=== PATIENT | male | born 1950 | race Caucasian/White ===

== ENCOUNTER 2016-07-17 11:00 | Inpatient (IN) | payer OTHER ==
[2016-07-17] VITALS (18 sets, daily range): BP systolic 97–126; BP diastolic 66–89; PULSE 84–113; TEMP 36.7–36.9; O2SAT 91–98; Ht 165.1 cm; Wt 68.5 kg
[~2016-07-17] VITALS: Ht 165.1 cm; Wt 68.5 kg
[2016-07-17] MEDS ORDERED: DILT60TA PO (13:31)
[2016-07-17] MEDS ORDERED: CMD/25 PO (13:31)
[2016-07-17] MEDS ORDERED: ATOR-24 PO (13:31)
[2016-07-17] MEDS ORDERED: AMX500 PO (13:31)
[2016-07-17] MEDS ORDERED: ALBU18002 (13:31)
[2016-07-17] MEDS ORDERED: IPRASOL4 INH (13:31)
[2016-07-17] MEDS ORDERED: LISI-461 PO (13:31)
[2016-07-17] MEDS ORDERED: IPRA1AER2 INH (13:31)
[2016-07-17] MEDS ORDERED: PANT40TA PO (13:31)
[2016-07-17] MEDS ORDERED: MoRPHine SULFATE 2 MG/ML CARP IV PRN (13:45)
[2016-07-17] MEDS ORDERED: ALBUT/IPRATROP 3MG/0.5MG NEB 3 ML VIAL INH PRN (13:45)
--- NOTE | 2016-07-17 13:51 | Critical Care Consultation ---
Critical Care Consultation Date of Consultation: Jul 17, 2016. Attending Physician: Social History Smoking Status: Former Smoker (quit smoking two weeks ago) Smokeless Tobacco Use: No Alcohol Use: none Drug Use: none Marital Status: Housing Status: lives alone (and is estranged from his children) Occupation Status: retired (two years ago) Allergies Coded Allergies: No Known Allergies (Unverified , 07/17/16) Home Medications Scheduled Albuterol Sulfate (Proair Respiclick), Unknown Dose UNKNOWN Arformoterol Tartrate (Brovana), 15 MCG INH BIDR Atorvastatin (Lipitor), 40 MG PO DAILY Budesonide (Inhalation) (Pulmicort Respules 0.5MG/2ML), 0.5 MG INH BIDR Diltiazem Hcl (Diltiazem Hcl), PO TID Ipratropium-Albuterol (Duoneb), 1 TREATMENT INH Q4H Lactobacillus Acidophilus (Floranex), 4 TAB PO TIDM Lisinopril (Lisinopril), PO DAILY Metformin Hcl (Glucophage), 500 MG PO DAILY Nystatin (Nystatin), 4 ML PO QID Pantoprazole (Protonix), 40 MG PO DAILY Prednisone (Prednisone), 5 MG PO UD Trimethoprim/Sulfamethoxazole (Bactrim 400MG/80MG), 1 TAB PO BID Warfarin Sod (Coumadin), 1 TAB PO DAILY [Enteral Nutrition Formula], 0.5 CAN PO TIDM
[2016-07-17] MEDS ORDERED: PATIENT'S ALLERGY INFO NEEDS ENTERED SCH (14:00)
--- NOTE | 2016-07-17 14:03 | Critical Care Consultation ---
Critical Care Consultation Date of Consultation: Jul 17, 2016. Attending Physician: Miles Hernandez MD History of Present Illness This is a pleasant 65 year old gentleman presenting as a direct admission to the ICU from [facility]. He was recently hospitalized at [facility] for a COPD exacerbation. He notes he was discharged after 5 days of IV antibiotics (uncertain which antibiotics he was given). He notes that this morning between 2-3 AM he woke up with sudden abdominal pain. He describes it as a mix of "aching, burning, stabbing and cramping" the abdomen between the genitalia and umbilicus. The pain is rated 3/10. He denies radiation to the back. He has been unable to have a bowel movement sine the pain started, nor has he been able to urinate. in addition, he denies have any diarrhea, melena or hematochezia either at home or during his recent hospitalization. He denies any fevers, chills, rigors or nightsweats. He does note multiple visits to [facility] in the past year for flare- ups of his COPD. Each time, he is given nebulizers and steroids. Past Medical/Surgical History Past Medical and Surgical History - Hypertension. - Hypercholesterolemia - Prosthetic Aortic Valve - Mitral Valve repair - Previous History of Diverticulitis Family History Mother and Maternal Aunt: Diabetes Mellitus Social History Smoking Status: Current Every Day Smoker (Quit July 14, smoked 1/2 pack cigarettes for the past 4-5 months) Smokeless Tobacco Use: No Alcohol Use: none Drug Use: none Marital Status: single Housing Status: lives alone, other Occupation Status: retired (previously sold farm equipment) Allergies Coded Allergies: No Known Allergies (Unverified , 07/17/16) Home Medications Scheduled Albuterol Sulfate (Proair Respiclick), Unknown Dose UNKNOWN Amoxicillin (Amoxicillin), PO TID Atorvastatin (Lipitor), 40 MG PO DAILY Diltiazem Hcl (Diltiazem Hcl), PO TID Ipratropium-Albuterol (Combivent Respimat), 2 PUFFS INH QID Lisinopril (Lisinopril), PO DAILY Pantoprazole (Protonix), 40 MG PO DAILY Warfarin Sod (Coumadin), 1 TAB PO DAILY Scheduled PRN Ipratropium-Albuterol (Duoneb), 1 TREATMENT INH Q4H PRN for Shortness of Breath Current Inpatient Medications Current Inpatient Medications Medications (Trade) Dose Ordered Sig/Jim Route Start Time Stop Time Status Last Admin Dose Admin Morphine Sulfate (MoRPHine SULFATE INJ) 2 mg Q2H PRN IV 07/17/16 13:45 07/31/16 13:44 UNV Albuterol/ Ipratropium (Duoneb) 3 ml Q4H PRN INH 07/17/16 13:45 08/16/16 13:44 UNV Review of Systems Review of systems was negative unless stated above. Physical Exam General Appearance: WD/WN, no apparent distress, + mild distress Head: normocephalic, atraumatic Eyes: normal inspection, EOMI ENT: hearing grossly normal, pharynx normal Neck: supple, no adenopathy, no JVD Respiratory/Chest: lungs clear, + pertinent finding (bilateral expiratory wheezing) Cardiovascular: regular rate, rhythm, no gallop, + irregularly irregular Abdomen/GI: normal bowel sounds (slightly hypoactive), + tenderness Back: no muscle spasm Extremities/Musculoskelatal: no calf tenderness, no pedal edema, + pertinent finding (cold extremities) Neurologic/Psych: alert, normal mood/affect, oriented x 3 Skin: normal color, warm/dry, no rash Lymphatic: no adenopathy Laboratory Results Last 24 Hours Test 07/17/16 13:43 07/17/16 13:[address] scan ([facility] ER result) Impression: - Inflammatory Bowel Disease involving the Colon. Differential diagnosis would include pseudomembranous colitis, as well as acute diverticulitis. The acute diverticulitis is less likely. The process is most severe along the lateral left colon at the descending colon. No small bowel obstruction is seen. Loose stool and liquid stool is noted within the colon. - Multiple renal cysts. Incidental cholelithiasis. Assessment & Plan 65 year male presenting with colitis. Differential diagnosis includes C.diff colitis, ulcerative colitis, crohn's disease. On background of recent antibiotic use as recently as 1 day ago, Antibiotic- induced C.diff colitis should be suspected at this time, especially given multiple episodes of diarrhea since arrival to the hospital. Our plan for him is as follows: Neurological - Alert and oriented x 3 - No evidence of confusion Respiratory COPD - Baseline 2 L of nasal cannula at home; currently on 2 L and saturating > 98% - Will start Xopenex in light of tachycardia and include Atrovent q4h He does have wheezing clinically on exam and does appear to be using accessory muscles Will provide one treatment - Patient was recently discharged from [facility] for COPD exacerbation; notes he was on a steroid taper Will require discharge summary with reconciled medications from most recent hospitalization Cardiac Atrial Fibrillation - Patient on Cardizem at home; did not take medications this morning - Notes he is only in Afib occasionally Monitor notes Afib rate of 108 - Coumadin on hold at this time as INR is 3.7 - Administer home dose of PO cardizem; at this time is adequately anticoagulated for stroke prophylaxis Hypertension - Patient on Lisinopril 10 mg PO daily - Patient BP stable currently, but noted to be relatively hypotensive during ER visit in [facility] Hold Lisinopril at this time History of Aortic Valve replacement and Mitral Valve Repair - Patient on Coumadin at home - Aortic valve is porcine - Goal likely 2.0 - 3.0; subtherapeutic; hold Coumadin Abdominal Colitis - On arrival diagnosis of C.diff unlikely given that he did not have any BMs up until that point; since then he has had multiple loose stools - In [facility] ED he received the following 4.5 g Piperacillin/Tazobactam IV 500 mg Flagyl IV Vancomycin 100 mg PO + 125 mg PO - Keep patient on clear liquid diet - Will send for C.diff studies at this time to guide antibiotic choice GI prophylaxis - PPI risk for C.diff - Will start Famotidine IV Genitourinary - Cr 0.9 in [facility] GFR > 60 Repeat in-house BMP pending - Monitor U/O, Daily weights - Electrolytes from [facility] Na 143; K 4.5; Chloride 105; Bicarb 27; BUN 37; Cr 0.9 Endocrine - Stable - No history of diabetes per patient; no meds in home list to suggest diabetic history - Monitor daily BSGs Heme - Hemoglobon 12.9/Hct 39.4 Supratherapeutic INR - Currently 3.7 - Hold Coumadin DVT prophylaxis - Supratherapeutic INR; pharmacological anticoagulation contra-indicatedd - SCD to knee Infectious Disease Possible Sepsis - Afebrile; WBC 19 on arrival to [facility]; in-house CBC elevated at 32 WBC may also be reflective of steroid burst from hospitalization in [facility] - With resp rate > 20 along with evidence of possible GI infection meets SIRS + Evidence of infection criteria - Lactate in [facility] 2.4; will re-check Lactate in-house - Cultures collected at [facility] ED; will need to call daily to follow-up on speciation/sensitivities - UA also collected MRSA Swab Positive - PO Vanco will not cover possible MRSA bacteriemia - Single IV dose 1000 mg Vancomycin now Code Status Level I Code Disposition - ICU - OT and PT to be consulted I have personally evaluated and examined this patient. I agree with assessment and plan of Vinay Corbett PA-C. I reviewed the outside hospital CT scan with radiology. No pneumotosis, less likely C. Diff, most consistent with unspecified infectious colitis. Patient is critically ill due to sepsis from infectious colitis. I have personally spent 40 minutes of critical care time in the direct management of this patient. This is a life/limb threatening event. This includes time spent evaluating patient, direct bedside care, chart review, placing orders, interpretation of diagnostic studies, discussion with consultants, patient, and family members, as well as other required patient management activities. This time is exclusive of all separately billable procedures, and teaching time and separate from and in addition to any other critical care service time.
[2016-07-17 14:55] LABS: HEMATOCRIT 39.8 % (42-52); MEAN CELL VOLUME 90.7 fL (80-100); MEAN CORPUSCULAR HEMOGLOBIN 29.6 pg (25-34); MEAN CORPUSCULAR HGB CONC 32.7 g/dl (32-36); MEAN PLATELET VOLUME 10.7 fL (7.4-10.4); PLATELET COUNT 305 K/uL (130-400); RED BLOOD COUNT 4.39 M/uL (4.7-6.1); WHITE BLOOD COUNT 32.47 K/uL (4.8-10.8)
[2016-07-17] MEDS ORDERED: LEVALBUTEROL/IPRATROPIUM NEB INH SCH (15:00)
[2016-07-17] MEDS ORDERED: DILTIAZEM HCL 60 MG TAB PO ONE (15:00)
[2016-07-17 15:11] LABS: BASO % 0.2 %; BASO ABS # 0.05 K/uL (0-0.2); COMPLETE YES; ECHINOCYTES 1+; LYMPH % 5.4 %; LYMPH ABS # 1.76 K/uL (1.2-3.4); NEUT % 85.4 %
[2016-07-17] MEDS: IPRATROPIUM BROMIDE NEB SOLN 0.02% 2.5 ML VIAL INH SCH ×4 (15:20→23:43)
[2016-07-17] MEDS: LEVALBUTEROL 1.25MG/0.5ML NEB INH SCH ×4 (15:20→23:43)
[2016-07-17 15:35] LABS: BUN/CREATININE RATIO 37.6 (10-20); CALCIUM 7.7 mg/dl (8.5-10.1); CREATININE 1.2 mg/dl (0.60-1.40); MAGNESIUM 2.2 mg/dl (1.8-2.4); POTASSIUM 4.5 mmol/L (3.5-5.1)
[2016-07-17 15:39] LABS: PHOSPHORUS 4.3 mg/dl (2.5-4.9)
[2016-07-17] MEDS ORDERED: VANCOMYCIN CONSULT ACTIVE PRN (15:45)
[2016-07-17 15:48] LABS: URINE APPEARANCE CLEAR (CLEAR); URINE COLOR DK YELLOW; URINE NITRITE NEG (NEG); URINE SPECIFIC GRAVITY > 1.045 (1.000-1.030); UROBILINOGEN NEG (NEG); ZZURINE CULT IF INDIC CATH NO
[2016-07-17 15:58] LABS: MANUAL MICROSCOPIC REQUIRED? NO; REVIEW REQ? NO; URINE BILIRUBIN NEG (NEG)
[2016-07-17] MEDS: VANCOMYCIN HCL 125 MG/2.5ML SOLN PO SCH ×3 (16:30→20:45)
[2016-07-17] MEDS ORDERED: VANCOMYCIN INJ 1,700 MG in SODIUM CHLORIDE 0.9% 500ML 500 ML IV ONE (16:30)
[2016-07-17] MEDS: RASPBERRY SYRUP 5 ML UDP PO SCH ×3 (16:30→20:45)
--- NOTE | 2016-07-17 16:35 | Pharmacy Progress Note ---
Pharmacy Antibiotic Consult Date of Service: Jul 17, 2016. Pharmacy Dosing Scope Pharmacy is consulted to initiate Vancomycin IV dosing therapy, order appropriate labs and adjust drug dose/frequency. Subjective The patient is a 65 year old male admitted on Jul 17, 2016 at 12:27 with possible sepsis. The patient is a direct admission to the ICU from [facility] where he presented with severe abdominal pain and abdominal distention. He was recently admitted to [facility] for five days for a COPD exacerbation. The patient received IV antibiotics during this stay ( exact drug unknown at this time). He has a history of diverticulitis, aortic valve replacement and mitral valve repair. Objective Height (Feet): 5 Height (Inches): 5.00 Weight (Kilograms): 67.200 Lab Results (24hrs): Laboratory Tests Test 07/17/16 14:25 BUN/Creatinine Ratio 37.6 Blood Urea Nitrogen 45 mg/dl Creatinine 1.20 mg/dl White Blood Count 32.47 K/uL Red Blood Count 4.39 M/uL Hemoglobin 13.0 g/dL Hematocrit 39.8 % Mean Corpuscular Volume 90.7 fL Mean Corpuscular Hemoglobin 29.6 pg Mean Corpuscular Hemoglobin Concent 32.7 g/dl Platelet Count 305 K/uL Mean Platelet Volume 10.7 fL Neutrophils (%) (Auto) 85.4 % Lymphocytes (%) (Auto) 5.4 % Monocytes (%) (Auto) 7.0 % Eosinophils (%) (Auto) 0.0 % Basophils (%) (Auto) 0.2 % Neutrophils # (Auto) 27.74 K/uL Lymphocytes # (Auto) 1.76 K/uL Monocytes # (Auto) 2.27 K/uL Eosinophils # (Auto) 0.01 K/uL Basophils # (Auto) 0.05 K/uL Micro Results: Item Value Date Time MRSA DNA Surveillance Screen - Final Complete 07/17/16 1335 Nasal Specimen Positive for MRSA by DNA Probe WBC Smear Received 07/17/16 1335 Stool Pending C.difficile Toxin B Gene (PCR) Received 07/17/16 1335 Stool Pending Additional cultures taken at [facility] prior to transfer Recent Pertinent Medications Zosyn 4.5g IV x 1 ([facility] ER) Flagyl 500 mg IV ([facility] ER) Vanco 125 mg po qid Assessment & Plan Assessment 65 year old direct admission to the ICU from [facility] with possible sepsis of intra-abdominal source (C.diff vs. ulcerative colitis vs. Crohn disease). Patient has significant leukocytosis, is tachycardic, and has an elevated lactic acid. He has a recent five day hospital stay during which he received IV antibiotics. Plan Empiric treatment with vancomycin IV + vancomycin PO (ICU pharmacist discussed with MD - will consider addition of zosyn). Vancomycin IV dosing * Loading dose: 1700 mg (25 mg/kg) * Maintenance dose: 1100 mg (16.4 mg/kg) IV every 16 hours * PK estimates: ke = 0.048 hr-1, T1/2 = 14.4 hr, Vd = 0.7 L/kg (unsure if patient's kidney function is at baseline - no previous admission data) * Goal trough level estimate for possible sepsis: between 15 - 20 mcg/mL. * Trough level has been ordered for: . Pharmacy will continue to follow and will adjust dose/frequency as necessary. Thank you
[2016-07-17] MEDS: FAMOTIDINE IV INJ 20 MG in DEXTROSE 5% 100ML 100 ML IV SCH (16:41)
[2016-07-17] MEDS: SODIUM CHLORIDE 0.9% 1000ML 1,000 ML IV SCH ×2 (16:41→22:29)
[2016-07-17] MEDS ORDERED: IPRATROPIUM BROMIDE/ALBUTEROL respimat INH INH SCH (17:00)
[2016-07-17] MEDS ORDERED: PIPERACILL/TAZOBAC CONSULT ACTIVE PRN (19:15)
[2016-07-17] MEDS ORDERED: PIPERACILL/TAZOBAC IV 4.5 GM in DEXTROSE 5% 100ML IV ONE (19:15)
[2016-07-17] MEDS: DILTIAZEM HCL 60 MG TAB PO SCH (20:45)
[2016-07-17] MEDS ORDERED: GLUCOSE 40% GEL 15 GM TUBE PO PRN (21:00)
[2016-07-17] MEDS ORDERED: DEXTROSE 50% 50 ML SYR IV PRN (21:00)
[2016-07-17] MEDS ORDERED: GLUCAGON FOR INJ 1 MG VIAL SQ PRN (21:00)
[2016-07-17] MEDS ORDERED: GLUCOSE 10 TABS/TUBE PO PRN (21:00)
--- NOTE | 2016-07-17 21:03 | Progress Note ---
Progress Note ATTENDING ADDENDUM care coordinated with VINEET Vera please refer to her notes for full details, I agree with her notes patient seen and examined, records reviewed by myself as well on exam, patient seen laying in bed reports mild dyspnea, wheezing, productive cough still has mild-mod abdominal pain, no diarrhea so far no other symptoms VS noted and reviewed oriented x 3 , not in distress, speaks in sentences with mild effort and accessory muscle use normal rate, irregularly irregular rhythm, no murmurs (+) scattered rales and wheeze bilaterally non distended, soft, nontender no bipedal edema, erythema, warmth no neuro deficits WBC 32k Crea 1.2 ASSESSMENT/PLAN> POSSIBLE INFECTIOUS COLITIS - check c diff, stool cultures - empiric Vanco and Zosyn COPD EXACERBATION - check CXR - start Solumedrol 60mg q8h, Nebs q4h, add Doxycycline for coverage of atypical organisms HYPERGLYCEMIA history of DM Sliding Scale, Pharmacy consult A FIB continue Diltiazem check INR before resuming coumadin other diagnoses and plan of care as per VINEET Vera's notes Miles Hernandez MD
[2016-07-17] MEDS ORDERED: PHARMACY GLYCEMIC MGMT CONSULT PRN (21:26)
--- NOTE | 2016-07-17 21:48 | DIAGNOSTIC IMAGING REPORT ---
CHEST ONE VIEW PORTABLE CLINICAL HISTORY: r/o pneumonia dyspnea COMPARISON STUDY: No previous studies for comparison. FINDINGS: Small parenchymal infiltrate left base. Prior median sternotomy. Diaphragms smooth. Lungs otherwise are clear. IMPRESSION: Small parenchymal infiltrate left lung base Electronically signed by: Adam Collins M.D. 07/17/2016 9:46 PM
[2016-07-17] MEDS ORDERED: PIPERACILL/TAZOBAC IV 3.375 GM in DEXTROSE 5% 100ML 100 ML IV SCH (22:00)
[2016-07-17] MEDS: METHYLPREDNISOLONE IV 60 MG in SYRINGE 0 ML IV SCH (22:27)
[2016-07-17] MEDS: DOXYCYCLINE HYCLATE 100 MG CAP PO SCH (22:27)
[2016-07-17] MEDS: INSULIN ASPART 100 UNITS/ML 3 ML PEN SC SCH (22:29)
[2016-07-17 22:56] LABS: INR 3.5 (0.9-1.1); PROTHROMBIN TIME (PATIENT) 38.9 SECONDS (9.0-12.0)
[2016-07-18] VITALS (25 sets, daily range): BP systolic 102–140; BP diastolic 67–105; PULSE 80–112; TEMP 36.4–36.9; O2SAT 91–98
--- NOTE | 2016-07-18 | History and Physical ---
History & Physical Date & Time of Service: Jul 17, 2016 at 14:26 Chief Complaint: Acute Colitis, Sepsis Primary Care Physician: Dr. Canas History of Present Illness Source: patient, hospital records ([facility] ER records) This is a 65 y/o male with PMH of COPD, chronic respiratory failure on 2L NC continuous, paroxysmal AF, HTN, HL, aortic stenosis s/p bioprosthetic AVR, s/p mitral valve repair, and other problems listed below who presents as a transfer to the ICU from [facility] ER. Patient was recently hospitalized x 5 days at [facility] for COPD exacerbation treated with IV abx and steroids and was discharged yesterday. Then at 2 am he awoke with sudden onset of low abdominal pain described as cramping. He had one episode of vomiting this morning without any hematemesis. He was not having any BM recently until in the ICU had multiple loose BM. No hematochezia or melena. He was unable to urinate today and had bladder scan >500 cc so Yun was placed in the ICU. He admits to SOB and wheezing. He denies fever, chills, cough, chest pain. Patient reports multiple hospitalizations in past year for COPD exacerbation. He admits to history of acute diverticulitis in the remote past. Denies history of abdominal surgery. In addition, on review of [facility] chart, he was [place] [facility] [place] for enterococcal bacteremia and had MIGUEL showing aortic valve endocarditis tx with 6 wk course of PCN and ceftriaxone. Past Medical/Surgical History Medical Problems: (1) COPD (chronic obstructive pulmonary disease) Status: Chronic (2) Dyslipidemia Status: Chronic (3) HTN (hypertension) Status: Chronic (4) Paroxysmal a-fib Status: Chronic Surgical Problems: (1) H/O aortic valve replacement Status: Chronic (2) H/O mitral valve repair Status: Chronic Family History Diabetes mellitus MOTHER Social History Smoking Status: Current Every Day Smoker (was prior 07/15 ppd smoker- quit july 14) Smokeless Tobacco Use: No Alcohol Use: none Allergies Coded Allergies: No Known Allergies (Unverified , 07/17/16) Home Medications Scheduled Albuterol Sulfate (Proair Respiclick), Unknown Dose UNKNOWN Amoxicillin (Amoxicillin), PO TID Atorvastatin (Lipitor), 40 MG PO DAILY Diltiazem Hcl (Diltiazem Hcl), PO TID Ipratropium-Albuterol (Combivent Respimat), 2 PUFFS INH QID Lisinopril (Lisinopril), PO DAILY Pantoprazole (Protonix), 40 MG PO DAILY Warfarin Sod (Coumadin), 1 TAB PO DAILY Scheduled PRN Ipratropium-Albuterol (Duoneb), 1 TREATMENT INH Q4H PRN for Shortness of Breath Review of Systems Ten point review of systems performed with pertinent positives and negatives note din HPI. Physical Exam General Appearance: WD/WN, + pertinent finding (appears mildly uncomfortable) Head: normocephalic, atraumatic Eyes: normal inspection, PERRL, EOMI ENT: normal ENT inspection, hearing grossly normal Neck: supple, no JVD, trachea midline Respiratory/Chest: + decreased breath sounds, + pertinent finding (expiratory wheezing heard throughout, mild accessory muscle use, pursed lip breathing, able to speak in full sentences) Cardiovascular: no murmur, + irregularly irregular Abdomen/GI: soft, + abnormal bowel sounds (present but hypoactive), + pertinent finding (diffusely tender to palpation) Genitourinary - Male: + pertinent finding (yun catheter draining yellow urine ) Extremities/Musculoskelatal: no calf tenderness, normal capillary refill, no pedal edema Neurologic/Psych: alert, normal mood/affect, oriented x 3, + pertinent finding (grossly nonfocal) Skin: normal color, warm/dry Diagnostics Laboratory Results Results Past 24 Hours Test 07/17/16 13:43 07/17/16 13:51 Range/Units Microbiology Results 07/17/16 MRSA DNA Surveillance Screen, Received Pending 07/17/16 C.difficile Toxin B Gene (PCR), Koki Batch Pending 07/17/16 WBC Smear, Koki Batch Pending 07/17/16 Shiga Toxin Test, Koki Batch Pending 07/17/16 Stool Culture, Koki Batch Pending Diagnostic Radiology CT A/P from [facility] ER- " Inflammatory Bowel Disease involving the Colon. Differential diagnosis would include pseudomembranous colitis, as well as acute diverticulitis. The acute diverticulitis is less likely. The process is most severe along the lateral left colon at the descending colon. No small bowel obstruction is seen. Loose stool and liquid stool is noted within the colon. Multiple renal cysts. Incidental cholelithiasis." Impression Assessment and Plan POSSIBLE SEPSIS Afebrile, WBC 19 at [facility] ER and 32K here, + tachypnea, HR 100s, borderline hypotension (90s/50s) at [facility]; lactic acid 2.4 at [facility]- recheck lactic acid Blood cultures obtained at [facility] ER Possible GI and Pulm sources Treated with IV Zosyn, IV Flagyl, and PO Vanco at [facility] Had positive MRSA swab- IV vancomycin ordered Now on PO vancomycin, IV vancomycin, and IV Zosyn; doxycycline added for pulm atypical coverage Appreciate hand lacer recs COLITIS Ruled out for C. diff; Ddx includes infectious colitis vs. inflammatory bowel disease CT A/p from [facility] noted above Treated with IV Zosyn, IV Flagyl, and PO Vanco at [facility] Check stool culture and C. diff COPD WITH EXACERBATION With chronic respiratory failure requiring 2 liters NC continuous Recently treated with abx/ steroids for COPD exac during hospitalization at [facility] from Jul 12-Jul 16 Check CXR- left side infiltrate IV steroids and nebs ordered Doxycycline added PAROXYSMAL AFIB Rate is controlled Continue Cardizem INR was 3.7 at [facility] ER Hold Coumadin HTN Was borderline hypotensive at [facility] ER (BP low as 90s/50s) Lisinopril held for now HX AORTIC VALVE REPLACEMENT AND MITRAL VALVE REPAIR HYPERGLYCEMIA Insulin sliding scale ordered Check A1c Pharmacy consulted for glycemic management DYSLIPIDEMIA Continue statin DVT PROPHYLAXIS SCD's, Coumadin on hold for supratherapeutic INR CODE STATUS Full code per hand lacer's discussion with patient Patient seen in collaboration with Dr. Hernandez. Please see his addendum. VTE Prophylaxis VTE Risk Assessment Done? Y/N: Yes Risk Level: Not Assessed
[2016-07-18] MEDS: PIPERACILL/TAZOBAC IV 4.5 GM in DEXTROSE 5% 100ML IV SCH ×3 (01:33→17:24)
[2016-07-18] MEDS: FAMOTIDINE IV INJ 20 MG in DEXTROSE 5% 100ML 100 ML IV SCH ×2 (03:31→16:34)
[2016-07-18] MEDS: LEVALBUTEROL 1.25MG/0.5ML NEB INH SCH ×6 (04:08→23:44)
[2016-07-18] MEDS: IPRATROPIUM BROMIDE NEB SOLN 0.02% 2.5 ML VIAL INH SCH ×6 (04:08→23:44)
[2016-07-18] MEDS: METHYLPREDNISOLONE IV 60 MG in SYRINGE 0 ML IV SCH (05:29)
[2016-07-18] MEDS: SODIUM CHLORIDE 0.9% 1000ML 1,000 ML IV SCH ×2 (05:29→09:40)
[2016-07-18] MEDS ORDERED: VANCOMYCIN INJ 1,100 MG in SODIUM CHLORIDE 0.9% 250ML 250 ML IV SCH ×2 (06:00→20:00)
[2016-07-18 06:06] LABS: MEAN CELL VOLUME 90.5 fL (80-100); MEAN CORPUSCULAR HEMOGLOBIN 29.8 pg (25-34); MEAN CORPUSCULAR HGB CONC 32.9 g/dl (32-36); MEAN PLATELET VOLUME 11.2 fL (7.4-10.4); PLATELET COUNT 198 K/uL (130-400); WHITE BLOOD COUNT 22.99 K/uL (4.8-10.8)
[2016-07-18 06:43] LABS: BUN/CREATININE RATIO 47.8 (10-20); CALCIUM 7.2 mg/dl (8.5-10.1); CREATININE 0.93 mg/dl (0.60-1.40); MAGNESIUM 2.1 mg/dl (1.8-2.4)
[2016-07-18 06:46] LABS: INR 2.8 (0.9-1.1); PROTHROMBIN TIME (PATIENT) 30.8 SECONDS (9.0-12.0)
[2016-07-18 06:50] LABS: ALB/GLOB RATIO 0.8 (0.9-2); PHOSPHORUS 3.4 mg/dl (2.5-4.9)
[2016-07-18 06:59] LABS: ESTIMATED AVERAGE GLUCOSE 166 mg/dl; HA1C FLAG Normal (Normal)
[2016-07-18] MEDS ORDERED: ONDANSETRON INJ 2 MG/ML 2 ML VIAL ONE (07:35)
[2016-07-18] MEDS ORDERED: INSULIN GLARGINE SOLOSTAR 100 UNITS/ML 3 ML PEN SC ONE (07:45)
[2016-07-18] MEDS ORDERED: NURSING VERBAL MED ORDER ONE (07:45)
--- NOTE | 2016-07-18 08:05 | Clinical Documentation Query ---
CLINICAL DOCUMENTATION QUERY 65-y/o male who presents as a direct admit from [facility] with suspected sepsis. In your clinical opinion is this patient being managed for: ( ) Aspiration pneumonia in setting of recent N/V ( ) Staphylococcal pneumonia in setting of HCAP (X ) Other explanation of clinical findings (Please Explain) Possible Pneumonia, unknown etiology ( ) Unable to determine (Please Define) ( ) Need to Discuss ( ) Not Agree The medical record reflects the following clinical findings, treatment, and risk factors. Clinical Indicators: Recent hospitalization for COPD exacerbation. Recent N/V. CXR showing infiltrate to left lung. Leukocytosis 32.47, tachypnea 28, tachycardia 107, and elevated BSG 227. +MRSA swab. Treatment: IVF boluses, Duonebs, IV Vancomycin, IV Zosyn, IV Solumedrol, PO Doxycycline, ICU hemodynamic monitoring, Risk Factors: Age, COPD, recent N/V, recent hospital stay. Please clarify and document your clinical opinion in the progress notes and discharge summary. Terms such as "probable", "suspected", "likely", "questionable", "possible", or "still to be ruled out" are acceptable. IF IN AGREEMENT, YOU MUST DOCUMENT ABOVE DIAGNOSTIC STATEMENT IN DAILY PROGRESS NOTES AND DISCHARGE SUMMARY. This document is not part of the patient's record. Thank You, Fran Clifton RN [phone]
[2016-07-18] MEDS ORDERED: ATORVASTATIN 40 MG TAB PO SCH (09:00)
--- NOTE | 2016-07-18 09:29 | Progress Note ---
Medicine Progress Note Date & Time of Visit: Jul 18, 2016 at 09:17. Subjective patient seen resting in bed states he feels slightly improved today breathing is somewhat improved, still has cough, unable to expectorate, denies chest pain has mild to moderate abdominal discomfort, had 2-3 diarrhea episodes last night , none today, no nausea denies other symptoms Objective Last 8 Hrs Date Time Temp Pulse Resp B/P Pulse Ox O2 Delivery O2 Flow Rate FiO2 07/18/16 08:00 Nasal Cannula 2.0 07/18/16 07:59 36.9 83 22 107/67 98 Nasal Cannula 2.0 07/18/16 07:59 100 16 93 Nasal Cannula 3.0 07/18/16 06:59 100 15 127/81 95 Nasal Cannula 2.0 07/18/16 04:08 101 16 96 Nasal Cannula 3.0 07/18/16 04:00 96 Nasal Cannula 2.0 07/18/16 04:00 36.7 07/18/16 02:59 92 18 135/83 96 07/18/16 01:59 81 15 104/85 95 Physical Exam: General-oriented x 3, not in distress, speaks in sentences with no effort, no accessory muscle use Eyes- EOMI, anicteric ENT-oral thrush Neck- supple, no JVD, no adenopathy Lungs- (+) mild scattered wheeze bilaterally Heart-tachycardic, irregularly irregular rhythm; no murmurs Abdomen- normal bowel sounds, non distended, soft, mild lower quadrant tenderness Extremities- no pretibial edema, no calf tenderness; peripheral pulses intact Neuro- alert, oriented x 3; no gross focal deficits Skin- warm & dry Laboratory Results: Last 24 Hours Test 07/17/16 14:15 07/17/16 14:25 07/17/16 16:36 07/17/16 19:46 Urine Color DK YELLOW Urine Appearance CLEAR Urine pH 5.0 Urine Specific [place] > 1.045 Urine Protein NEG Urine Glucose (UA) 3+ Urine Ketones NEG Urine Occult Blood NEG Urine Nitrite NEG Urine Bilirubin NEG Urine Urobilinogen NEG Urine Leukocyte Esterase NEG White Blood Count 32.47 K/uL Red Blood Count 4.39 M/uL Hemoglobin 13.0 g/dL Hematocrit 39.8 % Mean Corpuscular Volume 90.7 fL Mean Corpuscular Hemoglobin 29.6 pg Mean Corpuscular Hemoglobin Concent 32.7 g/dl Platelet Count 305 K/uL Mean Platelet Volume 10.7 fL Neutrophils (%) (Auto) 85.4 % Lymphocytes (%) (Auto) 5.4 % Monocytes (%) (Auto) 7.0 % Eosinophils (%) (Auto) 0.0 % Basophils (%) (Auto) 0.2 % Neutrophils # (Auto) 27.74 K/uL Lymphocytes # (Auto) 1.76 K/uL Monocytes # (Auto) 2.27 K/uL Eosinophils # (Auto) 0.01 K/uL Basophils # (Auto) 0.05 K/uL RDW Standard Deviation 54.3 fL RDW Coefficient of Variation 16.6 % Immature Granulocyte % (Auto) 2.0 % Immature Granulocyte # (Auto) 0.64 K/uL Echinocytes 1+ Sodium Level 145 mmol/L Potassium Level 4.5 mmol/L Chloride Level 109 mmol/L Carbon Dioxide Level 25 mmol/L Anion Gap 11.0 mmol/L Blood Urea Nitrogen 45 mg/dl Creatinine 1.20 mg/dl Est Creatinine Clear Calc Drug Dose 52.7 ml/min Estimated GFR () 72.6 Estimated GFR (Non- 62.6 BUN/Creatinine Ratio 37.6 Random Glucose 227 mg/dl Lactic Acid Level 3.3 mmol/L 1.6 mmol/L Calcium Level 7.7 mg/dl Phosphorus Level 4.3 mg/dl Magnesium Level 2.2 mg/dl Total Bilirubin 0.6 mg/dl Direct Bilirubin 0.1 mg/dl Aspartate Amino Transf (AST/SGOT) 13 U/L Alanine Aminotransferase (ALT/SGPT) 35 U/L Alkaline Phosphatase 133 U/L Total Protein 4.6 gm/dl Albumin 2.5 gm/dl Lipase 151 U/L Hepatitis C Antibody Screen NEG Bedside Glucose 198 mg/dl Test 07/17/16 20:48 07/17/16 22:16 07/18/16 05:30 07/18/16 06:30 Bedside Glucose 227 mg/dl Prothrombin Time 38.9 SECONDS 30.8 SECONDS Prothromb Time International Ratio 3.5 2.8 White Blood Count 22.99 K/uL Red Blood Count 4.20 M/uL Hemoglobin 12.5 g/dL Hematocrit 38.0 % Mean Corpuscular Volume 90.5 fL Mean Corpuscular Hemoglobin 29.8 pg Mean Corpuscular Hemoglobin Concent 32.9 g/dl RDW Standard Deviation 55.5 fL RDW Coefficient of Variation 16.9 % Platelet Count 198 K/uL Mean Platelet Volume 11.2 fL Sodium Level 146 mmol/L Potassium Level 4.0 mmol/L Chloride Level 113 mmol/L Carbon Dioxide Level 24 mmol/L Anion Gap 9.0 mmol/L Blood Urea Nitrogen 45 mg/dl Creatinine 0.93 mg/dl Est Creatinine Clear Calc Drug Dose 68.0 ml/min Estimated GFR () 98.8 Estimated GFR (Non- 85.2 BUN/Creatinine Ratio 47.8 Random Glucose 245 mg/dl Estimated Average Glucose 166 mg/dl Hemoglobin A1c 7.4 % Calcium Level 7.2 mg/dl Phosphorus Level 3.4 mg/dl Magnesium Level 2.1 mg/dl Total Bilirubin 0.6 mg/dl Aspartate Amino Transf (AST/SGOT) 15 U/L Alanine Aminotransferase (ALT/SGPT) 27 U/L Alkaline Phosphatase 126 U/L Total Protein 4.4 gm/dl Albumin 1.9 gm/dl Globulin 2.5 gm/dl Albumin/Globulin Ratio 0.8 Test 07/18/16 06:32 Bedside Glucose 265 mg/dl Date/Time Source Procedure Growth Status 07/17/16 13:35 Nasal MRSA DNA Surveillance Screen - Final Specimen Positive for MRSA by DNA Probe Complete 07/17/16 13:35 Stool C.difficile Toxin B Gene (PCR) - Final No C. difficile toxin B gene detected Complete 07/17/16 13:35 Stool WBC Smear - Final Resulted 07/17/16 13:35 Stool Shiga Toxin Test Pending Resulted 07/17/16 13:35 Stool Stool Culture Pending Resulted Assessment & Plan 65 year old male with history of COPD on 2 liters NC, A fib on coumadin, AV replacement, MV Repair, Hypertension POSSIBLE SEPSIS SECONDARY TO COLITIS, PNEUMONIA Afebrile, WBC 19 at [facility] and 32K here, + tachypnea, HR 100s, borderline hypotension (90s/50s) at [facility]; lactic acid 2.4 at [facility]- recheck lactic acid Blood cultures obtained at [facility] Treated with IV Zosyn, IV Flagyl, and PO Vanco at [facility] -- afebrile, WBC decreasing COLITIS Ruled out for C. diff; Ddx includes infectious colitis vs. inflammatory bowel disease CT A/p from [facility] noted - C diff negative stool cultures pending - on empiric Zosyn clear liquids IV fluids - GI consulted LEFT LOWER LOBE PNEUMONIA - ff up blood, sputum cultures - (+) MRSA nasal swab - continue Vancomycin, Zosyn, Doxycycline Day 2 COPD WITH EXACERBATION With chronic respiratory failure requiring 2 liters NC continuous Recently treated with abx/ steroids for COPD exac during hospitalization at [facility] from Jul 12-Jul 16 -- Nebs q4h, Solumedrol q6h, antibiotics -- seems to be improving PAROXYSMAL AFIB Rate is controlled Continue Cardizem -- INR 2.8 hold coumadin HTN Was borderline hypotensive at [facility] (BP low as 90s/50s) Lisinopril held for now DM TYPE 2 A1c 7.2 ISS Pharmacy consulted HX AORTIC VALVE REPLACEMENT AND MITRAL VALVE REPAIR ff up blood cultures DYSLIPIDEMIA hold statin until gi symptoms resolved DVT PROPHYLAXIS SCD's, Coumadin on hold for supratherapeutic INR CODE STATUS Full code per revolving field assembler's discussion with patient Disposition pending Current Inpatient Medications: Current Inpatient Medications Medications (Trade) Dose Ordered Sig/Jim Route Start Time Stop Time Status Last Admin Dose Admin Morphine Sulfate (MoRPHine SULFATE INJ) 2 mg Q2H PRN IV 07/17/16 13:45 07/31/16 13:44 07/17/16 17:09 2 MG Albuterol/ Ipratropium (Duoneb) 3 ml Q4H PRN INH 07/17/16 13:45 08/16/16 13:44 Future Hold Atorvastatin Calcium (Lipitor Tab) 40 mg DAILY PO 07/18/16 09:00 08/17/16 08:59 Diltiazem HCl 60 mg 60 mg TID PO 07/17/16 21:00 08/16/16 20:59 07/17/16 20:45 60 MG Famotidine/ Dextrose (Pepcid IV Inj/ D5 100ml) 102 ml @ 200 mls/hr Q12H IV 07/17/16 16:00 08/16/16 15:59 07/18/16 03:31 200 MLS/HR Nicotine (Nicoderm Cq 7 Mg Patch) 1 patch QAM TD 07/18/16 09:00 08/17/16 08:59 Miscellaneous 1 ea 1 ea HS N/A 07/17/16 21:00 08/16/16 20:59 07/17/16 20:45 1 EA Sodium Chloride (Nss 1000ml) 1,000 ml @ 150 mls/hr Q6H40M IV 07/17/16 15:30 08/16/16 15:29 07/18/16 05:29 150 MLS/HR Vancomycin HCl (Consult) 1 ea UD PRN N/A 07/17/16 15:45 08/16/16 15:44 Vancomycin HCl (Vancomycin Oral Soln) 125 mg QID PO 07/17/16 16:30 07/31/16 16:29 07/17/16 20:45 125 MG Raspberry 5 ml 5 ml QID PO 07/17/16 16:30 07/31/16 16:29 07/17/16 20:45 5 ML Vancomycin HCl/ Sodium Chloride (Vancomycin Inj/ Nss 250ml) 272 ml @ 125 mls/hr Q16H IV 07/18/16 06:00 07/27/16 15:59 07/18/16 05:29 125 MLS/HR Piperacillin Sod/ Tazobactam Sod 1 ea 1 ea UD PRN N/A 07/17/16 19:15 08/16/16 19:14 Piperacillin Sod/ Tazobactam Sod/ Dextrose (Zosyn Iv/D5 100ml) 120 ml @ 30 mls/hr Q8@0200,1000,1800 IV 07/18/16 02:00 07/28/16 01:59 07/18/16 01:33 30 MLS/HR Ipratropium [place] (Atrovent 0.02% 0.5MG/2.5ML Neb) 0.5 mg Q4R INH 07/17/16 21:00 08/16/16 20:59 07/18/16 07:56 0.5 MG Levalbuterol 1.25 mg 1.25 mg Q4R INH 07/17/16 21:00 08/16/16 20:59 07/18/16 07:59 1.25 MG Methylprednisolone Sodium Succinate/ Syringe (Solu-Medrol IV/ Syringe) 0.96 ml @ 1.5 mls/min Q8@0600,1400,2200 IV 07/17/16 22:00 08/16/16 21:59 07/18/16 05:29 1.5 MLS/MIN Insulin Aspart (novoLOG ASPART) SLIDING SCALE If C... ACHS SC 07/17/16 22:00 08/16/16 21:59 07/17/16 22:29 2 UNITS Glucose (Glucose 40% Gel) 15-30 GRAMS 15 GRAMS... UD PRN PO 07/17/16 21:00 08/16/16 20:59 Glucose (Glucose Chew Tab) 4-8 Tablets 4 Tabl... UD PRN PO 07/17/16 21:00 08/16/16 20:59 Dextrose (Dextrose 50% 50ML Syringe) 25-50ML OF 50% DW IV FOR... UD PRN IV 07/17/16 21:00 08/16/16 20:59 Glucagon (Glucagon Inj) 1 mg UD PRN SQ 07/17/16 21:00 08/16/16 20:59 Miscellaneous Information (Consult Glycemic Management Pharmacy) 1 ea UD PRN N/A 07/17/16 21:26 08/16/16 21:25 Doxycycline Hyclate (Vibramycin Cap) 100 mg BID PO 07/17/16 21:00 07/24/16 20:59 07/17/16 22:27 100 MG Ondansetron HCl (Zofran Inj) 4 mg Q6H PRN IV 07/18/16 08:00 08/17/16 07:59
[2016-07-18] MEDS: DILTIAZEM HCL 60 MG TAB PO SCH ×3 (09:31→21:38)
[2016-07-18] MEDS: DOXYCYCLINE HYCLATE 100 MG CAP PO SCH ×2 (09:31→21:38)
[2016-07-18] MEDS: NICOTINE 7 MG/24 HR TDSY TD SCH (09:32)
[2016-07-18] MEDS: INSULIN ASPART 100 UNITS/ML 3 ML PEN SC SCH ×4 (09:38→21:43)
[2016-07-18] MEDS: RASPBERRY SYRUP 5 ML UDP PO SCH (09:39)
[2016-07-18] MEDS: VANCOMYCIN HCL 125 MG/2.5ML SOLN PO SCH (09:40)
[2016-07-18] MEDS: NYSTATIN SUSP 500,000 U/5 ML UDC PO SCH ×5 (10:00→21:38)
--- NOTE | 2016-07-18 11:24 | Critical Care Progress Note ---
Critical Care Progress Note Date of Service Jul 18, 2016. Attending Dr. Hsu Subjective Patient appears more awake and alert today Feels a little bit better; still gets intermittent cramping but less intense Had 2 jany colored stools overnight per nursing No other issues during overnight period Objective Physical Exam: General: Comfortable, no apparent distress Eyes: PERRL, normal EOM bilaterally ENT: Mucous membranes slightly dry, pharynx clear, TM clear Neck: No JVD, no lymphadenopathy, no thyromegaly Lungs: Clear to auscultation bilaterally, wheezing noted on examination yes improved after nebulizer treatment; still likely persistent at low grade due to COPD, no crackles Heart: S1 and S2 with no added sounds or murmurs Abdomen: Soft, mildly distended, diffuse low-grade tenderness; cannot palpate deep due to tenderness; bowel sounds audible Extremities: No pitting edema, no asymmetric swelling, no calf pain or tenderness Neuro: AO x 3, responds to commands appropriately, normal mood and affect Assessment & Plan 65 year male presenting with colitis. Differential diagnosis includes C.diff colitis, non-specific infectious colitis , ulcerative colitis, crohn's disease. He comes here on background of recent antibiotic 1 day prior to arrival at [facility]. 2 C.diff toxin assays have been negative, making C.diff less likely etiology. However, it is unclear at this time, whether he has previously been treated for C.diff especially at most recent admission at [facility]. Our plan for him is as follows: Neurological - Alert and oriented x 3; ICU-CAM negative - Stable Respiratory COPD - Baseline 2 L of nasal cannula at home; currently on 2 L maintaining saturations - Continue Xopenex and Atrovent nebs q 4 hourly - Solu-medrol 60 mg IV TID Noted from discharge summary from [facility] on 07/16 Noted to have made upwards of 50 visits to the ED with 8 hospitalizations for COPD exaccerbations Patient was weaned to 10 mg PO. On exam, he is on baseline O2 needs, reduced wheezing Reduce Solu-medrol dosing to 40 mg IV BID; can easily be converted to PO tomorrow Reviewe discharge medications from [facility]. Patient was to take Brovana and Pulmicort Nebs BID on discharge which were not on his medication regimen on arrival to [facility] Brovana nebs BID Pulmicort nebs BID Will need prescriptions for these medicines at discharge Left Lower Lobe Infiltrate - As reported by radiology - Started on Doxycycline for atypical coverage - Patient is MRSA colonized; cannot rule out MRSA source --> Vancomycin started on admission Cardiac Atrial Fibrillation - Patient is asymptomatic at this time; does not report palpitations - Patient on Cardizem at home; did not take medications this morning - Notes he is only in Afib occasionally Monitor notes Afib rate high 90s - low 100s - INR 2.8 today; within range of 2-3; adequately anticoagulated - Continue home dosing of Cardizem Hypertension - BP stable, most recent 135/83 - Continue to monitor off Lisinopril History of Aortic Valve replacement and Mitral Valve Repair - Patient on Coumadin at home 2.5 mg daily - Aortic valve is porcine - Goal likely 2-3. Today INR improved to 2.8. Abdominal Possible Colitis - Unlikely give C.diff toxin assay negative x 2 -However, old records from [facility] from most recent admission requested; we are looking for evidence that he was diagnosed and/or treated for C.diff at their facility, which may result in false negative toxin assay when arrived to [facility] - Blood cultures from [facility] reporting Gram negative rods; identities and sensitivities unknown - No mention of C. diff in notes from his most recent admission to [facility] - Continue Piperacillin/Tazobactam - Keep patient on clear liquid diet GI prophylaxis - Famotidine (conversely, PPI increases risk of C.diff so will avoid in light of ongoing colitis) Genitourinary - Cr 0.9; increased to 1.2 on admission yesterday but gone back down to 0.9 - Monitor U/O, Daily weights UO yesterday was 850 mll out (0.5 ml/kg/hr) - Electrolytes Na 146; K 4.0; Cl 113; HCO3 24; BUN 45 (stable); Cr 0.93 Endocrine - BSG yesterday/overnight ranging from 198-227 I would expect patient was on steroids during most recent admission causing insulin resistance - HbA1c elevated at 7.4, which suggests this is long-standing - Insulin Sliding Scale ordered: Goal 140-180; CF 30; Correction Factor 15 Heme - Hemoglobin 12.9/Hct 39.4 Supratherapeutic INR - INR normalized today to 2.8 - Restart Coumadin Today - Daily INR DVT prophylaxis - INR therapeutic today - SCDs ordered Infectious Disease Sepsis due to Colitis - Blood cultures from [facility] report Gram negative Rods - Patient arrived with Leukocytosis RR > 20, tachycardia and Tachypnea - Lactate went as high as 3.3 - Today; Afebrile; WBC improved to 22, down from 32 yesterday; Lactate down to 1.2; BP Stable; continues to have mild tachypnea Consider leukocytosis as possibly being caused by recent course of steroids - Possible etiologies UA negative; no reflex culture Infiltrate on CXR --> ?PNA? Colitis on CT; C.diff negative; non-specific infectious colitis? Bacteremia with Gram negative rods - Unlikely to be C.diff; It is inclear if patient diagnosed/treated for C.diff at [facility] giving negative result. Old records reviewed; no mention on most recent admission on 07/10 - 07/16 of diagnosis/treatment for C.diff colitis. Thus we have sufficient evidence to rule-out C.diff Stop PO Vancomycin - History notes multiple hospital visits due to COPD flare-up; patient should be treated for health-care associated infection --> Patient requires Pseudomonas coverage - Continue Piperacillin/Tazobactam coverage for gram negatives including Pseudomonas - Reviewed resistance patterns with antibiogram from [facility]. Notes Pseudomonas has 95% sensitivity to Zosyn; would hold off on Dual coverage at this time. PNA with concurrent MRSA Swab Positive - No gram positives noted on blood culture therefore not MRSA bacteremia - Possible MRSA involvement with PNA - Continue IV Vancomycin - Continue Doxycycline Code Status Level I Code Disposition - Patient is hemodynamically stable at this time and requiring baseline oxygen of 2L Patient can be transferred - OT and PT to be consulted Resident Physician Supervision Note: Dr. Gomez was resident physician during care of patient. I separately evaluated patient and did history and exam. I discussed the case with the resident and generally agree with the findings and plan. Patient with bacteremia and unofficial heart valves, will require echo to further evaluate source. Likely source remains most likely the colon. I have personally spent 35 minutes of critical care time in the direct management of this patient. This is a life/limb threatening event. This includes time spent evaluating patient, direct bedside care, chart review, placing orders, interpretation of diagnostic studies, discussion with consultants, patient, and family members, as well as other required patient management activities. This time is exclusive of all separately billable procedures, and teaching time and separate from and in addition to any other critical care service time. Documented By: Olu Hsu DO Data Medications: Current Inpatient Medications Medications (Trade) Dose Ordered Sig/Jim Route Start Time Stop Time Status Last Admin Dose Admin Morphine Sulfate (MoRPHine SULFATE INJ) 2 mg Q2H PRN IV 07/17/16 13:45 07/31/16 13:44 07/17/16 17:09 2 MG Albuterol/ Ipratropium (Duoneb) 3 ml Q4H PRN INH 07/17/16 13:45 08/16/16 13:44 Future Hold Diltiazem HCl 60 mg 60 mg TID PO 07/17/16 21:00 08/16/16 20:59 07/18/16 09:31 60 MG Famotidine/ Dextrose (Pepcid IV Inj/ D5 100ml) 102 ml @ 200 mls/hr Q12H IV 07/17/16 16:00 08/16/16 15:59 07/18/16 03:31 200 MLS/HR Nicotine (Nicoderm Cq 7 Mg Patch) 1 patch QAM TD 07/18/16 09:00 08/17/16 08:59 07/18/16 09:32 1 PATCH Miscellaneous 1 ea 1 ea HS N/A 07/17/16 21:00 08/16/16 20:59 07/17/16 20:45 1 EA Sodium Chloride (Nss 1000ml) 1,000 ml @ 150 mls/hr Q6H40M IV 07/17/16 15:30 08/16/16 15:29 07/18/16 09:40 150 MLS/HR Vancomycin HCl (Consult) 1 ea UD PRN N/A 07/17/16 15:45 08/16/16 15:44 Vancomycin HCl (Vancomycin Oral Soln) 125 mg QID PO 07/17/16 16:30 07/31/16 16:29 07/18/16 09:40 125 MG Raspberry 5 ml 5 ml QID PO 07/17/16 16:30 07/31/16 16:29 07/18/16 09:39 5 ML Vancomycin HCl/ Sodium Chloride (Vancomycin Inj/ Nss 250ml) 272 ml @ 125 mls/hr Q16H IV 07/18/16 06:00 07/27/16 15:59 07/18/16 05:29 125 MLS/HR Piperacillin Sod/ Tazobactam Sod 1 ea 1 ea UD PRN N/A 07/17/16 19:15 08/16/16 19:14 Piperacillin Sod/ Tazobactam Sod/ Dextrose (Zosyn Iv/D5 100ml) 120 ml @ 30 mls/hr Q8@0200,1000,1800 IV 07/18/16 02:00 07/28/16 01:59 07/18/16 09:32 30 MLS/HR Ipratropium [place] (Atrovent 0.02% 0.5MG/2.5ML Neb) 0.5 mg Q4R INH 07/17/16 21:00 08/16/16 20:59 07/18/16 07:56 0.5 MG Levalbuterol 1.25 mg 1.25 mg Q4R INH 07/17/16 21:00 08/16/16 20:59 07/18/16 07:59 1.25 MG Methylprednisolone Sodium Succinate/ Syringe (Solu-Medrol IV/ Syringe) 0.96 ml @ 1.5 mls/min Q8@0600,1400,2200 IV 07/17/16 22:00 08/16/16 21:59 07/18/16 05:29 1.5 MLS/MIN Insulin Aspart (novoLOG ASPART) SLIDING SCALE If C... ACHS SC 07/17/16 22:00 08/16/16 21:59 07/18/16 09:38 4 UNITS Glucose (Glucose 40% Gel) 15-30 GRAMS 15 GRAMS... UD PRN PO 07/17/16 21:00 08/16/16 20:59 Glucose (Glucose Chew Tab) 4-8 Tablets 4 Tabl... UD PRN PO 07/17/16 21:00 08/16/16 20:59 Dextrose (Dextrose 50% 50ML Syringe) 25-50ML OF 50% DW IV FOR... UD PRN IV 07/17/16 21:00 08/16/16 20:59 Glucagon (Glucagon Inj) 1 mg UD PRN SQ 07/17/16 21:00 08/16/16 20:59 Miscellaneous Information (Consult Glycemic Management Pharmacy) 1 ea UD PRN N/A 07/17/16 21:26 08/16/16 21:25 Doxycycline Hyclate (Vibramycin Cap) 100 mg BID PO 07/17/16 21:00 07/24/16 20:59 07/18/16 09:31 100 MG Ondansetron HCl (Zofran Inj) 4 mg Q6H PRN IV 07/18/16 08:00 08/17/16 07:59 Enteral Nutritional Formula (Boost Glucose Control) 1 can TID PO 07/18/16 14:00 08/17/16 13:59 Nystatin (Mycostatin Susp) 4 ml QID PO 07/18/16 10:00 07/28/16 09:59 I & O: 24-Hour Column 07/18/16 08:00 Intake Total 2865 ml Output Total 1175 ml Balance 1690 ml Vital Signs: Date Time Temp Pulse Resp B/P Pulse Ox O2 Delivery O2 Flow Rate FiO2 07/18/16 10:00 112 22 91 Nasal Cannula 2.0 07/18/16 08:59 106 17 134/73 92 Nasal Cannula 2.0 07/18/16 08:00 Nasal Cannula 2.0 07/18/16 07:59 36.9 83 22 107/67 98 Nasal Cannula 2.0 07/18/16 07:59 100 16 93 Nasal Cannula 3.0 07/18/16 06:59 100 15 127/81 95 Nasal Cannula 2.0 07/18/16 04:08 101 16 96 Nasal Cannula 3.0 07/18/16 04:00 96 Nasal Cannula 2.0 07/18/16 04:00 36.7 07/18/16 02:59 92 18 135/83 96 07/18/16 01:59 81 15 104/85 95 07/18/16 00:59 100 17 115/89 94 07/18/16 00:01 36.7 07/17/16 23:59 95 Nasal Cannula 3.0 07/17/16 23:59 89 18 125/89 95 07/17/16 23:42 93 16 95 Nasal Cannula 2.0 07/17/16 22:59 100 19 126/79 95 07/17/16 21:59 93 22 120/80 91 07/17/16 21:33 84 21 112/74 92 07/17/16 20:59 112 26 112/74 92 07/17/16 20:22 113 16 93 Nasal Cannula 2.0 07/17/16 20:03 98 21 122/66 94 07/17/16 20:00 36.9 07/17/16 20:00 94 Nasal Cannula 2.0 07/17/16 17:58 95 22 108/72 94 Nasal Cannula 2.0 07/17/16 16:59 95 22 99/76 95 Nasal Cannula 2.0 07/17/16 16:52 36.7 97 27 116/84 97 Nasal Cannula 2.0 07/17/16 16:00 Nasal Cannula 2.0 07/17/16 15:21 96 14 98 Nasal Cannula 2.0 07/17/16 14:59 93 24 97/70 97 Nasal Cannula 2.0 07/17/16 14:34 36.9 105 24 111/81 93 Nasal Cannula 2.0 07/17/16 14:18 107 28 99/71 98 Nasal Cannula 2.0 07/17/16 12:59 87 21 120/75 94 Nasal Cannula 2.0 07/17/16 12:36 111/81 Laboratory Results: Last 24 Hours Test 07/17/16 14:15 07/17/16 14:25 07/17/16 16:36 07/17/16 19:46 Urine Color DK YELLOW Urine Appearance CLEAR Urine pH 5.0 Urine Specific [place] > 1.045 Urine Protein NEG Urine Glucose (UA) 3+ Urine Ketones NEG Urine Occult Blood NEG Urine Nitrite NEG Urine Bilirubin NEG Urine Urobilinogen NEG Urine Leukocyte Esterase NEG White Blood Count 32.47 K/uL Red Blood Count 4.39 M/uL Hemoglobin 13.0 g/dL Hematocrit 39.8 % Mean Corpuscular Volume 90.7 fL Mean Corpuscular Hemoglobin 29.6 pg Mean Corpuscular Hemoglobin Concent 32.7 g/dl Platelet Count 305 K/uL Mean Platelet Volume 10.7 fL Neutrophils (%) (Auto) 85.4 % Lymphocytes (%) (Auto) 5.4 % Monocytes (%) (Auto) 7.0 % Eosinophils (%) (Auto) 0.0 % Basophils (%) (Auto) 0.2 % Neutrophils # (Auto) 27.74 K/uL Lymphocytes # (Auto) 1.76 K/uL Monocytes # (Auto) 2.27 K/uL Eosinophils # (Auto) 0.01 K/uL Basophils # (Auto) 0.05 K/uL RDW Standard Deviation 54.3 fL RDW Coefficient of Variation 16.6 % Immature Granulocyte % (Auto) 2.0 % Immature Granulocyte # (Auto) 0.64 K/uL Echinocytes 1+ Sodium Level 145 mmol/L Potassium Level 4.5 mmol/L Chloride Level 109 mmol/L Carbon Dioxide Level 25 mmol/L Anion Gap 11.0 mmol/L Blood Urea Nitrogen 45 mg/dl Creatinine 1.20 mg/dl Est Creatinine Clear Calc Drug Dose 52.7 ml/min Estimated GFR () 72.6 Estimated GFR (Non- 62.6 BUN/Creatinine Ratio 37.6 Random Glucose 227 mg/dl Lactic Acid Level 3.3 mmol/L 1.6 mmol/L Calcium Level 7.7 mg/dl Phosphorus Level 4.3 mg/dl Magnesium Level 2.2 mg/dl Total Bilirubin 0.6 mg/dl Direct Bilirubin 0.1 mg/dl Aspartate Amino Transf (AST/SGOT) 13 U/L Alanine Aminotransferase (ALT/SGPT) 35 U/L Alkaline Phosphatase 133 U/L Total Protein 4.6 gm/dl Albumin 2.5 gm/dl Lipase 151 U/L Hepatitis C Antibody Screen NEG Bedside Glucose 198 mg/dl Test 07/17/16 20:48 07/17/16 22:16 07/18/16 05:30 07/18/16 06:30 Bedside Glucose 227 mg/dl Prothrombin Time 38.9 SECONDS 30.8 SECONDS Prothromb Time International Ratio 3.5 2.8 White Blood Count 22.99 K/uL Red Blood Count 4.20 M/uL Hemoglobin 12.5 g/dL Hematocrit 38.0 % Mean Corpuscular Volume 90.5 fL Mean Corpuscular Hemoglobin 29.8 pg Mean Corpuscular Hemoglobin Concent 32.9 g/dl RDW Standard Deviation 55.5 fL RDW Coefficient of Variation 16.9 % Platelet Count 198 K/uL Mean Platelet Volume 11.2 fL Sodium Level 146 mmol/L Potassium Level 4.0 mmol/L Chloride Level 113 mmol/L Carbon Dioxide Level 24 mmol/L Anion Gap 9.0 mmol/L Blood Urea Nitrogen 45 mg/dl Creatinine 0.93 mg/dl Est Creatinine Clear Calc Drug Dose 68.0 ml/min Estimated GFR () 98.8 Estimated GFR (Non- 85.2 BUN/Creatinine Ratio 47.8 Random Glucose 245 mg/dl Estimated Average Glucose 166 mg/dl Hemoglobin A1c 7.4 % Calcium Level 7.2 mg/dl Phosphorus Level 3.4 mg/dl Magnesium Level 2.1 mg/dl Total Bilirubin 0.6 mg/dl Aspartate Amino Transf (AST/SGOT) 15 U/L Alanine Aminotransferase (ALT/SGPT) 27 U/L Alkaline Phosphatase 126 U/L Total Protein 4.4 gm/dl Albumin 1.9 gm/dl Globulin 2.5 gm/dl Albumin/Globulin Ratio 0.8 Test 07/18/16 06:32 Bedside Glucose 265 mg/dl
[2016-07-18] MEDS ORDERED: ARFORMOTEROL TART 15MCG/2ML VIAL INH ONE (12:03)
[2016-07-18] MEDS ORDERED: BUDESONIDE 0.5 MG/2 ML VIAL (PULMICORT) INH ONE (12:03)
--- NOTE | 2016-07-18 12:13 | Gastrointestinal Consultation ---
Gastrointestinal Consultation Date of Consultation: Jul 18, 2016 Consulting Physician: Dr. Rosas Reason for Consultation: abd pain, diarrhea, colitis History of Present Illness Patient is a 65 year old male with PMH significant for COPD, HTN, hyperlipidemia , and afib (on coumadin), aortic stenosis s/p bioprosthetic AVR, s/p mitral valve repair, who was recently hospitalized for medical treatment of a COPD exacerbation. He was given different ABX but is unsure of names or doses. He was discharged without any GI complaints. He presented to the ED Friday night in [place] with severe abd cramping, constant in nature and generalized to the whole abdomen, but worse in the bilat lower quadrants. He reports one episode of vomiting. He denies any black/bloody stools. He denies any hematemesis or coffee ground emesis. He reports this pain is very similar to an episode of pain he had in 2015 at which time he was treated for diverticulitis. After discussion with patient nurses, she reports that the patient had 2 BM that were jany colored overnight. He denies fever, chills, chest pain, increase in SOB from his baseline or edema. CT abd completed in outside facility with significant amount of stool in the large colon up to the transition point of the transverse and descending colon at the splenic flexure with considerable inflammation Family History Diabetes mellitus MOTHER Social History Smoking Status: Current Every Day Smoker (was prior 1/2 ppd smoker- quit july 14) Housing Status: lives alone, other Allergies Coded Allergies: No Known Allergies (Unverified , 07/17/16) Current Medications Home Meds and Scripts Medications Dose Route/Sig Max Daily Dose Days Date Category Amoxicillin 500 Mg Cap PO TID 07/17/16 Reported Duoneb (Ipratropium-Albuterol) 3 Ml Nebu 1 Treatment INH Q4H PRN 07/17/16 Reported Lisinopril 10 Mg Tab PO DAILY 07/17/16 Reported Proair Respiclick (Albuterol Sulfate) 108 Mcg/Act Aer Unknown Dose UNKNOWN 07/17/16 Reported Coumadin (Warfarin Sod) 2.5 Mg Tab 1 Tab PO DAILY 30 07/17/16 Reported Diltiazem Hcl 60 Mg Tab PO TID 07/17/16 Reported Combivent Respimat (Ipratropium-Albuterol) 1 Aer Aer 2 Puffs INH QID 07/17/16 Reported Protonix (Pantoprazole Sodium) 40 Mg Tab 40 Mg PO DAILY 07/17/16 Reported Lipitor (Atorvastatin Calcium) 40 Mg Tab 40 Mg PO DAILY 07/17/16 Reported Review of Systems Constitutional: No chills, No fever Respiratory: + shortness of breath, No cough Cardiac: No chest pain Abdomen: + GI bleeding (2 jany colored stools per nursing staff), + diarrhea, + pain, No constipation, No nausea, No vomiting Skin: No itch, No rash Physical Exam Date Time Temp Pulse Resp B/P Pulse Ox O2 Delivery O2 Flow Rate FiO2 07/18/16 11:15 105 16 94 Nasal Cannula 2.0 07/18/16 10:00 112 22 91 Nasal Cannula 2.0 07/18/16 08:59 106 17 134/73 92 Nasal Cannula 2.0 07/18/16 08:00 Nasal Cannula 2.0 07/18/16 07:59 36.9 83 22 107/67 98 Nasal Cannula 2.0 07/18/16 07:59 100 16 93 Nasal Cannula 3.0 07/18/16 06:59 100 15 127/81 95 Nasal Cannula 2.0 07/18/16 04:08 101 16 96 Nasal Cannula 3.0 07/18/16 04:00 96 Nasal Cannula 2.0 07/18/16 04:00 36.7 07/18/16 02:59 92 18 135/83 96 07/18/16 01:59 81 15 104/85 95 07/18/16 00:59 100 17 115/89 94 07/18/16 00:01 36.7 07/17/16 23:59 95 Nasal Cannula 3.0 07/17/16 23:59 89 18 125/89 95 07/17/16 23:42 93 16 95 Nasal Cannula 2.0 07/17/16 22:59 100 19 126/79 95 07/17/16 21:59 93 22 120/80 91 07/17/16 21:33 84 21 112/74 92 07/17/16 20:59 112 26 112/74 92 07/17/16 20:22 113 16 93 Nasal Cannula 2.0 07/17/16 20:03 98 21 122/66 94 07/17/16 20:00 36.9 07/17/16 20:00 94 Nasal Cannula 2.0 07/17/16 17:58 95 22 108/72 94 Nasal Cannula 2.0 07/17/16 16:59 95 22 99/76 95 Nasal Cannula 2.0 07/17/16 16:52 36.7 97 27 116/84 97 Nasal Cannula 2.0 07/17/16 16:00 Nasal Cannula 2.0 07/17/16 15:21 96 14 98 Nasal Cannula 2.0 07/17/16 14:59 93 24 97/70 97 Nasal Cannula 2.0 07/17/16 14:34 36.9 105 24 111/81 93 Nasal Cannula 2.0 07/17/16 14:18 107 28 99/71 98 Nasal Cannula 2.0 07/17/16 12:59 87 21 120/75 94 Nasal Cannula 2.0 07/17/16 12:36 111/81 General Appearance: no apparent distress Eyes: PERRL Neck: supple, trachea midline Respiratory/Chest: chest non-tender, lungs clear, no respiratory distress, no accessory muscle use Cardiovascular: regular rate, rhythm, no edema, no gallop, no JVD Abdomen: normal bowel sounds, soft, no organomegaly, + distended, + tenderness (generalized tenderness, worse in bilateral lower quadrants) Extremities: no pedal edema Neurologic/Psych: alert, normal mood/affect, oriented x 3 Skin: normal color, no jaundice, warm/dry, no rash Laboratory Results Last 24 Hours Test 07/17/16 14:15 07/17/16 14:25 07/17/16 16:36 07/17/16 19:46 Urine Color DK YELLOW Urine Appearance CLEAR Urine pH 5.0 Urine Specific [place] > 1.045 Urine Protein NEG Urine Glucose (UA) 3+ Urine Ketones NEG Urine Occult Blood NEG Urine Nitrite NEG Urine Bilirubin NEG Urine Urobilinogen NEG Urine Leukocyte Esterase NEG White Blood Count 32.47 K/uL Red Blood Count 4.39 M/uL Hemoglobin 13.0 g/dL Hematocrit 39.8 % Mean Corpuscular Volume 90.7 fL Mean Corpuscular Hemoglobin 29.6 pg Mean Corpuscular Hemoglobin Concent 32.7 g/dl Platelet Count 305 K/uL Mean Platelet Volume 10.7 fL Neutrophils (%) (Auto) 85.4 % Lymphocytes (%) (Auto) 5.4 % Monocytes (%) (Auto) 7.0 % Eosinophils (%) (Auto) 0.0 % Basophils (%) (Auto) 0.2 % Neutrophils # (Auto) 27.74 K/uL Lymphocytes # (Auto) 1.76 K/uL Monocytes # (Auto) 2.27 K/uL Eosinophils # (Auto) 0.01 K/uL Basophils # (Auto) 0.05 K/uL RDW Standard Deviation 54.3 fL RDW Coefficient of Variation 16.6 % Immature Granulocyte % (Auto) 2.0 % Immature Granulocyte # (Auto) 0.64 K/uL Echinocytes 1+ Sodium Level 145 mmol/L Potassium Level 4.5 mmol/L Chloride Level 109 mmol/L Carbon Dioxide Level 25 mmol/L Anion Gap 11.0 mmol/L Blood Urea Nitrogen 45 mg/dl Creatinine 1.20 mg/dl Est Creatinine Clear Calc Drug Dose 52.7 ml/min Estimated GFR () 72.6 Estimated GFR (Non- 62.6 BUN/Creatinine Ratio 37.6 Random Glucose 227 mg/dl Lactic Acid Level 3.3 mmol/L 1.6 mmol/L Calcium Level 7.7 mg/dl Phosphorus Level 4.3 mg/dl Magnesium Level 2.2 mg/dl Total Bilirubin 0.6 mg/dl Direct Bilirubin 0.1 mg/dl Aspartate Amino Transf (AST/SGOT) 13 U/L Alanine Aminotransferase (ALT/SGPT) 35 U/L Alkaline Phosphatase 133 U/L Total Protein 4.6 gm/dl Albumin 2.5 gm/dl Lipase 151 U/L Hepatitis C Antibody Screen NEG Bedside Glucose 198 mg/dl Test 07/17/16 20:48 07/17/16 22:16 07/18/16 05:30 07/18/16 06:30 Bedside Glucose 227 mg/dl Prothrombin Time 38.9 SECONDS 30.8 SECONDS Prothromb Time International Ratio 3.5 2.8 White Blood Count 22.99 K/uL Red Blood Count 4.20 M/uL Hemoglobin 12.5 g/dL Hematocrit 38.0 % Mean Corpuscular Volume 90.5 fL Mean Corpuscular Hemoglobin 29.8 pg Mean Corpuscular Hemoglobin Concent 32.9 g/dl RDW Standard Deviation 55.5 fL RDW Coefficient of Variation 16.9 % Platelet Count 198 K/uL Mean Platelet Volume 11.2 fL Sodium Level 146 mmol/L Potassium Level 4.0 mmol/L Chloride Level 113 mmol/L Carbon Dioxide Level 24 mmol/L Anion Gap 9.0 mmol/L Blood Urea Nitrogen 45 mg/dl Creatinine 0.93 mg/dl Est Creatinine Clear Calc Drug Dose 68.0 ml/min Estimated GFR () 98.8 Estimated GFR (Non- 85.2 BUN/Creatinine Ratio 47.8 Random Glucose 245 mg/dl Estimated Average Glucose 166 mg/dl Hemoglobin A1c 7.4 % Calcium Level 7.2 mg/dl Phosphorus Level 3.4 mg/dl Magnesium Level 2.1 mg/dl Total Bilirubin 0.6 mg/dl Aspartate Amino Transf (AST/SGOT) 15 U/L Alanine Aminotransferase (ALT/SGPT) 27 U/L Alkaline Phosphatase 126 U/L Total Protein 4.4 gm/dl Albumin 1.9 gm/dl Globulin 2.5 gm/dl Albumin/Globulin Ratio 0.8 Test 07/18/16 06:32 Bedside Glucose 265 mg/dl Impression Patient is a 65 year old male with abdominal pain, loose stools, 2 episodes of semi formed jany colored stools with a CT abd depicting inflammatory changes in the colon, no obstruction. Differentials include ischemic colitis, infectious colitis, inflammatory bowel disease, acute diverticulitis Plan clear liquid PPI BID repeat CT abd w/contrast Zofran PRN nausea stool culture pending c.diff negative Attg addendum: I interviewed and examined pt, reviewed chart and labs. Pt with COPD s/p recent hosp for COPD exac now admit with abrupt onset diarrhea and rectal bleeding. Ct scan at OSH shows left sided colitis. On exam, his abd is distended and tender diffusely, most prominently in LLQ. Labs show marked leukocytosis, for which he has been empirically placed on Zosyn. He likely has ischemic colitis. Given his abd tenderness, will repeat CT scan. Pt has prerenal azotemia, and will need continued fluid resuscitation to help avoid contrast induced nephropathy. Cont empiric abx. Defer cscopy at this time.
--- NOTE | 2016-07-18 12:24 | Pharmacy Progress Note ---
Glycemic Control Intl Consult Date of Service Jul 18, 2016. Scope Glycemic Pharmacist consulted by Dr Hernandez on 07/18/16 for glycemic control and to write orders per [facility] inpatient glycemic control protocol Objective Weight (Kilograms): 68.500 Accuchecks BSG (last 24hrs): Test 07/17/16 14:25 07/17/16 16:36 07/17/16 20:48 07/18/16 05:30 Random Glucose 227 mg/dl (70-99) 245 mg/dl (70-99) Bedside Glucose 198 mg/dl (70-99) 227 mg/dl (70-99) Test 07/18/16 06:32 Bedside Glucose 265 mg/dl (70-99) Laboratory Data (last 24hrs) Test 07/17/16 14:25 07/18/16 05:30 Anion Gap 11.0 mmol/L 9.0 mmol/L BUN/Creatinine Ratio 37.6 47.8 Blood Urea Nitrogen 45 mg/dl 45 mg/dl Creatinine 1.20 mg/dl 0.93 mg/dl Potassium Level 4.5 mmol/L 4.0 mmol/L Sodium Level 145 mmol/L 146 mmol/L White Blood Count 32.47 K/uL 22.99 K/uL Red Blood Count 4.39 M/uL Hemoglobin 13.0 g/dL Hematocrit 39.8 % Mean Corpuscular Volume 90.7 fL Mean Corpuscular Hemoglobin 29.6 pg Mean Corpuscular Hemoglobin Concent 32.7 g/dl Platelet Count 305 K/uL Mean Platelet Volume 10.7 fL Neutrophils (%) (Auto) 85.4 % Lymphocytes (%) (Auto) 5.4 % Monocytes (%) (Auto) 7.0 % Eosinophils (%) (Auto) 0.0 % Basophils (%) (Auto) 0.2 % Neutrophils # (Auto) 27.74 K/uL Lymphocytes # (Auto) 1.76 K/uL Monocytes # (Auto) 2.27 K/uL Eosinophils # (Auto) 0.01 K/uL Basophils # (Auto) 0.05 K/uL Hemoglobin A1c 7.4 % HbA1c Test 07/18/16 05:30 Hemoglobin A1c 7.4 % (4.5-5.6) H Recent Pertinent Medications Outpatient Anti-diabetic Regimen: * was not taking medication to manage DM * A1c = 7.4 % 07/18/16 (eAG ~166) The patient is currently receiving: * Basal insulin: none this AM * Correctional Insulin: Novolog Correction per scale ACHS Goal Range: Low 140 mg/dL - High 180 mg/dL Correction Factor: 30 mg/dL/unit * Prandial insulin: Per carb ratio of 1 unit per 15 grams CHO consumed * Oral Agents: none currently Risk Factors for Insulin Resistance: * Steroids: Solu-medrol 60mg IV Q 8 hours ---> begin reduced to 40mg IV Q 12 hours * Infection: COPD exac vs HCAP vs intraabdominal infxn, possible c diff colitis ; receiving Vancomycin IV and PO + Zosyn IV * IVF: NS @ 150cc/hr * Diet: currently ordered Clears / T2DM diet + Boost Breeze supplement TID w/ meals Assessment & Plan ASSESSMENT: * Type 2 diabetic admitted with sepsis possibly secondary to HCAP vs intraabdominal infxn vs c diff colitis * Preliminary blood cx's reported to contain gram neg rods (from [facility] ) * He is currently experiencing stress / steroid induced hyperglycemia and will require basal / bolus SQ insulin strategy to achieve glycemic targets. I would however have a low threshold for starting an IV insulin protocol in this patient if we cannot achieve BSGs less than 200's in the next 24 hours * Steroids are being tapered today however ---> which may help improve insulin sensitivity. PO intake is poor thus far. * Initial doses will be determined by wt based strategy ~0.5-0.6units/kg/day while on current dose of steroids PLAN FOR INPATIENT GLYCEMIC CONTROL: * Lantus 12 units SQ x 1 this AM then 8 units SQ BID; give 1/2 dose if BSG less than 120 * Changing correction factor to 25 mg/dl/unit * Changing carb ratio to 1 unit per 12 grams CHO consumed * Continuing goal range of Low 140 mg/dL - High 180 mg/dL * Add BSG check at 0200 tonight and cover with Novolog to allow for greater control with SQ regimen * Reassess insulin needs with each step down in insulin dose ---> avg BSG ~160' s with no insulin therapy prior to admission if A1c accurate * Please note that the plan above was derived based on current level of insulin resistance and hospital stress. These recommendations are appropriate for inpatient admission only. Plan of care upon discharge will need to be reassessed to avoid potential outpatient hypo/hyperglycemia. Thank you.
[2016-07-18] MEDS: BOOST BREEZE NUTRITION DRINK 1 BOX PO SCH ×2 (13:09→16:30)
[2016-07-18] MEDS: ONDANSETRON INJ 2 MG/ML 2 ML VIAL IV PRN (13:11)
--- NOTE | 2016-07-18 13:25 | Pharmacy Progress Note ---
Pharmacy Antibiotic Prog Note Date of Service: Jul 18, 2016. Subjective: The patient is currently receiving: * Vancomycin 1100mg IV Q 16 hours * Zosyn 4.5gm IV (over 4 hours) every 8 hours The patient is currently on day # 2 of ABX therapy for sepsis, HCAP vs intraabdominal infxn Objective: Height (Feet): 5 Height (Inches): 5.00 Weight (Kilograms): 68.500 Lab Results (24hrs): Laboratory Tests Test 07/17/16 14:25 07/18/16 05:30 BUN/Creatinine Ratio 37.6 47.8 Blood Urea Nitrogen 45 mg/dl 45 mg/dl Creatinine 1.20 mg/dl 0.93 mg/dl White Blood Count 32.47 K/uL 22.99 K/uL Red Blood Count 4.39 M/uL Hemoglobin 13.0 g/dL Hematocrit 39.8 % Mean Corpuscular Volume 90.7 fL Mean Corpuscular Hemoglobin 29.6 pg Mean Corpuscular Hemoglobin Concent 32.7 g/dl Platelet Count 305 K/uL Mean Platelet Volume 10.7 fL Neutrophils (%) (Auto) 85.4 % Lymphocytes (%) (Auto) 5.4 % Monocytes (%) (Auto) 7.0 % Eosinophils (%) (Auto) 0.0 % Basophils (%) (Auto) 0.2 % Neutrophils # (Auto) 27.74 K/uL Lymphocytes # (Auto) 1.76 K/uL Monocytes # (Auto) 2.27 K/uL Eosinophils # (Auto) 0.01 K/uL Basophils # (Auto) 0.05 K/uL Micro Results: C diff toxin B neg x 2 + MRSA nasal swab Blood Cx from [facility] reported to have gram neg rods Recent Pertinent Medications: Doxycycline 100mg PO BID Assessment & Plan: VANCOMYCIN: * + MRSA nasal swab, * Renal fxn improved today vs yesterday following IVF administration * SCr (1.2-->0.93), est CrCl 53-->68cc/hr * We do not have data on baseline renal fxn. But given improved renal fxn, vancomycin clearance likely to be higher than predicted yesterday * Will change maintenance dose to 1100mg (~16mg/kg) IV Q 14 hours to achieve goal trough 15-20mcg/mL * Retime trough to be drawn prior to 4th maint dose (0000 on 07/20/16) ZOSYN: * No adjustment in dose required at this time Pharmacy will continue to follow and will adjust dose/frequency as necessary. Thank you
[2016-07-18] MEDS ORDERED: BOOST GLUCOSE CONTROL PO SCH (14:00)
[2016-07-18] MEDS ORDERED: OPTIRAY 320 IV PRN (14:00)
[2016-07-18] MEDS: METHYLPREDNISOLONE IV 40 MG in SYRINGE 0 ML IV SCH (16:35)
[2016-07-18] MEDS: SODIUM CHLOR 0.45% + 20MEQ KCL 1,000 ML IV SCH (16:35)
--- NOTE | 2016-07-18 17:22 | DIAGNOSTIC IMAGING REPORT ---
CT ABD/PELVIS IV AND ORAL CONT CLINICAL HISTORY: Analyzed abdominal pain. Prior abnormal outside CT scan. COMPARISON STUDY: Clear. Hospital study dated 07/17/2016 TECHNIQUE: Following the IV administration of 119 mL of [id number]-320, CT scan of the abdomen and pelvis was performed from the lung bases to the proximal femurs. Images are reviewed in the axial, sagittal, and coronal planes. IV contrast was administered without complication. CT DOSE: FINDINGS: Lower chest: There is a small left pleural effusion, and trace right pleural effusion. There is severe pulmonary emphysema. There is lower lobe bronchial wall thickening. There are left basal airspace opacities likely atelectatic. Liver: There is hepatic steatosis. No focal masses are visualized. Gallbladder: Cholelithiasis Spleen: Normal in size and attenuation. Pancreas: There is scattered pancreatic head calcifications. No pancreatic masses are visualized. There is no ductal dilatation. Adrenal glands: Unremarkable. Kidneys: There are multiple large bilateral renal cysts the largest of which measures 9.2 cm on the left and 8 cm on the right. There is a 24 mm lower pole right renal lesion which exceeds water attenuation, and is therefore indeterminate. A dedicated renal CT scan could be performed in follow-up to exclude a solid renal mass. There is a lower pole 7 mm right renal calculus. Bowel: There is moderate fusiform colonic wall thickening extending from the sigmoid colon to the transverse colon. The findings are consistent with an extensive colitis. There is mild infiltration of the pericolonic fat at the level of the descending colon. There are no transition zones indicate a bowel obstruction. The appendix appears normal. Peritoneum: There is low volume ascites. No free air is visualized. Vasculature: The abdominal aorta is normal in course and caliber. Adenopathy: None. Pelvic viscera: There is indwelling Noel catheter. There is prostate enlargement. There is air within the bladder, likely iatrogenic. Skeletal structures: No destructive osseous lesions are seen. IMPRESSION: 1. No evidence of bowel obstruction. No evidence of free air 2. Marked long segment colonic wall thickening extending from the mid transverse colon to the sigmoid colon. The findings are consistent with a colitis 3. Cholelithiasis 4. Low volume ascites 5. Multiple large bilateral renal cysts 6. Indeterminate 24 mm lesion within the lower pole the right kidney. A dedicated CT scan of the kidneys be obtained in follow-up to differentiate a hyperdense cyst from solid renal mass 7. Nonobstructing right renal calculus 8. Severe pulmonary emphysema 9. Small left pleural effusion and trace right pleural effusion 10. Lower lobe bronchial wall thickening. Left basal airspace opacities, likely atelectatic Electronically signed by: Jose Juan Dailey M.D. 07/18/2016 5:20 PM Dictated Date/Time: 07/18/2016 5:13 PM
[2016-07-18] MEDS: ARFORMOTEROL TART 15MCG/2ML VIAL INH SCH (20:00)
[2016-07-18] MEDS: BUDESONIDE 0.5 MG/2 ML VIAL (PULMICORT) INH SCH (20:40)
[2016-07-18] MEDS: INSULIN GLARGINE SOLOSTAR 100 UNITS/ML 3 ML PEN SC SCH (21:42)
[2016-07-19] VITALS (20 sets, daily range): BP systolic 114–159; BP diastolic 65–128; PULSE 81–113; TEMP 36.1–36.9; O2SAT 91–99
[2016-07-19] MEDS ORDERED: INSULIN ASPART 100 UNITS/ML 3 ML PEN SC SCH
[2016-07-19] MEDS: SODIUM CHLOR 0.45% + 20MEQ KCL 1,000 ML IV SCH (01:51)
[2016-07-19] MEDS: PIPERACILL/TAZOBAC IV 4.5 GM in DEXTROSE 5% 100ML IV SCH ×3 (01:51→18:21)
[2016-07-19] MEDS ORDERED: INSULIN ASPART 100 UNITS/ML 3 ML PEN SC ONE (02:00)
[2016-07-19] MEDS: FAMOTIDINE IV INJ 20 MG in DEXTROSE 5% 100ML 100 ML IV SCH (04:06)
[2016-07-19] MEDS: IPRATROPIUM BROMIDE NEB SOLN 0.02% 2.5 ML VIAL INH SCH ×6 (04:15→23:12)
[2016-07-19] MEDS: LEVALBUTEROL 1.25MG/0.5ML NEB INH SCH ×6 (04:15→23:12)
[2016-07-19] MEDS: ONDANSETRON INJ 2 MG/ML 2 ML VIAL IV PRN (04:25)
[2016-07-19] MEDS: METHYLPREDNISOLONE IV 40 MG in SYRINGE 0 ML IV SCH (05:43)
[2016-07-19 05:44] LABS: HEMATOCRIT 33.6 % (42-52); MEAN CELL VOLUME 89.6 fL (80-100); MEAN CORPUSCULAR HEMOGLOBIN 29.6 pg (25-34); MEAN PLATELET VOLUME 10.8 fL (7.4-10.4); PLATELET COUNT 163 K/uL (130-400); RED BLOOD COUNT 3.75 M/uL (4.7-6.1); WHITE BLOOD COUNT 24.32 K/uL (4.8-10.8)
[2016-07-19 05:49] LABS: INR 1.5 (0.9-1.1); PROTHROMBIN TIME (PATIENT) 16.8 SECONDS (9.0-12.0)
[2016-07-19 06:16] LABS: BUN/CREATININE RATIO 41.5 (10-20); CALCIUM 7.4 mg/dl (8.5-10.1); CREATININE 0.89 mg/dl (0.60-1.40); MAGNESIUM 2.1 mg/dl (1.8-2.4); POTASSIUM 3.7 mmol/L (3.5-5.1)
[2016-07-19 06:20] LABS: ALB/GLOB RATIO 0.7 (0.9-2); PHOSPHORUS 2.1 mg/dl (2.5-4.9)
[2016-07-19] MEDS ORDERED: POTASSIUM PHOS 3 MMOL/1 ML INFUSION IV STA (06:51)
[2016-07-19] MEDS: BUDESONIDE 0.5 MG/2 ML VIAL (PULMICORT) INH SCH ×2 (07:09→20:54)
[2016-07-19] MEDS: ARFORMOTEROL TART 15MCG/2ML VIAL INH SCH ×2 (07:54→20:54)
[2016-07-19] MEDS ORDERED: POTASSIUM PHOSPHATE INJ 15 MMOL in SODIUM CHLORIDE 0.9% 250ML 250 ML IV ONE (08:00)
[2016-07-19] MEDS: INSULIN ASPART 100 UNITS/ML 3 ML PEN SC SCH ×4 (08:04→20:30)
--- NOTE | 2016-07-19 08:08 | Gastroenterology Progress Note ---
Progress Note Date of Service: Jul 19, 2016 Subjective Pt evaluation today including: conversation w/ family, physical exam, chart review, lab review Patient states that he feels ok. From a GI stand point he states that he is feeling slightly better. He reports the generalized abd pain is slightly relieved, stating that it is not as sharp stabbing anymore. He reports that the pain is constant and worse with palpation. The right lower quadrant pain is also slightly relieved. This pain is greatly aggravated with palpation. The pain is unchanged with BM. He states that he had two BMs yesterday (jany color per nursing staff). He has not had a BM yet today. Blood culture drawn at [place] were finalized with gram negative rods. He is currently on Zosyn, Doxy, Vanco. He has a history of endocarditis, hospitalist will proceed with ECHO Repeat CT 07/19/16 There is moderate fusiform colonic wall thickening extending from the sigmoid colon to the transverse colon. The findings are consistent with an extensive colitis. There is mild infiltration of the pericolonic fat at the level of the descending colon. There are no transition zones indicate a bowel obstruction. The appendix appears normal. Peritoneum: There is low volume ascites. No free air is visualized. HGB on admission was 13 HGB today is 11 Review of Systems Constitutional: No chills, No fever Respiratory: No cough Abdomen: + GI bleeding, + pain, No constipation, No diarrhea, No nausea, No vomiting Medications Current Inpatient Medications Medications (Trade) Dose Ordered Sig/Jim Route Start Time Stop Time Status Last Admin Dose Admin Morphine Sulfate (MoRPHine SULFATE INJ) 2 mg Q2H PRN IV 07/17/16 13:45 07/31/16 13:44 07/17/16 17:09 2 MG Albuterol/ Ipratropium (Duoneb) 3 ml Q4H PRN INH 07/17/16 13:45 08/16/16 13:44 Future Hold Diltiazem HCl 60 mg 60 mg TID PO 07/17/16 21:00 08/16/16 20:59 07/18/16 21:38 60 MG Famotidine/ Dextrose (Pepcid IV Inj/ D5 100ml) 102 ml @ 200 mls/hr Q12H IV 07/17/16 16:00 08/16/16 15:59 07/19/16 04:06 200 MLS/HR Nicotine (Nicoderm Cq 7 Mg Patch) 1 patch QAM TD 07/18/16 09:00 08/17/16 08:59 07/18/16 09:32 1 PATCH Miscellaneous (Remove Nicoderm Patch) 1 ea HS N/A 07/17/16 21:00 08/16/16 20:59 07/18/16 21:38 1 EA Vancomycin HCl (Consult) 1 ea UD PRN N/A 07/17/16 15:45 08/16/16 15:44 Piperacillin Sod/ Tazobactam Sod 1 ea 1 ea UD PRN N/A 07/17/16 19:15 08/16/16 19:14 Piperacillin Sod/ Tazobactam Sod/ Dextrose (Zosyn Iv/D5 100ml) 120 ml @ 30 mls/hr Q8@0200,1000,1800 IV 07/18/16 02:00 07/28/16 01:59 07/19/16 01:51 30 MLS/HR Ipratropium [place] (Atrovent 0.02% 0.5MG/2.5ML Neb) 0.5 mg Q4R INH 07/17/16 21:00 08/16/16 20:59 07/19/16 04:15 0.5 MG Levalbuterol (Xopenex 1.25MG/ 0.5ML Neb) 1.25 mg Q4R INH 07/17/16 21:00 08/16/16 20:59 07/19/16 04:15 1.25 MG Insulin Aspart (novoLOG ASPART) SLIDING SCALE If C... ACHS SC 07/17/16 22:00 08/16/16 21:59 07/18/16 21:43 6 UNITS Glucose (Glucose 40% Gel) 15-30 GRAMS 15 GRAMS... UD PRN PO 07/17/16 21:00 08/16/16 20:59 Glucose (Glucose Chew Tab) 4-8 Tablets 4 Tabl... UD PRN PO 07/17/16 21:00 08/16/16 20:59 Dextrose (Dextrose 50% 50ML Syringe) 25-50ML OF 50% DW IV FOR... UD PRN IV 07/17/16 21:00 08/16/16 20:59 Glucagon (Glucagon Inj) 1 mg UD PRN SQ 07/17/16 21:00 08/16/16 20:59 Miscellaneous Information (Consult Glycemic Management Pharmacy) 1 ea UD PRN N/A 07/17/16 21:26 08/16/16 21:25 Doxycycline Hyclate (Vibramycin Cap) 100 mg BID PO 07/17/16 21:00 07/24/16 20:59 07/18/16 21:38 100 MG Ondansetron HCl (Zofran Inj) 4 mg Q6H PRN IV 07/18/16 08:00 08/17/16 07:59 07/19/16 04:25 4 MG Nystatin (Mycostatin Susp) 4 ml QID PO 07/18/16 10:00 07/28/16 09:59 07/18/16 21:38 4 ML Enteral Nutritional Formula (Boost Breeze Nutritional Drink) 0.5 box TIDM PO 07/18/16 11:30 08/17/16 11:29 07/18/16 13:09 0.5 BOX Arformoterol Tartrate (Brovana 15MCG/ 2ML Neb Soln) 15 mcg BIDR INH 07/18/16 20:00 08/17/16 19:59 07/19/16 07:54 15 MCG Budesonide 0.5 mg 0.5 mg BIDR INH 07/18/16 20:00 08/17/16 19:59 07/19/16 07:09 0.5 MG Methylprednisolone Sodium Succinate/ Syringe (Solu-Medrol IV/ Syringe) 0.64 ml @ 1.5 mls/min Q12H IV 07/18/16 18:00 08/17/16 17:59 07/19/16 05:43 1.5 MLS/MIN Insulin Glargine 8 unit 8 unit BID SC 07/18/16 21:00 08/17/16 20:59 07/18/16 21:42 8 UNIT Vancomycin HCl/ Sodium Chloride (Vancomycin Inj/ Nss 250ml) 272 ml @ 125 mls/hr Q14H IV 07/18/16 20:00 07/27/16 15:59 07/18/16 19:42 125 MLS/HR Ioversol 111 ml 111 ml UD PRN IV 07/18/16 14:00 07/22/16 13:59 Potassium Chloride/Sodium Chloride (1/2 Nss + 20meq KCl 1000ml) 1,000 ml @ 125 mls/hr Q8H IV 07/18/16 16:30 08/17/16 16:29 07/19/16 01:51 125 MLS/HR Warfarin Sodium 2.5 mg 2.5 mg DAILY@1600 PO 07/19/16 16:00 08/18/16 15:59 Potassium Phosphate/Sodium Chloride (Potassium Phosphate Inj/Nss 250ml) 255 ml @ 102 mls/hr TODAY@0800 ONCE IV 07/19/16 08:00 07/19/16 10:29 Objective Vital Signs Date Time Temp Pulse Resp B/P Pulse Ox O2 Delivery O2 Flow Rate FiO2 07/19/16 07:05 86 16 95 Nasal Cannula 2.0 07/19/16 06:00 93 20 131/81 95 Nasal Cannula 2.0 07/19/16 04:16 82 16 95 Nasal Cannula 2.0 07/19/16 04:00 96 Nasal Cannula 2.0 07/19/16 04:00 36.9 86 19 145/81 99 Nasal Cannula 2.0 07/19/16 02:04 81 17 143/90 94 Nasal Cannula 2.0 07/19/16 00:01 36.4 07/19/16 00:01 87 17 124/78 96 Nasal Cannula 2.0 07/18/16 23:59 96 Nasal Cannula 2.0 07/18/16 23:45 102 16 96 Nasal Cannula 3.0 07/18/16 22:01 90 22 102/84 95 Nasal Cannula 2.0 07/18/16 20:48 80 16 95 Nasal Cannula 2.0 07/18/16 20:01 84 18 140/73 96 Nasal Cannula 2.0 07/18/16 20:00 95 Nasal Cannula 2.0 07/18/16 20:00 36.4 07/18/16 19:00 85 19 112/86 96 Nasal Cannula 2.0 07/18/16 18:00 89 18 108/81 94 Nasal Cannula 3.0 07/18/16 16:00 Nasal Cannula 2.0 07/18/16 15:59 36.7 94 19 136/91 96 Nasal Cannula 2.0 07/18/16 15:17 105 16 96 Nasal Cannula 2.0 07/18/16 13:59 90 22 134/87 92 Nasal Cannula 2.0 07/18/16 12:59 36.9 104 26 128/97 95 Nasal Cannula 2.0 07/18/16 12:00 Nasal Cannula 2.0 07/18/16 11:59 91 24 129/105 95 Nasal Cannula 2.0 07/18/16 11:15 105 16 94 Nasal Cannula 2.0 07/18/16 11:00 106 20 131/68 94 Nasal Cannula 2.0 07/18/16 10:00 112 22 91 Nasal Cannula 2.0 07/18/16 08:59 106 17 134/73 92 Nasal Cannula 2.0 Physical Exam General Appearance: no apparent distress ENT: hearing grossly normal Neck: no adenopathy, trachea midline Respiratory/Chest: chest non-tender, no respiratory distress, no accessory muscle use, + decreased breath sounds Cardiovascular: regular rate, rhythm, no edema, no gallop, no JVD, no murmur Abdomen: soft, no organomegaly, + guarding, + tenderness (reports pain is slightly relieved from exam yesterday) Neurologic/Psych: alert, normal mood/affect, oriented x 3 Skin: normal color, no jaundice, warm/dry, no rash Laboratory Results Last 24 Hours Test 07/18/16 11:10 07/18/16 16:04 07/18/16 21:15 07/19/16 01:50 Bedside Glucose 200 mg/dl 174 mg/dl 330 mg/dl 216 mg/dl Test 07/19/16 05:08 07/19/16 06:07 White Blood Count 24.32 K/uL Red Blood Count 3.75 M/uL Hemoglobin 11.1 g/dL Hematocrit 33.6 % Mean Corpuscular Volume 89.6 fL Mean Corpuscular Hemoglobin 29.6 pg Mean Corpuscular Hemoglobin Concent 33.0 g/dl RDW Standard Deviation 55.5 fL RDW Coefficient of Variation 16.9 % Platelet Count 163 K/uL Mean Platelet Volume 10.8 fL Prothrombin Time 16.8 SECONDS Prothromb Time International Ratio 1.5 Sodium Level 143 mmol/L Potassium Level 3.7 mmol/L Chloride Level 110 mmol/L Carbon Dioxide Level 26 mmol/L Anion Gap 7.0 mmol/L Blood Urea Nitrogen 37 mg/dl Creatinine 0.89 mg/dl Est Creatinine Clear Calc Drug Dose 71.0 ml/min Estimated GFR () 103.3 Estimated GFR (Non- 89.1 BUN/Creatinine Ratio 41.5 Random Glucose 206 mg/dl Calcium Level 7.4 mg/dl Phosphorus Level 2.1 mg/dl Magnesium Level 2.1 mg/dl Total Bilirubin 0.4 mg/dl Aspartate Amino Transf (AST/SGOT) 16 U/L Alanine Aminotransferase (ALT/SGPT) 25 U/L Alkaline Phosphatase 114 U/L Total Protein 4.4 gm/dl Albumin 1.8 gm/dl Globulin 2.6 gm/dl Albumin/Globulin Ratio 0.7 Procalcitonin 2.57 ng/mL Bedside Glucose 199 mg/dl Assessment and Plan Patient is a 65 year old male with abrupt onset stabbing abdominal pain, loose stools, 3 episodes of semi formed jany colored stools with a CT abd depicting inflammatory changes in the colon, no obstruction. Differentials include ischemic colitis, infectious colitis, inflammatory bowel disease, acute diverticulitis. Patient likely has ischemic colitis. Plan clear liquid Zofran PRN nausea stool culture pending c.diff negative continue ABX treatment defer cscope GI will continue to follo Attg addendum: I interviewed and examined pt, reviewed chart and labs. Pt with small volume jany colored stool this morning. He has continued abd pain, although it is improved. No nausea. No hunger. On exam, his abd remains tender in LLQ on light palpation, with vol guarding; his abd does appear less tender than yesterday. Labs show persistent leukocytosis; cultures with GNR; Stool c diff neg. A/p: Ischemic colitis - continue to monitor abd exam. Cont abx and bowel rest. If his abd exam remains tender, consider re-image and surg consult.
[2016-07-19] MEDS ORDERED: PANTOprazole SOD 40 MG TAB PO SCH (09:00)
--- NOTE | 2016-07-19 09:28 | Progress Note ---
Medicine Progress Note Date & Time of Visit: Jul 19, 2016 at 09:22. Subjective patient seen sitting up in bed, appears comfortable states his abdomen still feels sore- somewhat better, no diarrhea no dyspnea, still has productive cough no fever/chills, nausea denies other symptoms Objective Last 8 Hrs Date Time Temp Pulse Resp B/P Pulse Ox O2 Delivery O2 Flow Rate FiO2 07/19/16 07:05 86 16 95 Nasal Cannula 2.0 07/19/16 06:00 93 20 131/81 95 Nasal Cannula 2.0 07/19/16 04:16 82 16 95 Nasal Cannula 2.0 07/19/16 04:00 96 Nasal Cannula 2.0 07/19/16 04:00 36.9 86 19 145/81 99 Nasal Cannula 2.0 07/19/16 02:04 81 17 143/90 94 Nasal Cannula 2.0 Physical Exam: General-oriented x 3, not in distress, speaks in sentences with no effort, no accessory muscle use Eyes- anicteric ENT-oral thrush Neck- supple, no JVD Lungs- (+) mild scattered wheeze bilaterally Heart-normal rate, irregularly irregular rhythm; no murmurs Abdomen- normal bowel sounds, non distended, soft, mild lower quadrant tenderness Extremities- no pretibial edema, no calf tenderness; peripheral pulses intact Neuro- alert, oriented x 3; no gross focal deficits Skin- warm & dry Laboratory Results: Last 24 Hours Test 07/18/16 11:10 07/18/16 16:04 07/18/16 21:15 07/19/16 01:50 Bedside Glucose 200 mg/dl 174 mg/dl 330 mg/dl 216 mg/dl Test 07/19/16 05:08 07/19/16 06:07 White Blood Count 24.32 K/uL Red Blood Count 3.75 M/uL Hemoglobin 11.1 g/dL Hematocrit 33.6 % Mean Corpuscular Volume 89.6 fL Mean Corpuscular Hemoglobin 29.6 pg Mean Corpuscular Hemoglobin Concent 33.0 g/dl RDW Standard Deviation 55.5 fL RDW Coefficient of Variation 16.9 % Platelet Count 163 K/uL Mean Platelet Volume 10.8 fL Prothrombin Time 16.8 SECONDS Prothromb Time International Ratio 1.5 Sodium Level 143 mmol/L Potassium Level 3.7 mmol/L Chloride Level 110 mmol/L Carbon Dioxide Level 26 mmol/L Anion Gap 7.0 mmol/L Blood Urea Nitrogen 37 mg/dl Creatinine 0.89 mg/dl Est Creatinine Clear Calc Drug Dose 71.0 ml/min Estimated GFR () 103.3 Estimated GFR (Non- 89.1 BUN/Creatinine Ratio 41.5 Random Glucose 206 mg/dl Calcium Level 7.4 mg/dl Phosphorus Level 2.1 mg/dl Magnesium Level 2.1 mg/dl Total Bilirubin 0.4 mg/dl Aspartate Amino Transf (AST/SGOT) 16 U/L Alanine Aminotransferase (ALT/SGPT) 25 U/L Alkaline Phosphatase 114 U/L Total Protein 4.4 gm/dl Albumin 1.8 gm/dl Globulin 2.6 gm/dl Albumin/Globulin Ratio 0.7 Procalcitonin 2.57 ng/mL Bedside Glucose 199 mg/dl Date/Time Source Procedure Growth Status 07/18/16 10:05 Blood Blood Culture Pending Received 07/18/16 09:58 Blood Blood Culture Pending Received 07/18/16 13:52 Sputum Expectorated Sputum Gram Stain - Final Resulted 07/18/16 13:52 Sputum Culture - Preliminary Gram Negative Bacilli Resulted Assessment & Plan IMPRESSION: 1. No evidence of bowel obstruction. No evidence of free air 2. Marked long segment colonic wall thickening extending from the mid transverse colon to the sigmoid colon. The findings are consistent with a colitis 3. Cholelithiasis 4. Low volume ascites 5. Multiple large bilateral renal cysts 6. Indeterminate 24 mm lesion within the lower pole the right kidney. A dedicated CT scan of the kidneys be obtained in follow-up to differentiate a hyperdense cyst from solid renal mass 7. Nonobstructing right renal calculus 8. Severe pulmonary emphysema 9. Small left pleural effusion and trace right pleural effusion 10. Lower lobe bronchial wall thickening. Left basal airspace opacities, likely atelectatic 65 year old male with history of COPD on 2 liters NC, A fib on coumadin, AV replacement, MV Repair, Hypertension POSSIBLE SEPSIS SECONDARY TO COLITIS, PNEUMONIA, POSSIBLE BACTEREMIA Afebrile, WBC 19 at [facility] and 32K here, + tachypnea, HR 100s, borderline hypotension (90s/50s) at [place]; lactic acid 2.4 at [facility]- recheck lactic acid Treated with IV Zosyn, IV Flagyl, and PO Vanco at [place] -- afebrile, WBC decreasing GRAM NEGATIVE LAXMI BACTEREMIA IN THE SETTING OF MITRAL VALVE REPLACEMENT-PORCINE AND AORTIC VALVE REPAIR HISTORY OF ENDOCARDITIS, ENTEROCOCCUS BACTEREMIA - blood cultures drawn at [facility]: 07/18/16 gram negative rods - repeat blood cultures pending echo: pending - on Vanco + Zosyn Day 3 COLITIS POSSIBLE GI BLEED Ruled out for C. diff; Ddx includes infectious colitis vs. inflammatory bowel disease CT A/p from [place] noted - C diff negative stool cultures pending - (+) report of jany colored stools Hg decreased to 11 - on empiric Zosyn Day 3 clear liquids IV fluids hold coumadin - GI consulted, appreciate the consult LEFT LOWER LOBE PNEUMONIA - ff up blood, sputum cultures - (+) MRSA nasal swab - continue Vancomycin, Zosyn, Doxycycline Day 3 COPD WITH EXACERBATION With chronic respiratory failure requiring 2 liters NC continuous Recently treated with abx/ steroids for COPD exac during hospitalization at [facility] from Jul 12-Jul 16 -- Nebs q4h, Solumedrol q6h, antibiotics -- seems to be improving PAROXYSMAL AFIB Rate is controlled Continue Cardizem -- INR 1.5 hold coumadin until lower gi bleed ruled out HTN Was borderline hypotensive at [facility] (BP low as 90s/50s) Lisinopril held for now DM TYPE 2 A1c 7.2 ISS Pharmacy consulted HX AORTIC VALVE REPLACEMENT AND MITRAL VALVE REPAIR ff up blood cultures check echo Indeterminate 24 mm lesion within the lower pole the right kidney. dedicated CT scan of the kidneys be obtained in follow-up to differentiate a hyperdense cyst from solid renal mass DYSLIPIDEMIA hold statin until gi symptoms resolved DVT PROPHYLAXIS SCD's, Coumadin on hold until lower gi bleed ruled out CODE STATUS Full code Disposition pending Current Inpatient Medications: Current Inpatient Medications Medications (Trade) Dose Ordered Sig/Jim Route Start Time Stop Time Status Last Admin Dose Admin Morphine Sulfate (MoRPHine SULFATE INJ) 2 mg Q2H PRN IV 07/17/16 13:45 07/31/16 13:44 07/17/16 17:09 2 MG Albuterol/ Ipratropium (Duoneb) 3 ml Q4H PRN INH 07/17/16 13:45 08/16/16 13:44 Future Hold Diltiazem HCl (Cardizem Tab) 60 mg TID PO 07/17/16 21:00 08/16/16 20:59 07/18/16 21:38 60 MG Nicotine (Nicoderm Cq 7 Mg Patch) 1 patch QAM TD 07/18/16 09:00 08/17/16 08:59 07/18/16 09:32 1 PATCH Miscellaneous (Remove Nicoderm Patch) 1 ea HS N/A 07/17/16 21:00 08/16/16 20:59 07/18/16 21:38 1 EA Vancomycin HCl (Consult) 1 ea UD PRN N/A 07/17/16 15:45 08/16/16 15:44 Piperacillin Sod/ Tazobactam Sod 1 ea 1 ea UD PRN N/A 07/17/16 19:15 08/16/16 19:14 Piperacillin Sod/ Tazobactam Sod/ Dextrose (Zosyn Iv/D5 100ml) 120 ml @ 30 mls/hr Q8@0200,1000,1800 IV 07/18/16 02:00 07/28/16 01:59 07/19/16 01:51 30 MLS/HR Ipratropium [place] (Atrovent 0.02% 0.5MG/2.5ML Neb) 0.5 mg Q4R INH 07/17/16 21:00 08/16/16 20:59 07/19/16 04:15 0.5 MG Levalbuterol (Xopenex 1.25MG/ 0.5ML Neb) 1.25 mg Q4R INH 07/17/16 21:00 08/16/16 20:59 07/19/16 04:15 1.25 MG Insulin Aspart (novoLOG ASPART) SLIDING SCALE If C... ACHS SC 07/17/16 22:00 08/16/16 21:59 07/19/16 08:04 1 UNITS Glucose (Glucose 40% Gel) 15-30 GRAMS 15 GRAMS... UD PRN PO 07/17/16 21:00 08/16/16 20:59 Glucose (Glucose Chew Tab) 4-8 Tablets 4 Tabl... UD PRN PO 07/17/16 21:00 08/16/16 20:59 Dextrose (Dextrose 50% 50ML Syringe) 25-50ML OF 50% DW IV FOR... UD PRN IV 07/17/16 21:00 08/16/16 20:59 Glucagon (Glucagon Inj) 1 mg UD PRN SQ 07/17/16 21:00 08/16/16 20:59 Miscellaneous Information (Consult Glycemic Management Pharmacy) 1 ea UD PRN N/A 07/17/16 21:26 08/16/16 21:25 Doxycycline Hyclate (Vibramycin Cap) 100 mg BID PO 07/17/16 21:00 07/24/16 20:59 07/18/16 21:38 100 MG Ondansetron HCl (Zofran Inj) 4 mg Q6H PRN IV 07/18/16 08:00 08/17/16 07:59 07/19/16 04:25 4 MG Nystatin (Mycostatin Susp) 4 ml QID PO 07/18/16 10:00 07/28/16 09:59 07/18/16 21:38 4 ML Enteral Nutritional Formula (Boost Breeze Nutritional Drink) 0.5 box TIDM PO 07/18/16 11:30 08/17/16 11:29 07/18/16 13:09 0.5 BOX Arformoterol Tartrate (Brovana 15MCG/ 2ML Neb Soln) 15 mcg BIDR INH 07/18/16 20:00 08/17/16 19:59 07/19/16 07:54 15 MCG Budesonide 0.5 mg 0.5 mg BIDR INH 07/18/16 20:00 08/17/16 19:59 07/19/16 07:09 0.5 MG Methylprednisolone Sodium Succinate/ Syringe (Solu-Medrol IV/ Syringe) 0.64 ml @ 1.5 mls/min Q12H IV 07/18/16 18:00 08/17/16 17:59 07/19/16 05:43 1.5 MLS/MIN Insulin Glargine 8 unit 8 unit BID SC 07/18/16 21:00 08/17/16 20:59 07/18/16 21:42 8 UNIT Vancomycin HCl/ Sodium Chloride (Vancomycin Inj/ Nss 250ml) 272 ml @ 125 mls/hr Q14H IV 07/18/16 20:00 07/27/16 15:59 07/18/16 19:42 125 MLS/HR Ioversol 111 ml 111 ml UD PRN IV 07/18/16 14:00 07/22/16 13:59 Potassium Chloride/Sodium Chloride (1/2 Nss + 20meq KCl 1000ml) 1,000 ml @ 125 mls/hr Q8H IV 07/18/16 16:30 08/17/16 16:29 07/19/16 01:51 125 MLS/HR Warfarin Sodium 2.5 mg 2.5 mg DAILY@1600 PO 07/19/16 16:00 08/18/16 15:59 Potassium Phosphate/Sodium Chloride (Potassium Phosphate Inj/Nss 250ml) 255 ml @ 102 mls/hr TODAY@0800 ONCE IV 07/19/16 08:00 07/19/16 10:29 07/19/16 08:04 102 MLS/HR Pantoprazole Sodium (Protonix Tab) 40 mg BID PO 07/19/16 09:00 08/18/16 08:59
--- NOTE | 2016-07-19 10:16 | Progress Note ---
Progress Note ID Consult Dictated #[id number] A/P: 1. GNR Septicemia (+ cultures from [facility]) 2. GNR Pna/COPD 3. Colitis 4. Leukocytosis 5. 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
[2016-07-19] MEDS ORDERED: NSS + 20MEQ KCL 1000ML 1,000 ML IV SCH (11:00)
[2016-07-19] MEDS: NYSTATIN SUSP 500,000 U/5 ML UDC PO SCH ×4 (11:00→20:16)
[2016-07-19] MEDS: DILTIAZEM HCL 60 MG TAB PO SCH ×3 (11:01→20:16)
[2016-07-19] MEDS: INSULIN GLARGINE SOLOSTAR 100 UNITS/ML 3 ML PEN SC SCH ×2 (11:03→20:31)
[2016-07-19] MEDS: NICOTINE 7 MG/24 HR TDSY TD SCH (11:07)
[2016-07-19] MEDS: BOOST BREEZE NUTRITION DRINK 1 BOX PO SCH ×3 (11:11→16:46)
--- NOTE | 2016-07-19 11:13 | ECHOCARDIOGRAM REPORT ---
*NOTICE TO RECEIVING LIBERTARIAN AGENCY This information is strictly Confidential and protected under [place] law. [place] law prohibits you from making any further disclosure of this information unless further disclosure is expressly permitted by the written consent of the person to whom it pertains or is authorized by law. A general authorization for the release of medical or other information is not sufficient for this purpose. Hospital accepts no responsibility if the information is made available to any other person, INCLUDING THE PATIENT. Interpretation Summary * Name: BANDAR ROWLAND Study Date: 07/19/2016 08:19 AM BP: 131/81 mmHg * Patient Location: .MSICU\S\E104\S\1 HR: 75 * : 1950 (M/d/yyyy) Gender: Male Height: 65 in * Age: 65 yrs Ethnicity: CA Weight: 151 lb * Ordering Physician: Olu Hsu * Performed By: Naila Estevez RCS * * Reason For Study: ENDOCARDITIS * BSA: 1.8 m2 * -- Conclusions -- * Normal LV chamber size with mild concentric LVH. * Normal LV systolic function, EF 55-60%. * No segmental left ventricular wall motion abnormalities are noted. * Normal diastolic function. * There is a bioprosthetic aortic valve.There is no significant aortic regurgitation. No hemodynamically significant valvular aortic stenosis. * There is a bioprosthetic mitral valve. There is no mitral regurgitation noted. There is no mitral valve stenosis. * Mild left atiral enlargement. * No valvular lesions compatible with endocarditis visualized within the scope of this imaging modality. Presence of bioprostetic valves reduces sensitivity. Procedure Details * A complete two-dimensional transthoracic echocardiogram was performed (2D, M-mode, Doppler and color flow Doppler). Left Ventricle * The left ventricle is normal in size. * There is mild concentric left ventricular hypertrophy. * Left ventricular systolic function is normal. * No segmental left ventricular wall motion abnormalities are noted. * Ejection Fraction = 55-60%. * The left ventricular wall motion is normal. Right Ventricle * The right ventricular cavity size is normal (basal dimension <4.2 cm in right ventricular apical 4-chamber view). * The right ventricular systolic function is normal as assessed by tricuspid annular plane systolic excursion (TAPSE) (normal >1.5 cm). Atria * The left atrium is mildly dilated. * Right atrial size is normal. * No ASD detected; PFO is not assessed. Mitral Valve * There is no mitral valve stenosis. * There is no mitral regurgitation noted. * There is a bioprosthetic mitral valve. Tricuspid Valve * The tricuspid valve is normal in structure and function. Aortic Valve * No hemodynamically significant valvular aortic stenosis. * There is no significant aortic regurgitation. * There is a bioprosthetic aortic valve. Pulmonic Valve * The pulmonary valve is not well seen, but the Doppler examination is normal without significant regurgitation or stenosis. Great Vessels * The aortic root is normal size. Pericardium/Pleural * There is no pericardial effusion. Left Ventricular Diastolic Function * Pulse wave TDI of the anterior and posterior mitral annulas demonstrates normal LV relaxation MMode 2D Measurements and Calculations IVSd 1.1 cm IVSs 1.3 cm LVIDd 4.8 cm LVIDs 3.1 cm LVPWd 1.1 cm LVPWs 1.5 cm IVS/LVPW 0.99 FS 36.1 % EDV(Teich) 109.6 ml ESV(Teich) 37.8 ml EF(Teich) 65.6 % EDV(cubed) 113.4 ml ESV(cubed) 29.6 ml EF(cubed) 73.9 % % IVS thick 18.9 % % LVPW thick 30.7 % LV mass(C)d 200.1 grams LV mass(C)dI 114.0 grams/m\S\2 LV mass(C)s 144.9 grams LV mass(C)sI 82.5 grams/m\S\2 SV(Teich) 71.9 ml SI(Teich) 40.9 ml/m\S\2 SV(cubed) 83.7 ml SI(cubed) 47.7 ml/m\S\2 Ao root diam 2.5 cm Ao root area 5.0 cm\S\2 LA dimension 4.6 cm LA/Ao 1.8 LVOT diam 1.9 cm LVOT area 2.8 cm\S\2 LVAd ap4 26.4 cm\S\2 LVLd ap4 7.4 cm EDV(MOD-sp4) 80.3 ml EDV(sp4-el) 80.1 ml LVAs ap4 18.9 cm\S\2 LVLs ap4 6.7 cm ESV(MOD-sp4) 50.4 ml ESV(sp4-el) 44.9 ml EF(MOD-sp4) 37.3 % EF(sp4-el) 44.0 % LVAd ap2 24.0 cm\S\2 LVLd ap2 7.5 cm EDV(MOD-sp2) 65.6 ml EDV(sp2-el) 65.2 ml LVAs ap2 17.1 cm\S\2 LVLs ap2 6.3 cm ESV(MOD-sp2) 40.1 ml ESV(sp2-el) 39.5 ml EF(MOD-sp2) 38.9 % EF(sp2-el) 39.4 % LVLd %diff 1.6 % EDV(MOD-bp) 73.3 ml LVLs %diff -6.81 % ESV(MOD-bp) 45.4 ml EF(MOD-bp) 38.1 % SV(MOD-sp4) 29.9 ml SI(MOD-sp4) 17.1 ml/m\S\2 SV(MOD-sp2) 25.5 ml SI(MOD-sp2) 14.5 ml/m\S\2 SV(MOD-bp) 27.9 ml SI(MOD-bp) 15.9 ml/m\S\2 SV(sp4-el) 35.2 ml SI(sp4-el) 20.1 ml/m\S\2 SV(sp2-el) 25.7 ml SI(sp2-el) 14.6 ml/m\S\2 Doppler Measurements and Calculations MV E max marifer 159.1 cm/sec MV A max marifer 79.3 cm/sec MV E/A 2.0 MV P1/2t max marifer 166.0 cm/sec MV P1/2t 105.9 msec MVA(P1/2t) 2.1 cm\S\2 MV dec slope 459.0 cm/sec\S\2 MV dec time 0.35 sec Ao V2 max 223.6 cm/sec Ao max PG 20.0 mmHg Ao max PG (full) 14.4 mmHg JEAN CLAUDE(V,A) 1.5 cm\S\2 JEAN CLAUDE(V,D) 1.5 cm\S\2 LV V1 max PG 5.6 mmHg LV V1 max 118.5 cm/sec PA V2 max 108.3 cm/sec PA max PG 4.7 mmHg
--- NOTE | 2016-07-19 11:42 | Pharmacy Progress Note ---
Glycemic Control: Progress Nt Date of Service Jul 19, 2016. Scope Glycemic Pharmacist consulted by Dr Hernandez on 07/18/16 for glycemic control and to write orders per [facility] inpatient glycemic control protocol. Objective Accuchecks BSG (last 24hrs): Test 07/18/16 16:04 07/18/16 21:15 07/19/16 01:50 07/19/16 05:08 Bedside Glucose 174 mg/dl (70-99) 330 mg/dl (70-99) 216 mg/dl (70-99) Random Glucose 206 mg/dl (70-99) Test 07/19/16 06:07 Bedside Glucose 199 mg/dl (70-99) Laboratory Data (last 24hrs) Test 07/19/16 05:08 Anion Gap 7.0 mmol/L BUN/Creatinine Ratio 41.5 Blood Urea Nitrogen 37 mg/dl Creatinine 0.89 mg/dl Potassium Level 3.7 mmol/L Sodium Level 143 mmol/L White Blood Count 24.32 K/uL HbA1c: Test 07/18/16 05:30 Hemoglobin A1c 7.4 % (4.5-5.6) H Recent Pertinent Medications Outpatient Anti-diabetic Regimen: * was not taking medication to manage DM * A1c = 7.4 % 07/18/16 (eAG ~166) The patient is currently receiving: * Basal insulin: Lantus 12 units yesterday morning followed by 8 units last night * Correctional Insulin: Novolog Correction per scale ACHS Goal Range: Low 140 mg/dL - High 180 mg/dL Correction Factor: 25 mg/dL/unit * Prandial insulin: Per carb ratio of 1 unit per 12 grams CHO consumed Risk Factors for Insulin Resistance: * Steroids: Solu-medrol 40 mg IV every 12 hours---> Prednisone oral taper starting tomorrow * Infection: Zosyn IV * Diet: currently ordered Clears / T2DM diet + Boost Breeze supplement TID w/ meals--> to be advanced this afternoon Assessment & Plan ASSESSMENT: 07/18/16 * Type 2 diabetic admitted with sepsis possibly secondary to HCAP vs intraabdominal infxn vs c diff colitis * Preliminary blood cx's reported to contain gram neg rods (from [facility] ) * He is currently experiencing stress / steroid induced hyperglycemia and will require basal / bolus SQ insulin strategy to achieve glycemic targets. I would however have a low threshold for starting an IV insulin protocol in this patient if we cannot achieve BSGs less than 200's in the next 24 hours * Steroids are being tapered today however ---> which may help improve insulin sensitivity. PO intake is poor thus far. * Initial doses will be determined by wt based strategy ~0.5-0.6units/kg/day while on current dose of steroids 07/19/16 * BSGs overnight spiked around 2100 to 330 mg/dL * Nurse called to report to pharmacy that patient had regular pepsi and regular gingerale at bedside (likely not covered) * Fasting BSG this AM 199 mg/dL (so trending back down) * Steroids to be tapered from IV to PO starting tomorrow, which should help the hyperglycemia * Patient normally does not require any hypoglycemics at home and A1c 7.4% * Plan will be to titrate insulin with steroid taper starting tomorrow AM PLAN FOR INPATIENT GLYCEMIC CONTROL: * Continue Lantus 8 units BID Half dose if BSG <120 mg/dL * Continue correction factor of 25 mg/dl/unit * Continue carb ratio of 1 unit per 12 grams CHO consumed * Continue goal range of Low 140 mg/dL - High 180 mg/dL * Continue to check BSG @ 0200 as insulin is titrated * Reassess insulin needs with each step down in steroid dose ---> avg BSG ~160' s with no insulin therapy prior to admission if A1c accurate * Please note that the plan above was derived based on current level of insulin resistance and hospital stress. These recommendations are appropriate for inpatient admission only. Plan of care upon discharge will need to be reassessed to avoid potential outpatient hypo/hyperglycemia. Thank you. RECOMMENDATIONS FOR DISCHARGE: * * Please note that the plan above was derived based on current level of insulin resistance and hospital stress. These recommendations are appropriate for inpatient admission only. Plan of care upon discharge will need to be reassessed to avoid potential outpatient hypo/hyperglycemia. Thank you.
--- NOTE | 2016-07-19 13:19 | Critical Care Progress Note ---
Critical Care Progress Note Date of Service Jul 19, 2016. Attending Dr. Hsu Subjective Doing better today; still complains of abdominal pain and tenderness Shortness of breath improving Slept well; still quite fatigued Objective Physical Exam: General: Comfortable, no apparent distress Eyes: PERRL, normal EOM bilaterally ENT: Mucous membranes moist, pharynx clear, TM clear Neck: No JVD, no lymphadenopathy, no thyromegaly Lungs: Clear to auscultation bilaterally, mild wheezing; still likely persistent at low grade due to COPD, no crackles Heart: S1 and S2 with no added sounds and no murmurs Abdomen: Soft, mildly distended, diffuse moderate tenderness; cannot palpate deep due to tenderness; bowel sounds audible Extremities: No pitting edema, no asymmetric swelling, no calf pain or tenderness. No stigmata of endocarditis. No [place] lesions or osler's nodes Neuro: AO x 3, responds to commands appropriately, normal mood and affect Assessment & Plan 65 year male presenting with colitis. C. diff colitis is unlikely given 2 negative toxin screens. Still has bacteremia, possible due to secondary translocation from ischemia. Working diagnosis of ischemic colitis Other differential diagnoses includes C.diff colitis, non-specific infectious colitis, ulcerative colitis, Crohn's disease. Our plan for him is as follows: Neurological - Alert and oriented x 3; ICU-CAM negative - Stable Respiratory COPD Stage D - Highly symptomatic with multiple annual exacerbations - Baseline 2 L of nasal cannula at home; currently on 2 L maintaining saturations - Continue Xopenex and Atrovent nebs q 4 hourly - Solu-Medrol 40 BID IV Yesterday --> Taper to Prednisone 40 mg PO once daily Will taper to dose of 10 mg daily. May be benefit from continuous oral steroids - Continue Pulmicort and Brovana Left Lower Lobe Infiltrate - As reported by radiology; CT done yesterday queries possibility of atelectasis vs PNA - Unlikely due to atypical organism --> Discontinue Doxycycline - Sputum cultures growing gram negative bacilli --> not MRSA --> Discontinue Vancomycin - Continue Zosyn Cardiac Atrial Fibrillation - Rate-controlled Afib in the 80; no symptoms of palpitations or chest pain - INR Subtherapeutic today; resume Coumadin 2.5 mg daily - Continue home dosing of Cardizem Hypertension - BP 140-160/90s overnight - Resume Lisinopril today History of Aortic Valve replacement and Mitral Valve Repair - Patient on Coumadin at home 2.5 mg daily - Aortic valve is porcine - Goal likely 2-3. INR 1.5. Start Coumadin 5 mg. Risk for infective endocarditis - Patient bacteremic in the setting of previous valve repair surgery - No stigmata of endocarditis on examination - Keita's major criteria: no evidence of new murmur; echocardiogram pending Abdominal Ischemic Colitis - Unlikely give C.diff toxin assay negative x 2 - Keep patient on clear liquid diet per GI - Discussed patient with GI; no plans at this time for coloscopy; resuming diet to be dictated clinically based on degree of abdominal tenderness and distension GI prophylaxis - Discontinue all GI prophylaxis as patient is eating PO Genitourinary - Cr 0.89, stable - Monitor U/O, Daily weights UO yesterday was 1775 ml out yesterday; total fluid blance + 4L Discontinue IV fluids - Electrolytes Na 143; K 3.7; Cl 110; HCO3 26; BUN 37; Cr 0.89 Ca 7.1 Mag 2.1 Phos 2.1 --> Replete with 15 mmol of KPhos Endocrine - BSG yesterday/overnight ranging from 174-330 Elevated BSG in the 300 measure noted as patient had cocacola in room at the time of check - HbA1c elevated at 7.4, which suggests this is long-standing - Continuing to taper steroid - Lantus 8 units - Insulin Sliding Scale ordered: Goal 140-180; CF 30; Correction Factor 15 Heme - Hemoglobin 11/Hct 33 Supratherapeutic INR - INR 1.8 today DVT prophylaxis - Re-start Coumadin - Will give single dose of Lovenox today to cover due to subtherapeutic INR Infectious Disease Sepsis due to Colitis - Blood cultures from [employer] report Gram negative Rods --> Speciated as aerobic Bacteroides spp. - Sputum cultures growing gram negative bacilli, sensitivities pending - Currently afebrile, WBC 24 (mildly up from 22); vitals stable - Sputum cultures and blood cultures growing gram negative --> Discontinue Vancomycin - Continue Zosyn --> would benefit for total treatment duration 14 days Code Status Level I Code Disposition - Patient is hemodynamically stable; suitable for transfer by primary service - OT and PT to be consulted Resident Physician Supervision Note: Dr. Gomez was resident physician during care of patient. I separately evaluated patient and did history and exam. I discussed the case with the resident and generally agree with the findings and plan. Patient's acute critical illness needs have resolved. Echo report reviewed dated 07/19/2016, no report of valvular evidence of endocarditis. Stable for transfer out of the ICU Documented By: Olu Hsu DO Data Medications: Current Inpatient Medications Medications (Trade) Dose Ordered Sig/Jim Route Start Time Stop Time Status Last Admin Dose Admin Morphine Sulfate (MoRPHine SULFATE INJ) 2 mg Q2H PRN IV 07/17/16 13:45 07/31/16 13:44 07/17/16 17:09 2 MG Albuterol/ Ipratropium (Duoneb) 3 ml Q4H PRN INH 07/17/16 13:45 08/16/16 13:44 Future Hold Diltiazem HCl (Cardizem Tab) 60 mg TID PO 07/17/16 21:00 08/16/16 20:59 07/19/16 11:01 60 MG Nicotine (Nicoderm Cq 7 Mg Patch) 1 patch QAM TD 07/18/16 09:00 08/17/16 08:59 07/19/16 11:07 1 PATCH Miscellaneous (Remove Nicoderm Patch) 1 ea HS N/A 07/17/16 21:00 08/16/16 20:59 07/18/16 21:38 1 EA Piperacillin Sod/ Tazobactam Sod 1 ea 1 ea UD PRN N/A 07/17/16 19:15 08/16/16 19:14 Piperacillin Sod/ Tazobactam Sod/ Dextrose (Zosyn Iv/D5 100ml) 120 ml @ 30 mls/hr Q8@0200,1000,1800 IV 07/18/16 02:00 07/28/16 01:59 07/19/16 11:13 30 MLS/HR Ipratropium [place] (Atrovent 0.02% 0.5MG/2.5ML Neb) 0.5 mg Q4R INH 07/17/16 21:00 08/16/16 20:59 07/19/16 11:18 0.5 MG Levalbuterol (Xopenex 1.25MG/ 0.5ML Neb) 1.25 mg Q4R INH 07/17/16 21:00 08/16/16 20:59 07/19/16 11:18 1.25 MG Insulin Aspart (novoLOG ASPART) SLIDING SCALE If C... ACHS SC 07/17/16 22:00 08/16/16 21:59 07/19/16 08:04 1 UNITS Glucose (Glucose 40% Gel) 15-30 GRAMS 15 GRAMS... UD PRN PO 07/17/16 21:00 08/16/16 20:59 Glucose (Glucose Chew Tab) 4-8 Tablets 4 Tabl... UD PRN PO 07/17/16 21:00 08/16/16 20:59 Dextrose (Dextrose 50% 50ML Syringe) 25-50ML OF 50% DW IV FOR... UD PRN IV 07/17/16 21:00 08/16/16 20:59 Glucagon (Glucagon Inj) 1 mg UD PRN SQ 07/17/16 21:00 08/16/16 20:59 Miscellaneous Information (Consult Glycemic Management Pharmacy) 1 ea UD PRN N/A 07/17/16 21:26 08/16/16 21:25 Ondansetron HCl (Zofran Inj) 4 mg Q6H PRN IV 07/18/16 08:00 08/17/16 07:59 07/19/16 04:25 4 MG Nystatin (Mycostatin Susp) 4 ml QID PO 07/18/16 10:00 07/28/16 09:59 07/19/16 11:00 4 ML Enteral Nutritional Formula (Boost Breeze Nutritional Drink) 0.5 box TIDM PO 07/18/16 11:30 08/17/16 11:29 07/19/16 11:11 0.5 BOX Arformoterol Tartrate (Brovana 15MCG/ 2ML Neb Soln) 15 mcg BIDR INH 07/18/16 20:00 08/17/16 19:59 07/19/16 07:54 15 MCG Budesonide 0.5 mg 0.5 mg BIDR INH 07/18/16 20:00 08/17/16 19:59 07/19/16 07:09 0.5 MG Methylprednisolone Sodium Succinate/ Syringe (Solu-Medrol IV/ Syringe) 0.64 ml @ 1.5 mls/min Q12H IV 1/5/17 18:00 08/17/16 17:59 07/19/16 05:43 1.5 MLS/MIN Insulin Glargine (Lantus Solostar Pen) 8 unit BID SC 07/18/16 21:00 08/17/16 20:59 07/19/16 11:03 8 UNIT Ioversol (Optiray 320) 111 ml UD PRN IV 07/18/16 14:00 07/22/16 13:59 Pantoprazole Sodium 40 mg 40 mg BID PO 07/19/16 09:00 08/18/16 08:59 Potassium Chloride/Sodium Chloride (Nss + 20meq KCl 1000ml) 1,000 ml @ 100 mls/hr Q10H IV 07/19/16 11:00 08/18/16 10:59 I & O: 24-Hour Column 07/19/16 08:00 Intake Total 4386 ml Output Total 1900 ml Balance 2486 ml Vital Signs: Date Time Temp Pulse Resp B/P Pulse Ox O2 Delivery O2 Flow Rate FiO2 07/19/16 12:00 97 Nasal Cannula 2.0 07/19/16 12:00 113 22 159/128 91 Nasal Cannula 2.0 07/19/16 11:18 92 16 95 Nasal Cannula 2.0 07/19/16 10:00 89 24 128/84 94 Nasal Cannula 2.0 07/19/16 08:00 96 Nasal Cannula 2.0 07/19/16 08:00 36.6 82 18 142/103 97 Nasal Cannula 2.0 07/19/16 07:05 86 16 95 Nasal Cannula 2.0 07/19/16 06:00 93 20 131/81 95 Nasal Cannula 2.0 07/19/16 04:16 82 16 95 Nasal Cannula 2.0 07/19/16 04:00 96 Nasal Cannula 2.0 07/19/16 04:00 36.9 86 19 145/81 99 Nasal Cannula 2.0 07/19/16 02:04 81 17 143/90 94 Nasal Cannula 2.0 07/19/16 00:01 36.4 07/19/16 00:01 87 17 124/78 96 Nasal Cannula 2.0 07/18/16 23:59 96 Nasal Cannula 2.0 07/18/16 23:45 102 16 96 Nasal Cannula 3.0 07/18/16 22:01 90 22 102/84 95 Nasal Cannula 2.0 07/18/16 20:48 80 16 95 Nasal Cannula 2.0 07/18/16 20:01 84 18 140/73 96 Nasal Cannula 2.0 07/18/16 20:00 95 Nasal Cannula 2.0 07/18/16 20:00 36.4 07/18/16 19:00 85 19 112/86 96 Nasal Cannula 2.0 07/18/16 18:00 89 18 108/81 94 Nasal Cannula 3.0 07/18/16 16:00 Nasal Cannula 2.0 07/18/16 15:59 36.7 94 19 136/91 96 Nasal Cannula 2.0 07/18/16 15:17 105 16 96 Nasal Cannula 2.0 07/18/16 13:59 90 22 134/87 92 Nasal Cannula 2.0 07/18/16 12:59 36.9 104 26 128/97 95 Nasal Cannula 2.0 Laboratory Results: Last 24 Hours Test 07/18/16 16:04 07/18/16 21:15 07/19/16 01:50 07/19/16 05:08 Bedside Glucose 174 mg/dl 330 mg/dl 216 mg/dl White Blood Count 24.32 K/uL Red Blood Count 3.75 M/uL Hemoglobin 11.1 g/dL Hematocrit 33.6 % Mean Corpuscular Volume 89.6 fL Mean Corpuscular Hemoglobin 29.6 pg Mean Corpuscular Hemoglobin Concent 33.0 g/dl RDW Standard Deviation 55.5 fL RDW Coefficient of Variation 16.9 % Platelet Count 163 K/uL Mean Platelet Volume 10.8 fL Prothrombin Time 16.8 SECONDS Prothromb Time International Ratio 1.5 Sodium Level 143 mmol/L Potassium Level 3.7 mmol/L Chloride Level 110 mmol/L Carbon Dioxide Level 26 mmol/L Anion Gap 7.0 mmol/L Blood Urea Nitrogen 37 mg/dl Creatinine 0.89 mg/dl Est Creatinine Clear Calc Drug Dose 71.0 ml/min Estimated GFR () 103.3 Estimated GFR (Non- 89.1 BUN/Creatinine Ratio 41.5 Random Glucose 206 mg/dl Calcium Level 7.4 mg/dl Phosphorus Level 2.1 mg/dl Magnesium Level 2.1 mg/dl Total Bilirubin 0.4 mg/dl Aspartate Amino Transf (AST/SGOT) 16 U/L Alanine Aminotransferase (ALT/SGPT) 25 U/L Alkaline Phosphatase 114 U/L Total Protein 4.4 gm/dl Albumin 1.8 gm/dl Globulin 2.6 gm/dl Albumin/Globulin Ratio 0.7 Procalcitonin 2.57 ng/mL Test 07/19/16 06:07 Bedside Glucose 199 mg/dl
[2016-07-19 13:22] LABS: HEMATOCRIT 31.6 % (42-52)
[2016-07-19] MEDS ORDERED: VANCOMYCIN TROUGH ONE ×2 (13:30→23:30)
[2016-07-19] MEDS ORDERED: VANCOMYCIN TROUGH SCH (13:30)
[2016-07-19] MEDS ORDERED: LISINOPRIL 10 MG TAB PO ONE (14:06)
[2016-07-19] MEDS ORDERED: WARFARIN SOD 2.5 MG TAB PO SCH (16:00)
[2016-07-20] VITALS (11 sets, daily range): BP systolic 97–140; BP diastolic 60–86; PULSE 80–100; TEMP 36.5–36.8; O2SAT 94–99
[2016-07-20] MEDS: PIPERACILL/TAZOBAC IV 4.5 GM in DEXTROSE 5% 100ML IV SCH ×3 (02:14→18:20)
[2016-07-20] MEDS: ONDANSETRON INJ 2 MG/ML 2 ML VIAL IV PRN (03:46)
[2016-07-20] MEDS: IPRATROPIUM BROMIDE NEB SOLN 0.02% 2.5 ML VIAL INH SCH ×6 (03:50→23:18)
[2016-07-20] MEDS: LEVALBUTEROL 1.25MG/0.5ML NEB INH SCH ×6 (03:50→23:18)
[2016-07-20 05:55] LABS: HEMATOCRIT 30.8 % (42-52); MEAN CORPUSCULAR HEMOGLOBIN 29.7 pg (25-34); MEAN CORPUSCULAR HGB CONC 33.8 g/dl (32-36); MEAN PLATELET VOLUME 10.7 fL (7.4-10.4); PLATELET COUNT 151 K/uL (130-400); WHITE BLOOD COUNT 20.05 K/uL (4.8-10.8)
[2016-07-20 06:06] LABS: INR 1.2 (0.9-1.1); PROTHROMBIN TIME (PATIENT) 13.4 SECONDS (9.0-12.0)
[2016-07-20 06:34] LABS: BUN/CREATININE RATIO 44.7 (10-20); CALCIUM 7.6 mg/dl (8.5-10.1); CREATININE 0.79 mg/dl (0.60-1.40); MAGNESIUM 2.2 mg/dl (1.8-2.4); POTASSIUM 3.8 mmol/L (3.5-5.1)
[2016-07-20 06:40] LABS: ALB/GLOB RATIO 0.7 (0.9-2)
[2016-07-20] MEDS: BUDESONIDE 0.5 MG/2 ML VIAL (PULMICORT) INH SCH ×2 (07:18→20:00)
[2016-07-20] MEDS: ARFORMOTEROL TART 15MCG/2ML VIAL INH SCH ×2 (07:18→20:00)
[2016-07-20] MEDS: NYSTATIN SUSP 500,000 U/5 ML UDC PO SCH ×4 (07:53→21:53)
[2016-07-20] MEDS: DILTIAZEM HCL 60 MG TAB PO SCH ×3 (07:54→21:54)
[2016-07-20] MEDS: NICOTINE 7 MG/24 HR TDSY TD SCH (07:55)
[2016-07-20] MEDS: BOOST BREEZE NUTRITION DRINK 1 BOX PO SCH ×3 (08:51→16:45)
[2016-07-20] MEDS: LISINOPRIL 10 MG TAB PO SCH (08:51)
[2016-07-20] MEDS: INSULIN ASPART 100 UNITS/ML 3 ML PEN SC SCH ×4 (08:53→21:57)
[2016-07-20] MEDS ORDERED: INSULIN GLARGINE SOLOSTAR 100 UNITS/ML 3 ML PEN SC SCH (09:00)
[2016-07-20] MEDS ORDERED: CONSULT PHARMACY STA (10:57)
[2016-07-20] MEDS ORDERED: ALUMINUM/MAGNESIUM SUSP 30 ML UDC ONE (10:59)
[2016-07-20] MEDS ORDERED: PANTOprazole INJ 40 MG in SYRINGE 0 ML IV ONE (11:00)
--- NOTE | 2016-07-20 11:01 | Progress Note ---
Medicine Progress Note Date & Time of Visit: Jul 20, 2016 at 10:51. Subjective seen resting in bed main symptom is reflux, epigastric discomfort and some nausea, appetite fair states lower abdominal pain is resolved, (+) BM, non bloody breathing also improving denies fever/chills no other symptoms Objective Last 8 Hrs Date Time Temp Pulse Resp B/P Pulse Ox O2 Delivery O2 Flow Rate FiO2 07/20/16 08:00 Nasal Cannula 2.0 07/20/16 07:58 36.8 85 22 123/86 98 Nasal Cannula 2.0 07/20/16 07:19 93 16 95 Nasal Cannula 2.0 07/20/16 04:00 96 Nasal Cannula 2.0 07/20/16 04:00 36.8 80 18 134/75 95 Nasal Cannula 2.0 Physical Exam: General-oriented x 3, not in distress, speaks in sentences with no effort, no accessory muscle use Eyes- anicteric ENT-oral thrush- improving Neck- supple, no JVD Lungs- (+) mild scattered wheeze bilaterally, good air entry Heart-normal rate, irregularly irregular rhythm; no murmurs Abdomen- normal bowel sounds, non distended, soft, non tender Extremities- no pretibial edema, no calf tenderness Neuro- alert, oriented x 3; no gross focal deficits Skin- warm & dry Laboratory Results: Last 24 Hours Test 07/19/16 13:09 07/19/16 16:39 07/19/16 20:20 07/20/16 05:26 Hemoglobin 10.7 g/dL 10.4 g/dL Hematocrit 31.6 % 30.8 % Bedside Glucose 232 mg/dl 201 mg/dl White Blood Count 20.05 K/uL Red Blood Count 3.50 M/uL Mean Corpuscular Volume 88.0 fL Mean Corpuscular Hemoglobin 29.7 pg Mean Corpuscular Hemoglobin Concent 33.8 g/dl RDW Standard Deviation 53.5 fL RDW Coefficient of Variation 16.9 % Platelet Count 151 K/uL Mean Platelet Volume 10.7 fL Prothrombin Time 13.4 SECONDS Prothromb Time International Ratio 1.2 Sodium Level 143 mmol/L Potassium Level 3.8 mmol/L Chloride Level 110 mmol/L Carbon Dioxide Level 27 mmol/L Anion Gap 6.0 mmol/L Blood Urea Nitrogen 35 mg/dl Creatinine 0.79 mg/dl Est Creatinine Clear Calc Drug Dose 80.0 ml/min Estimated GFR () 108.5 Estimated GFR (Non- 93.6 BUN/Creatinine Ratio 44.7 Random Glucose 147 mg/dl Calcium Level 7.6 mg/dl Phosphorus Level 3.0 mg/dl Magnesium Level 2.2 mg/dl Total Bilirubin 0.6 mg/dl Aspartate Amino Transf (AST/SGOT) 18 U/L Alanine Aminotransferase (ALT/SGPT) 27 U/L Alkaline Phosphatase 112 U/L Total Protein 4.4 gm/dl Albumin 1.8 gm/dl Globulin 2.6 gm/dl Albumin/Globulin Ratio 0.7 Test 07/20/16 06:57 Bedside Glucose 144 mg/dl Assessment & Plan IMPRESSION: 1. No evidence of bowel obstruction. No evidence of free air 2. Marked long segment colonic wall thickening extending from the mid transverse colon to the sigmoid colon. The findings are consistent with a colitis 3. Cholelithiasis 4. Low volume ascites 5. Multiple large bilateral renal cysts 6. Indeterminate 24 mm lesion within the lower pole the right kidney. A dedicated CT scan of the kidneys be obtained in follow-up to differentiate a hyperdense cyst from solid renal mass 7. Nonobstructing right renal calculus 8. Severe pulmonary emphysema 9. Small left pleural effusion and trace right pleural effusion 10. Lower lobe bronchial wall thickening. Left basal airspace opacities, likely atelectatic 65 year old male with history of COPD on 2 liters NC, A fib on coumadin, AV replacement, MV Repair, Hypertension POSSIBLE SEPSIS SECONDARY TO COLITIS, PNEUMONIA, POSSIBLE BACTEREMIA Afebrile, WBC 19 at [facility] and 32K here, + tachypnea, HR 100s, borderline hypotension (90s/50s) at [facility]; lactic acid 2.4 at [facility]- recheck lactic acid Treated with IV Zosyn, IV Flagyl, and PO Vanco at [facility] -- remains afebrile, WBC decreasing GRAM NEGATIVE LAXMI BACTEREMIA IN THE SETTING OF MITRAL VALVE REPLACEMENT-PORCINE AND AORTIC VALVE REPAIR HISTORY OF ENDOCARDITIS, ENTEROCOCCUS BACTEREMIA - blood cultures drawn at [facility]: 07/18/16 gram negative rods awaiting final culture report - repeat blood cultures 07/18/16: no growth to day TTE: no signs of vegetations - on Vanco and Zosyn Day 4 COLITIS POSSIBLE GI BLEED Ruled out for C. diff; Ddx includes infectious colitis vs. inflammatory bowel disease CT A/p from [facility] noted - C diff negative stool cultures pending - (+) report of jany colored stools Hg decreased to 11--> stable at around 10 - on empiric Zosyn Day 4 clear liquids--> advance to full liquid IV fluids resume coumadin Maalox + Protonix - GI consulted, appreciate the consult POSSIBLE LEFT LOWER LOBE PNEUMONIA - ff up blood, sputum cultures - (+) MRSA nasal swab - continue Vanco, Zosyn Day 3 COPD WITH EXACERBATION With chronic respiratory failure requiring 2 liters NC continuous Recently treated with abx/ steroids for COPD exac during hospitalization at [facility] from Jul 12-Jul 16 -- Nebs, Prednisone, antibiotics -- improving PAROXYSMAL AFIB Rate is controlled Continue Cardizem -- INR 1.2 resume coumadin HTN Was borderline hypotensive at [facility] (BP low as 90s/50s) Lisinopril held for now DM TYPE 2 A1c 7.2 ISS Pharmacy consulted HX AORTIC VALVE REPLACEMENT AND MITRAL VALVE REPAIR ff up blood cultures echo: no signs of vegetations Indeterminate 24 mm lesion within the lower pole the right kidney. - dedicated CT scan of the kidneys be obtained in follow-up to differentiate a hyperdense cyst from solid renal mass DYSLIPIDEMIA hold statin until gi symptoms resolved DVT PROPHYLAXIS SCD's coumadin CODE STATUS Full code Disposition pending Current Inpatient Medications: Current Inpatient Medications Medications (Trade) Dose Ordered Sig/Jim Route Start Time Stop Time Status Last Admin Dose Admin Morphine Sulfate (MoRPHine SULFATE INJ) 2 mg Q2H PRN IV 07/17/16 13:45 07/31/16 13:44 07/17/16 17:09 2 MG Albuterol/ Ipratropium (Duoneb) 3 ml Q4H PRN INH 07/17/16 13:45 08/16/16 13:44 Future Hold Diltiazem HCl (Cardizem Tab) 60 mg TID PO 07/17/16 21:00 08/16/16 20:59 07/20/16 07:54 60 MG Nicotine (Nicoderm Cq 7 Mg Patch) 1 patch QAM TD 07/18/16 09:00 08/17/16 08:59 07/20/16 07:55 1 PATCH Miscellaneous (Remove Nicoderm Patch) 1 ea HS N/A 07/17/16 21:00 08/16/16 20:59 07/19/16 20:16 1 EA Piperacillin Sod/ Tazobactam Sod 1 ea 1 ea UD PRN N/A 07/17/16 19:15 08/16/16 19:14 Piperacillin Sod/ Tazobactam Sod/ Dextrose (Zosyn Iv/D5 100ml) 120 ml @ 30 mls/hr Q8@0200,1000,1800 IV 07/18/16 02:00 07/28/16 01:59 07/20/16 10:37 30 MLS/HR Ipratropium [place] (Atrovent 0.02% 0.5MG/2.5ML Neb) 0.5 mg Q4R INH 07/17/16 21:00 08/16/16 20:59 07/19/16 23:12 0.5 MG Levalbuterol (Xopenex 1.25MG/ 0.5ML Neb) 1.25 mg Q4R INH 07/17/16 21:00 08/16/16 20:59 07/19/16 23:12 1.25 MG Insulin Aspart (novoLOG ASPART) SLIDING SCALE If C... ACHS SC 07/17/16 22:00 08/16/16 21:59 07/20/16 08:53 2 UNITS Glucose (Glucose 40% Gel) 15-30 GRAMS 15 GRAMS... UD PRN PO 07/17/16 21:00 08/16/16 20:59 Glucose (Glucose Chew Tab) 4-8 Tablets 4 Tabl... UD PRN PO 07/17/16 21:00 08/16/16 20:59 Dextrose (Dextrose 50% 50ML Syringe) 25-50ML OF 50% DW IV FOR... UD PRN IV 07/17/16 21:00 08/16/16 20:59 Glucagon (Glucagon Inj) 1 mg UD PRN SQ 07/17/16 21:00 08/16/16 20:59 Miscellaneous Information (Consult Glycemic Management Pharmacy) 1 ea UD PRN N/A 07/17/16 21:26 08/16/16 21:25 Ondansetron HCl (Zofran Inj) 4 mg Q6H PRN IV 07/18/16 08:00 08/17/16 07:59 07/20/16 03:46 4 MG Nystatin (Mycostatin Susp) 4 ml QID PO 07/18/16 10:00 07/28/16 09:59 07/20/16 07:53 4 ML Enteral Nutritional Formula (Boost Breeze Nutritional Drink) 0.5 box TIDM PO 07/18/16 11:30 08/17/16 11:29 07/20/16 08:51 0.5 BOX Arformoterol Tartrate (Brovana 15MCG/ 2ML Neb Soln) 15 mcg BIDR INH 07/18/16 20:00 08/17/16 19:59 07/20/16 07:18 15 MCG Budesonide (Pulmicort Respules 0.5MG/ 2ML Neb Soln) 0.5 mg BIDR INH 07/18/16 20:00 08/17/16 19:59 07/20/16 07:18 0.5 MG Ioversol (Optiray 320) 111 ml UD PRN IV 07/18/16 14:00 07/22/16 13:59 Lisinopril (Zestril Tab) 10 mg DAILY PO 07/20/16 09:00 08/19/16 08:59 07/20/16 08:51 10 MG Prednisone (PredniSONE TAB) 40 mg Taper DAILY PO 07/20/16 09:00 08/22/16 08:59 07/20/16 07:54 40 MG Insulin Glargine (Lantus Solostar Pen) 10 unit DAILY SC 07/20/16 09:00 08/19/16 08:59
[2016-07-20] MEDS: PANTOprazole INJ 40 MG in SYRINGE 0 ML IV SCH (12:27)
--- NOTE | 2016-07-20 14:17 | GASTROENTEROLOGY PROGRESS NOTE ---
DATE: 07/20/2016 DATE: 07/20/2016. SUBJECTIVE: I had the pleasure of seeing Brando Gilliland at his bedside today. He is feeling better. He states that he has had less abdominal distention. He is passing gas and did have a small bowel movement today, though states that his distention is improved as well as his pain. He has been tolerating a liquid diet. Denies any fevers, chills, nausea, vomiting, hematemesis, melena or hematochezia and has no further complaints. PHYSICAL EXAMINATION: VITAL SIGNS: Temperature 36.8, pulse 88, respirations 17, blood pressure 97/60, pulse ox 95% on 2 liters via nasal cannula. GENERAL EXAMINATION: Awake, cooperative, chronic ill appearing, in no acute distress. ABDOMEN: Soft. Tender in the left lower quadrant. Slightly distended. There are positive bowel sounds. EXTREMITIES: No clubbing, cyanosis, or edema. LABORATORY DATA: From today include a white blood cell count of 20.05, hemoglobin 10.4, hematocrit 30.8, platelet count of 151. PT is 13.4, INR of 1.2. Sodium 143, potassium 3.8, chloride 110, bicarbonate 27, BUN 35, creatinine 0.79, blood glucose level of 147. His total bilirubin is 0.6, AST 18, ALT 27, alkaline phosphatase 112, total protein 4.4, albumin 1.8. IMPRESSION: This is a 65-year-old male with ischemic colitis and left lower quadrant abdominal pain with gram negative rods via blood cultures. PLAN: At the present time, I would recommend the patient be continued on a liquid diet. I would continue antibiotic treatment as per the primary team. I did inform the patient that cases of ischemic colitis resolve on their own approximately 90% of the time and antibiotic use is recommended to prevent translocation across the abdominal mucosa which could result in a secondary infection. He is on Zosyn therapy for this as well as for the gram negative rods via his blood cultures. He will need a colonoscopy approximately 6-8 weeks from now, I will follow his clinical course and make further recommendations as needed. Once again, thanks for allowing me to participate in the care of this patient. If you have any further questions, please do not hesitate in contacting me.
--- NOTE | 2016-07-20 14:48 | Pharmacy Progress Note ---
Glycemic Control: Progress Nt Date of Service Jul 20, 2016. Scope Glycemic Pharmacist consulted by Dr Hernandez on 07/18/16 for glycemic control and to write orders per [facility] inpatient glycemic control protocol. Objective Accuchecks BSG (last 24hrs): Test 07/19/16 16:39 07/19/16 20:20 07/20/16 05:26 07/20/16 06:57 Bedside Glucose 232 mg/dl (70-99) 201 mg/dl (70-99) 144 mg/dl (70-99) Random Glucose 147 mg/dl (70-99) Test 07/20/16 11:48 Bedside Glucose 175 mg/dl (70-99) Laboratory Data (last 24hrs) Test 07/20/16 05:26 Anion Gap 6.0 mmol/L BUN/Creatinine Ratio 44.7 Blood Urea Nitrogen 35 mg/dl Creatinine 0.79 mg/dl Potassium Level 3.8 mmol/L Sodium Level 143 mmol/L White Blood Count 20.05 K/uL HbA1c: Test 07/18/16 05:30 Hemoglobin A1c 7.4 % (4.5-5.6) H Recent Pertinent Medications Outpatient Anti-diabetic Regimen: * N/A The patient is currently receiving: * Basal insulin: Lantus 8 units every 12 hours * Correctional Insulin: Novolog Correction per scale ACHS Goal Range: Low 120 mg/dL - High 140 mg/dL Correction Factor: 25 mg/dL/unit * Prandial insulin: Per carb ratio of 1 unit per 12 grams CHO consumed Risk Factors for Insulin Resistance: * Steroid Taper * Infection * Diet Assessment & Plan ASSESSMENT: * 65yo T2DM male with new diagnosis of diabetes. * HbA1c of 6.5% or greater indicates "diagnosis of diabetes" --> ADA recommendation is to "Treat Diabetes." Pt will need antidiabetic medication at discharge. * Pt currently with steroid induced hyperglycemia and will receive a quick steroid dose taper (prednisone decreasing by 10mg daily). * Pt has been receiving ~ 30 units of insulin per day with sub-adequate control , but BSGs much improved today. Hyperglycemia should improve with each step down in steroid dosing therefore will empiricially taper insulin regimen. * BSGs 144, 177 today with Prednisone 40mg daily, is ordered Prednisone 30mg for tomorrow. * ADA & AACE recommend a goal blood sugar range 140-180 mg/dl for the majority of critically ill & non-critically ill patients. However, more stringent targets may be selected in individual cases. Will utilize more stringent target of 120-140mg/dl based on age and new diagnosis. PLAN FOR INPATIENT GLYCEMIC CONTROL: * DECREASE Basal insulin with LANTUS to 10 units SQ daily in the morning * Correctional Insulin with NOVOLOG per scale ACHS or Q6hrs while NPO. Additional checks + coverage RTC at 0000 & 0400 for sustained hyperglycemia. * Goal Range: Low 120 mg/dL - High 140 mg/dL * Correction Factor: 20 mg/dL/unit * Nutritional / Prandial insulin per carb ratio of 1 unit per 12 grams CHO consumed RECOMMENDATIONS FOR DISCHARGE: * Pt will need antidiabetic regimen for discharge * Healthy eating, weight control, increased physical activity, and diabetes education * Recommend mono-therapy with Metformin 500mg PO daily. Continue to titrate metformin dosing upwards as recommended. Dosage increases should be made in increments of 500 mg weekly, up to 2,000 mg/day PO, given in divided doses. Doses above 2000 mg/day may be better tolerated if divided and given 3 times per day with meals. Max: 2,550 mg/day PO, in divided doses * Goal A1c is less than 7% * Please note that the plan above was derived based on current level of insulin resistance and hospital stress. These recommendations are appropriate for inpatient admission only. Plan of care upon discharge will need to be reassessed to avoid potential outpatient hypo/hyperglycemia. Thank you.
[2016-07-20] MEDS: WARFARIN SOD 2.5 MG TAB PO SCH (16:47)
[2016-07-20] MEDS: ALUMINUM/MAGNESIUM SUSP 30 ML UDC PO PRN (18:16)
[2016-07-21] VITALS (15 sets, daily range): BP systolic 100–131; BP diastolic 61–92; PULSE 72–104; TEMP 36.7–36.9; O2SAT 93–97
[2016-07-21] MEDS: INSULIN ASPART 100 UNITS/ML 3 ML PEN SC SCH ×6 (00:02→20:49)
[2016-07-21] MEDS: PIPERACILL/TAZOBAC IV 4.5 GM in DEXTROSE 5% 100ML IV SCH ×3 (01:25→17:06)
[2016-07-21] MEDS: LEVALBUTEROL 1.25MG/0.5ML NEB INH SCH ×5 (03:16→19:07)
[2016-07-21] MEDS: IPRATROPIUM BROMIDE NEB SOLN 0.02% 2.5 ML VIAL INH SCH ×5 (03:16→19:07)
[2016-07-21] MEDS: ALUMINUM/MAGNESIUM SUSP 30 ML UDC PO PRN ×2 (05:10→21:32)
[2016-07-21 06:56] LABS: INR 1.3 (0.9-1.1); PROTHROMBIN TIME (PATIENT) 13.6 SECONDS (9.0-12.0)
[2016-07-21] MEDS: ARFORMOTEROL TART 15MCG/2ML VIAL INH SCH ×2 (07:09→19:07)
[2016-07-21] MEDS: BUDESONIDE 0.5 MG/2 ML VIAL (PULMICORT) INH SCH ×2 (07:09→19:07)
[2016-07-21] MEDS ORDERED: INSULIN GLARGINE SOLOSTAR 100 UNITS/ML 3 ML PEN SC SCH (09:00)
[2016-07-21] MEDS: BOOST BREEZE NUTRITION DRINK 1 BOX PO SCH ×3 (09:23→17:08)
[2016-07-21] MEDS: PANTOprazole INJ 40 MG in SYRINGE 0 ML IV SCH (09:24)
[2016-07-21] MEDS: LISINOPRIL 10 MG TAB PO SCH (09:25)
[2016-07-21] MEDS: DILTIAZEM HCL 60 MG TAB PO SCH ×3 (09:25→20:50)
[2016-07-21] MEDS: NICOTINE 7 MG/24 HR TDSY TD SCH (09:26)
[2016-07-21] MEDS: NYSTATIN SUSP 500,000 U/5 ML UDC PO SCH ×4 (09:27→20:50)
--- NOTE | 2016-07-21 11:38 | Pharmacy Progress Note ---
Glycemic Control: Progress Nt Date of Service Jul 21, 2016. Scope Glycemic Pharmacist consulted by Dr Hernandez on 07/18/16 for glycemic control and to write orders per [facility] inpatient glycemic control protocol. Objective Accuchecks BSG (last 24hrs): Test 07/20/16 11:48 07/20/16 16:25 07/20/16 20:49 07/20/16 23:50 Bedside Glucose 175 mg/dl (70-99) 148 mg/dl (70-99) 148 mg/dl (70-99) 225 mg/dl (70-99) Test 07/21/16 03:31 07/21/16 06:21 Bedside Glucose 207 mg/dl (70-99) 210 mg/dl (70-99) HbA1c: Test 07/18/16 05:30 Hemoglobin A1c 7.4 % (4.5-5.6) H Recent Pertinent Medications Outpatient Anti-diabetic Regimen: * N/A The patient is currently receiving: * Basal insulin: Lantus 8 units every 24 hours * Correctional Insulin: Novolog Correction per scale ACHS Goal Range: Low 120 mg/dL - High 140 mg/dL Correction Factor: 20 mg/dL/unit * Prandial insulin: Per carb ratio of 1 unit per 12 grams CHO consumed Risk Factors for Insulin Resistance: * Steroid Taper * Infection * Diet Assessment & Plan ASSESSMENT: * 65yo T2DM male with new diagnosis of diabetes. * HbA1c of 6.5% or greater indicates "diagnosis of diabetes" --> ADA recommendation is to "Treat Diabetes." Pt will need antidiabetic medication at discharge. * Pt currently with steroid induced hyperglycemia and will receive a quick steroid dose taper (prednisone decreasing by 10mg daily). * Insulin regimen was empirically reduced yesterday for step down in steroid dosing. However, BSGs elevated today indicating that decrease in insulin dosing may have been too much. * BSGs yesterday 144, 177, 144, 148, 225; BSGs today 207, 210 * Will slightly increase basal insulin and tighten bolus insulin parameters today. Will continue to re-evaluate regimen and adjust with each step down in steroid dosing. * Pt is ordered Prednisone 30mg for today and decrease by 10mg daily. * ADA & AACE recommend a goal blood sugar range 140-180 mg/dl for the majority of critically ill & non-critically ill patients. However, more stringent targets may be selected in individual cases. Will utilize more stringent target of 120-140mg/dl based on age and new diagnosis. PLAN FOR INPATIENT GLYCEMIC CONTROL: * INCREASE Basal insulin with LANTUS to 12 units SQ daily in the morning. May need to decrease dose tomorrow with decreasing prednisone dose * Correctional Insulin with NOVOLOG per scale ACHS or Q6hrs while NPO * Goal Range: Low 120 mg/dL - High 140 mg/dL * Correction Factor: 20 mg/dL/unit * TIGHTEN Nutritional / Prandial insulin per carb ratio of 1 unit per 8 grams CHO consumed RECOMMENDATIONS FOR DISCHARGE: * Pt will need antidiabetic regimen for discharge * Healthy eating, weight control, increased physical activity, and diabetes education * Recommend mono-therapy with Metformin 500mg PO daily. Continue to titrate metformin dosing upwards as recommended. Dosage increases should be made in increments of 500 mg weekly, up to 2,000 mg/day PO, given in divided doses. Doses above 2000 mg/day may be better tolerated if divided and given 3 times per day with meals. Max: 2,550 mg/day PO, in divided doses * Goal A1c is less than 7% * Please note that the plan above was derived based on current level of insulin resistance and hospital stress. These recommendations are appropriate for inpatient admission only. Plan of care upon discharge will need to be reassessed to avoid potential outpatient hypo/hyperglycemia. Thank you.
[2016-07-21] MEDS: WARFARIN SOD 2.5 MG TAB PO SCH (17:07)
--- NOTE | 2016-07-21 19:35 | Progress Note ---
Medicine Progress Note Date & Time of Visit: Jul 21, 2016 at 19:31. Subjective patient seen resting in bed comfortable states he feels improved no melena/hematochezia, abdominal pain no dyspnea no other symptoms Objective Last 8 Hrs Date Time Temp Pulse Resp B/P Pulse Ox O2 Delivery O2 Flow Rate FiO2 07/21/16 19:07 80 16 96 Nasal Cannula 2.0 07/21/16 16:00 93 Nasal Cannula 2.0 07/21/16 15:17 36.8 78 18 101/70 96 Nasal Cannula 2.0 07/21/16 14:58 86 16 96 Nasal Cannula 2.0 07/21/16 11:59 36.9 88 20 101/61 96 Nasal Cannula 2.0 07/21/16 11:57 94 Nasal Cannula 2.0 Physical Exam: General-oriented x 3, not in distress, speaks in sentences with no effort, no accessory muscle use Eyes- anicteric ENT-oral thrush- improved Neck- supple, no JVD Lungs- (+) mild scattered wheeze bilaterally- improving, good air entry Heart-normal rate, irregularly irregular rhythm; no murmurs Abdomen- normal bowel sounds, non distended, soft, non tender Extremities- no pretibial edema, no calf tenderness Neuro- alert, oriented x 3; no gross focal deficits Skin- warm & dry Laboratory Results: Last 24 Hours Test 07/20/16 20:49 07/20/16 23:50 07/21/16 03:31 07/21/16 06:21 Bedside Glucose 148 mg/dl 225 mg/dl 207 mg/dl 210 mg/dl Test 07/21/16 06:23 07/21/16 11:32 07/21/16 16:20 07/21/16 18:40 Prothrombin Time 13.6 SECONDS Prothromb Time International Ratio 1.3 Bedside Glucose 195 mg/dl 90 mg/dl Assessment & Plan IMPRESSION: 1. No evidence of bowel obstruction. No evidence of free air 2. Marked long segment colonic wall thickening extending from the mid transverse colon to the sigmoid colon. The findings are consistent with a colitis 3. Cholelithiasis 4. Low volume ascites 5. Multiple large bilateral renal cysts 6. Indeterminate 24 mm lesion within the lower pole the right kidney. A dedicated CT scan of the kidneys be obtained in follow-up to differentiate a hyperdense cyst from solid renal mass 7. Nonobstructing right renal calculus 8. Severe pulmonary emphysema 9. Small left pleural effusion and trace right pleural effusion 10. Lower lobe bronchial wall thickening. Left basal airspace opacities, likely atelectatic 65 year old male with history of COPD on 2 liters NC, A fib on coumadin, AV replacement, MV Repair, Hypertension POSSIBLE SEPSIS SECONDARY TO COLITIS, PNEUMONIA, POSSIBLE BACTEREMIA Afebrile, WBC 19 at [facility] and 32K here, + tachypnea, HR 100s, borderline hypotension (90s/50s) at [facility]; lactic acid 2.4 at [facility]- recheck lactic acid Treated with IV Zosyn, IV Flagyl, and PO Vanco at [place] [place] -- improving overall GRAM NEGATIVE LAXMI BACTEREMIA ruled out IN THE SETTING OF MITRAL VALVE REPLACEMENT-PORCINE AND AORTIC VALVE REPAIR HISTORY OF ENDOCARDITIS, ENTEROCOCCUS BACTEREMIA - blood cultures drawn at [facility]: gram negative rods--> final report: negative (please see last pages of outside records) - repeat blood cultures 07/18/16: no growth to day TTE: no signs of vegetations - continue Zosyn Day 5 COLITIS POSSIBLE GI BLEED Ruled out for C. diff; Ddx includes infectious colitis vs. inflammatory bowel disease CT A/p from [facility] noted - C diff negative stool cultures pending - (+) report of jany colored stools Hg decreased to 11--> stable at around 10 - on empiric Zosyn Day 5 full liquid IV fluids resumed coumadin Maalox + Protonix - GI consulted, appreciate the consult POSSIBLE LEFT LOWER LOBE PNEUMONIA -sputum culture noted - (+) MRSA nasal swab -on Zosyn COPD WITH EXACERBATION With chronic respiratory failure requiring 2 liters NC continuous Recently treated with abx/ steroids for COPD exac during hospitalization at [facility] from Jul 12-Jul 16 -- Nebs, Prednisone, antibiotics -- improving PAROXYSMAL AFIB Rate is controlled Continue Cardizem, Coumadin -- INR 1.3 HTN Was borderline hypotensive at [facility] (BP low as 90s/50s) Lisinopril held for now DM TYPE 2 A1c 7.2 ISS Pharmacy consulted HX AORTIC VALVE REPLACEMENT AND MITRAL VALVE REPAIR blood cultures from [facility] and repeat cultures from [facility] negative echo: no signs of vegetations Indeterminate 24 mm lesion within the lower pole the right kidney. - dedicated CT scan of the kidneys be obtained in follow-up to differentiate a hyperdense cyst from solid renal mass DYSLIPIDEMIA hold statin until gi symptoms resolved DVT PROPHYLAXIS SCD's coumadin CODE STATUS Full code Disposition pending Current Inpatient Medications: Current Inpatient Medications Medications (Trade) Dose Ordered Sig/Jim Route Start Time Stop Time Status Last Admin Dose Admin Morphine Sulfate (MoRPHine SULFATE INJ) 2 mg Q2H PRN IV 07/17/16 13:45 07/31/16 13:44 07/17/16 17:09 2 MG Albuterol/ Ipratropium (Duoneb) 3 ml Q4H PRN INH 07/17/16 13:45 08/16/16 13:44 Future Hold Diltiazem HCl (Cardizem Tab) 60 mg TID PO 07/17/16 21:00 08/16/16 20:59 07/21/16 17:06 60 MG Nicotine (Nicoderm Cq 7 Mg Patch) 1 patch QAM TD 07/18/16 09:00 08/17/16 08:59 07/21/16 09:26 1 PATCH Miscellaneous (Remove Nicoderm Patch) 1 ea HS N/A 07/17/16 21:00 08/16/16 20:59 07/20/16 21:00 1 EA Piperacillin Sod/ Tazobactam Sod 1 ea 1 ea UD PRN N/A 07/17/16 19:15 08/16/16 19:14 Piperacillin Sod/ Tazobactam Sod/ Dextrose (Zosyn Iv/D5 100ml) 120 ml @ 30 mls/hr Q8@0200,1000,1800 IV 07/18/16 02:00 07/28/16 01:59 07/21/16 17:06 30 MLS/HR Ipratropium [place] (Atrovent 0.02% 0.5MG/2.5ML Neb) 0.5 mg Q4R INH 07/17/16 21:00 08/16/16 20:59 07/21/16 19:07 0.5 MG Levalbuterol (Xopenex 1.25MG/ 0.5ML Neb) 1.25 mg Q4R INH 07/17/16 21:00 08/16/16 20:59 07/21/16 19:07 1.25 MG Insulin Aspart (novoLOG ASPART) SLIDING SCALE If C... ACHS SC 07/17/16 22:00 08/16/16 21:59 07/21/16 17:11 4 UNITS Glucose (Glucose 40% Gel) 15-30 GRAMS 15 GRAMS... UD PRN PO 07/17/16 21:00 08/16/16 20:59 Glucose (Glucose Chew Tab) 4-8 Tablets 4 Tabl... UD PRN PO 07/17/16 21:00 08/16/16 20:59 Dextrose (Dextrose 50% 50ML Syringe) 25-50ML OF 50% DW IV FOR... UD PRN IV 07/17/16 21:00 08/16/16 20:59 Glucagon (Glucagon Inj) 1 mg UD PRN SQ 07/17/16 21:00 08/16/16 20:59 Miscellaneous Information (Consult Glycemic Management Pharmacy) 1 ea UD PRN N/A 07/17/16 21:26 08/16/16 21:25 Ondansetron HCl (Zofran Inj) 4 mg Q6H PRN IV 07/18/16 08:00 08/17/16 07:59 07/20/16 03:46 4 MG Nystatin (Mycostatin Susp) 4 ml QID PO 07/18/16 10:00 07/28/16 09:59 07/21/16 17:12 4 ML Enteral Nutritional Formula (Boost Breeze Nutritional Drink) 0.5 box TIDM PO 07/18/16 11:30 08/17/16 11:29 07/21/16 17:08 0.5 BOX Arformoterol Tartrate (Brovana 15MCG/ 2ML Neb Soln) 15 mcg BIDR INH 07/18/16 20:00 08/17/16 19:59 07/21/16 07:09 15 MCG Budesonide (Pulmicort Respules 0.5MG/ 2ML Neb Soln) 0.5 mg BIDR INH 07/18/16 20:00 08/17/16 19:59 07/21/16 07:09 0.5 MG Ioversol (Optiray 320) 111 ml UD PRN IV 07/18/16 14:00 07/22/16 13:59 Lisinopril (Zestril Tab) 10 mg DAILY PO 07/20/16 09:00 08/19/16 08:59 07/21/16 09:25 10 MG Prednisone 30 mg 30 mg Taper DAILY PO 07/20/16 09:00 08/22/16 08:59 07/21/16 09:25 30 MG Pantoprazole Sodium/Syringe (Protonix Inj/ Syringe) 10 ml @ 5 mls/min DAILY@11 IV 07/20/16 11:00 08/19/16 10:59 07/21/16 09:24 5 MLS/MIN Al Hydroxide/Mg Hydroxide (Maalox Susp) 30 ml Q6H PRN PO 07/20/16 11:00 08/19/16 10:59 07/21/16 05:10 30 ML Warfarin Sodium (Coumadin Tab) 2.5 mg DAILY@16 PO 07/20/16 16:00 08/19/16 15:59 07/21/16 17:07 2.5 MG Insulin Glargine (Lantus Solostar Pen) 12 unit DAILY SC 07/21/16 09:00 07/21/16 23:59 07/21/16 09:32 12 UNIT Insulin Glargine (Lantus Solostar Pen) 10 unit DAILY SC 07/22/16 09:00 08/21/16 08:59
[2016-07-21 19:45] LABS: BASO % 0.1 %; BASO ABS # 0.01 K/uL (0-0.2); COMPLETE YES; HEMATOCRIT 32.4 % (42-52); LYMPH % 3.7 %; LYMPH ABS # 0.42 K/uL (1.2-3.4); MEAN CELL VOLUME 89.5 fL (80-100); MEAN CORPUSCULAR HEMOGLOBIN 29.8 pg (25-34); MEAN CORPUSCULAR HGB CONC 33.3 g/dl (32-36); MEAN PLATELET VOLUME 10.5 fL (7.4-10.4); MONO % 10.6 %; NEUT % 84.6 %; PLATELET COUNT 166 K/uL (130-400); RED BLOOD COUNT 3.62 M/uL (4.7-6.1); WHITE BLOOD COUNT 11.35 K/uL (4.8-10.8)
[2016-07-21 20:09] LABS: BUN/CREATININE RATIO 42.4 (10-20); CALCIUM 7.6 mg/dl (8.5-10.1); CREATININE 0.68 mg/dl (0.60-1.40); POTASSIUM 3.4 mmol/L (3.5-5.1)
[2016-07-21] MEDS ORDERED: POTASSIUM CHLORIDE 20 MEQ TABCR PO ONE (21:30)
[2016-07-21] MEDS ORDERED: METOPROLOL TARTRATE 25 MG TAB PO STA (23:23)
[2016-07-22] VITALS (9 sets, daily range): BP systolic 106–122; BP diastolic 59–73; PULSE 70–97; TEMP 36.7–36.9; O2SAT 93–96
[2016-07-22] MEDS ORDERED: IPRATROPIUM BROMIDE NEB SOLN 0.02% 2.5 ML VIAL INH SCH
[2016-07-22] MEDS ORDERED: LEVALBUTEROL 1.25MG/0.5ML NEB INH SCH
[2016-07-22] MEDS: PIPERACILL/TAZOBAC IV 4.5 GM in DEXTROSE 5% 100ML IV SCH ×3 (01:28→17:21)
[2016-07-22 05:57] LABS: INR 1.7 (0.9-1.1); PROTHROMBIN TIME (PATIENT) 18.3 SECONDS (9.0-12.0)
[2016-07-22] MEDS: BUDESONIDE 0.5 MG/2 ML VIAL (PULMICORT) INH SCH ×2 (07:29→20:07)
[2016-07-22] MEDS: ARFORMOTEROL TART 15MCG/2ML VIAL INH SCH ×2 (07:29→20:07)
[2016-07-22] MEDS: BOOST BREEZE NUTRITION DRINK 1 BOX PO SCH ×3 (07:44→17:21)
[2016-07-22] MEDS: DILTIAZEM HCL 60 MG TAB PO SCH ×3 (07:44→21:44)
[2016-07-22] MEDS: NYSTATIN SUSP 500,000 U/5 ML UDC PO SCH ×4 (07:45→21:43)
[2016-07-22] MEDS: NICOTINE 7 MG/24 HR TDSY TD SCH (07:46)
[2016-07-22] MEDS: LISINOPRIL 10 MG TAB PO SCH (07:46)
[2016-07-22] MEDS: INSULIN ASPART 100 UNITS/ML 3 ML PEN SC SCH ×4 (07:50→21:00)
[2016-07-22] MEDS: IPRATROPIUM BROMIDE NEB SOLN 0.02% 2.5 ML VIAL INH SCH ×3 (08:33→20:07)
[2016-07-22] MEDS: LEVALBUTEROL 1.25MG/0.5ML NEB INH SCH ×3 (08:33→20:07)
[2016-07-22] MEDS ORDERED: INSULIN GLARGINE SOLOSTAR 100 UNITS/ML 3 ML PEN SC SCH (09:00)
--- NOTE | 2016-07-22 09:11 | Gastroenterology Progress Note ---
Progress Note Date of Service: Jul 22, 2016 Subjective Pt evaluation today including: conversation w/ patient, physical exam, chart review, lab review Patient was seen and examined this morning, clinically he is much improved. He states that he feels much better, and his lower quadrant abdominal pain is much resolved. He reports numerous BM daily. Per nursing staff, he has not had any black/bloody/jany stools since he has been transferred to the second floor. He denies all GI complaints. He states his breathing and SOB is unchanged since admission. A productive cough is evident during exam today. Review of Systems Constitutional: No chills, No fever Respiratory: + cough, + shortness of breath Cardiac: No chest pain Abdomen: No GI bleeding, No constipation, No diarrhea, No nausea, No pain, No vomiting Medications Current Inpatient Medications Medications (Trade) Dose Ordered Sig/Jim Route Start Time Stop Time Status Last Admin Dose Admin Morphine Sulfate (MoRPHine SULFATE INJ) 2 mg Q2H PRN IV 07/17/16 13:45 07/31/16 13:44 07/17/16 17:09 2 MG Albuterol/ Ipratropium (Duoneb) 3 ml Q4H PRN INH 07/17/16 13:45 08/16/16 13:44 Future Hold Diltiazem HCl (Cardizem Tab) 60 mg TID PO 07/17/16 21:00 08/16/16 20:59 07/22/16 07:44 60 MG Nicotine (Nicoderm Cq 7 Mg Patch) 1 patch QAM TD 07/18/16 09:00 08/17/16 08:59 07/22/16 07:46 1 PATCH Miscellaneous (Remove Nicoderm Patch) 1 ea HS N/A 07/17/16 21:00 08/16/16 20:59 07/21/16 20:48 1 EA Piperacillin Sod/ Tazobactam Sod 1 ea 1 ea UD PRN N/A 07/17/16 19:15 08/16/16 19:14 Piperacillin Sod/ Tazobactam Sod/ Dextrose (Zosyn Iv/D5 100ml) 120 ml @ 30 mls/hr Q8@0200,1000,1800 IV 07/18/16 02:00 07/28/16 01:59 07/22/16 01:28 30 MLS/HR Insulin Aspart (novoLOG ASPART) SLIDING SCALE If C... ACHS SC 07/17/16 22:00 08/16/16 21:59 07/22/16 07:50 9 UNITS Glucose (Glucose 40% Gel) 15-30 GRAMS 15 GRAMS... UD PRN PO 07/17/16 21:00 08/16/16 20:59 Glucose (Glucose Chew Tab) 4-8 Tablets 4 Tabl... UD PRN PO 07/17/16 21:00 08/16/16 20:59 Dextrose (Dextrose 50% 50ML Syringe) 25-50ML OF 50% DW IV FOR... UD PRN IV 07/17/16 21:00 08/16/16 20:59 Glucagon (Glucagon Inj) 1 mg UD PRN SQ 07/17/16 21:00 08/16/16 20:59 Miscellaneous Information (Consult Glycemic Management Pharmacy) 1 ea UD PRN N/A 07/17/16 21:26 08/16/16 21:25 Ondansetron HCl (Zofran Inj) 4 mg Q6H PRN IV 07/18/16 08:00 08/17/16 07:59 07/20/16 03:46 4 MG Nystatin (Mycostatin Susp) 4 ml QID PO 07/18/16 10:00 07/28/16 09:59 07/22/16 07:45 4 ML Enteral Nutritional Formula (Boost Breeze Nutritional Drink) 0.5 box TIDM PO 07/18/16 11:30 08/17/16 11:29 07/22/16 07:44 0.5 BOX Arformoterol Tartrate (Brovana 15MCG/ 2ML Neb Soln) 15 mcg BIDR INH 07/18/16 20:00 08/17/16 19:59 07/22/16 07:29 15 MCG Budesonide (Pulmicort Respules 0.5MG/ 2ML Neb Soln) 0.5 mg BIDR INH 07/18/16 20:00 08/17/16 19:59 07/22/16 07:29 0.5 MG Ioversol (Optiray 320) 111 ml UD PRN IV 07/18/16 14:00 07/22/16 13:59 Lisinopril (Zestril Tab) 10 mg DAILY PO 07/20/16 09:00 08/19/16 08:59 07/22/16 07:46 10 MG Prednisone 20 mg 20 mg Taper DAILY PO 07/20/16 09:00 08/22/16 08:59 07/22/16 07:44 20 MG Pantoprazole Sodium/Syringe (Protonix Inj/ Syringe) 10 ml @ 5 mls/min DAILY@11 IV 07/20/16 11:00 08/19/16 10:59 07/21/16 09:24 5 MLS/MIN Al Hydroxide/Mg Hydroxide (Maalox Susp) 30 ml Q6H PRN PO 07/20/16 11:00 08/19/16 10:59 07/21/16 21:32 30 ML Warfarin Sodium (Coumadin Tab) 2.5 mg DAILY@16 PO 07/20/16 16:00 08/19/16 15:59 07/21/16 17:07 2.5 MG Insulin Glargine (Lantus Solostar Pen) 10 unit DAILY SC 07/22/16 09:00 08/21/16 08:59 07/22/16 07:51 10 UNIT Ipratropium [place] (Atrovent 0.02% 0.5MG/2.5ML Neb) 0.5 mg Q6RWA INH 07/22/16 09:00 08/21/16 08:59 Levalbuterol (Xopenex 1.25MG/ 0.5ML Neb) 1.25 mg Q6RWA INH 07/22/16 09:00 08/21/16 08:59 Objective Vital Signs Date Time Temp Pulse Resp B/P Pulse Ox O2 Delivery O2 Flow Rate FiO2 07/22/16 08:03 36.8 70 20 114/67 93 2.0 07/22/16 08:00 Nasal Cannula 2.0 07/22/16 07:24 87 16 96 Nasal Cannula 2.0 07/22/16 04:00 36.8 71 19 109/67 96 Nasal Cannula 2.0 07/22/16 04:00 Nasal Cannula 2.0 07/21/16 23:59 Nasal Cannula 2.0 07/21/16 22:58 36.9 104 20 131/92 97 07/21/16 20:00 Nasal Cannula 2.0 07/21/16 19:49 36.8 84 20 116/75 97 2.0 07/21/16 19:07 80 16 96 Nasal Cannula 2.0 07/21/16 16:00 93 Nasal Cannula 2.0 07/21/16 15:17 36.8 78 18 101/70 96 Nasal Cannula 2.0 07/21/16 14:58 86 16 96 Nasal Cannula 2.0 07/21/16 11:59 36.9 88 20 101/61 96 Nasal Cannula 2.0 07/21/16 11:57 94 Nasal Cannula 2.0 07/21/16 11:08 72 16 97 Nasal Cannula 2.0 Physical Exam General Appearance: no apparent distress Eyes: PERRL ENT: hearing grossly normal Neck: supple, no adenopathy, trachea midline Respiratory/Chest: no respiratory distress, no accessory muscle use, + decreased breath sounds, + crackles, + pertinent finding (patient is wearing O2 nasal canula ) Cardiovascular: regular rate, rhythm, no edema, no gallop, no JVD, no murmur Abdomen: normal bowel sounds, non tender, soft, no organomegaly, no pulsatile mass Neurologic/Psych: alert, normal mood/affect, oriented x 3 Skin: normal color, no jaundice, warm/dry, no rash Laboratory Results Last 24 Hours Test 07/21/16 11:32 07/21/16 16:20 07/21/16 19:09 07/21/16 20:34 Bedside Glucose 195 mg/dl 90 mg/dl 96 mg/dl White Blood Count 11.35 K/uL Red Blood Count 3.62 M/uL Hemoglobin 10.8 g/dL Hematocrit 32.4 % Mean Corpuscular Volume 89.5 fL Mean Corpuscular Hemoglobin 29.8 pg Mean Corpuscular Hemoglobin Concent 33.3 g/dl Platelet Count 166 K/uL Mean Platelet Volume 10.5 fL Neutrophils (%) (Auto) 84.6 % Lymphocytes (%) (Auto) 3.7 % Monocytes (%) (Auto) 10.6 % Eosinophils (%) (Auto) 0.0 % Basophils (%) (Auto) 0.1 % Neutrophils # (Auto) 9.61 K/uL Lymphocytes # (Auto) 0.42 K/uL Monocytes # (Auto) 1.20 K/uL Eosinophils # (Auto) 0.00 K/uL Basophils # (Auto) 0.01 K/uL RDW Standard Deviation 54.5 fL RDW Coefficient of Variation 16.9 % Immature Granulocyte % (Auto) 1.0 % Immature Granulocyte # (Auto) 0.11 K/uL Sodium Level 145 mmol/L Potassium Level 3.4 mmol/L Chloride Level 108 mmol/L Carbon Dioxide Level 28 mmol/L Anion Gap 9.0 mmol/L Blood Urea Nitrogen 29 mg/dl Creatinine 0.68 mg/dl Est Creatinine Clear Calc Drug Dose 93.0 ml/min Estimated GFR () 115.3 Estimated GFR (Non- 99.5 BUN/Creatinine Ratio 42.4 Random Glucose 51 mg/dl Calcium Level 7.6 mg/dl Test 07/22/16 05:31 07/22/16 07:09 07/22/16 08:48 Prothrombin Time 18.3 SECONDS Prothromb Time International Ratio 1.7 Bedside Glucose 170 mg/dl Assessment and Plan Patient is a 65 year old male with abrupt onset stabbing abdominal pain, loose stools, 3 episodes of semi formed jany colored stools with a CT abd depicting inflammatory changes in the colon, no obstruction. Differentials include ischemic colitis, infectious colitis, inflammatory bowel disease, acute diverticulitis. Patient likely has ischemic colitis. He is clinically improved, stating his ABD pain is much relieved and with normal stooling. Plan clear liquid PPI BID Zofran PRN nausea continue ABX treatment defer cscope at this time GI will continue to follow and offer input on repeat CT/surgery consult plan for OP colonoscopy in 6-8 weeks ATTESTATION: I have performed a history and physical examination of this patient and reviewed the electronic record. Specifically, on physical examination there is no abdominal tenderness. I have discussed the case with JAYCOB Chavez. The above note reflects my findings, conclusions, and recommendations. Lazaro Dunn MD
[2016-07-22 09:18] LABS: BASO % 0.1 %; BASO ABS # 0.01 K/uL (0-0.2); COMPLETE YES; IG% 3.7 %; LYMPH % 5.6 %; LYMPH ABS # 0.58 K/uL (1.2-3.4); MEAN CELL VOLUME 88.8 fL (80-100); MEAN CORPUSCULAR HEMOGLOBIN 29.2 pg (25-34); MEAN CORPUSCULAR HGB CONC 32.9 g/dl (32-36); MEAN PLATELET VOLUME 10.1 fL (7.4-10.4); MONO % 8.6 %; PLATELET COUNT 133 K/uL (130-400); RED BLOOD COUNT 3.49 M/uL (4.7-6.1); WHITE BLOOD COUNT 10.44 K/uL (4.8-10.8)
[2016-07-22 09:20] LABS: BUN/CREATININE RATIO 36.5 (10-20); CALCIUM 7.5 mg/dl (8.5-10.1); CREATININE 0.71 mg/dl (0.60-1.40); POTASSIUM 4.4 mmol/L (3.5-5.1)
--- NOTE | 2016-07-22 11:42 | Progress Note ---
Medicine Progress Note Date & Time of Visit: Jul 22, 2016 at 11:42. Subjective seen resting in bed, comfortable states he feels improved today (+) BM last night, no melena/hematochezia, no abdominal pain, nausea breathing continues to improve, no cough/sputum denies other symptoms Objective Last 8 Hrs Date Time Temp Pulse Resp B/P Pulse Ox O2 Delivery O2 Flow Rate FiO2 07/22/16 11:36 36.7 81 20 109/73 95 2.0 07/22/16 08:03 36.8 70 20 114/67 93 2.0 07/22/16 08:00 Nasal Cannula 2.0 07/22/16 07:24 87 16 96 Nasal Cannula 2.0 07/22/16 04:00 36.8 71 19 109/67 96 Nasal Cannula 2.0 07/22/16 04:00 Nasal Cannula 2.0 Physical Exam: General-oriented x 3, not in distress, speaks in sentences with no effort, no accessory muscle use Eyes- anicteric ENT-oral thrush- improved Neck- no JVD Lungs- (+) very mild scattered wheeze bilaterally- improving, good air entry Heart-normal rate, irregularly irregular rhythm; no murmurs Abdomen- normal bowel sounds, non distended, soft, non tender Extremities- no pretibial edema, no calf tenderness Neuro- alert, oriented x 3; no gross focal deficits Skin- warm & dry Laboratory Results: Last 24 Hours Test 07/21/16 16:20 07/21/16 19:09 07/21/16 20:34 07/22/16 05:31 Bedside Glucose 90 mg/dl 96 mg/dl White Blood Count 11.35 K/uL 10.44 K/uL Red Blood Count 3.62 M/uL 3.49 M/uL Hemoglobin 10.8 g/dL 10.2 g/dL Hematocrit 32.4 % 31.0 % Mean Corpuscular Volume 89.5 fL 88.8 fL Mean Corpuscular Hemoglobin 29.8 pg 29.2 pg Mean Corpuscular Hemoglobin Concent 33.3 g/dl 32.9 g/dl Platelet Count 166 K/uL 133 K/uL Mean Platelet Volume 10.5 fL 10.1 fL Neutrophils (%) (Auto) 84.6 % 81.0 % Lymphocytes (%) (Auto) 3.7 % 5.6 % Monocytes (%) (Auto) 10.6 % 8.6 % Eosinophils (%) (Auto) 0.0 % 1.0 % Basophils (%) (Auto) 0.1 % 0.1 % Neutrophils # (Auto) 9.61 K/uL 8.46 K/uL Lymphocytes # (Auto) 0.42 K/uL 0.58 K/uL Monocytes # (Auto) 1.20 K/uL 0.90 K/uL Eosinophils # (Auto) 0.00 K/uL 0.10 K/uL Basophils # (Auto) 0.01 K/uL 0.01 K/uL RDW Standard Deviation 54.5 fL 54.6 fL RDW Coefficient of Variation 16.9 % 16.9 % Immature Granulocyte % (Auto) 1.0 % 3.7 % Immature Granulocyte # (Auto) 0.11 K/uL 0.39 K/uL Sodium Level 145 mmol/L 144 mmol/L Potassium Level 3.4 mmol/L 4.4 mmol/L Chloride Level 108 mmol/L 107 mmol/L Carbon Dioxide Level 28 mmol/L 29 mmol/L Anion Gap 9.0 mmol/L 8.0 mmol/L Blood Urea Nitrogen 29 mg/dl 26 mg/dl Creatinine 0.68 mg/dl 0.71 mg/dl Est Creatinine Clear Calc Drug Dose 93.0 ml/min 89.0 ml/min Estimated GFR () 115.3 113.3 Estimated GFR (Non- 99.5 97.8 BUN/Creatinine Ratio 42.4 36.5 Random Glucose 51 mg/dl 160 mg/dl Calcium Level 7.6 mg/dl 7.5 mg/dl Prothrombin Time 18.3 SECONDS Prothromb Time International Ratio 1.7 Test 07/22/16 07:09 07/22/16 11:14 Bedside Glucose 170 mg/dl 156 mg/dl Assessment & Plan CT abdomen: 1. No evidence of bowel obstruction. No evidence of free air 2. Marked long segment colonic wall thickening extending from the mid transverse colon to the sigmoid colon. The findings are consistent with a colitis 3. Cholelithiasis 4. Low volume ascites 5. Multiple large bilateral renal cysts 6. Indeterminate 24 mm lesion within the lower pole the right kidney. A dedicated CT scan of the kidneys be obtained in follow-up to differentiate a hyperdense cyst from solid renal mass 7. Nonobstructing right renal calculus 8. Severe pulmonary emphysema 9. Small left pleural effusion and trace right pleural effusion 10. Lower lobe bronchial wall thickening. Left basal airspace opacities, likely atelectatic 65 year old male with history of COPD on 2 liters NC, A fib on coumadin, AV replacement, MV Repair, Hypertension POSSIBLE SEPSIS SECONDARY TO COLITIS, PNEUMONIA transferred from [facility] for sepsis syndrome -- improving overall, afebrile, leukocytosis resolving COLITIS EPISODE OF HEMATOCHEZIa - C diff negative stool cultures negative - (+) report of jany colored stools while admitted-- resolved Hg decreased to 11--> stable at around 10 - on empiric Zosyn Day 6 full liquid IV fluids resumed coumadin Maalox + Protonix - GI consulted, Colonoscopy in 6-8 weeks POSSIBLE LEFT LOWER LOBE PNEUMONIA -sputum culture (+) Stenotrophomonas - ID Consulted recommend Bactrim daily (will lower coumadin dose and monitor INR) GRAM NEGATIVE LAXMI BACTEREMIA, ruled out IN THE SETTING OF MITRAL VALVE REPLACEMENT-PORCINE AND AORTIC VALVE REPAIR HISTORY OF ENDOCARDITIS, ENTEROCOCCUS BACTEREMIA - blood cultures drawn at [facility]: gram negative rods--> final report: negative (please see last pages of outside records) - repeat blood cultures 07/18/16: no growth to day TTE: no signs of vegetations COPD WITH EXACERBATION, Resolved With chronic respiratory failure requiring 2 liters NC continuous Recently treated with abx/ steroids for COPD exac during hospitalization at [facility] from Jul 12-Jul 16 -- Nebs, Prednisone, antibiotics -- improving PAROXYSMAL AFIB Rate is controlled Continue Cardizem, Coumadin -- INR 1.7 coumadin decreased to 2mg as patient will be on bactrim, monitor INR HTN continue Lisinopril DM TYPE 2 A1c 7.2 ISS and Lantus Pharmacy consulted HX AORTIC VALVE REPLACEMENT AND MITRAL VALVE REPAIR blood cultures from [facility] and repeat cultures from [facility] negative echo: no signs of vegetations LESION ON THE RIGHT KIDNEY - Indeterminate 24 mm lesion within the lower pole the right kidney. - dedicated CT scan of the kidneys be obtained in follow-up to differentiate a hyperdense cyst from solid renal mass DYSLIPIDEMIA hold statin until gi symptoms resolved DVT PROPHYLAXIS SCD's coumadin CODE STATUS Full code Disposition pending lives alone weak, will need PT/OT patient interested to go to Rehab if indicated Current Inpatient Medications: Current Inpatient Medications Medications (Trade) Dose Ordered Sig/Jim Route Start Time Stop Time Status Last Admin Dose Admin Morphine Sulfate (MoRPHine SULFATE INJ) 2 mg Q2H PRN IV 07/17/16 13:45 07/31/16 13:44 07/17/16 17:09 2 MG Albuterol/ Ipratropium (Duoneb) 3 ml Q4H PRN INH 07/17/16 13:45 08/16/16 13:44 Future Hold Diltiazem HCl (Cardizem Tab) 60 mg TID PO 07/17/16 21:00 08/16/16 20:59 07/22/16 07:44 60 MG Nicotine (Nicoderm Cq 7 Mg Patch) 1 patch QAM TD 07/18/16 09:00 08/17/16 08:59 07/22/16 07:46 1 PATCH Miscellaneous (Remove Nicoderm Patch) 1 ea HS N/A 07/17/16 21:00 08/16/16 20:59 07/21/16 20:48 1 EA Piperacillin Sod/ Tazobactam Sod 1 ea 1 ea UD PRN N/A 07/17/16 19:15 08/16/16 19:14 Piperacillin Sod/ Tazobactam Sod/ Dextrose (Zosyn Iv/D5 100ml) 120 ml @ 30 mls/hr Q8@0200,1000,1800 IV 07/18/16 02:00 07/28/16 01:59 07/22/16 10:04 30 MLS/HR Insulin Aspart (novoLOG ASPART) SLIDING SCALE If C... ACHS SC 07/17/16 22:00 08/16/16 21:59 07/22/16 07:50 9 UNITS Glucose (Glucose 40% Gel) 15-30 GRAMS 15 GRAMS... UD PRN PO 07/17/16 21:00 08/16/16 20:59 Glucose (Glucose Chew Tab) 4-8 Tablets 4 Tabl... UD PRN PO 07/17/16 21:00 08/16/16 20:59 Dextrose (Dextrose 50% 50ML Syringe) 25-50ML OF 50% DW IV FOR... UD PRN IV 07/17/16 21:00 08/16/16 20:59 Glucagon (Glucagon Inj) 1 mg UD PRN SQ 07/17/16 21:00 08/16/16 20:59 Miscellaneous Information (Consult Glycemic Management Pharmacy) 1 ea UD PRN N/A 07/17/16 21:26 08/16/16 21:25 Ondansetron HCl (Zofran Inj) 4 mg Q6H PRN IV 07/18/16 08:00 08/17/16 07:59 07/20/16 03:46 4 MG Nystatin (Mycostatin Susp) 4 ml QID PO 07/18/16 10:00 07/28/16 09:59 07/22/16 07:45 4 ML Enteral Nutritional Formula (Boost Breeze Nutritional Drink) 0.5 box TIDM PO 07/18/16 11:30 08/17/16 11:29 07/22/16 07:44 0.5 BOX Arformoterol Tartrate (Brovana 15MCG/ 2ML Neb Soln) 15 mcg BIDR INH 07/18/16 20:00 08/17/16 19:59 07/22/16 07:29 15 MCG Budesonide (Pulmicort Respules 0.5MG/ 2ML Neb Soln) 0.5 mg BIDR INH 07/18/16 20:00 08/17/16 19:59 07/22/16 07:29 0.5 MG Ioversol (Optiray 320) 111 ml UD PRN IV 07/18/16 14:00 07/22/16 13:59 Lisinopril (Zestril Tab) 10 mg DAILY PO 07/20/16 09:00 08/19/16 08:59 07/22/16 07:46 10 MG Prednisone 20 mg 20 mg Taper DAILY PO 07/20/16 09:00 08/22/16 08:59 07/22/16 07:44 20 MG Pantoprazole Sodium/Syringe (Protonix Inj/ Syringe) 10 ml @ 5 mls/min DAILY@11 IV 07/20/16 11:00 08/19/16 10:59 07/21/16 09:24 5 MLS/MIN Al Hydroxide/Mg Hydroxide (Maalox Susp) 30 ml Q6H PRN PO 07/20/16 11:00 08/19/16 10:59 07/21/16 21:32 30 ML Warfarin Sodium (Coumadin Tab) 2.5 mg DAILY@16 PO 07/20/16 16:00 08/19/16 15:59 07/21/16 17:07 2.5 MG Insulin Glargine (Lantus Solostar Pen) 10 unit DAILY SC 07/22/16 09:00 08/21/16 08:59 07/22/16 07:51 10 UNIT Ipratropium [place] (Atrovent 0.02% 0.5MG/2.5ML Neb) 0.5 mg Q6RWA INH 07/22/16 09:00 08/21/16 08:59 Levalbuterol (Xopenex 1.25MG/ 0.5ML Neb) 1.25 mg Q6RWA INH 07/22/16 09:00 08/21/16 08:59 Benzocaine (Orajel 2% Oral Gel) 1 appln BID MT 07/22/16 21:00 08/21/16 20:59
[2016-07-22] MEDS: PANTOprazole INJ 40 MG in SYRINGE 0 ML IV SCH (11:59)
[2016-07-22] MEDS: SULFAMETHOXAZOLE/TRIMETHOPRIM 400/80MG TAB PO SCH ×2 (13:44→21:43)
--- NOTE | 2016-07-22 14:54 | Progress Note ---
Post ICU Progress Note Date & Time Jul 22, 2016 at 14:36 Vital Signs Vital Signs Past 12 Hours Date Time Temp Pulse Resp B/P Pulse Ox O2 Delivery O2 Flow Rate FiO2 07/22/16 14:27 87 16 95 Nasal Cannula 2.0 07/22/16 12:38 81 95 07/22/16 12:00 Nasal Cannula 2.0 07/22/16 11:36 36.7 81 20 109/73 95 2.0 07/22/16 08:03 36.8 70 20 114/67 93 2.0 07/22/16 08:00 Nasal Cannula 2.0 07/22/16 07:24 87 16 96 Nasal Cannula 2.0 07/22/16 04:00 36.8 71 19 109/67 96 Nasal Cannula 2.0 07/22/16 04:00 Nasal Cannula 2.0 Notes Mental Status: alert / awake, participated in evaluation Nausea / Vomiting: adequately controlled Pain: adequately controlled Airway Patency, RR, SpO2: stable & adequate (At baseline use of 2L nasal cannula) BP & HR: stable & adequate Patient is a 65-year-old male who is a direct admit to the ICU from [facility] for presumed C. difficile colitis after a previous admission to [place] for a COPD exacerbation. Upon arrival to [facility] patient was C. difficile negative 2. However he had abdominal pain out of proportion to physical exam and required further medical management by GI for possible causes. During his stay in the ICU, he remained stable. He did not require central access, intubation, invasive monitoring, or massive transfusion. Since leaving the ICU on 07/19/16, he has been followed for jany colored stools by GI. During my exam today, GI was present and is happy with his progress. They continue to slowly advance his diet and do not foresee a need for operative care. Upon speaking with Mr. Soliz today he is in good spirits and very happy with his progress. His abd pain has completely resolved and he is feeling closer to his previous baseline. He denies fever, chills, malaise, trouble breathing. He states he is having some increased sputum production, which he attributed to his recent smoking cessation. He denies chest pain or palpitations. He stated that with his hx of paroxysmal a. fib; he has never had a sensation of when his heart is arrhythmic. He denied nausea, abd pain, constipation. He states he is still having loose stools, but that the blood in them has stopped and that they are improving. During physical exam, there are no new acute findings. Pt is currently stable and may require continued rehabilitation after discharge. Consider outpatient follow up in 1 to 2 weeks Repeat imaging needed: N/A Follow up cultures: N/A Reviewed progress notes, labs, and inpatient medication list Continue current management / Additional recommendations: * Remove Noel as soon as clinically permitted * Further recommendations per hospitalist team Patient is currently stable, critical care will sign off at this time. Thank you for involving us in the care of this patient, please feel free to reconsult as needed
--- NOTE | 2016-07-22 14:56 | Pharmacy Progress Note ---
Glycemic: Assessment & Plan Date of Service Jul 22, 2016. Assessment & Plan The patient received 21 units of insulin on 07/20, 31 units on 07/21. BSGs ranging 51 - 170 mg/dl over the past 24hrs. Low BSG yesterday due to decreasing prednisone dose and variable po intake. Will continue the decreased Lantus and loosen correction and carb ratio as prednisone dose is still decreasing. * Basal insulin: Lantus 10 units every am * Correctional Insulin: Novolog Correction per scale ACHS Goal Range: Low 120 mg/dL - High 140 mg/dL Correction Factor: 25 mg/dL/unit * Prandial insulin: Per carb ratio of 1 unit per 12 grams CHO consumed BSGs continue to improve, no other changes needed to inpatient regimen at this time. Pharmacy will continue to monitor patient daily and write orders per [facility] inpatient glycemic control protocol. Thanks. * Please note that the plan above was derived based on current level of insulin resistance and hospital stress. These recommendations are appropriate for inpatient admission only. Plan of care upon discharge will need to be reassessed to avoid potential outpatient hypo/hyperglycemia.
[2016-07-22] MEDS: BENZOCAINE 20% (ORAJEL) 11.9 GM TUBE MT SCH ×2 (15:00→21:43)
--- NOTE | 2016-07-22 15:26 | Progress Note ---
Subjective Date of Service: Jul 22, 2016. Subjective sputum with stenotrophomonas, now on bactrim. blood cultures negative, outside blood cultures now reported negative as well. echo negative for veg. tolerating advanced diet. c diff negative. wbc continues to improve, now 11.3 Objective Vital Signs Date Time Temp Pulse Resp B/P Pulse Ox O2 Delivery O2 Flow Rate FiO2 07/22/16 14:27 87 16 95 Nasal Cannula 2.0 07/22/16 12:38 81 95 07/22/16 12:00 Nasal Cannula 2.0 07/22/16 11:36 36.7 81 20 109/73 95 2.0 07/22/16 08:03 36.8 70 20 114/67 93 2.0 07/22/16 08:00 Nasal Cannula 2.0 07/22/16 07:24 87 16 96 Nasal Cannula 2.0 07/22/16 04:00 36.8 71 19 109/67 96 Nasal Cannula 2.0 07/22/16 04:00 Nasal Cannula 2.0 07/21/16 23:59 Nasal Cannula 2.0 07/21/16 22:58 36.9 104 20 131/92 97 07/21/16 20:00 Nasal Cannula 2.0 07/21/16 19:49 36.8 84 20 116/75 97 2.0 07/21/16 19:07 80 16 96 Nasal Cannula 2.0 07/21/16 16:00 93 Nasal Cannula 2.0 Laboratory Results Item Value Date Time Gram Stain - Final Complete 07/18/16 1352 Sputum Expectorated Sputum Blood Culture - Preliminary Resulted 07/18/16 1005 Blood NO GROWTH TO DATE. Blood Culture - Preliminary Resulted 07/18/16 0958 Blood NO GROWTH TO DATE. C.difficile Toxin B Gene (PCR) - Final Complete 07/17/16 1335 Stool No C. difficile toxin B gene detected C.difficile Toxin B Gene (PCR) - Final Complete 07/17/16 0000 Stool No C. difficile toxin B gene detected Last 24 Hours Test 07/21/16 16:20 07/21/16 19:09 07/21/16 20:34 07/22/16 05:31 Bedside Glucose 90 mg/dl 96 mg/dl White Blood Count 11.35 K/uL 10.44 K/uL Red Blood Count 3.62 M/uL 3.49 M/uL Hemoglobin 10.8 g/dL 10.2 g/dL Hematocrit 32.4 % 31.0 % Mean Corpuscular Volume 89.5 fL 88.8 fL Mean Corpuscular Hemoglobin 29.8 pg 29.2 pg Mean Corpuscular Hemoglobin Concent 33.3 g/dl 32.9 g/dl Platelet Count 166 K/uL 133 K/uL Mean Platelet Volume 10.5 fL 10.1 fL Neutrophils (%) (Auto) 84.6 % 81.0 % Lymphocytes (%) (Auto) 3.7 % 5.6 % Monocytes (%) (Auto) 10.6 % 8.6 % Eosinophils (%) (Auto) 0.0 % 1.0 % Basophils (%) (Auto) 0.1 % 0.1 % Neutrophils # (Auto) 9.61 K/uL 8.46 K/uL Lymphocytes # (Auto) 0.42 K/uL 0.58 K/uL Monocytes # (Auto) 1.20 K/uL 0.90 K/uL Eosinophils # (Auto) 0.00 K/uL 0.10 K/uL Basophils # (Auto) 0.01 K/uL 0.01 K/uL RDW Standard Deviation 54.5 fL 54.6 fL RDW Coefficient of Variation 16.9 % 16.9 % Immature Granulocyte % (Auto) 1.0 % 3.7 % Immature Granulocyte # (Auto) 0.11 K/uL 0.39 K/uL Sodium Level 145 mmol/L 144 mmol/L Potassium Level 3.4 mmol/L 4.4 mmol/L Chloride Level 108 mmol/L 107 mmol/L Carbon Dioxide Level 28 mmol/L 29 mmol/L Anion Gap 9.0 mmol/L 8.0 mmol/L Blood Urea Nitrogen 29 mg/dl 26 mg/dl Creatinine 0.68 mg/dl 0.71 mg/dl Est Creatinine Clear Calc Drug Dose 93.0 ml/min 89.0 ml/min Estimated GFR () 115.3 113.3 Estimated GFR (Non- 99.5 97.8 BUN/Creatinine Ratio 42.4 36.5 Random Glucose 51 mg/dl 160 mg/dl Calcium Level 7.6 mg/dl 7.5 mg/dl Prothrombin Time 18.3 SECONDS Prothromb Time International Ratio 1.7 Test 07/22/16 07:09 07/22/16 11:14 Bedside Glucose 170 mg/dl 156 mg/dl Assessment and Plan (1) Acute colitis Assessment & Plan: ok to continue bactrim, would give 7 days. tolerating advanced diet. ok to stop zosyn from ID standpoint, blood cultures negative, echo negative for vegetation.
[2016-07-22] MEDS ORDERED: NURSING VERBAL MED ORDER ONE (16:45)
[2016-07-22] MEDS: WARFARIN SOD 2 MG TAB PO SCH (17:20)
[2016-07-23] VITALS (12 sets, daily range): BP systolic 108–131; BP diastolic 56–73; PULSE 75–106; TEMP 36.8–37; O2SAT 93–100
[2016-07-23] MEDS: ALUMINUM/MAGNESIUM SUSP 30 ML UDC PO PRN (01:13)
[2016-07-23] MEDS: PIPERACILL/TAZOBAC IV 4.5 GM in DEXTROSE 5% 100ML IV SCH (01:16)
[2016-07-23 06:25] LABS: BASO % 0.1 %; BASO ABS # 0.01 K/uL (0-0.2); COMPLETE YES; HEMATOCRIT 30.3 % (42-52); IG% 1.1 %; LYMPH % 8.8 %; LYMPH ABS # 1.02 K/uL (1.2-3.4); MEAN CELL VOLUME 90.4 fL (80-100); MEAN CORPUSCULAR HEMOGLOBIN 30.1 pg (25-34); MEAN CORPUSCULAR HGB CONC 33.3 g/dl (32-36); MEAN PLATELET VOLUME 10.6 fL (7.4-10.4); MONO % 4.6 %; NEUT % 85.4 %; PLATELET COUNT 116 K/uL (130-400); RED BLOOD COUNT 3.35 M/uL (4.7-6.1); WHITE BLOOD COUNT 11.59 K/uL (4.8-10.8)
[2016-07-23 06:34] LABS: INR 1.9 (0.9-1.1); PROTHROMBIN TIME (PATIENT) 20.7 SECONDS (9.0-12.0)
[2016-07-23 06:59] LABS: BUN/CREATININE RATIO 27.7 (10-20); CALCIUM 7.6 mg/dl (8.5-10.1); CREATININE 0.73 mg/dl (0.60-1.40); POTASSIUM 3.8 mmol/L (3.5-5.1)
[2016-07-23] MEDS: BUDESONIDE 0.5 MG/2 ML VIAL (PULMICORT) INH SCH ×2 (07:02→19:22)
[2016-07-23] MEDS: ARFORMOTEROL TART 15MCG/2ML VIAL INH SCH ×2 (07:02→19:22)
[2016-07-23] MEDS: BOOST VANILLA PO SCH ×6 (07:30→16:51)
[2016-07-23] MEDS: LEVALBUTEROL 1.25MG/0.5ML NEB INH SCH ×5 (08:37→23:05)
[2016-07-23] MEDS: IPRATROPIUM BROMIDE NEB SOLN 0.02% 2.5 ML VIAL INH SCH ×5 (08:37→23:05)
[2016-07-23] MEDS: NICOTINE 7 MG/24 HR TDSY TD SCH (08:51)
[2016-07-23] MEDS: NYSTATIN SUSP 500,000 U/5 ML UDC PO SCH ×4 (08:53→21:03)
[2016-07-23] MEDS: DILTIAZEM HCL 60 MG TAB PO SCH ×3 (08:54→21:03)
[2016-07-23] MEDS: SULFAMETHOXAZOLE/TRIMETHOPRIM 400/80MG TAB PO SCH ×2 (08:54→21:04)
[2016-07-23] MEDS: LISINOPRIL 10 MG TAB PO SCH (08:54)
[2016-07-23] MEDS: BENZOCAINE 20% (ORAJEL) 11.9 GM TUBE MT SCH ×2 (08:56→21:02)
[2016-07-23] MEDS: INSULIN ASPART 100 UNITS/ML 3 ML PEN SC SCH ×4 (08:58→21:08)
[2016-07-23] MEDS ORDERED: INSULIN GLARGINE SOLOSTAR 100 UNITS/ML 3 ML PEN SC SCH ×2 (09:00→21:00)
--- NOTE | 2016-07-23 09:08 | Gastroenterology Progress Note ---
Progress Note Date of Service: Jul 23, 2016 Subjective Pt evaluation today including: conversation w/ patient, physical exam, chart review Patient states that he feels well and ate his full liquid diet ok this am. He states that he has no new abdominal pain. He reports that the pain he has is limited to the bilateral lower quadrants and very mild. He reports this pain only with deep palpation. His abdomen is soft. Denies SOB, chest pain, N/V/D, black/bloody stools. Review of Systems Constitutional: No chills, No fever Abdomen: + pain (unchanged from yesterday's exam. mild discomfort in bilateral lower quadrants with palpation, R>L), No GI bleeding, No constipation, No diarrhea, No nausea, No vomiting Medications Current Inpatient Medications Medications (Trade) Dose Ordered Sig/Jim Route Start Time Stop Time Status Last Admin Dose Admin Morphine Sulfate (MoRPHine SULFATE INJ) 2 mg Q2H PRN IV 07/17/16 13:45 07/31/16 13:44 07/17/16 17:09 2 MG Albuterol/ Ipratropium (Duoneb) 3 ml Q4H PRN INH 07/17/16 13:45 08/16/16 13:44 Future Hold Diltiazem HCl (Cardizem Tab) 60 mg TID PO 07/17/16 21:00 08/16/16 20:59 07/23/16 08:54 60 MG Nicotine (Nicoderm Cq 7 Mg Patch) 1 patch QAM TD 07/18/16 09:00 08/17/16 08:59 07/22/16 07:46 1 PATCH Miscellaneous (Remove Nicoderm Patch) 1 ea HS N/A 07/17/16 21:00 08/16/16 20:59 07/22/16 21:00 1 EA Piperacillin Sod/ Tazobactam Sod 1 ea 1 ea UD PRN N/A 07/17/16 19:15 08/16/16 19:14 Piperacillin Sod/ Tazobactam Sod/ Dextrose (Zosyn Iv/D5 100ml) 120 ml @ 30 mls/hr Q8@0200,1000,1800 IV 07/18/16 02:00 07/28/16 01:59 07/23/16 01:16 30 MLS/HR Insulin Aspart (novoLOG ASPART) SLIDING SCALE If C... ACHS SC 07/17/16 22:00 08/16/16 21:59 07/23/16 08:58 3 UNITS Glucose (Glucose 40% Gel) 15-30 GRAMS 15 GRAMS... UD PRN PO 07/17/16 21:00 08/16/16 20:59 Glucose (Glucose Chew Tab) 4-8 Tablets 4 Tabl... UD PRN PO 07/17/16 21:00 08/16/16 20:59 Dextrose (Dextrose 50% 50ML Syringe) 25-50ML OF 50% DW IV FOR... UD PRN IV 07/17/16 21:00 08/16/16 20:59 Glucagon (Glucagon Inj) 1 mg UD PRN SQ 07/17/16 21:00 08/16/16 20:59 Miscellaneous Information (Consult Glycemic Management Pharmacy) 1 ea UD PRN N/A 07/17/16 21:26 08/16/16 21:25 Ondansetron HCl (Zofran Inj) 4 mg Q6H PRN IV 07/18/16 08:00 08/17/16 07:59 07/20/16 03:46 4 MG Nystatin (Mycostatin Susp) 4 ml QID PO 07/18/16 10:00 07/28/16 09:59 07/23/16 08:53 4 ML Arformoterol Tartrate (Brovana 15MCG/ 2ML Neb Soln) 15 mcg BIDR INH 07/18/16 20:00 08/17/16 19:59 07/23/16 07:02 15 MCG Budesonide (Pulmicort Respules 0.5MG/ 2ML Neb Soln) 0.5 mg BIDR INH 07/18/16 20:00 08/17/16 19:59 07/23/16 07:02 0.5 MG Lisinopril (Zestril Tab) 10 mg DAILY PO 07/20/16 09:00 08/19/16 08:59 07/23/16 08:54 10 MG Prednisone 10 mg 10 mg Taper DAILY PO 07/20/16 09:00 08/22/16 08:59 07/23/16 08:54 10 MG Pantoprazole Sodium/Syringe (Protonix Inj/ Syringe) 10 ml @ 5 mls/min DAILY@11 IV 07/20/16 11:00 08/19/16 10:59 07/22/16 11:59 5 MLS/MIN Al Hydroxide/Mg Hydroxide (Maalox Susp) 30 ml Q6H PRN PO 07/20/16 11:00 08/19/16 10:59 07/23/16 01:13 30 ML Ipratropium [place] (Atrovent 0.02% 0.5MG/2.5ML Neb) 0.5 mg Q6RWA INH 07/22/16 09:00 08/21/16 08:59 07/22/16 20:07 0.5 MG Levalbuterol (Xopenex 1.25MG/ 0.5ML Neb) 1.25 mg Q6RWA INH 07/22/16 09:00 08/21/16 08:59 07/22/16 14:27 1.25 MG Benzocaine (Orajel 2% Oral Gel) 1 appln BID MT 07/22/16 21:00 08/21/16 20:59 07/23/16 08:56 1 APPLN Warfarin Sodium (Coumadin Tab) 2 mg DAILY@16 PO 07/22/16 16:00 08/21/16 15:59 07/22/16 17:20 2 MG Trimethoprim/ Sulfamethoxazole (Septra 400/80MG Tab) 1 tab BID PO 07/22/16 12:15 07/29/16 12:14 07/23/16 08:54 1 TAB Enteral Nutritional Formula (Boost) 0.5 can TIDM PO 07/23/16 07:30 08/22/16 07:29 07/23/16 07:30 0.5 CAN Insulin Glargine (Lantus Solostar Pen) 5 unit DAILY SC 07/23/16 09:00 08/22/16 08:59 07/23/16 08:59 5 UNIT Objective Vital Signs Date Time Temp Pulse Resp B/P Pulse Ox O2 Delivery O2 Flow Rate FiO2 07/23/16 07:02 75 16 94 Nasal Cannula 2.0 07/23/16 04:00 37.0 84 20 108/62 95 Nasal Cannula 2.0 07/23/16 04:00 Nasal Cannula 2.0 07/23/16 00:00 36.8 85 19 118/65 95 Nasal Cannula 2.0 07/22/16 23:59 Nasal Cannula 2.0 07/22/16 20:10 73 16 96 Nasal Cannula 2.0 07/22/16 20:00 Nasal Cannula 2.0 07/22/16 19:55 36.8 76 20 122/72 95 07/22/16 16:16 36.9 97 18 106/59 96 07/22/16 16:00 Nasal Cannula 2.0 07/22/16 14:27 87 16 95 Nasal Cannula 2.0 07/22/16 12:38 81 95 07/22/16 12:00 Nasal Cannula 2.0 07/22/16 11:36 36.7 81 20 109/73 95 2.0 Physical Exam General Appearance: no apparent distress Eyes: PERRL Respiratory/Chest: normal breath sounds, no respiratory distress, no accessory muscle use, + crackles Cardiovascular: regular rate, rhythm, no edema, no gallop, no JVD, no murmur Abdomen: normal bowel sounds, soft, no organomegaly, no pulsatile mass, + tenderness (tenderness with deep palpation of right lower quadrant) Neurologic/Psych: alert, normal mood/affect, oriented x 3 Skin: normal color, no jaundice, warm/dry, no rash Laboratory Results Last 24 Hours Test 07/22/16 11:14 07/22/16 16:15 07/22/16 20:27 07/23/16 05:37 Bedside Glucose 156 mg/dl 178 mg/dl 137 mg/dl White Blood Count 11.59 K/uL Red Blood Count 3.35 M/uL Hemoglobin 10.1 g/dL Hematocrit 30.3 % Mean Corpuscular Volume 90.4 fL Mean Corpuscular Hemoglobin 30.1 pg Mean Corpuscular Hemoglobin Concent 33.3 g/dl Platelet Count 116 K/uL Mean Platelet Volume 10.6 fL Neutrophils (%) (Auto) 85.4 % Lymphocytes (%) (Auto) 8.8 % Monocytes (%) (Auto) 4.6 % Eosinophils (%) (Auto) 0.0 % Basophils (%) (Auto) 0.1 % Neutrophils # (Auto) 9.90 K/uL Lymphocytes # (Auto) 1.02 K/uL Monocytes # (Auto) 0.53 K/uL Eosinophils # (Auto) 0.00 K/uL Basophils # (Auto) 0.01 K/uL RDW Standard Deviation 55.5 fL RDW Coefficient of Variation 16.9 % Immature Granulocyte % (Auto) 1.1 % Immature Granulocyte # (Auto) 0.13 K/uL Prothrombin Time 20.7 SECONDS Prothromb Time International Ratio 1.9 Sodium Level 140 mmol/L Potassium Level 3.8 mmol/L Chloride Level 104 mmol/L Carbon Dioxide Level 29 mmol/L Anion Gap 7.0 mmol/L Blood Urea Nitrogen 20 mg/dl Creatinine 0.73 mg/dl Est Creatinine Clear Calc Drug Dose 86.6 ml/min Estimated GFR () 112.0 Estimated GFR (Non- 96.7 BUN/Creatinine Ratio 27.7 Random Glucose 99 mg/dl Calcium Level 7.6 mg/dl Test 07/23/16 06:55 Bedside Glucose 99 mg/dl Assessment and Plan Patient is a 65 year old male with abrupt onset stabbing abdominal pain, loose stools, 3 episodes of semi formed jany colored stools with a CT abd depicting inflammatory changes in the colon, no obstruction. Differentials include ischemic colitis, infectious colitis, inflammatory bowel disease, acute diverticulitis. Patient likely has ischemic colitis. He is clinically improved, stating his ABD pain is much relieved and with normal stooling. Plan full liquid diet PPI BID Zofran PRN nausea continue ABX treatment defer cscope at this time GI will continue to follow and offer input on repeat CT/surgery consult plan for OP colonoscopy in 6-8 weeks GI will sign off. Please call with any questions. ATTESTATION: I have performed a history and physical examination of this patient and reviewed the electronic record. Specifically, on physical examination there is no significant abdominal tenderness. I have discussed the case with JAYCOB Chavez. The above note reflects my findings, conclusions, and recommendations. Lazaro Dunn MD
[2016-07-23] MEDS: METHYLPREDNISOLONE IV 40 MG in SYRINGE 0 ML IV SCH ×2 (11:54→21:00)
[2016-07-23] MEDS: LACTOBACILLUS ACIDOPHILUS (FLORANEX) TAB PO SCH ×2 (11:54→16:51)
[2016-07-23] MEDS: PANTOprazole INJ 40 MG in SYRINGE 0 ML IV SCH (11:54)
--- NOTE | 2016-07-23 11:59 | Pharmacy Progress Note ---
Glycemic Control: Progress Nt Date of Service Jul 23, 2016. Scope Glycemic Pharmacist consulted by Dr Hernandez on 07/18/16 for glycemic control and to write orders per [facility] inpatient glycemic control protocol. Objective Accuchecks BSG (last 24hrs): Test 07/22/16 16:15 07/22/16 20:27 07/23/16 05:37 07/23/16 06:55 Bedside Glucose 178 mg/dl (70-99) 137 mg/dl (70-99) 99 mg/dl (70-99) Random Glucose 99 mg/dl (70-99) Test 07/23/16 11:12 Bedside Glucose 137 mg/dl (70-99) Laboratory Data (last 24hrs) Test 07/23/16 05:37 Anion Gap 7.0 mmol/L BUN/Creatinine Ratio 27.7 Blood Urea Nitrogen 20 mg/dl Creatinine 0.73 mg/dl Potassium Level 3.8 mmol/L Sodium Level 140 mmol/L White Blood Count 11.59 K/uL Red Blood Count 3.35 M/uL Hemoglobin 10.1 g/dL Hematocrit 30.3 % Mean Corpuscular Volume 90.4 fL Mean Corpuscular Hemoglobin 30.1 pg Mean Corpuscular Hemoglobin Concent 33.3 g/dl Platelet Count 116 K/uL Mean Platelet Volume 10.6 fL Neutrophils (%) (Auto) 85.4 % Lymphocytes (%) (Auto) 8.8 % Monocytes (%) (Auto) 4.6 % Eosinophils (%) (Auto) 0.0 % Basophils (%) (Auto) 0.1 % Neutrophils # (Auto) 9.90 K/uL Lymphocytes # (Auto) 1.02 K/uL Monocytes # (Auto) 0.53 K/uL Eosinophils # (Auto) 0.00 K/uL Basophils # (Auto) 0.01 K/uL HbA1c: Test 07/18/16 05:30 Hemoglobin A1c 7.4 % (4.5-5.6) H Recent Pertinent Medications Outpatient Anti-diabetic Regimen: * was not taking medication to manage DM * A1c = 7.4 % 07/18/16 (eAG ~166) The patient is currently receiving: * Basal insulin: Lantus has been titrated over the past several days with each decrease in steroids -Lantus 8 units given 07/20/16 -Lantus 12 units given 07/21/16 -Lantus 10 units given 07/22/16 * Correctional Insulin: Novolog Correction per scale ACHS Goal Range: Low 140 mg/dL - High 180 mg/dL Correction Factor: 25 mg/dL/unit * Prandial insulin: Per carb ratio of 1 unit per 12 grams CHO consumed Risk Factors for Insulin Resistance: * Steroid taoer * Infection * Diet Assessment & Plan ASSESSMENT: * 65yo T2DM male with new diagnosis of diabetes. * HbA1c of 6.5% or greater indicates "diagnosis of diabetes" --> ADA recommendation is to "Treat Diabetes." Pt will need antidiabetic medication at discharge. * Pt initially on high-dose steroids with steroid induced hyperglycemia, but BSGs improving as steroids tapering quickly * Fasting BSG this AM 99 mg/dL- further decrease Lantus and consider holding tomorrow AM * Current Novolog scale seems to be appropriate- continue X 24 hours and considering loosening tomorrow * ADA & AACE recommend a goal blood sugar range 140-180 mg/dl for the majority of critically ill & non-critically ill patients. However, more stringent targets may be selected in individual cases. Will utilize more stringent target of 120-140mg/dl based on age and new diagnosis. PLAN FOR INPATIENT GLYCEMIC CONTROL: * Decrease Lantus to 5 units this AM * Correctional Insulin with NOVOLOG per scale ACHS or Q6hrs while NPO * Goal Range: Low 120 mg/dL - High 140 mg/dL * Correction Factor: 20 mg/dL/unit * Nutritional / Prandial insulin per carb ratio of 1 unit per 8 grams CHO consumed RECOMMENDATIONS FOR DISCHARGE: * Pt will need antidiabetic regimen for discharge * Healthy eating, weight control, increased physical activity, and diabetes education * Recommend mono-therapy with Metformin 500mg PO daily. Continue to titrate metformin dosing upwards as recommended. Dosage increases should be made in increments of 500 mg weekly, up to 2,000 mg/day PO, given in divided doses. Doses above 2000 mg/day may be better tolerated if divided and given 3 times per day with meals. Max: 2,550 mg/day PO, in divided doses * Goal A1c is less than 7% * Please note that the plan above was derived based on current level of insulin resistance and hospital stress. These recommendations are appropriate for inpatient admission only. Plan of care upon discharge will need to be reassessed to avoid potential outpatient hypo/hyperglycemia. Thank you.
--- NOTE | 2016-07-23 15:13 | Progress Note ---
Medicine Progress Note Date & Time of Visit: Jul 23, 2016 at 11:02. (Kaylee Vera PA-C) Subjective Patient seen together with Dr. Bedoya. He states abdominal pain is improved but still sore in lower abdomen. He is still having liquid BM with less frequency- 2x yesterday and 1x today so far. No hematochezia or melena as per nursing. He is tolerating the full liquid diet and boost. He reports occasional nausea resolved with Maalox and no vomiting. He states SOB is about the same. He states he was doing better with q4h breathing treatments before they were decreased to q6h. (Kaylee Vera PA-C) Objective Last 8 Hrs Date Time Temp Pulse Resp B/P Pulse Ox O2 Delivery O2 Flow Rate FiO2 07/23/16 08:00 36.8 80 18 110/63 94 07/23/16 08:00 Nasal Cannula 2.0 07/23/16 07:02 75 16 94 Nasal Cannula 2.0 07/23/16 04:00 37.0 84 20 108/62 95 Nasal Cannula 2.0 07/23/16 04:00 Nasal Cannula 2.0 Physical Exam: General-alert cooperative 65 y/o male, no acute distress Eyes-anicteric ENT- hearing grossly intact Neck-trachea midline Lungs-diffuse rhonchi per attending's exam Heart-irregular per attending's exam Abdomen-BS present soft, tender in lower quadrants per attending's exam Extremities-no deformity Neuro- alert, oriented x 3, affect normal, no focal deficit on gross examination Laboratory Results: Last 24 Hours Test 07/22/16 11:14 07/22/16 16:15 07/22/16 20:27 07/23/16 05:37 Bedside Glucose 156 mg/dl 178 mg/dl 137 mg/dl White Blood Count 11.59 K/uL Red Blood Count 3.35 M/uL Hemoglobin 10.1 g/dL Hematocrit 30.3 % Mean Corpuscular Volume 90.4 fL Mean Corpuscular Hemoglobin 30.1 pg Mean Corpuscular Hemoglobin Concent 33.3 g/dl Platelet Count 116 K/uL Mean Platelet Volume 10.6 fL Neutrophils (%) (Auto) 85.4 % Lymphocytes (%) (Auto) 8.8 % Monocytes (%) (Auto) 4.6 % Eosinophils (%) (Auto) 0.0 % Basophils (%) (Auto) 0.1 % Neutrophils # (Auto) 9.90 K/uL Lymphocytes # (Auto) 1.02 K/uL Monocytes # (Auto) 0.53 K/uL Eosinophils # (Auto) 0.00 K/uL Basophils # (Auto) 0.01 K/uL RDW Standard Deviation 55.5 fL RDW Coefficient of Variation 16.9 % Immature Granulocyte % (Auto) 1.1 % Immature Granulocyte # (Auto) 0.13 K/uL Prothrombin Time 20.7 SECONDS Prothromb Time International Ratio 1.9 Sodium Level 140 mmol/L Potassium Level 3.8 mmol/L Chloride Level 104 mmol/L Carbon Dioxide Level 29 mmol/L Anion Gap 7.0 mmol/L Blood Urea Nitrogen 20 mg/dl Creatinine 0.73 mg/dl Est Creatinine Clear Calc Drug Dose 86.6 ml/min Estimated GFR () 112.0 Estimated GFR (Non- 96.7 BUN/Creatinine Ratio 27.7 Random Glucose 99 mg/dl Calcium Level 7.6 mg/dl Test 07/23/16 06:55 Bedside Glucose 99 mg/dl (Kaylee Vera PA-C) Assessment & Plan POSSIBLE SEPSIS Secondary to colitis, pneumonia Transferred from [facility] Leukocytosis improving; VSS Had blood cultures at [facility]- final report neg; and blood cultures at [facility] - negative Management noted below COLITIS Stool culture and C. diff negative Hematochezia episode- resolved; Hg stable in 10's; Coumadin held then restarted Was on empiric Zosyn- OK to discontinue today per ID Tolerating full liquid diet GI consulted and signed off; plan for outpatient colonoscopy in 6-8 weeks LLL PNEUMONIA Sputum culture grew Stenotrophomonas ID consulted; appreciate input Patient on Bactrim for 7 day course (started 07/22) BACTEREMIA RULED OUT Has underlying aortic valve replacement and mitral valve repair BC at [facility] grew gram neg rods- final report negative Repeat BC on 07/18- negative TTE- no vegetation COPD EXACERBATION Due to LLL pneumonia Underlying chronic respiratory failure on 2 liter continuous Recently hospitalized from Jul 12-Jul 16 at [facility] for COPD exacerbation treated with abx/ steroids Nebs- increase back to q4h hours On prednisone taper- still having SOB/ wheezing- will change back to IV steroids today then PO prednisone 40 mg daily starting tomorrow PAROXYSMAL AFIB Rate is controlled Continue Cardizem Coumadin restarted, decreased to 2 mg due to patient being on Bactrim INR 1.9 HYPERTENSION BP is stable Continue Lisinopril DM TYPE 2 A1c = 7.2 On Lantus and insulin sliding scale coverage Pharmacy consulted for glycemic management RIGHT KIDNEY LESION CT a/p- "Indeterminate 24 mm lesion within the lower pole the right kidney. A dedicated CT scan of the kidneys be obtained in follow-up to differentiate a hyperdense cyst from solid renal mass" F/u as outpatient DYSLIPIDEMIA Statin held due to GI symptoms DVT PROPHYLAXIS Coumadin CODE STATUS Full code DISPOSITION Lives alone; patient is interested in rehab Seen by PT- recommends rehab Per case management note- referral made for [facility] Current Inpatient Medications: Current Inpatient Medications Medications (Trade) Dose Ordered Sig/Jim Route Start Time Stop Time Status Last Admin Dose Admin Morphine Sulfate (MoRPHine SULFATE INJ) 2 mg Q2H PRN IV 07/17/16 13:45 07/31/16 13:44 07/17/16 17:09 2 MG Albuterol/ Ipratropium (Duoneb) 3 ml Q4H PRN INH 07/17/16 13:45 08/16/16 13:44 Future Hold Diltiazem HCl (Cardizem Tab) 60 mg TID PO 07/17/16 21:00 08/16/16 20:59 07/23/16 08:54 60 MG Nicotine (Nicoderm Cq 7 Mg Patch) 1 patch QAM TD 07/18/16 09:00 08/17/16 08:59 07/22/16 07:46 1 PATCH Miscellaneous (Remove Nicoderm Patch) 1 ea HS N/A 07/17/16 21:00 08/16/16 20:59 07/22/16 21:00 1 EA Insulin Aspart (novoLOG ASPART) SLIDING SCALE If C... ACHS SC 07/17/16 22:00 08/16/16 21:59 07/23/16 08:58 3 UNITS Glucose (Glucose 40% Gel) 15-30 GRAMS 15 GRAMS... UD PRN PO 07/17/16 21:00 08/16/16 20:59 Glucose (Glucose Chew Tab) 4-8 Tablets 4 Tabl... UD PRN PO 07/17/16 21:00 08/16/16 20:59 Dextrose (Dextrose 50% 50ML Syringe) 25-50ML OF 50% DW IV FOR... UD PRN IV 07/17/16 21:00 08/16/16 20:59 Glucagon (Glucagon Inj) 1 mg UD PRN SQ 07/17/16 21:00 08/16/16 20:59 Miscellaneous Information (Consult Glycemic Management Pharmacy) 1 ea UD PRN N/A 07/17/16 21:26 08/16/16 21:25 Ondansetron HCl (Zofran Inj) 4 mg Q6H PRN IV 07/18/16 08:00 08/17/16 07:59 07/20/16 03:46 4 MG Nystatin (Mycostatin Susp) 4 ml QID PO 07/18/16 10:00 07/28/16 09:59 07/23/16 08:53 4 ML Arformoterol Tartrate (Brovana 15MCG/ 2ML Neb Soln) 15 mcg BIDR INH 07/18/16 20:00 08/17/16 19:59 07/23/16 07:02 15 MCG Budesonide (Pulmicort Respules 0.5MG/ 2ML Neb Soln) 0.5 mg BIDR INH 07/18/16 20:00 08/17/16 19:59 07/23/16 07:02 0.5 MG Lisinopril (Zestril Tab) 10 mg DAILY PO 07/20/16 09:00 08/19/16 08:59 07/23/16 08:54 10 MG Prednisone 10 mg 10 mg Taper DAILY PO 07/20/16 09:00 08/22/16 08:59 07/23/16 08:54 10 MG Pantoprazole Sodium/Syringe (Protonix Inj/ Syringe) 10 ml @ 5 mls/min DAILY@11 IV 07/20/16 11:00 08/19/16 10:59 07/22/16 11:59 5 MLS/MIN Al Hydroxide/Mg Hydroxide (Maalox Susp) 30 ml Q6H PRN PO 07/20/16 11:00 08/19/16 10:59 07/23/16 01:13 30 ML Benzocaine (Orajel 2% Oral Gel) 1 appln BID MT 1/9/17 21:00 08/21/16 20:59 07/23/16 08:56 1 APPLN Warfarin Sodium (Coumadin Tab) 2 mg DAILY@16 PO 07/22/16 16:00 08/21/16 15:59 07/22/16 17:20 2 MG Trimethoprim/ Sulfamethoxazole (Septra 400/80MG Tab) 1 tab BID PO 07/22/16 12:15 07/29/16 12:14 07/23/16 08:54 1 TAB Enteral Nutritional Formula (Boost) 0.5 can TIDM PO 07/23/16 07:30 08/22/16 07:29 07/23/16 07:30 0.5 CAN Insulin Glargine (Lantus Solostar Pen) 5 unit DAILY SC 07/23/16 09:00 08/22/16 08:59 07/23/16 08:59 5 UNIT Ipratropium [place] (Atrovent 0.02% 0.5MG/2.5ML Neb) 0.5 mg Q4R INH 07/23/16 12:00 08/22/16 11:59 UNV Levalbuterol (Xopenex 1.25MG/ 0.5ML Neb) 1.25 mg Q4R INH 07/23/16 12:00 08/22/16 11:59 UNV Lactobacillus Acidophilus (Floranex Tab) 4 tab TIDM PO 07/23/16 11:30 08/22/16 11:29 UNV (Kaylee Vera PA-C) Agree with the above progress note, patient was seen with Gretel Vera PA-C. Please see above for more detail. Resp: coarse rhonchi diffusely, diminished breath sounds Cardiac: irregularly irregular Possible sepsis: now resolved -source not clear, pneumonia vs colitis (less likely) -now switched to PO abx (Anais Bedoya, D.O.)
[2016-07-23] MEDS: WARFARIN SOD 2 MG TAB PO SCH (16:51)
[2016-07-24] VITALS (14 sets, daily range): BP systolic 94–131; BP diastolic 63–79; PULSE 72–96; TEMP 36.7–37.1; O2SAT 91–97
[2016-07-24] MEDS: IPRATROPIUM BROMIDE NEB SOLN 0.02% 2.5 ML VIAL INH SCH ×6 (03:55→22:40)
[2016-07-24] MEDS: LEVALBUTEROL 1.25MG/0.5ML NEB INH SCH ×6 (03:55→22:41)
[2016-07-24 04:27] LABS: HEMATOCRIT 28.8 % (42-52); MEAN CELL VOLUME 88.3 fL (80-100); MEAN CORPUSCULAR HEMOGLOBIN 30.4 pg (25-34); MEAN CORPUSCULAR HGB CONC 34.4 g/dl (32-36); RED BLOOD COUNT 3.26 M/uL (4.7-6.1); WHITE BLOOD COUNT 10.84 K/uL (4.8-10.8)
[2016-07-24 04:37] LABS: INR 1.8 (0.9-1.1); PROTHROMBIN TIME (PATIENT) 19.9 SECONDS (9.0-12.0)
[2016-07-24 04:53] LABS: BUN/CREATININE RATIO 27.1 (10-20); CALCIUM 7.5 mg/dl (8.5-10.1); CREATININE 0.72 mg/dl (0.60-1.40); POTASSIUM 4.2 mmol/L (3.5-5.1)
[2016-07-24 05:04] LABS: BASO % 0.1 %; BASO ABS # 0.01 K/uL (0-0.2); COMPLETE YES; IG% 0.8 %; LYMPH % 3.7 %; MEAN PLATELET VOLUME 10.5 fL (7.4-10.4); MONO % 1.3 %; NEUT % 94.1 %; PLATELET COUNT 99 K/uL (130-400); PLT ESTIMATE DECREASED
[2016-07-24] MEDS: ARFORMOTEROL TART 15MCG/2ML VIAL INH SCH ×2 (07:05→19:25)
[2016-07-24] MEDS: BUDESONIDE 0.5 MG/2 ML VIAL (PULMICORT) INH SCH ×2 (07:05→19:25)
[2016-07-24] MEDS: SULFAMETHOXAZOLE/TRIMETHOPRIM 400/80MG TAB PO SCH ×2 (07:40→20:24)
[2016-07-24] MEDS: PANTOprazole INJ 40 MG in SYRINGE 0 ML IV SCH (07:40)
[2016-07-24] MEDS: BOOST VANILLA PO SCH ×6 (07:40→17:20)
[2016-07-24] MEDS: DILTIAZEM HCL 60 MG TAB PO SCH ×3 (07:41→20:24)
[2016-07-24] MEDS: LACTOBACILLUS ACIDOPHILUS (FLORANEX) TAB PO SCH ×3 (07:41→17:17)
[2016-07-24] MEDS: LISINOPRIL 10 MG TAB PO SCH (07:42)
[2016-07-24] MEDS: NYSTATIN SUSP 500,000 U/5 ML UDC PO SCH ×3 (07:43→20:24)
[2016-07-24] MEDS: NICOTINE 7 MG/24 HR TDSY TD SCH (07:43)
[2016-07-24] MEDS: BENZOCAINE 20% (ORAJEL) 11.9 GM TUBE MT SCH ×2 (07:43→20:24)
[2016-07-24] MEDS: INSULIN ASPART 100 UNITS/ML 3 ML PEN SC SCH ×5 (07:46→23:43)
[2016-07-24] MEDS: INSULIN GLARGINE SOLOSTAR 100 UNITS/ML 3 ML PEN SC SCH (07:47)
--- NOTE | 2016-07-24 10:32 | Progress Note ---
Medicine Progress Note Date & Time of Visit: Jul 24, 2016 at 09:30. (Kaylee Vera PA-C) Subjective Patient seen and examined. He states he is feeling "so-so" today. Breathing is improving overall but still WONG to the commode which he does not have at baseline. Denies cough. He states abdominal pain is resolved. He tolerated his full liquid breakfast. No N/V. He had 2 liquid BM yesterday but no BM so far today. Denies hematochezia/ melena or other abnormal bleeding. No chest pain or palpitations. (Kaylee Vera PA-C) Objective Last 8 Hrs Date Time Temp Pulse Resp B/P Pulse Ox O2 Delivery O2 Flow Rate FiO2 07/24/16 07:40 37.1 87 20 119/78 96 Nasal Cannula 2.0 07/24/16 04:02 36.8 84 20 124/73 95 Nasal Cannula 2.0 07/24/16 04:00 Nasal Cannula 2.0 07/24/16 03:55 78 20 94 Nasal Cannula 2.0 Physical Exam: General-alert cooperative 65 y/o male, lying in bed, no acute distress Eyes-anicteric ENT- hearing grossly intact Neck-trachea midline Lungs-moderate air movement, mild expiratory wheezing throughout, no respiratory distress, no accessory muscle use Heart-irregularly irregular, no murmur Abdomen-soft, mildly tender in lower quadrants, normal bowel sounds Extremities-no deformity Neuro- alert, oriented x 3, affect normal, no focal deficit on gross examination Genitourinary- Noel catheter draining clear adore urine Laboratory Results: Last 24 Hours Test 07/23/16 11:12 07/23/16 16:35 07/23/16 20:26 07/24/16 03:46 Bedside Glucose 137 mg/dl 185 mg/dl 210 mg/dl White Blood Count 10.84 K/uL Red Blood Count 3.26 M/uL Hemoglobin 9.9 g/dL Hematocrit 28.8 % Mean Corpuscular Volume 88.3 fL Mean Corpuscular Hemoglobin 30.4 pg Mean Corpuscular Hemoglobin Concent 34.4 g/dl Platelet Count 99 K/uL Mean Platelet Volume 10.5 fL Neutrophils (%) (Auto) 94.1 % Lymphocytes (%) (Auto) 3.7 % Monocytes (%) (Auto) 1.3 % Eosinophils (%) (Auto) 0.0 % Basophils (%) (Auto) 0.1 % Neutrophils # (Auto) 10.20 K/uL Lymphocytes # (Auto) 0.40 K/uL Monocytes # (Auto) 0.14 K/uL Eosinophils # (Auto) 0.00 K/uL Basophils # (Auto) 0.01 K/uL RDW Standard Deviation 53.7 fL RDW Coefficient of Variation 16.6 % Immature Granulocyte % (Auto) 0.8 % Immature Granulocyte # (Auto) 0.09 K/uL Platelet Estimate DECREASED Prothrombin Time 19.9 SECONDS Prothromb Time International Ratio 1.8 Sodium Level 138 mmol/L Potassium Level 4.2 mmol/L Chloride Level 102 mmol/L Carbon Dioxide Level 28 mmol/L Anion Gap 8.0 mmol/L Blood Urea Nitrogen 20 mg/dl Creatinine 0.72 mg/dl Est Creatinine Clear Calc Drug Dose 87.8 ml/min Estimated GFR () 112.7 Estimated GFR (Non- 97.2 BUN/Creatinine Ratio 27.1 Random Glucose 213 mg/dl Calcium Level 7.5 mg/dl Test 07/24/16 06:15 Bedside Glucose 182 mg/dl (Kaylee Vera, ANNAMARIA) Assessment & Plan POSSIBLE SEPSIS Secondary to pneumonia vs. colitis Transferred from [place] [facility] Leukocytosis improving; VSS Had blood cultures at [place]- final report neg; and blood cultures at [facility] - negative Management noted below LLL PNEUMONIA Sputum culture grew Stenotrophomonas ID consulted; appreciate input Patient on Bactrim for 7 day course (started 07/22) COPD EXACERBATION Due to LLL pneumonia Underlying chronic respiratory failure on 2 liter continuous Recently hospitalized from Jul 12-Jul 16 at [facility] for COPD exacerbation treated with abx/ steroids Antibiotics noted above Nebs- increase back to q4h hours Was on IV steroid; now on prednisone 40 mg daily COLITIS Stool culture and C. diff negative Hematochezia episode- resolved; Hg stable around 10; Coumadin held then restarted Was on empiric Zosyn- discontinued 07/23 as per ID recommendation Tolerating full liquid diet GI consulted and signed off; plan for outpatient colonoscopy in 6-8 weeks Probiotic added BACTEREMIA RULED OUT Has underlying aortic valve replacement and mitral valve repair BC at [facility] grew gram neg rods- final report negative Repeat BC on 07/18- negative TTE- no vegetation PAROXYSMAL AFIB Rate is controlled Continue Cardizem Coumadin restarted at 2.5 mg (given 07/20 and 07/21) decreased to 2 mg (07/22 and 07/23 ) due to patient being on Bactrim INR is 1.8- will continue current dose for now given recent GI bleeding THROMBOCYTOPENIA Denies bleeding Platelets 99 Monitor HYPERTENSION BP is stable Continue Lisinopril DM TYPE 2 A1c = 7.2 On Lantus and insulin sliding scale coverage Pharmacy consulted for glycemic management RIGHT KIDNEY LESION CT a/p- "Indeterminate 24 mm lesion within the lower pole the right kidney. A dedicated CT scan of the kidneys be obtained in follow-up to differentiate a hyperdense cyst from solid renal mass" F/u as outpatient DYSLIPIDEMIA Statin held due to GI symptoms DVT PROPHYLAXIS Coumadin CODE STATUS Full code DISPOSITION Transfer from tele to med/ surg Lives alone; patient is interested in rehab Seen by PT- recommends rehab Per community case manager, approved for [facility] Current Inpatient Medications: Current Inpatient Medications Medications (Trade) Dose Ordered Sig/Jim Route Start Time Stop Time Status Last Admin Dose Admin Morphine Sulfate (MoRPHine SULFATE INJ) 2 mg Q2H PRN IV 07/17/16 13:45 07/31/16 13:44 07/17/16 17:09 2 MG Albuterol/ Ipratropium (Duoneb) 3 ml Q4H PRN INH 07/17/16 13:45 08/16/16 13:44 Future Hold Diltiazem HCl (Cardizem Tab) 60 mg TID PO 07/17/16 21:00 08/16/16 20:59 07/24/16 07:41 60 MG Nicotine (Nicoderm Cq 7 Mg Patch) 1 patch QAM TD 07/18/16 09:00 08/17/16 08:59 07/22/16 07:46 1 PATCH Miscellaneous (Remove Nicoderm Patch) 1 ea HS N/A 07/17/16 21:00 08/16/16 20:59 07/22/16 21:00 1 EA Insulin Aspart (novoLOG ASPART) SLIDING SCALE If C... ACHS SC 07/17/16 22:00 08/16/16 21:59 07/24/16 07:46 14 UNITS Glucose (Glucose 40% Gel) 15-30 GRAMS 15 GRAMS... UD PRN PO 07/17/16 21:00 08/16/16 20:59 Glucose (Glucose Chew Tab) 4-8 Tablets 4 Tabl... UD PRN PO 07/17/16 21:00 08/16/16 20:59 Dextrose (Dextrose 50% 50ML Syringe) 25-50ML OF 50% DW IV FOR... UD PRN IV 07/17/16 21:00 08/16/16 20:59 Glucagon (Glucagon Inj) 1 mg UD PRN SQ 07/17/16 21:00 08/16/16 20:59 Miscellaneous Information (Consult Glycemic Management Pharmacy) 1 ea UD PRN N/A 07/17/16 21:26 08/16/16 21:25 Ondansetron HCl (Zofran Inj) 4 mg Q6H PRN IV 07/18/16 08:00 08/17/16 07:59 07/20/16 03:46 4 MG Nystatin (Mycostatin Susp) 4 ml QID PO 07/18/16 10:00 07/28/16 09:59 07/24/16 07:43 4 ML Arformoterol Tartrate (Brovana 15MCG/ 2ML Neb Soln) 15 mcg BIDR INH 07/18/16 20:00 08/17/16 19:59 07/23/16 19:22 15 MCG Budesonide (Pulmicort Respules 0.5MG/ 2ML Neb Soln) 0.5 mg BIDR INH 07/18/16 20:00 08/17/16 19:59 07/23/16 19:22 0.5 MG Lisinopril 10 mg 10 mg DAILY PO 07/20/16 09:00 08/19/16 08:59 07/24/16 07:42 10 MG Pantoprazole Sodium/Syringe (Protonix Inj/ Syringe) 10 ml @ 5 mls/min DAILY@11 IV 07/20/16 11:00 08/19/16 10:59 07/24/16 07:40 5 MLS/MIN Al Hydroxide/Mg Hydroxide (Maalox Susp) 30 ml Q6H PRN PO 07/20/16 11:00 08/19/16 10:59 07/23/16 01:13 30 ML Benzocaine (Orajel 2% Oral Gel) 1 appln BID MT 07/22/16 21:00 08/21/16 20:59 07/24/16 07:43 1 APPLN Warfarin Sodium (Coumadin Tab) 2 mg DAILY@16 PO 07/22/16 16:00 08/21/16 15:59 07/23/16 16:51 2 MG Trimethoprim/ Sulfamethoxazole (Septra 400/80MG Tab) 1 tab BID PO 07/22/16 12:15 07/29/16 12:14 07/24/16 07:40 1 TAB Enteral Nutritional Formula (Boost) 0.5 can TIDM PO 07/23/16 07:30 08/22/16 07:29 07/24/16 07:40 0.5 CAN Ipratropium [place] (Atrovent 0.02% 0.5MG/2.5ML Neb) 0.5 mg Q4R INH 07/23/16 12:00 08/22/16 11:59 07/24/16 03:55 0.5 MG Levalbuterol (Xopenex 1.25MG/ 0.5ML Neb) 1.25 mg Q4R INH 07/23/16 12:00 08/22/16 11:59 07/24/16 03:55 1.25 MG Lactobacillus Acidophilus (Floranex Tab) 4 tab TIDM PO 07/23/16 11:30 08/22/16 11:29 07/24/16 07:41 4 TAB Prednisone (PredniSONE TAB) 40 mg DAILY PO 07/24/16 09:00 08/23/16 08:59 07/24/16 07:42 40 MG Insulin Glargine (Lantus Solostar Pen) 10 unit DAILY SC 07/24/16 09:00 08/23/16 08:59 07/24/16 07:47 10 UNIT (Kaylee Vera PA-C) Attending addendum: Agree with the above progress note. Patient denies any new complaints, states his breathing seems slightly better. Still has occasional loose BM 2 times a day. No overnight events noted. Resp: diminished breath sounds bilaterally Cardiac: irregularly irregular, S1 and S2 auscultated COPD EXACERBATION: likely due to pneumonia -on bactrim per ID recommendation based on sputum culture -on prednisone, taper schedule changed -continue nebs (Anais Bedoya D.O.)
[2016-07-24] MEDS ORDERED: LACTOBACILLUS ACIDOPHILUS (FLORANEX) TAB PO SCH (11:30)
--- NOTE | 2016-07-24 16:31 | Pharmacy Progress Note ---
Glycemic Control: Progress Nt Date of Service Jul 24, 2016. Scope Glycemic Pharmacist consulted by Dr Hernandez on 07/18/16 for glycemic control and to write orders per [facility] inpatient glycemic control protocol. Objective Accuchecks BSG (last 24hrs): Test 07/23/16 16:35 07/23/16 20:26 07/24/16 03:46 07/24/16 06:15 Bedside Glucose 185 mg/dl (70-99) 210 mg/dl (70-99) 182 mg/dl (70-99) Random Glucose 213 mg/dl (70-99) Test 07/24/16 11:32 Bedside Glucose 301 mg/dl (70-99) Laboratory Data (last 24hrs) Test 07/24/16 03:46 Anion Gap 8.0 mmol/L BUN/Creatinine Ratio 27.1 Blood Urea Nitrogen 20 mg/dl Creatinine 0.72 mg/dl Potassium Level 4.2 mmol/L Sodium Level 138 mmol/L White Blood Count 10.84 K/uL Red Blood Count 3.26 M/uL Hemoglobin 9.9 g/dL Hematocrit 28.8 % Mean Corpuscular Volume 88.3 fL Mean Corpuscular Hemoglobin 30.4 pg Mean Corpuscular Hemoglobin Concent 34.4 g/dl Platelet Count 99 K/uL Mean Platelet Volume 10.5 fL Neutrophils (%) (Auto) 94.1 % Lymphocytes (%) (Auto) 3.7 % Monocytes (%) (Auto) 1.3 % Eosinophils (%) (Auto) 0.0 % Basophils (%) (Auto) 0.1 % Neutrophils # (Auto) 10.20 K/uL Lymphocytes # (Auto) 0.40 K/uL Monocytes # (Auto) 0.14 K/uL Eosinophils # (Auto) 0.00 K/uL Basophils # (Auto) 0.01 K/uL HbA1c: Test 07/18/16 05:30 Hemoglobin A1c 7.4 % (4.5-5.6) H Recent Pertinent Medications Outpatient Anti-diabetic Regimen: * N/A The patient is currently receiving: * Basal insulin: Lantus 5 units every 12 hours * Correctional Insulin: Novolog Correction per scale ACHS Goal Range: Low 120 mg/dL - High 140 mg/dL Correction Factor: 25 mg/dL/unit * Prandial insulin: Per carb ratio of 1 unit per 12 grams CHO consumed Risk Factors for Insulin Resistance: * Steroid Taper * Infection * Diet Assessment & Plan ASSESSMENT: * 65yo T2DM male with new diagnosis of diabetes. * HbA1c of 6.5% or greater indicates "diagnosis of diabetes" --> ADA recommendation is to "Treat Diabetes." Pt will need antidiabetic medication at discharge. * Pt currently with steroid induced hyperglycemia. Hyperglycemia resolved with quick steroid taper but now prednisone dose increased. * BSGs rising today with increased prednisone dose of 40mg PO daily. BSGs should improve this evening as prednisone effects noyola off. * Increased bolus insulin will be needed for increased dosing of prednisone. More prandial coverage needed for steroid induced hyperglycemia. * AM fasting BSG elevated this morning --> will slightly increase basal insulin. * Pt tolerating diet very well, consuming 102g CHO & 87g CHO at breakfast & lunch respectively today. * Insulin regimen will need decreased with each step down in steroid dosing. * ADA & AACE recommend a goal blood sugar range 140-180 mg/dl for the majority of critically ill & non-critically ill patients. However, more stringent targets may be selected in individual cases. Will utilize more stringent target of 120-140mg/dl based on age and new diagnosis. PLAN FOR INPATIENT GLYCEMIC CONTROL: * INCREASE Basal insulin with LANTUS to 10 units SQ daily in the morning. * May consider changing basal insulin to NPH if correctional insulin not needed over night. NPH is preferred for steroid induced hyperglycemia secondary to once daily prednisone as the kinetics of NPH match that of the hyperglycemic effects of prednisone. * TIGHTEN Correctional Insulin with NOVOLOG per scale ACHS or Q6hrs while NPO. Additional checks + coverage at 0000 & 0400 * Goal Range: Low 120 mg/dL - High 140 mg/dL (overnight checks will use goal range of 140-180mg/dl as prednisone effects will be lessened) * Correction Factor: 20 mg/dL/unit * TIGHTEN Nutritional / Prandial insulin per carb ratio of 1 unit per 8 grams CHO consumed RECOMMENDATIONS FOR DISCHARGE: * Pt will need antidiabetic regimen for discharge * Healthy eating, weight control, increased physical activity, and diabetes education * Recommend mono-therapy with Metformin 500mg PO daily. Continue to titrate metformin dosing upwards as recommended. Dosage increases should be made in increments of 500 mg weekly, up to 2,000 mg/day PO, given in divided doses. Doses above 2000 mg/day may be better tolerated if divided and given 3 times per day with meals. Max: 2,550 mg/day PO, in divided doses * Goal A1c is less than 7% * Please note that the plan above was derived based on current level of insulin resistance and hospital stress. These recommendations are appropriate for inpatient admission only. Plan of care upon discharge will need to be reassessed to avoid potential outpatient hypo/hyperglycemia. Thank you.
[2016-07-24] MEDS: WARFARIN SOD 2 MG TAB PO SCH (17:16)
[2016-07-25] VITALS (13 sets, daily range): BP systolic 111–127; BP diastolic 63–84; PULSE 58–106; TEMP 36.9–37.1; O2SAT 94–98
[2016-07-25] MEDS: ALUMINUM/MAGNESIUM SUSP 30 ML UDC PO PRN (01:08)
[2016-07-25] MEDS: IPRATROPIUM BROMIDE NEB SOLN 0.02% 2.5 ML VIAL INH SCH ×6 (03:46→23:20)
[2016-07-25] MEDS: LEVALBUTEROL 1.25MG/0.5ML NEB INH SCH ×6 (03:46→23:20)
[2016-07-25] MEDS: INSULIN ASPART 100 UNITS/ML 3 ML PEN SC SCH ×5 (04:22→21:28)
[2016-07-25] MEDS: BUDESONIDE 0.5 MG/2 ML VIAL (PULMICORT) INH SCH ×2 (07:24→20:04)
[2016-07-25] MEDS: ARFORMOTEROL TART 15MCG/2ML VIAL INH SCH ×2 (07:24→20:04)
[2016-07-25] MEDS: NICOTINE 7 MG/24 HR TDSY TD SCH (08:00)
[2016-07-25 08:16] LABS: HEMATOCRIT 28.8 % (42-52); MEAN CELL VOLUME 88.1 fL (80-100); MEAN CORPUSCULAR HEMOGLOBIN 30.9 pg (25-34); MEAN CORPUSCULAR HGB CONC 35.1 g/dl (32-36); RED BLOOD COUNT 3.27 M/uL (4.7-6.1); WHITE BLOOD COUNT 13.84 K/uL (4.8-10.8)
[2016-07-25 08:20] LABS: BASO % 0.1 %; BASO ABS # 0.01 K/uL (0-0.2); COMPLETE YES; IG% 0.7 %; LYMPH % 7.9 %; LYMPH ABS # 1.09 K/uL (1.2-3.4); MEAN PLATELET VOLUME 10.5 fL (7.4-10.4); MONO % 3.7 %; NEUT % 87.6 %; PLATELET COUNT 97 K/uL (130-400)
[2016-07-25] MEDS: LACTOBACILLUS ACIDOPHILUS (FLORANEX) TAB PO SCH ×3 (08:21→17:23)
[2016-07-25] MEDS: SULFAMETHOXAZOLE/TRIMETHOPRIM 400/80MG TAB PO SCH ×2 (08:22→21:23)
[2016-07-25] MEDS: DILTIAZEM HCL 60 MG TAB PO SCH ×4 (08:22→21:23)
[2016-07-25] MEDS: LISINOPRIL 10 MG TAB PO SCH (08:22)
[2016-07-25] MEDS: NYSTATIN SUSP 500,000 U/5 ML UDC PO SCH ×4 (08:23→21:25)
[2016-07-25] MEDS: BENZOCAINE 20% (ORAJEL) 11.9 GM TUBE MT SCH ×2 (08:24→20:00)
[2016-07-25 08:25] LABS: INR 1.8 (0.9-1.1); PROTHROMBIN TIME (PATIENT) 19.4 SECONDS (9.0-12.0)
[2016-07-25] MEDS: BOOST VANILLA PO SCH ×6 (08:25→17:22)
[2016-07-25] MEDS: INSULIN GLARGINE SOLOSTAR 100 UNITS/ML 3 ML PEN SC SCH (08:41)
[2016-07-25 08:43] LABS: BUN/CREATININE RATIO 28.3 (10-20); CALCIUM 8.1 mg/dl (8.5-10.1); CREATININE 0.66 mg/dl (0.60-1.40)
[2016-07-25] MEDS: PANTOprazole INJ 40 MG in SYRINGE 0 ML IV SCH (12:10)
[2016-07-25] MEDS: WARFARIN SOD 2 MG TAB PO SCH (17:22)
[2016-07-25] MEDS ORDERED: INSULIN REGULAR 7 UNITS in SYRINGE 6.93 ML IV SCH (18:00)
--- NOTE | 2016-07-25 18:39 | Progress Note ---
Medicine Progress Note Date & Time of Visit: Jul 25, 2016 at 18:32. (Kaylee Vera PA-C) Subjective Patient seen and examined. States he had 1-2 liquid stool yesterday. No further BM this morning at time of my exam. Denies abdominal pain. He states he has ambulated in hallway with therapy was fatigued and WONG. He attributes this to being in bed for 2 weeks. He is tolerating full liquid diet. No cough, chest pain, N/V. He is voiding normally. (Kaylee Vera PA-C) Objective Last 8 Hrs Date Time Temp Pulse Resp B/P Pulse Ox O2 Delivery O2 Flow Rate FiO2 07/25/16 15:20 89 20 98 Nasal Cannula 2.0 07/25/16 14:37 36.9 73 20 123/70 95 Nasal Cannula 2.0 07/25/16 13:36 106 112/74 07/25/16 11:08 73 18 97 Nasal Cannula 2.0 Physical Exam: General-alert cooperative 65 y/o male, lying in bed, no acute distress Eyes-anicteric ENT- hearing grossly intact Neck-trachea midline Lungs-moderate air movement, minimal expiratory wheezing, no respiratory distress, no accessory muscle use Heart-irregularly irregular, no murmur Abdomen-soft, mildly tender in lower quadrants, normal bowel sounds Extremities-no deformity Neuro- alert, oriented x 3, affect normal, no focal deficit on gross examination Laboratory Results: Last 24 Hours Test 07/24/16 19:32 07/24/16 23:27 07/25/16 04:04 07/25/16 07:50 Bedside Glucose 290 mg/dl 168 mg/dl 201 mg/dl White Blood Count 13.84 K/uL Red Blood Count 3.27 M/uL Hemoglobin 10.1 g/dL Hematocrit 28.8 % Mean Corpuscular Volume 88.1 fL Mean Corpuscular Hemoglobin 30.9 pg Mean Corpuscular Hemoglobin Concent 35.1 g/dl Platelet Count 97 K/uL Mean Platelet Volume 10.5 fL Neutrophils (%) (Auto) 87.6 % Lymphocytes (%) (Auto) 7.9 % Monocytes (%) (Auto) 3.7 % Eosinophils (%) (Auto) 0.0 % Basophils (%) (Auto) 0.1 % Neutrophils # (Auto) 12.13 K/uL Lymphocytes # (Auto) 1.09 K/uL Monocytes # (Auto) 0.51 K/uL Eosinophils # (Auto) 0.00 K/uL Basophils # (Auto) 0.01 K/uL RDW Standard Deviation 54.3 fL RDW Coefficient of Variation 17.1 % Immature Granulocyte % (Auto) 0.7 % Immature Granulocyte # (Auto) 0.10 K/uL Prothrombin Time 19.4 SECONDS Prothromb Time International Ratio 1.8 Sodium Level 139 mmol/L Potassium Level 4.0 mmol/L Chloride Level 104 mmol/L Carbon Dioxide Level 25 mmol/L Anion Gap 10.0 mmol/L Blood Urea Nitrogen 19 mg/dl Creatinine 0.66 mg/dl Est Creatinine Clear Calc Drug Dose 95.8 ml/min Estimated GFR () 116.8 Estimated GFR (Non- 100.7 BUN/Creatinine Ratio 28.3 Random Glucose 145 mg/dl Calcium Level 8.1 mg/dl Test 07/25/16 08:14 07/25/16 11:31 07/25/16 17:08 Bedside Glucose 158 mg/dl 204 mg/dl 417 mg/dl Date/Time Source Procedure Growth Status 07/24/16 23:55 Stool C.difficile Toxin B Gene (PCR) - Final No C. difficile toxin B gene detected Complete (Kaylee Vera, ANNAMARIA) Assessment & Plan POSSIBLE SEPSIS Secondary to pneumonia vs. colitis Transferred from [place] [facility] Leukocytosis improved since presentation; VSS Had blood cultures at [place]- final report neg; and blood cultures at [facility] - negative Management noted below LLL PNEUMONIA Sputum culture grew Stenotrophomonas ID consulted; appreciate input On Bactrim for 7 day course (started 07/22) COPD EXACERBATION Due to LLL pneumonia Underlying chronic respiratory failure on 2 liter continuous Recently hospitalized from Jul 12-Jul 16 at [facility] for COPD exacerbation treated with abx/ steroids Antibiotics noted above Nebs- increased back to q4h hours Was on IV steroid; now on prednisone 40 mg daily COLITIS Stool culture and C. diff negative Hematochezia episode- resolved; Hg stable around 10; Coumadin held then restarted Was on empiric Zosyn- discontinued 07/23 as per ID recommendation Tolerating full liquid diet GI consulted and signed off; plan for outpatient colonoscopy in 6-8 weeks Probiotic added Still having loose stools BACTEREMIA RULED OUT Has underlying aortic valve replacement and mitral valve repair BC at [facility] grew gram neg rods- final report negative Repeat BC on 07/18- negative TTE- no vegetation PAROXYSMAL AFIB Rate is controlled Continue Cardizem Coumadin reduced to 2 mg due to patient being on Bactrim INR is 1.8- will continue current dose for now given recent GI bleeding THROMBOCYTOPENIA Denies bleeding Platelets 97 Monitor HYPERTENSION BP is stable Continue Lisinopril DM TYPE 2 A1c = 7.2 On Lantus and insulin sliding scale coverage Pharmacy consulted for glycemic management RIGHT KIDNEY LESION CT a/p- "Indeterminate 24 mm lesion within the lower pole the right kidney. A dedicated CT scan of the kidneys be obtained in follow-up to differentiate a hyperdense cyst from solid renal mass" F/u as outpatient DYSLIPIDEMIA Statin held due to GI symptoms DVT PROPHYLAXIS Coumadin CODE STATUS Full code DISPOSITION Now on med/ surg Lives alone; patient is interested in rehab Seen by PT- recommends rehab Per window caser, approved for [facility] Current Inpatient Medications: Current Inpatient Medications Medications (Trade) Dose Ordered Sig/Jim Route Start Time Stop Time Status Last Admin Dose Admin Morphine Sulfate (MoRPHine SULFATE INJ) 2 mg Q2H PRN IV 07/17/16 13:45 07/31/16 13:44 07/17/16 17:09 2 MG Albuterol/ Ipratropium (Duoneb) 3 ml Q4H PRN INH 07/17/16 13:45 08/16/16 13:44 Future Hold Diltiazem HCl (Cardizem Tab) 60 mg TID PO 07/17/16 21:00 08/16/16 20:59 07/25/16 13:35 60 MG Nicotine (Nicoderm Cq 7 Mg Patch) 1 patch QAM TD 07/18/16 09:00 08/17/16 08:59 07/22/16 07:46 1 PATCH Miscellaneous (Remove Nicoderm Patch) 1 ea HS N/A 07/17/16 21:00 08/16/16 20:59 07/24/16 20:25 1 EA Insulin Aspart (novoLOG ASPART) SLIDING SCALE If C... ACHS SC 07/17/16 22:00 08/16/16 21:59 07/25/16 18:10 21 UNITS Glucose (Glucose 40% Gel) 15-30 GRAMS 15 GRAMS... UD PRN PO 07/17/16 21:00 08/16/16 20:59 Glucose (Glucose Chew Tab) 4-8 Tablets 4 Tabl... UD PRN PO 07/17/16 21:00 08/16/16 20:59 Dextrose (Dextrose 50% 50ML Syringe) 25-50ML OF 50% DW IV FOR... UD PRN IV 07/17/16 21:00 08/16/16 20:59 Glucagon (Glucagon Inj) 1 mg UD PRN SQ 07/17/16 21:00 08/16/16 20:59 Miscellaneous Information (Consult Glycemic Management Pharmacy) 1 ea UD PRN N/A 07/17/16 21:26 08/16/16 21:25 Ondansetron HCl (Zofran Inj) 4 mg Q6H PRN IV 07/18/16 08:00 08/17/16 07:59 07/20/16 03:46 4 MG Nystatin (Mycostatin Susp) 4 ml QID PO 07/18/16 10:00 07/28/16 09:59 07/25/16 17:24 4 ML Arformoterol Tartrate (Brovana 15MCG/ 2ML Neb Soln) 15 mcg BIDR INH 07/18/16 20:00 08/17/16 19:59 07/25/16 07:24 15 MCG Budesonide (Pulmicort Respules 0.5MG/ 2ML Neb Soln) 0.5 mg BIDR INH 07/18/16 20:00 08/17/16 19:59 07/25/16 07:24 0.5 MG Lisinopril 10 mg 10 mg DAILY PO 07/20/16 09:00 08/19/16 08:59 07/25/16 08:22 10 MG Pantoprazole Sodium/Syringe (Protonix Inj/ Syringe) 10 ml @ 5 mls/min DAILY@11 IV 07/20/16 11:00 08/19/16 10:59 07/25/16 12:10 5 MLS/MIN Al Hydroxide/Mg Hydroxide (Maalox Susp) 30 ml Q6H PRN PO 07/20/16 11:00 08/19/16 10:59 07/25/16 01:08 30 ML Benzocaine (Orajel 2% Oral Gel) 1 appln BID MT 07/22/16 21:00 08/21/16 20:59 07/25/16 08:24 1 APPLN Warfarin Sodium (Coumadin Tab) 2 mg DAILY@16 PO 07/22/16 16:00 08/21/16 15:59 07/25/16 17:22 2 MG Trimethoprim/ Sulfamethoxazole (Septra 400/80MG Tab) 1 tab BID PO 07/22/16 12:15 07/29/16 12:14 07/25/16 08:22 1 TAB Enteral Nutritional Formula (Boost) 0.5 can TIDM PO 07/23/16 07:30 08/22/16 07:29 07/25/16 17:22 0.5 CAN Ipratropium [place] (Atrovent 0.02% 0.5MG/2.5ML Neb) 0.5 mg Q4R INH 07/23/16 12:00 08/22/16 11:59 07/25/16 15:20 0.5 MG Levalbuterol (Xopenex 1.25MG/ 0.5ML Neb) 1.25 mg Q4R INH 07/23/16 12:00 08/22/16 11:59 07/25/16 15:20 1.25 MG Lactobacillus Acidophilus (Floranex Tab) 4 tab TIDM PO 07/23/16 11:30 08/22/16 11:29 07/25/16 17:23 4 TAB Prednisone (PredniSONE TAB) 40 mg DAILY PO 07/24/16 09:00 08/23/16 08:59 07/25/16 08:22 40 MG Insulin Glargine (Lantus Solostar Pen) 10 unit DAILY SC 07/24/16 09:00 08/23/16 08:59 07/25/16 08:41 10 UNIT (Kaylee Vera PA-C) Attending addendum: Agree with the above progress note: patient reports still having loose stools about 1-2 times a day, and is still on a liquid diet but would like diet advanced. No overnight events noted. Breathing improved overall. Resp: diminished B/L Cardiac: irregularly irregular COPD Exacerbation: patient on steroid taper, nebs, and home inhalers Pneumonia: patient on bactrim per sputum culture results and ID recommendation (Anais Bedoya, D.O.)
[2016-07-26] VITALS (9 sets, daily range): BP systolic 100–114; BP diastolic 66–74; PULSE 72–98; TEMP 36.7–37.2; O2SAT 95–97
[2016-07-26] MEDS: ALUMINUM/MAGNESIUM SUSP 30 ML UDC PO PRN (01:31)
[2016-07-26] MEDS: LEVALBUTEROL 1.25MG/0.5ML NEB INH SCH ×4 (03:43→15:30)
[2016-07-26] MEDS: IPRATROPIUM BROMIDE NEB SOLN 0.02% 2.5 ML VIAL INH SCH ×4 (03:43→15:30)
[2016-07-26] MEDS: BUDESONIDE 0.5 MG/2 ML VIAL (PULMICORT) INH SCH (07:16)
[2016-07-26] MEDS: ARFORMOTEROL TART 15MCG/2ML VIAL INH SCH (07:16)
[2016-07-26 07:24] LABS: HEMATOCRIT 28.3 % (42-52); MEAN CELL VOLUME 87.1 fL (80-100); MEAN CORPUSCULAR HEMOGLOBIN 29.8 pg (25-34); MEAN CORPUSCULAR HGB CONC 34.3 g/dl (32-36); RED BLOOD COUNT 3.25 M/uL (4.7-6.1); WHITE BLOOD COUNT 10.83 K/uL (4.8-10.8)
[2016-07-26 07:30] LABS: INR 1.9 (0.9-1.1); PROTHROMBIN TIME (PATIENT) 20.4 SECONDS (9.0-12.0)
[2016-07-26 07:46] LABS: MEAN PLATELET VOLUME 9.6 fL (7.4-10.4); PLATELET COUNT 84 K/uL (130-400)
[2016-07-26 07:53] LABS: ANISOCYTOSIS PRESENT; BASO % 0.1 %; BASO ABS # 0.01 K/uL (0-0.2); COMPLETE YES; EOS % 0.1 %; IG% 0.6 %; LYMPH % 8.3 %; MONO % 3.5 %; NEUT % 87.4 %; PLT ESTIMATE DECREASED; POIKILOCYTOSIS PRESENT
[2016-07-26 07:56] LABS: BUN/CREATININE RATIO 24.9 (10-20); CALCIUM 7.8 mg/dl (8.5-10.1); CREATININE 0.71 mg/dl (0.60-1.40); POTASSIUM 4.2 mmol/L (3.5-5.1)
[2016-07-26] MEDS: BOOST VANILLA PO SCH ×6 (09:25→17:00)
[2016-07-26] MEDS: NICOTINE 7 MG/24 HR TDSY TD SCH (09:25)
[2016-07-26] MEDS: SULFAMETHOXAZOLE/TRIMETHOPRIM 400/80MG TAB PO SCH (09:27)
[2016-07-26] MEDS: DILTIAZEM HCL 60 MG TAB PO SCH ×2 (09:27→14:37)
[2016-07-26] MEDS: NYSTATIN SUSP 500,000 U/5 ML UDC PO SCH ×3 (09:27→16:26)
[2016-07-26] MEDS: LACTOBACILLUS ACIDOPHILUS (FLORANEX) TAB PO SCH ×3 (09:27→16:27)
[2016-07-26] MEDS: BENZOCAINE 20% (ORAJEL) 11.9 GM TUBE MT SCH (09:28)
[2016-07-26] MEDS: LISINOPRIL 10 MG TAB PO SCH (09:28)
[2016-07-26] MEDS: INSULIN GLARGINE SOLOSTAR 100 UNITS/ML 3 ML PEN SC SCH (09:49)
[2016-07-26] MEDS: INSULIN ASPART 100 UNITS/ML 3 ML PEN SC SCH ×3 (09:49→17:58)
[2016-07-26] MEDS: PANTOprazole INJ 40 MG in SYRINGE 0 ML IV SCH (12:43)
[2016-07-26] MEDS ORDERED: SPT/ PO (15:12)
[2016-07-26] MEDS ORDERED: NYSS5 PO (15:12)
[2016-07-26] MEDS ORDERED: ARFO15NE INH (15:12)
[2016-07-26] MEDS ORDERED: Enteral Nutrition Formula PO (15:12)
[2016-07-26] MEDS ORDERED: PLMINS INH (15:12)
[2016-07-26] MEDS ORDERED: PRED-301 PO (15:12)
[2016-07-26] MEDS ORDERED: METF500T PO (15:12)
[2016-07-26] MEDS ORDERED: LCTX PO (15:12)
--- NOTE | 2016-07-26 15:15 | Discharge Instructions ---
Discharge Instructions Admission Reason for Admission: Acute Colitis, Sepsis Discharge Discharge Diagnosis / Problem: Colitis, pneumonia Discharge Goals Goal(s): Therapeutic intervention Activity Recommendations Activity Level: Assistance Required Therapies: Physical Therapy, Occupational Therapy . Additional Information Patient informed of condition: Yes Advance Directives: No DNR: No Level of Care: Acute Rehab Communicable Disease: Yes Prognosis: Stable Oxygen at (LPM): 2 L Noel Catheter: No Instructions / Follow-Up Instructions / Follow-Up Please follow up with GI in 6-8 weeks Please follow up with PCP in 5-7 days Current Hospital Diet Patient's current hospital diet: Diabetes Type 2 Diet, Regular Diet Discharge Diet Recommended Diet: Diabetes Type 2 Diet Pending Studies Studies pending at discharge: no Physician Orders On Transfer Special Precautions: PREDNISONE TAPER SCHEDULE: Take 40 mg (8 tablets) tomorrow Then decrease to 35 mg (7 tablets) daily for 2 days Then decrease to 30 mg (6 tablets) daily for 2 days Then decrease to 25 mg (5 tablets) daily for 2 days Then decrease to 20 mg (4 tablets) daily for 2 days Then decrease to 15 mg (3 tablets) daily for 2 days Then decrease to 10 mg (2 tablets) daily for 2 days Then decrease to 5 mg (1 tablet) daily for 2 days Additional Orders: Check PT, INR, BMP, and CBC on FridayJuly 29. Laboratory Results Hemoglobin A1c Test 07/18/16 05:30 Range/Units Estimated Average Glucose 166 mg/dl Hemoglobin A1c 7.4 H 4.5-5.6 % Medical Emergencies . Who to Call and When: Medical Emergencies: If at any time you feel your situation is an emergency, please call 911 immediately. . Non-Emergent Contact Non-Emergency issues call your: Primary Care Provider . . "Provider Documentation" section prepared by Anais Bedoya. Core Measure Problem Core Measures: None
--- NOTE | 2016-07-26 15:39 | Discharge Summary ---
Discharge Summary Admission Date: Jul 17, 2016 at 13:19 Discharge Date: Jul 26, 2016 Discharge Disposition: Rehab Principal Diagnosis: Colitis, pneumonia Pending Studies/Follow-Up: CT scan of kidneys to follow up lesion/cyst on the right kidney, PT/INR and CBC on Friday or Friday Medication Reconciliation New Medications: Metformin Hcl (Glucophage) 500 Mg Tab 500 MG PO DAILY, #30 TAB Prednisone (Prednisone) 5 Mg Tab 5 MG PO UD, #64 TAB See discharge instructions for taper schedule: Arformoterol Tartrate (Brovana) 15 Mcg/2 Ml Neb 15 MCG INH BIDR, #60 DOSE Budesonide (Inhalation) (Pulmicort Respules 0.5MG/2ML) 0.5 Mg/2 Ml May 0.5 MG INH BIDR, #60 DOSE Lactobacillus Acidophilus (Floranex) 1 Tab Tab 4 TAB PO TIDM, #120 TAB Nystatin (Nystatin) 5 Ml Susp 4 ML PO QID, #1 BTL Trimethoprim/Sulfamethoxazole (Bactrim 400MG/80MG) 1 Ea Tab 1 TAB PO BID, #5 TAB [Enteral Nutrition Formula] () 1 CAN LIQD 0.5 CAN PO TIDM, #30 Continued Medications: Albuterol Sulfate (Proair Respiclick) 108 Mcg/Act Aer Unknown Dose UNKNOWN Atorvastatin (Lipitor) 40 Mg Tab 40 MG PO DAILY, TAB Diltiazem Hcl (Diltiazem Hcl) 60 Mg Tab PO TID Ipratropium-Albuterol (Duoneb) 3 Ml Nebu 1 TREATMENT INH Q4H, INHA Lisinopril (Lisinopril) 10 Mg Tab PO DAILY Pantoprazole (Protonix) 40 Mg Tab 40 MG PO DAILY, #30 TAB Warfarin Sod (Coumadin) 2.5 Mg Tab 1 TAB PO DAILY for 30 Days, #30 TAB 3 Refills Discontinued Medications: Amoxicillin (Amoxicillin) 500 Mg Cap PO TID Ipratropium-Albuterol (Combivent Respimat) 1 Aer Aer 2 PUFFS INH QID, INH Admission Information HPI (per Admitting provider): This is a 65 y/o male with PMH of COPD, chronic respiratory failure on 2L NC continuous, paroxysmal AF, HTN, HL, aortic stenosis s/p bioprosthetic AVR, s/p mitral valve repair, and other problems listed below who presents as a transfer to the ICU from [facility] ER. Patient was recently hospitalized x 5 days at [place] for COPD exacerbation treated with IV abx and steroids and was discharged yesterday. Then at 2 am he awoke with sudden onset of low abdominal pain described as cramping. He had one episode of vomiting this morning without any hematemesis. He was not having any BM recently until in the ICU had multiple loose BM. No hematochezia or melena. He was unable to urinate today and had bladder scan >500 cc so Yun was placed in the ICU. He admits to SOB and wheezing. He denies fever, chills, cough, chest pain. Patient reports multiple hospitalizations in past year for COPD exacerbation. He admits to history of acute diverticulitis in the remote past. Denies history of abdominal surgery. In addition, on review of [facility] chart, he was hospitalized at [facility] back in 11/2015 for enterococcal bacteremia and had MIGUEL showing aortic valve endocarditis tx with 6 wk course of PCN and ceftriaxone. Physical Exam (per Admitting): General Appearance: WD/WN, + pertinent finding (appears mildly uncomfortable ) Head: normocephalic, atraumatic Eyes: normal inspection, PERRL, EOMI ENT: normal ENT inspection, hearing grossly normal Neck: supple, no JVD, trachea midline Respiratory/Chest: + decreased breath sounds, + pertinent finding ( expiratory wheezing heard throughout, mild accessory muscle use, pursed lip breathing, able to speak in full sentences) Cardiovascular: no murmur, + irregularly irregular Abdomen/GI: soft, + abnormal bowel sounds (present but hypoactive), + pertinent finding (diffusely tender to palpation) Genitourinary - Male: + pertinent finding (yun catheter draining yellow urine) Extremities/Musculoskelatal: no calf tenderness, normal capillary refill, no pedal edema Neurologic/Psych: alert, normal mood/affect, oriented x 3, + pertinent finding (grossly nonfocal) Skin: normal color, warm/dry Hospital Course POSSIBLE SEPSIS: -Secondary to pneumonia vs. colitis -was transferred from [place] ER -Leukocytosis improved since presentation; VSS -blood cultures from [place]- final report neg; and blood cultures at [facility] 07/18- negative -blood culture at [facility] grew gram neg rods but final report negative -Repeat blood culture on 07/18- negative -TTE- no vegetation LLL PNEUMONIA: -Sputum culture grew Stenotrophomonas -ID consulted; appreciate input, recommended Bactrim for 7 day course (started ) COPD EXACERBATION: -likely due to LLL pneumonia -underlying chronic respiratory failure on 2 liter -recently hospitalized from Jul 12-Jul 16 at [facility] for COPD exacerbation treated with abx/steroids -continue Nebs and slow steroid taper COLITIS: -Stool culture and C. diff negative x2 -Hematochezia: resolved; Hg stable around 10; Coumadin held initially then restarted -was on empiric Zosyn, then discontinued as per ID recommendation -tolerating regular diet now -GI consulted and signed off; plan for outpatient colonoscopy in 6-8 weeks -Probiotic added PRIOR AVR AND MV REPAIR: -TTE limited but no gross abnormalities noted -bacteremia ruled out PAROXYSMAL AFIB: -rate controlled -continue Cardizem -Coumadin reduced to 2 mg due to patient being on Bactrim -INR is 1.9 -outpatient coag clinic follow up THROMBOCYTOPENIA: -no bleeding noted -monitor HYPERTENSION: -BP is stable -continue Lisinopril DM TYPE II: HbA1c = 7.2 -On Lantus and insulin sliding scale coverage -Pharmacy consulted for glycemic management -will discharge on diabetic diet and metformin which will need to be followed and titrated by PCP RIGHT KIDNEY LESION -CT abd/pelvis: "Indeterminate 24 mm lesion within the lower pole the right kidney. A dedicated CT scan of the kidneys be obtained in follow-up to differentiate a hyperdense cyst from solid renal mass" -needs outpatient follow up DYSLIPIDEMIA -statin held due to GI symptoms PHYSICAL EXAM ON DAY OF DISCHARGE: GENERAL: Patient is in no acute distress. HEENT: No acute trauma, normocephalic, mucous membranes moist, no nasal congestion, no scleral icterus. NECK: No stridor, trachea is midline. LUNGS: Diminished bilaterally, no wheeze, no rhonchi, breath sounds equal. HEART: Without murmurs gallops or rubs, irregularly irregular ABDOMEN: Soft, nontender, bowel sounds positive EXTREMITIES: No cyanosis or edema NEUROLOGIC: Oriented x 3, no acute motor or sensory deficits, no focal weakness. SKIN: No rash, no jaundice, no diaphoresis. Total time spent on discharge = 39 This includes examination of the patient, discharge planning, medication reconciliation, and communication with other providers. Discharge Instructions see patient instructions
[2016-07-26] MEDS: WARFARIN SOD 2 MG TAB PO SCH (16:27)
== END 2016-07-26 18:40 | DRG 871 ==
LOC: ENRESERVDT → ENRESERVTM → C.MSICU 12:27 → UNDOADMIN 12:27 → C.MSICU 12:43 → C.2E 07-19 17:50 → C.MS4W 07-24 12:40
PROVIDERS: ADMIT Internal Medicine; ATTEND Internal Medicine
DX: A41.9 Sepsis, unspecified organism (principal); J15.1 Pneumonia due to Pseudomonas; K55.9 Vascular disorder of intestine, unspecified; J44.1 Chronic obstructive pulmonary disease with (acute) exacerbation; J96.10 Chronic respiratory failure, unspecified whether with hypoxia or hypercapnia; K92.1 Melena; I48.0 Paroxysmal atrial fibrillation; D69.6 Thrombocytopenia, unspecified; I10 Essential (primary) hypertension; E11.65 Type 2 diabetes mellitus with hyperglycemia; E78.5 Hyperlipidemia, unspecified; F17.200 Nicotine dependence, unspecified, uncomplicated; R93.421 Abnormal radiologic findings on diagnostic imaging of right kidney; Z87.19 Personal history of other diseases of the digestive system; Z95.2 Presence of prosthetic heart valve; Z99.81 Dependence on supplemental oxygen; Z79.01 Long term (current) use of anticoagulants; Z83.3 Family history of diabetes mellitus

== ENCOUNTER 2016-07-31 07:32 | Inpatient (IN) | payer OTHER ==
[2016-07-31] VITALS (46 sets, daily range): BP systolic 77–171; BP diastolic 24–100; PULSE 100–126; TEMP 36.5–36.7; O2SAT 92–100; BMI 19.1
[~2016-07-31] VITALS: Ht 165.1 cm; Wt 67.4 kg
[~2016-07-31 07:32] MED LIST: ALBU18002; ARFO15NE INH; ATOR-24 PO; CMD/25 PO; DILT60TA PO; Enteral Nutrition Formula PO; IPRASOL4 INH; LCTX PO; LISI-461 PO; METF500T PO; NYSS5 PO; PANT40TA PO; PLMINS INH; PRED-301 PO; SPT/ PO
[2016-07-31] MEDS ORDERED: DOPamine 400MG / 250ML D5W ONE (10:29)
[2016-07-31] MEDS ORDERED: DOPamine 400MG / D5W 400 MG IV PRN (10:30)
[2016-07-31] MEDS ORDERED: ACETAMINOPHEN 325 MG TAB PO PRN (11:00)
[2016-07-31] MEDS ORDERED: ONDANSETRON INJ 2 MG/ML 2 ML VIAL IV PRN (11:00)
[2016-07-31] MEDS ORDERED: PHARMACY GLYCEMIC MGMT CONSULT SCH (11:05)
[2016-07-31] MEDS ORDERED: HYDROCORTISONE IV 100 MG in SYRINGE 0 ML IV ONE (11:15)
[2016-07-31] MEDS ORDERED: PIPERACILL/TAZOBAC IV 4.5 GM in DEXTROSE 5% 100ML 100 ML IV ONE (11:15)
[2016-07-31] MEDS: NOREPINEPHRINE BIT INJ 8 MG in DEXTROSE 5% 500ML 500 ML IV PRN (11:15)
[2016-07-31] MEDS ORDERED: NURSING VERBAL MED ORDER ONE ×3 (11:30→18:15)
[2016-07-31] MEDS ORDERED: OSELTAMIVIR PHOSPHATE 75 MG CAP PO ONE (11:30)
[2016-07-31 11:44] LABS: HEMATOCRIT 30.6 % (42-52)
[2016-07-31] MEDS ORDERED: NORMOSOL R 1,000 ML IV ONE (11:45)
[2016-07-31 11:55] LABS: HEMATOCRIT 30.5 % (42-52); MEAN CELL VOLUME 88.4 fL (80-100); MEAN CORPUSCULAR HEMOGLOBIN 29.9 pg (25-34); MEAN CORPUSCULAR HGB CONC 33.8 g/dl (32-36); MEAN PLATELET VOLUME 10.3 fL (7.4-10.4); PLATELET COUNT 165 K/uL (130-400); RED BLOOD COUNT 3.45 M/uL (4.7-6.1); WHITE BLOOD COUNT 3.24 K/uL (4.8-10.8)
[2016-07-31] MEDS ORDERED: LEVOFLOXACIN / D5W 750 MG in PREMIXED IN D5W 150 ML IV SCH (12:00)
[2016-07-31] MEDS ORDERED: MAGNESIUM SULFATE 1GM / D5W 1 GM in PREMIXED IN D5W 100 ML IV ONE (12:00)
--- NOTE | 2016-07-31 12:13 | Critical Care Consultation ---
Critical Care Consultation Date of Consultation: Jul 31, 2016. Attending Physician: Arnulfo Meyer MD Reason for Consultation: Difficulty Breathing History of Present Illness Brando Rendon is a 65 yo male who has again presented as a direct admit from [facility]. He was most recently admitted to [facility] in the same fashion on 07/17- for a possible C. Diff colitis after COPD exacerbation there. Ultimately C. Diff was ruled out but etiology was not identified. Today he presents after having been discharged from [facility] to long-term for rehabilitation. He states to me that he told the long-term staff that he wasn't eating or drinking. "I am not getting any better" He complained of trouble breathing prior to going to [place]. He came via EMS on Bipap after having received 2g of Rocephin, IV steroids, and approx 3L of fluid. He arrived here on Dopamine drip running at 20mcg.kg.min and SBP in the 70-80s. After he was settled into bed his BP gio to 101, attempted to wean back Dopamine and SBP fell. Ultimately we chose to change the dopamine to a Levophed drip and his SBP improved greatly. It is currently being titrated for optimal effect. Central and Arterial access have been obtained by Dr. Olu Hsu. His body temp has alternated during my time with him this morning. He was initially very cold requiring multiple blankets then complained of being very hot. Asking for all blankets off and a box fan. Pt complained of no pain to me today only the difficulty breathing. I spoke with him while on 6L nasal cannula as his BiPap was being setup. His saturations at that time were 95%. He denied chest pain/pressure, palpitations, dizziness, lightheadedness, numbness, or tingling. He denied abd pain, nausea, and vomiting. Other history includes: COPD, chronic respiratory failure, paroxysmal AF, HTN, dyslipidemia, aortic stenosis s/p bioprosthetic AVR, s/p mitral valve repair. Past Medical/Surgical History Medical Problems: Acute colitis Acute hypoxemic respiratory failure COPD (chronic obstructive pulmonary disease) Dyslipidemia HTN (hypertension) Paroxysmal a-fib Sepsis Septic shock Surgical Problems: H/O aortic valve replacement H/O mitral valve repair Family History Diabetes mellitus MOTHER Social History Smoking Status: Former Smoker Housing Status: lives alone, other Allergies Coded Allergies: No Known Allergies (Unverified , 07/17/16) Home Medications Scheduled Albuterol Sulfate (Proair Respiclick), Unknown Dose UNKNOWN Arformoterol Tartrate (Brovana), 15 MCG INH BIDR Atorvastatin (Lipitor), 40 MG PO DAILY Budesonide (Inhalation) (Pulmicort Respules 0.5MG/2ML), 0.5 MG INH BIDR Diltiazem Hcl (Diltiazem Hcl), PO TID Ipratropium-Albuterol (Duoneb), 1 TREATMENT INH Q4H Lactobacillus Acidophilus (Floranex), 4 TAB PO TIDM Lisinopril (Lisinopril), PO DAILY Metformin Hcl (Glucophage), 500 MG PO DAILY Nystatin (Nystatin), 4 ML PO QID Pantoprazole (Protonix), 40 MG PO DAILY Prednisone (Prednisone), 5 MG PO UD Trimethoprim/Sulfamethoxazole (Bactrim 400MG/80MG), 1 TAB PO BID Warfarin Sod (Coumadin), 1 TAB PO DAILY [Enteral Nutrition Formula], 0.5 CAN PO TIDM Current Inpatient Medications Current Inpatient Medications Medications (Trade) Dose Ordered Sig/Jim Route Start Time Stop Time Status Last Admin Dose Admin Acetaminophen (Tylenol Tab) 650 mg Q4H PRN PO 07/31/16 11:00 08/30/16 10:59 Ondansetron HCl 4 mg 4 mg Q6H PRN IV 07/31/16 11:00 08/30/16 10:59 Pantoprazole Sodium 40 mg/ Syringe 10 ml @ 5 mls/min DAILY@1100 IV 08/01/16 11:00 08/31/16 10:59 Hydrocortisone Sodium Succinate 100 mg/Syringe 2 ml @ 4 mls/min TID IV 07/31/16 21:00 08/30/16 20:59 Magnesium Sulfate 1 gm/Prmx 100 ml @ 100 mls/hr NOW ONCE IV 07/31/16 12:00 07/31/16 12:59 Norepinephrine Bitartrate 8 mg/ Dextrose 508 ml @ 0 mls/hr Q0M PRN IV 07/31/16 10:38 08/30/16 10:37 07/31/16 11:15 19.5 MLS/HR Levofloxacin 750 mg/Prmx 150 ml @ 100 mls/hr Q24H IV 07/31/16 12:00 08/07/16 11:59 Vancomycin HCl/ Sodium Chloride (Vancomycin Inj/ Nss 250ml) 270 ml @ 125 mls/hr TODAY@1330 ONCE IV 07/31/16 13:30 07/31/16 15:39 Miscellaneous Information (Consult Glycemic Management Pharmacy) 1 ea UD N/A 07/31/16 11:05 08/30/16 11:04 Atorvastatin Calcium (Lipitor Tab) 40 mg DAILY PO 08/01/16 09:00 08/31/16 08:59 Budesonide (Pulmicort Respules 0.5MG/ 2ML Neb Soln) 0.5 mg BIDR INH 07/31/16 20:00 08/30/16 19:59 Lactobacillus Acidophilus (Floranex Tab) 4 tab TIDM PO 07/31/16 16:30 08/30/16 16:29 Albuterol/ Ipratropium 3 ml 3 ml QIDR INH 07/31/16 12:00 08/30/16 11:59 Parenteral Electrolyte Solution (Normosol R) 1,000 ml @ 999 mls/hr Q1H1M ONCE IV 07/31/16 11:45 07/31/16 12:45 07/31/16 11:45 999 MLS/HR Review of Systems 12 systems reviewed and negative other than previously mentioned in the HPI. Physical Exam Date Time Temp Pulse Resp B/P Pulse Ox O2 Delivery O2 Flow Rate FiO2 07/31/16 11:46 111 32 93 BiPAP/CPAP 30 07/31/16 10:05 125 99 07/31/16 10:00 36.7 123 22 109/64 96 BiPAP 30 Vital Signs - as noted Laboratory Data - as noted Physical Exam: General - NAD Eyes - PERRL, EOMI No icterus, gaze conjugate ENT - Mucosa dry, no lesions or candidiasis Neck - Supple, trachea midline, no masses or lymphadenopathy, no JVD or bruits Lungs - No paradoxical chest wall movement, coarse to auscultation bilaterally with rhonchi noted in the left base, no wheezes or rales Heart - Tachycardic in the 120's, No murmur, rubs, clicks, or gallops appreciated Abdomen - BS present, no bruits noted, tympanic to percussion, soft, tenderness to LLQ, moderate distended, no organomegaly Extremities - No edema, pedal pulses intact Neuro - A&OX3 Strength: Moves all extremities appropriately CN:PERRL, EOMI, no facial asymmetry, uvula/tongue midline Laboratory Results Last 24 Hours Test 07/31/16 11:05 07/31/16 11:27 Influenza Type A Antigen Neg for Influ A Influenza Type B Antigen Neg for Influ B White Blood Count 3.24 K/uL Red Blood Count 3.45 M/uL Hemoglobin 10.3 g/dL Hematocrit 30.5 % Mean Corpuscular Volume 88.4 fL Mean Corpuscular Hemoglobin 29.9 pg Mean Corpuscular Hemoglobin Concent 33.8 g/dl Platelet Count 165 K/uL Mean Platelet Volume 10.3 fL RDW Standard Deviation 55.4 fL RDW Coefficient of Variation 17.3 % Lactic Acid Level 4.3 mmol/L Magnesium Level 1.8 mg/dl Diagnostic Results SINGLE VIEW CHEST CLINICAL HISTORY: Central venous catheter placement. FINDINGS: An AP, portable, upright chest radiograph is compared to study dated 07/17/2016. The examination is degraded by portable technique, apical lordotic positioning, and patient rotation. A right internal jugular central venous catheter has been placed. The tip of the catheter projects over the SVC. The patient is status post midline sternotomy. The heart is enlarged and there is atherosclerotic calcification of the thoracic aorta. The pulmonary vasculature is noncongested. Emphysema and chronic interstitial thickening is similar to previous. Left basilar airspace consolidation is identified. A trace left pleural effusion is suspected. No pneumothorax is seen. The skeletal structures are osteopenic. The bony thorax is grossly intact. IMPRESSION: 1. A right internal jugular central venous catheter has been placed. No pneumothorax is seen post procedure. 2. Cardiomegaly and emphysema. 3. There is left basilar consolidation and a small left pleural effusion. Electronically signed by: Justin Wilson M.D. 07/31/2016 1:27 PM Dictated Date/Time: 07/31/2016 1:25 PM Assessment & Plan (1) Acute hypoxemic respiratory failure ABG @ [place] [facility]: pH 7.515, CO2 26.7; PaO2 65.6; HCO3 21.1 BiPap settings currently: 10/5 30% with adequate saturations CXR: Cardiomegaly and emphysema and left basilar consolidation with a small left pleural effusion. Neg Flu swab Etiology currently unknown, could be multifactorial. Rule out recurrent bacteremia, PNA, COPD exacerbation, Acute HF Continue BiPap currently Respiratory Regimen as noted in COPD Monitored on telemetry (2) Septic shock Lactate 4.6, WBC 3.24 PNA with Stenotrophomonas Maltophilia growth in sputum on prev admission Random Cortisol: 73.54 (After receiving 1 dose of Hydrocortisone at [facility]) D/C'd Dopamine Continue Levophed: Titrate to MAP > 65 Blood cultures x2 pending Trend Lactic Acid and Procalcitonin Continue Hydrocortisone 75mg IV TID Begin Broad Spectrum Abx now; Pharmacy Consulted for dosing due to PETRA * Zosyn 4.5gm IV * Vanco 1g IV * Levoquin 750mg IV (3) Acute left-sided CHF (congestive heart failure) Pt states he has previously been told he has HF. Pt may now be fluid overloaded due to fluid resuscitation and PETRA. ECHO previous admission: EF 55-60% Abnl EKG 07/31/16: QTc 425; Sinus Tach with 1st degree AV block Pro-BNP: 2269 ECHO done today: results pending Trend troponin q8, x3 Bumex 1mg IV (4) PETRA (acute kidney injury) Baseline Cr 0.77, Now 1.4 Likely prerenal due to dehydration and hypotension Fluid Resuscitation over 3L currently Avoid Nephrotoxic Agents FeNa ordered: Random Urine Cr & Na with simultaneous prp Pharm Consult in place for dosing on Abx (5) COPD (chronic obstructive pulmonary disease) No wheezing noted on physical exam. BiPap Settin/5 30%; adequate saturation Pt quit smoking approx 1 month ago Continue BiPap for Respiratory Failure Continue current respiratory regimen * Duo Neb 3mg QID * Pulmicort 0.5ml BID (6) History of Clostridium difficile colitis Abd Tenderness to palpation; pt states no improvement since previous admission and has been anorexic Spoke with JAYCOB Landeros for GI: would like to have a contrasted CT when kidney function allows. Will likely hold off on scope until pt can tolerate prep and BP is stable; however, will still need to speak with Dr. Whitfield. States that this could still be remnants of ischemic colitis which could take 4-6 weeks for improvement. Consult for GI: Dr. Whitfield in place Colonoscopy for etiology of colitis Will consider repeat abd CT when kidney function allows Stool collected: C. Diff culture pending (7) Hx of bacterial endocarditis TTE today pending Cardiology Consult for Dr. Kraus in place Consider MIGUEL (8) History of Gram negative infection Blood cultures x2 pending Broad Spectrum Abx in place as noted above Afebrile, Leukopenia Elevated Lactic Acid Trend Lactic Acid and Procalcitonin Follow Serial Labs (9) Paroxysmal a-fib Currently Sinus tachycardia on EKG PT: 30.4; INR 2.83 at [place] Home meds include: * Lisinopril 10mg qDaily * Diltiazem 60mg TID * Coumadin 2.5mg qDaily Hold home meds currently due to hypotensive state Follow serial labs Cardiology Consult in place: Appreciate Dr. Kraus's input Endo: No known DM dx BS Glycemic Control Consult in place with Pharmacy BSG per nursing protocol HOB 30* DVT Prophylaxis: * SCDs in place * Holding Coumadin in setting of shock PT 30.4/INR 2.83 currently Access: R triple lumen IJ Central Line R Radial Arterial Line Left Foot PIV Left Forearm PIV Consults: GI: Dr. Whitfield Cardiology: Dr. Kraus Procedures: Central & Arterial Line: 07/31/16 CCT: 74 minutes; not including billable procedures. Thank you for including us in the care of this patient. Please refer to Dr. Olu Hsu's addendum for further recommendations. I have personally evaluated and examined this patient. I agree with assessment and plan of Flako Manzano PA-C. Delayed entry into chart. Patiently currently meeting CMS definition of septic shock, multisystem organ dysfunction due to COPD and respiratory failure, acute kidney injury, acute left-sided congestive heart failure.
[2016-07-31 12:15] LABS: BUN/CREATININE RATIO 22.7 (10-20); CALCIUM 7.4 mg/dl (8.5-10.1); CREATININE 1.4 mg/dl (0.60-1.40); POTASSIUM 4.6 mmol/L (3.5-5.1)
[2016-07-31 12:18] LABS: ALB/GLOB RATIO 0.6 (0.9-2)
[2016-07-31 12:22] LABS: COMPLETE YES; ECHINOCYTES 1+; EOS % 1.2 %; IG% 1.2 %; LYMPH % 11.4 %; LYMPH ABS # 0.37 K/uL (1.2-3.4); MONO % 4.3 %; NEUT % 81.9 %; VACUOLIZATION 1+
--- NOTE | 2016-07-31 12:38 | HISTORY & PHYSICAL EXAMINATION ---
DATE OF ADMISSION: 07/31/2016 PCP: Dr. Rafaela Lemon. CHIEF COMPLAINT: The patient was transferred from [facility] for presumed septic shock. HISTORY OF PRESENT ILLNESS: Mr. Gilliland is a 65-year-old gentleman with a history of COPD, chronic hypoxemic respiratory failure, on 2 liters of oxygen at all times, paroxysmal atrial fibrillation, aortic stenosis, status post bioprosthetic aortic valve replacement, status post mitral valve repair. 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 He was actually discharged from this facility on 07/26/2016 after being treated for a left lower lobe pneumonia due to Stenotrophomonas as well as colitis which was presumed to be infectious. C. diff testing at that time was negative. He did have a blood culture from [facility] prior to that admission that grew gram-negative rods; however, the final report was apparently negative and repeat blood cultures drawn here on 07/18/2016 remained negative. He did undergo a TTE on that admission which showed no evidence for vegetation. He was subsequently discharged on a course of Bactrim for 7 days to treat the Stenotrophomonas pneumonia. During his course, he was also treated for a COPD exacerbation and was recommended a slow steroid taper. His current med list from the [facility] facility showed that he is taking prednisone 5 mg p.o. daily. The patient presented to [facility]'s Emergency Department overnight complaining of shortness of breath. He was found to be afebrile but tachycardic and hypotensive as low as 62/43. At that point, he was given an IV fluid bolus and subsequently started on dopamine and recommended transfer to our facility for a higher level of care. As far as antibiotics, he was given a one-time dose of 2 grams of ceftriaxone. A chest x-ray report was sent over and was read as negative for any acute cardiopulmonary process by the radiologist at [facility]. He did have some basic labs at [facility]. This included a CBC showing a white blood cell count of 3800 with 79% neutrophils, hemoglobin was 10.9, hematocrit 33.2, platelets were 233,000. This appears to be approximately his baseline hemoglobin. Of note, during his last admission, he was noted to have some hematochezia; however, his hemoglobin remained stable around 10, Coumadin was held for some time and restarted at discharge. The patient denies any current hematemesis, hematochezia or melena. The rest of his workup at [facility] included basic chemistries showing a sodium of 136, potassium 4.9, chloride 101, bicarbonate 22, BUN was 33 with a creatinine of 1.4. His creatinine was 0.7 at discharge on his last admission. Calcium 8.4, glucose 201. Albumin was low at 2.1, total protein also low at 5.6. Alkaline phosphatase was 80, ALT 34, AST 12. Total bilirubin was 0.6. ProBNP was high at 1123. Troponin was 0.019 which is negative in their facility. CPK 88 and CK-MB was also within normal limits at 1.7. He did have an ABG as well which shows a pH of 7.515 with a pCO2 of 26.7 and a pO2 of 65. He was on 4 liters of oxygen via nasal cannula at that time. He did have urinalysis as well that showed clear yellow urine that was positive for glucose, negative for blood, nitrites or leukocyte esterase. His EKG was read as showing normal sinus rhythm with a normal TX, normal QRS, normal QT interval, no ST-segment or T-wave abnormalities; however, I do not have the actual EKG available for review. At this point, the patient has been transferred to our intensive care unit. He is currently on BiPAP and says that his breathing is more or less comfortable at rest, but he does become visibly tachypneic with speaking even just a few words. He tells me that he actually went to the ER complaining of shortness of breath. He denied having any fever at the skilled facility but does report having subjective chills, malaise, anorexia, easy fatigability. Denies any chest pain. Denies any significant coughing or sputum production. Denies any abdominal pain. He mentions that he had diarrhea on his last admission but this resolved prior to discharge. He denies any diarrhea in the interim. He denies hematochezia or melena. Denies any mucus in the stool. Further, he denies any urinary frequency, dysuria or hematuria. He denies any lower extremity edema and denies any numbness, tingling or focal weakness. He denies any newly swollen or painful joints. He denies any rash. ALLERGIES: No known drug allergies. HOME MEDICATIONS: Include: 1. Bactrim double strength, he is apparently taking half a tablet twice a day. This was discontinued on 07/29/2016. 2. Atorvastatin 40 mg p.o. at bedtime. 3. Diltiazem 60 mg p.o. t.i.d. 4. Lisinopril 10 mg p.o. daily. 5. Protonix 40 mg p.o. daily. 6. Warfarin 2.5 mg p.o. daily. 7. Resource 2.0 nutritional supplement 3 times daily with meals. 8. Prednisone 5 mg p.o. 4 times daily which was being tapered. 9. Brovana 15 mcg inhaled twice daily. 10. Pulmicort 0.5 mg inhaled twice daily. 11. Floranex 4 tablets p.o. 3 times daily with meals. 12. Metformin 500 mg p.o. daily. 13. Nystatin oral suspension 4 mL p.o. 4 times daily. 14. Wellbutrin 100 mg extended release prep 1 tablet p.o. daily. 15. Vitamin D3 2000 international units p.o. daily. 16. Tylenol p.r.n. 17. DuoNeb p.r.n. 18. Fleet enema p.r.n. 19. Dulcolax suppository p.r.n. 20. Milk of magnesia p.r.n. PAST MEDICAL HISTORY: Includes: 1. COPD. 2. Chronic hypoxemic respiratory failure, dependent on 2 liters of oxygen at all times. 3. Paroxysmal atrial fibrillation, anticoagulated with warfarin. 4. Hypertension. 5. Dyslipidemia. 6. Aortic stenosis, status post bioprosthetic aortic valve replacement. 7. Status post mitral valve repair. 8. 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 9. Type 2 diabetes mellitus. 10. Depression. FAMILY HISTORY: Positive for diabetes in his mother. SOCIAL HISTORY: The patient has a long history of smoking. No history of drug or alcohol abuse. He currently resides in an extended care facility. REVIEW OF SYSTEMS: A 14-system review was conducted and was found to be completely negative except as otherwise indicated above in the history of present illness. PHYSICAL EXAMINATION: VITAL SIGNS: Currently show temperature is 36.7, pulse 123, respiratory rate 22, oxygen saturation is 96% while on 30% FiO2 on the BiPAP, blood pressure is 109/64 while on 20 mcg/kg per minute of dopamine. GENERAL: The patient is awake, alert. He is conversant. He is in mild distress due to dyspnea. HEENT: The sclerae are nonicteric. Mucous membranes are dry. NECK: Trachea is midline. There is no appreciable JVD. RESPIRATORY: There are coarse breath sounds bilaterally with fair air entry. I do not hear any wheezing at this time. He is able to speak a few words before becoming dyspneic. CARDIOVASCULAR: S1 and S2 are heard with a regular rhythm. He is tachycardic, around 120 beats per minute. There is no lower extremity edema. ABDOMEN: Soft, somewhat distended. He is mildly tender in the left lower quadrant. There is no rebound or rigidity, no masses are palpated. EXTREMITIES: Warm. There is no edema. SKIN: Warm and dry. There is no cyanosis or rash. MUSCULOSKELETAL: There are no obvious joint effusions or joint tenderness. There is no chest wall tenderness. NEUROLOGIC: The patient is awake and alert. There are no obvious focal deficits. Gait was not assessed. PSYCHIATRIC: The patient is calm and cooperative. DIAGNOSTIC INVESTIGATIONS: Labs, chest x-ray report and EKG report from [facility]'s Emergency Department were reviewed as outlined above in the history of present illness. ASSESSMENT AND PLAN: 1. Septic shock. Source is not entirely clear at this time. He presented to [facility] with shortness of breath but denies any real coughing and has a normal chest x-ray from [facility]. He was recently treated for colitis in which no organism was definitely identified. He is continuous still operator in the left lower quadrant. Lastly, he does have a history of endocarditis, did have a blood culture from [facility] prior to his last admission that grew gram-negative rods though I do not have a final result on that. It is possible that he may have an endocarditis at this time as well. The case was discussed at length with the kier operator, Dr. Hsu, and at this point the plan is to ask for a GI evaluation regarding the potential for colitis. On his last admission, they recommended an outpatient colonoscopy in a few weeks. At this time, we are unable to get a contrasted CT of his abdomen and pelvis due to acute renal failure. We will await further recommendations from GI. We will be checking blood, urine and sputum cultures. We will also be asking cardiology to evaluate the patient for potential MIGUEL. He did have a negative TTE on his last admission but again is presenting with sepsis without a clear source and there is a potential that he may be bacteremic from an endocarditis. For the time being, he will be covered empirically with Zosyn as well as vancomycin and also Levaquin. Tamiflu has been added. Further volume and pressor management per the kier operator. He is also receiving stress dose steroids at this time. 2. Acute kidney injury. This is in the setting of sepsis. We will continue to support his hemodynamics and monitor urine output as well as creatinine. 3. Type 2 diabetes. He will receive sliding scale insulin with a low threshold to switch him to an insulin drip. 4. Acute on chronic hypoxemic respiratory failure. We will continue to titrate his oxygen as required. This is due to sepsis. 5. Chronic obstructive pulmonary disease. He does not appear to be in acute exacerbation at this time. We will continue his Pulmicort, will hold his Brovana, and give him scheduled DuoNebs plus p.r.n. DuoNebs. 6. Paroxysmal atrial fibrillation. We will hold his usual diltiazem given his hypotension. We will hold warfarin for now as he will be receiving a central line as well as an arterial line. Hopefully, we can restart his warfarin after he has been evaluated by both GI and cardiology. I would like to hold this until we know whether or not he will be going for a colonoscopy or a MIGUEL. Once his INR is below 2, we could consider placing him on a heparin drip. We will continue to check daily INRs. 7. Deep venous thrombosis prophylaxis is not currently necessary as he has a therapeutic INR on warfarin. We will readdress once his INR is below 2. 8. Disposition: Admit to the intensive care unit. Total time spent preparing this H&P was 60 minutes. ROSANA
[2016-07-31] MEDS ORDERED: DEXTROSE 50% 50 ML SYR IV PRN (12:45)
[2016-07-31] MEDS ORDERED: GLUCOSE 40% GEL 15 GM TUBE PO PRN (12:45)
[2016-07-31] MEDS ORDERED: GLUCAGON FOR INJ 1 MG VIAL SQ PRN (12:45)
[2016-07-31] MEDS ORDERED: INSULIN ASPART 100 UNITS/ML 3 ML PEN SC ONE (12:45)
[2016-07-31] MEDS ORDERED: INSULIN GLARGINE SOLOSTAR 100 UNITS/ML 3 ML PEN SC ONE (12:45)
[2016-07-31] MEDS ORDERED: GLUCOSE 10 TABS/TUBE PO PRN (12:45)
--- NOTE | 2016-07-31 12:53 | Pharmacy Progress Note ---
Glycemic Control Intl Consult Date of Service Jul 31, 2016. Scope Glycemic Pharmacist consulted by Jensen CASTRO on 07/31/16 for glycemic control and to write orders per [facility] inpatient glycemic control protocol Objective Weight (Kilograms): 52.000 Accuchecks BSG (last 24hrs): Test 07/31/16 11:27 Random Glucose 278 mg/dl (70-99) Laboratory Data (last 24hrs) Test 07/31/16 11:27 Anion Gap 14.0 mmol/L BUN/Creatinine Ratio 22.7 Blood Urea Nitrogen 32 mg/dl Creatinine 1.40 mg/dl Potassium Level 4.6 mmol/L Sodium Level 137 mmol/L White Blood Count 3.24 K/uL Red Blood Count 3.45 M/uL Hemoglobin 10.3 g/dL Hematocrit 30.5 % Mean Corpuscular Volume 88.4 fL Mean Corpuscular Hemoglobin 29.9 pg Mean Corpuscular Hemoglobin Concent 33.8 g/dl Platelet Count 165 K/uL Mean Platelet Volume 10.3 fL Neutrophils (%) (Auto) 81.9 % Lymphocytes (%) (Auto) 11.4 % Monocytes (%) (Auto) 4.3 % Eosinophils (%) (Auto) 1.2 % Basophils (%) (Auto) 0.0 % Neutrophils # (Auto) 2.65 K/uL Lymphocytes # (Auto) 0.37 K/uL Monocytes # (Auto) 0.14 K/uL Eosinophils # (Auto) 0.04 K/uL Basophils # (Auto) 0.00 K/uL HbA1c 7.4% 07/18/16 Recent Pertinent Medications Outpatient Anti-diabetic Regimen: * Metformin 500mg PO daily * A1c = 7.4 % 07/18/16 Risk Factors for Insulin Resistance: * Steroids: Hydrocortisone 100mg IV TID * Infection: sepsis; probable pulmonary source and w/ risk factors for resistance - started on Vancomycin + Zosyn + Levofloxacin * Pressors: dopamine on arrival, now transitioning to norepinephrine * IVF: NS + Normosol fluid resuscitation * Diet: NPO Assessment & Plan ASSESSMENT: 07/31/16: * Type 2 diabetic admitted today with sepsis requiring fluid resuscitation, vasopressors and corticosteroids. * Glu on random PRP was 278, not surprising given current stressors * Central IV access is being established, he had only two peripheral lines on admission * BSGs should be checked via iSTAT given hypotension and pressor administration. * Would have a low threshold for starting an IV insulin infusion on this patient given current stressors. SQ absorption of insulin will be less predictable and likely impaired in this patient. If next BSG > 250 would initiate IV insulin infusion per severe stress protocol. Will give SQ Novolog and Lantus now. Check BSGs Q 4 hrs via iSTAT and cover with Novolog. PLAN FOR INPATIENT GLYCEMIC CONTROL: * Lantus 5 units SQ x 1 STAT, then 5 units SQ BID * BSG checks Q 4 hrs for now; Novolog SQ coverage for BSG elevations * Correction factor 20 mg/dl/unit * Carb ratio 1 unit per 7 grams CHO consumed * Goal range Low 140 mg/dL - High 180 mg/dL * Please note that the plan above was derived based on current level of insulin resistance and hospital stress. These recommendations are appropriate for inpatient admission only. Plan of care upon discharge will need to be reassessed to avoid potential outpatient hypo/hyperglycemia. Thank you.
--- NOTE | 2016-07-31 13:29 | DIAGNOSTIC IMAGING REPORT ---
SINGLE VIEW CHEST CLINICAL HISTORY: Central venous catheter placement. FINDINGS: An AP, portable, upright chest radiograph is compared to study dated 07/17/2016. The examination is degraded by portable technique, apical lordotic positioning, and patient rotation. A right internal jugular central venous catheter has been placed. The tip of the catheter projects over the SVC. The patient is status post midline sternotomy. The heart is enlarged and there is atherosclerotic calcification of the thoracic aorta. The pulmonary vasculature is noncongested. Emphysema and chronic interstitial thickening is similar to previous. Left basilar airspace consolidation is identified. A trace left pleural effusion is suspected. No pneumothorax is seen. The skeletal structures are osteopenic. The bony thorax is grossly intact. IMPRESSION: 1. A right internal jugular central venous catheter has been placed. No pneumothorax is seen post procedure. 2. Cardiomegaly and emphysema. 3. There is left basilar consolidation and a small left pleural effusion. Electronically signed by: Justin Wilson M.D. 07/31/2016 1:27 PM Dictated Date/Time: 07/31/2016 1:25 PM
[2016-07-31] MEDS ORDERED: VANCOMYCIN INJ 1,000 MG in SODIUM CHLORIDE 0.9% 250ML 250 ML IV ONE (13:30)
[2016-07-31] MEDS ORDERED: BUMETANIDE IV 1 MG in SYRINGE 0 ML IV ONE (14:15)
[2016-07-31] MEDS ORDERED: VANCOMYCIN CONSULT ACTIVE PRN (14:15)
[2016-07-31] MEDS ORDERED: LEVOFLOXACIN CONSULT ACTIVE PRN (14:15)
[2016-07-31] MEDS ORDERED: PIPERACILL/TAZOBAC CONSULT ACTIVE PRN (14:15)
--- NOTE | 2016-07-31 14:22 | ECHOCARDIOGRAM REPORT ---
*NOTICE TO RECEIVING CONSTITUTION PARTY AGENCY This information is strictly Confidential and protected under [place] law. [place] law prohibits you from making any further disclosure of this information unless further disclosure is expressly permitted by the written consent of the person to whom it pertains or is authorized by law. A general authorization for the release of medical or other information is not sufficient for this purpose. Hospital accepts no responsibility if the information is made available to any other person, INCLUDING THE PATIENT. Interpretation Summary * Name: BANDAR ROWLAND Study Date: 07/31/2016 02:00 PM BP: 109/64 mmHg * Patient Location: E111 HR: 130 * : 1950 (M/d/yyyy) Gender: Male Height: 65 in * Age: 65 yrs Ethnicity: CA Weight: 115 lb * Performed By: Naila Estevez RCS * * Reason For Study: POSSIBLE HF WORSENING * BSA: 1.6 m2 * -- Conclusions -- * 1. Technically limited study. * 2. Normal LV size and wall thickness. * 3. Moderate to severe global LV dysfunction. LVEF 30-35%. Paradoxical septal motion consistent with post-operative state. * 4. Normal RV size and function. * 5. Bioprosthetic mitral valve present. No significant MR or MS. * 6. Bioprosthetic aortic valve not well visualized. * 7. Diastolic dysfunction. * 8. Compared with prior study on 07/19/2016: Current study is technically limited. LV function is now moderate to severely reduced in the setting of apparent tachyarrhythmia. Procedure Details * A complete two-dimensional transthoracic echocardiogram was performed (2D, M-mode, Doppler and color flow Doppler). * The study was technically difficult. * There were technical limitations due to patient'spoor positioning Left Ventricle * The left ventricle is grossly normal size. * There is normal left ventricular wall thickness. * Ejection Fraction = 30-35%. * Septal motion is consistent with post-operative state. * There is moderate to severe global hypokinesis of the left ventricle. Right Ventricle * The right ventricle is not well visualized. * The right ventricular systolic function is qualitatively normal. Atria * The left atrium is mildly dilated. * Right atrial size is normal. * No ASD detected; PFO is not assessed. Mitral Valve * There is no mitral valve stenosis. * Significant mitral regurgitation is absent. * An annuloplasty ring is noted in the mitral position. Tricuspid Valve * The tricuspid valve is not well visualized, but is grossly normal. * There is no tricuspid stenosis. * Significant tricuspid regurgitation is absent. Aortic Valve * The aortic valve is not well visualized. * The prosthetic aortic valve is not well visualized. Pulmonic Valve * The pulmonic valve is not well visualized. Pericardium/Pleural * There is no pericardial effusion. Great Vessels * Normal inferior vena cava size and collapsability with sniff indicates a normal right atrial pressure of 3 mmHg Left Ventricular Diastolic Function * Diastolic dysfunction MMode 2D Measurements and Calculations IVSd 0.99 cm IVSs 1.1 cm LVIDd 4.7 cm LVIDs 3.9 cm LVPWd 1.1 cm LVPWs 1.5 cm IVS/LVPW 0.91 FS 17.3 % EDV(Teich) 100.3 ml ESV(Teich) 64.1 ml EF(Teich) 36.2 % EDV(cubed) 101.2 ml ESV(cubed) 57.2 ml EF(cubed) 43.5 % % IVS thick 8.8 % % LVPW thick 39.1 % LV mass(C)d 171.4 grams LV mass(C)dI 109.8 grams/m\S\2 LV mass(C)s 176.2 grams LV mass(C)sI 112.9 grams/m\S\2 SV(Teich) 36.3 ml SI(Teich) 23.2 ml/m\S\2 SV(cubed) 44.0 ml SI(cubed) 28.2 ml/m\S\2 LVAd ap2 29.4 cm\S\2 LVLd ap2 6.9 cm EDV(MOD-sp2) 100.8 ml EDV(sp2-el) 105.4 ml LVAs ap2 22.1 cm\S\2 LVLs ap2 6.3 cm ESV(MOD-sp2) 64.5 ml ESV(sp2-el) 65.8 ml EF(MOD-sp2) 36.0 % EF(sp2-el) 37.6 % SV(MOD-sp2) 36.3 ml SI(MOD-sp2) 23.2 ml/m\S\2 SV(sp2-el) 39.7 ml SI(sp2-el) 25.4 ml/m\S\2
--- NOTE | 2016-07-31 15:08 | Pharmacy Progress Note ---
Pharmacy Antibiotic Consult Date of Service: Jul 31, 2016. Pharmacy Dosing Scope Pharmacy is consulted to initiate IV VANCOMYCIN, LEVOFLOXACIN and ZOSYN dosing therapy, order appropriate labs and adjust drug dose/frequency. Subjective The patient is a 65 year old male admitted on Jul 31, 2016 at 10:54 as a direct admission for hypotension, hypoxemic respiratory failure, sepsis likely from pulmonary source. Objective Height (Feet): 5 Height (Inches): 5.00 Weight (Kilograms): 52.000 Lab Results (24hrs): Laboratory Tests Test 07/31/16 11:27 07/31/16 13:35 07/31/16 14:40 BUN/Creatinine Ratio 22.7 Blood Urea Nitrogen 32 mg/dl Creatinine 1.40 mg/dl White Blood Count 3.24 K/uL Red Blood Count 3.45 M/uL Hemoglobin 10.3 g/dL Hematocrit 30.5 % Mean Corpuscular Volume 88.4 fL Mean Corpuscular Hemoglobin 29.9 pg Mean Corpuscular Hemoglobin Concent 33.8 g/dl Platelet Count 165 K/uL Mean Platelet Volume 10.3 fL Neutrophils (%) (Auto) 81.9 % Lymphocytes (%) (Auto) 11.4 % Monocytes (%) (Auto) 4.3 % Eosinophils (%) (Auto) 1.2 % Basophils (%) (Auto) 0.0 % Neutrophils # (Auto) 2.65 K/uL Lymphocytes # (Auto) 0.37 K/uL Monocytes # (Auto) 0.14 K/uL Eosinophils # (Auto) 0.04 K/uL Basophils # (Auto) 0.00 K/uL Micro Results: Influenza A/B antigen negative MRSA nasal swab pending BLCX's x 2 drawn, pending SPEC #: [id number] ANNAMARIE: 07/18/16 STATUS: COMP REQ #: [id number] RECD: 07/18/[address]: Miles Hernandez MD SOURCE: SPUTUM ENTR: 07/18/[address] [facility] [address]: Ella Rosas M.D. SPDESC: EXP.SPUTUM No Doctor, Assigned Shadi, Eli GilmoreOWes Berrios MD ORDERED: SPUT CULT/SMR COMMENTS: Has Specimen Been Obtained/Collected? Y Procedure Result Verified Site GRAM STAIN Final 07/19/16-819 RESULT MANY POLYS MANY YEAST MANY GRAM POSITIVE BACILLI FEW GRAM NEGATIVE BACILLI FEW EPITHELIAL CELLS SPUTUM CULTURE Final 07/20/16-1119 Organism 1 STENOTROPHOMONAS MALTOPHILIA QUANITY MANY SENS SENSITIVITY TO FOLLOW NORMAL LOUISA MODERATE NORMAL LOUISA 1. STENOTROPHOMONAS MALTOPHILIA Target Route Dose RX AB Cost M.I.C. IQ ------ ----- ------ -- ------ -------- - ------ TRIMET/SULFA S <=2/38 CEFTAZIDIME R >16 LEVOFLOXACIN I 4 S = SENSITIVE I = INTERMEDIATE R = RESISTANT Assessment & Plan * Patient admitted requiring vasopressors and fluid resuscitation as well as IV corticosteroids * CXR read as L basilar consolidation * procalcitonin elevated 23.4 * Lactate also elevated 4.3 * Broad spectrum ABX initiated for coverage of potential HCAP. 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 For which he did receive ~7days of SMX/TMP half-strength BID. This dose may not have been adequate as renal fxn would not have prevented use of a higher dose, potentially a dose of 2 DS tabs BID. VANCOMYCIN * Vancomycin 1000mg x 1 given STAT * Will begin a maintenance dose of 1000mg (~15.7mg/kg) IV Q 18 hours - will begin maint dose early as pt did not receive a full loading dose; peak after load likely on ~22-25 * Goal trough ~15-20mcg/mL for sepsis, pulmonary infxn LEVOFLOXACIN * eCrCl less than 50cc/min; dose indicated at this time is 750mg IV Q 48 hours ZOSYN * eCrCl is > 20cc/min and patient is critically ill; will utilize 4.5gm load x 1 over 30 min then begin ext infusions, 4.5gm over 4 hrs IV Q 8 hrs Pharmacy will continue to follow and will adjust dose/frequency as necessary. Thank you
[2016-07-31] MEDS: ALBUT/IPRATROP 3MG/0.5MG NEB 3 ML VIAL INH SCH ×2 (15:16→19:44)
[2016-07-31] MEDS ORDERED: SEVERE STRESS LEVEL ONE (15:42)
[2016-07-31] MEDS ORDERED: INSULIN PROTOCOL GOAL RANGE ONE (15:42)
[2016-07-31] MEDS ORDERED: INSULIN IV INFUSION PROTOCOL SCH (15:42)
[2016-07-31 15:44] LABS: CREATININE 1.3 mg/dl (0.60-1.40); POTASSIUM 4.7 mmol/L (3.5-5.1)
[2016-07-31] MEDS ORDERED: INSULIN ASPART 100 UNITS/ML 3 ML PEN SC SCH (16:00)
[2016-07-31] MEDS ORDERED: INSULIN HUMAN REGULAR IV BOLUS 2.5 UNIT in SYRINGE 0 ML IV SCH (16:15)
--- NOTE | 2016-07-31 16:16 | Gastrointestinal Consultation ---
Gastrointestinal Consultation Date of Consultation: Jul 31, 2016 Attending Physician: Tawanna Manzano PA-C Consulting Physician: James Whitfield Reason for Consultation: Eval for possible colonoscopy ? colitis History of Present Illness Patient is a 65 year old male who was transferred her from [facility] for septic shock. He was just admitted here 2 weeks ago for pneumonia, and L sided colitis ? ischemic in nature. He had hx of Cdiff infection but at last admission Cdiff x 2 and stool cx are negative. At OSH prior the the admission 2 weeks ago, his blood cx did grow gram negative rods, but final report negative. Repeat cultures in here negative. He also has had TTE w/o signs of vegetation. He did grow Stentrophomonas in sputum cx, went to SNF on BActrim 7 days course. He presented to [facility] ED last nigth w SOB, found to be afebrile but hypotensive w BP 62/43. He was treated w IV fluids, started on Dopamine and transferred to [facility] for higher level of care. He had a dose of Ceftriaxone prior to coming here, currently on Vancomycin and Levaquin. He was just off pressors, BP still soft at 90s/50s. He is still having SOB, tachypnic, on BiPAP at 30% w O2 sat 93%. BNP 2269, repeat Echo pending. GI was asked to re-eval pt for possible colonoscopy to r/o source of sepsis. He did have evidence of L colon wall thickening w/o obstruction, abscess formation at his last CT abd/pelvis w/o contrast on 07/18/16. He did have issues w hypotension then as well and given pattern of colon thickening suspected he has ischemic colitis. Cdiff, stool cx negative. He currently has PETRA w Cr up to 1.[address] w contrast isn't done. Past Medical/Surgical History Past Medical History: See above, also COPD, AVR, MVR, HTN, DM II, Constipation, Dyslipidemia, Aortic stenosis, Endocarditis. Depression Past Surgical History: See above. Family History Diabetes mellitus MOTHER Social History Smoking Status: Former Smoker Housing Status: lives alone, other Allergies Coded Allergies: No Known Allergies (Unverified , 07/17/16) Current Medications Home Meds and Scripts Medications Dose Route/Sig Max Daily Dose Days Date Category Dose Instructions Glucophage (Metformin Hcl) 500 Mg Tab 500 Mg PO DAILY 07/26/16 Rx Prednisone 5 Mg Tab 5 Mg PO UD 07/26/16 Rx See discharge instructions for taper schedule: Pulmicort Respules 0.5MG/2ML (Budesonide (Inhalation)) 0.5 Mg/2 Ml May 0.5 Mg INH BIDR 07/26/16 Rx [Enteral Nutrition Formula] 1 CAN Liqd 0.5 Can PO TIDM 07/26/16 Rx Floranex (Lactobacillus Acidophilus) 1 Tab Tab 4 Tab PO TIDM 07/26/16 Rx Brovana (Arformoterol Tartrate) 15 Mcg/2 Ml Neb 15 Mcg INH BIDR 07/26/16 Rx Nystatin 5 Ml Susp 4 Ml PO QID 07/26/16 Rx Bactrim 400MG/80MG (Trimethoprim/Sulfamethoxazole) 1 Ea Tab 1 Tab PO BID 07/26/16 Rx Duoneb (Ipratropium-Albuterol) 3 Ml Nebu 1 Treatment INH Q4H 07/17/16 Reported Lisinopril 10 Mg Tab PO DAILY 07/17/16 Reported Proair Respiclick (Albuterol Sulfate) 108 Mcg/Act Aer Unknown Dose UNKNOWN 07/17/16 Reported Coumadin (Warfarin Sod) 2.5 Mg Tab 1 Tab PO DAILY 30 07/17/16 Reported Diltiazem Hcl 60 Mg Tab PO TID 07/17/16 Reported Protonix (Pantoprazole Sodium) 40 Mg Tab 40 Mg PO DAILY 07/17/16 Reported Lipitor (Atorvastatin Calcium) 40 Mg Tab 40 Mg PO DAILY 07/17/16 Reported Review of Systems Constitutional: + weakness, No chills, No fever Respiratory: + cough, + dyspnea on exertion, + shortness of breath, + sputum Cardiac: No chest pain, No edema Abdomen: + pain, No GI bleeding, No constipation, No diarrhea, No nausea, No vomiting Physical Exam Date Time Temp Pulse Resp B/P Pulse Ox O2 Delivery O2 Flow Rate FiO2 07/31/16 15:19 100 97 07/31/16 15:16 100 28 97 BiPAP/CPAP 30 07/31/16 14:15 106 29 86/52 96 07/31/16 14:14 107 27 88/53 95 07/31/16 14:00 107 30 91/53 95 07/31/16 13:58 113 30 101/57 94 07/31/16 13:45 109 31 92/24 95 07/31/16 13:30 112 31 100/61 07/31/16 13:15 113 32 126/71 94 07/31/16 13:14 114 30 125/70 94 07/31/16 13:00 114 32 127/70 94 07/31/16 12:55 114 33 142/75 93 07/31/16 12:45 123 27 159/84 92 07/31/16 12:30 121 27 171/83 92 07/31/16 12:14 118 35 170/78 92 07/31/16 12:00 112 33 94 07/31/16 12:00 BiPAP 30 07/31/16 11:58 112 30 121/83 94 07/31/16 11:46 111 32 93 BiPAP/CPAP 30 07/31/16 11:45 107 37 97 07/31/16 11:44 108 31 120/72 98 07/31/16 11:38 110 33 142/84 93 07/31/16 11:30 112 33 93 07/31/16 11:29 114 35 140/100 93 07/31/16 11:15 118 29 94 07/31/16 11:14 112 27 78/53 94 07/31/16 11:00 124 27 96 07/31/16 10:58 126 25 98/58 95 07/31/16 10:45 124 23 95 07/31/16 10:43 123 23 90/71 95 07/31/16 10:30 117 25 94 07/31/16 10:28 123 24 80/57 95 07/31/16 10:20 123 26 84/61 95 07/31/16 10:15 123 28 93 07/31/16 10:14 122 26 77/62 95 07/31/16 10:05 125 99 07/31/16 10:00 36.7 123 22 109/64 96 BiPAP 30 General Appearance: + moderate distress, + pertinent finding (appears tachypnic ) Neck: supple, no JVD, trachea midline Respiratory/Chest: + respiratory distress (tachypnic, on BiPAP), + decreased breath sounds, + crackles (especially on bases) Cardiovascular: regular rate, rhythm, no gallop, no murmur Abdomen: + distended (mild), + tenderness (diffusely tender, L > R ) Extremities: normal inspection, no pedal edema, no calf tenderness Neurologic/Psych: alert, normal mood/affect, oriented x 3 Skin: normal color, no jaundice, no rash Laboratory Results Last 24 Hours Test 07/31/16 11:05 07/31/16 11:27 07/31/16 13:32 07/31/16 14:45 Influenza Type A Antigen Neg for Influ A Influenza Type B Antigen Neg for Influ B White Blood Count 3.24 K/uL Red Blood Count 3.45 M/uL Hemoglobin 10.3 g/dL Hematocrit 30.5 % Mean Corpuscular Volume 88.4 fL Mean Corpuscular Hemoglobin 29.9 pg Mean Corpuscular Hemoglobin Concent 33.8 g/dl Platelet Count 165 K/uL Mean Platelet Volume 10.3 fL Neutrophils (%) (Auto) 81.9 % Lymphocytes (%) (Auto) 11.4 % Monocytes (%) (Auto) 4.3 % Eosinophils (%) (Auto) 1.2 % Basophils (%) (Auto) 0.0 % Neutrophils # (Auto) 2.65 K/uL Lymphocytes # (Auto) 0.37 K/uL Monocytes # (Auto) 0.14 K/uL Eosinophils # (Auto) 0.04 K/uL Basophils # (Auto) 0.00 K/uL RDW Standard Deviation 55.4 fL RDW Coefficient of Variation 17.3 % Immature Granulocyte % (Auto) 1.2 % Immature Granulocyte # (Auto) 0.04 K/uL Toxic Vacuolation 1+ Echinocytes 1+ Sodium Level 137 mmol/L 138 mmol/L Potassium Level 4.6 mmol/L 4.7 mmol/L Chloride Level 106 mmol/L 107 mmol/L Carbon Dioxide Level 17 mmol/L 18 mmol/L Anion Gap 14.0 mmol/L 13.0 mmol/L Blood Urea Nitrogen 32 mg/dl 35 mg/dl Creatinine 1.40 mg/dl 1.30 mg/dl Est Creatinine Clear Calc Drug Dose 38.2 ml/min 41.1 ml/min Estimated GFR () 60.3 65.9 Estimated GFR (Non- 52.0 56.9 BUN/Creatinine Ratio 22.7 27.0 Random Glucose 278 mg/dl 292 mg/dl Lactic Acid Level 4.3 mmol/L Calcium Level 7.4 mg/dl 7.0 mg/dl Magnesium Level 1.8 mg/dl Total Bilirubin 0.3 mg/dl Aspartate Amino Transf (AST/SGOT) 12 U/L Alanine Aminotransferase (ALT/SGPT) 25 U/L Alkaline Phosphatase 60 U/L Pro-B-Type Natriuretic Peptide 2269 pg/ml Total Protein 4.7 gm/dl Albumin 1.7 gm/dl Globulin 3.0 gm/dl Albumin/Globulin Ratio 0.6 Procalcitonin 23.26 ng/mL Random Cortisol 73.54 mcg/dl Bedside Glucose 316 mg/dl Troponin I 0.053 ng/ml Test 07/31/16 14:50 07/31/16 15:34 Urine Random Creatinine 38.0 mg/dl Urine Random Sodium 62 mEq/L Impression Patient is a 65 year old male who was here a couple of weeks ago w sepsis w/o unknown course, pneumonia; currently readmitted for respiratory distress. He did have evidence of L sided colitis suspected to be ischemic in nature. Hx of Cdiff positive but negative last admission, also negative stool cx. Plan - Unable to do CT abd/pelvis w contrast given poor renal function; no utility in repeating a non contrasted CT. Would recommend contrasted CT abd/pelvis if renal function improved - Check stool cx and Cdiff again - Continue broad spectrum antibx for enteric coverage as well - Discussed w Dr. Whitfield - would defer colonoscopy eval now given pt's poor respiratory status, hypotension, likely inability to complete bowel prep. Will monitor and re-eval pt on day to day basis to determine if eventually he's clinically stable enough for colonoscopy w sedation to be done. I performed a history and physical examination of the patient. I have discussed the patient's case, impression and plan with JAYCOB Rodriguez . Her note reflects my findings and plan. I do not think a colonoscopy would add to patients care/treatment at this point. GI diff diag at this point is left sided ulcerative colitis, infection, and ischemia. James Whitfield MD
[2016-07-31] MEDS: LACTOBACILLUS ACIDOPHILUS (FLORANEX) TAB PO SCH (16:30)
[2016-07-31] MEDS: INSULIN ASPART 100 UNITS/ML 3 ML PEN SC SCH ×2 (16:34→20:58)
[2016-07-31] MEDS: INSULIN REGULAR 250 UNITS in SODIUM CHLORIDE 0.9% 250ML 250 ML IV SCH (16:34)
--- NOTE | 2016-07-31 17:43 | Cardiology Consultation ---
Cardiology Consultation Date of Consultation: Jul 31, 2016. Pt evaluation today including: conversation w/ patient, physical exam, lab review, review of inpatient medication list, conversation w/ attending History of Present Illness This is a 65-year-old male with a history of COPD on chronic oxygen, paroxysmal atrial fibrillation, as well as aortic and mitral valve disease for which she has had valve replacement. Records here report that he had an aortic valve replacement and a mitral valve repair which is what he confirms to me, however his echocardiogram suggests both an aortic and mitral bioprosthetic valve. He had enterococcal bacteremia in November 2015 treated at [facility] and received 6 weeks of penicillin and ceftriaxone, a MIGUEL at that time is reported in our records here to have shown aortic valve endocarditis although I have not seen that report, he does not recall being told that he had an infection in his heart. He was discharged from [facility] on 07/26/2016. Blood cultures drawn here 07/18/2016 have been negative for growth. He presented to [facility]'s emergency Department with shortness of breath and was found to be tachycardic, hypotensive and possibly in septic shock. He was placed on BiPAP for his hypoxia and was transferred here. He is on low dose norepinephrine and he feels better, he can breathe fairly well although he remains on BiPAP. He has no specific complaints. Past Medical/Surgical History PAST MEDICAL HISTORY: 1. COPD. 2. Chronic hypoxemic respiratory failure 3. Paroxysmal atrial fibrillation 4. Hypertension. 5. Dyslipidemia. 6. Aortic stenosis 7. Status post mitral valve repair. 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 9. Type 2 diabetes mellitus. 10. Depression. Family History Diabetes mellitus MOTHER Social History Smoking Status: Former Smoker History of Alcohol Use: No Review of Systems Constitutional: No fever, No weakness, No weight loss Respiratory: + cough, + dyspnea on exertion, + shortness of breath, + sputum Cardiac: No chest pain, No edema Abdomen: No GI bleeding, No diarrhea, No nausea, No pain, No vomiting Male : No nocturia more than once/night, No sexual dysfunction, No slowing stream, No urinary frequency Neurologic: No balance problems, No numbness/tingling, No paralysis, No weakness Heme: No abnormal bleeding/bruising, No clotting problems Endo: No fatigue Skin: No problem reported All Other Systems: Reviewed and Negative Allergies Coded Allergies: No Known Allergies (Unverified , 07/17/16) Medications Current Inpatient Medications Medications (Trade) Dose Ordered Sig/Jim Route Start Time Stop Time Status Last Admin Dose Admin Acetaminophen (Tylenol Tab) 650 mg Q4H PRN PO 07/31/16 11:00 08/30/16 10:59 Ondansetron HCl 4 mg 4 mg Q6H PRN IV 07/31/16 11:00 08/30/16 10:59 Pantoprazole Sodium 40 mg/ Syringe 10 ml @ 5 mls/min DAILY@1100 IV 08/01/16 11:00 08/31/16 10:59 Hydrocortisone Sodium Succinate 100 mg/Syringe 2 ml @ 4 mls/min TID IV 07/31/16 21:00 08/30/16 20:59 Norepinephrine Bitartrate/ Dextrose (Levophed Inj/ D5W 500ml) 508 ml @ 0 mls/hr Q0M PRN IV 07/31/16 10:38 08/30/16 10:37 07/31/16 11:15 19.5 MLS/HR Miscellaneous Information (Consult Glycemic Management Pharmacy) 1 ea UD N/A 07/31/16 11:05 08/30/16 11:04 Atorvastatin Calcium (Lipitor Tab) 40 mg DAILY PO 08/01/16 09:00 08/31/16 08:59 Budesonide (Pulmicort Respules 0.5MG/ 2ML Neb Soln) 0.5 mg BIDR INH 07/31/16 20:00 08/30/16 19:59 Lactobacillus Acidophilus (Floranex Tab) 4 tab TIDM PO 07/31/16 16:30 08/30/16 16:29 Albuterol/ Ipratropium (Duoneb) 3 ml QIDR INH 07/31/16 12:00 08/30/16 11:59 07/31/16 15:16 3 ML Glucose (Glucose 40% Gel) 15-30 GRAMS 15 GRAMS... UD PRN PO 07/31/16 12:45 08/30/16 12:44 Glucose (Glucose Chew Tab) 4-8 Tablets 4 Tabl... UD PRN PO 07/31/16 12:45 08/30/16 12:44 Dextrose (Dextrose 50% 50ML Syringe) 25-50ML OF 50% DW IV FOR... UD PRN IV 07/31/16 12:45 08/30/16 12:44 Glucagon 1 mg 1 mg UD PRN SQ 07/31/16 12:45 08/30/16 12:44 Levofloxacin 750 mg/Prmx 150 ml @ 100 mls/hr Q48H IV 08/02/16 12:00 08/09/16 11:59 Piperacillin Sod/ Tazobactam Sod/ Dextrose (Zosyn Iv/D5 100ml) 120 ml @ 30 mls/hr Q8H IV 07/31/16 18:00 08/07/16 17:59 Vancomycin HCl (Consult) 1 ea UD PRN N/A 07/31/16 14:15 08/30/16 14:14 Levofloxacin (Consult) 1 ea UD PRN N/A 07/31/16 14:15 08/30/16 14:14 Piperacillin Sod/ Tazobactam Sod 1 ea 1 ea UD PRN N/A 07/31/16 14:15 08/30/16 14:14 Vancomycin HCl/ Sodium Chloride (Vancomycin Inj/ Nss 250ml) 270 ml @ 125 mls/hr Q18H IV 07/31/16 22:00 08/07/16 21:59 Oseltamivir Phosphate (Tamiflu Cap) 150 mg BID PO 07/31/16 22:00 08/05/16 21:59 Insulin Aspart SLIDING SCALE PCHS SC 07/31/16 17:15 08/30/16 17:14 Insulin Human Regular/Sodium Chloride (novoLIN-R/Nss 250ml) 252.5 ml @ 0 mls/hr DAILY@1130 IV 07/31/16 16:16 08/30/16 16:15 07/31/16 16:34 2.4 MLS/HR Physical Exam Vital Signs Past 12 Hours Date Time Temp Pulse Resp B/P Pulse Ox O2 Delivery O2 Flow Rate FiO2 07/31/16 16:00 36.7 101 28 97/61 100 BiPAP 95/56 07/31/16 16:00 BiPAP 30 07/31/16 15:19 100 97 07/31/16 15:16 100 28 97 BiPAP/CPAP 30 07/31/16 14:15 106 29 86/52 96 07/31/16 14:14 107 27 88/53 95 07/31/16 14:00 107 30 91/53 95 07/31/16 13:58 113 30 101/57 94 07/31/16 13:45 109 31 92/24 95 07/31/16 13:30 112 31 100/61 07/31/16 13:15 113 32 126/71 94 07/31/16 13:14 114 30 125/70 94 07/31/16 13:00 114 32 127/70 94 07/31/16 12:55 114 33 142/75 93 07/31/16 12:45 123 27 159/84 92 07/31/16 12:30 121 27 171/83 92 07/31/16 12:14 118 35 170/78 92 07/31/16 12:00 112 33 94 07/31/16 12:00 BiPAP 30 07/31/16 11:58 112 30 121/83 94 07/31/16 11:46 111 32 93 BiPAP/CPAP 30 07/31/16 11:45 107 37 97 07/31/16 11:44 108 31 120/72 98 07/31/16 11:38 110 33 142/84 93 07/31/16 11:30 112 33 93 07/31/16 11:29 114 35 140/100 93 07/31/16 11:15 118 29 94 07/31/16 11:14 112 27 78/53 94 07/31/16 11:00 124 27 96 07/31/16 10:58 126 25 98/58 95 07/31/16 10:45 124 23 95 07/31/16 10:43 123 23 90/71 95 07/31/16 10:30 117 25 94 17 10:28 123 24 80/57 95 07/31/16 10:20 123 26 84/61 95 17 10:15 123 28 93 07/31/16 10:14 122 26 77/62 95 07/31/16 10:05 125 99 07/31/16 10:00 36.7 123 22 109/64 96 BiPAP 30 Constitutional: Level of Distress: mild distress Psychiatric: Mental Status: active & alert Head: normocephalic Eyes: EOM: EOMI ENMT: normal ENT inspection, hearing grossly normal Neck: supple, no masses Lungs: Respiratory effort: no dyspnea, dyspneic Auscultation: no wheezing, dry rales/crackles Cardiovascular: Heart Auscultation: RRR, no rubs, no gallops, II/ PEREZ, pertinent finding ( Good prosthetic valve sounds) Peripheral Pulses: Bruits: none appreciated Abdomen: Bowel Sounds: normal Inspection & Palpation: soft, no tenderness, guarding & rebound, no masses Musculoskeletal: normal strength (5/5 throughout) Extremities: no edema Neurologic: Cranial Nerves: grossly intact Sensation: grossly intact Data Laboratory Results: Last 24 Hours Test 07/31/16 11:05 07/31/16 11:27 07/31/16 13:32 07/31/16 14:45 Influenza Type A Antigen Neg for Influ A Influenza Type B Antigen Neg for Influ B White Blood Count 3.24 K/uL Red Blood Count 3.45 M/uL Hemoglobin 10.3 g/dL Hematocrit 30.5 % Mean Corpuscular Volume 88.4 fL Mean Corpuscular Hemoglobin 29.9 pg Mean Corpuscular Hemoglobin Concent 33.8 g/dl Platelet Count 165 K/uL Mean Platelet Volume 10.3 fL Neutrophils (%) (Auto) 81.9 % Lymphocytes (%) (Auto) 11.4 % Monocytes (%) (Auto) 4.3 % Eosinophils (%) (Auto) 1.2 % Basophils (%) (Auto) 0.0 % Neutrophils # (Auto) 2.65 K/uL Lymphocytes # (Auto) 0.37 K/uL Monocytes # (Auto) 0.14 K/uL Eosinophils # (Auto) 0.04 K/uL Basophils # (Auto) 0.00 K/uL RDW Standard Deviation 55.4 fL RDW Coefficient of Variation 17.3 % Immature Granulocyte % (Auto) 1.2 % Immature Granulocyte # (Auto) 0.04 K/uL Toxic Vacuolation 1+ Echinocytes 1+ Sodium Level 137 mmol/L 138 mmol/L Potassium Level 4.6 mmol/L 4.7 mmol/L Chloride Level 106 mmol/L 107 mmol/L Carbon Dioxide Level 17 mmol/L 18 mmol/L Anion Gap 14.0 mmol/L 13.0 mmol/L Blood Urea Nitrogen 32 mg/dl 35 mg/dl Creatinine 1.40 mg/dl 1.30 mg/dl Est Creatinine Clear Calc Drug Dose 38.2 ml/min 41.1 ml/min Estimated GFR () 60.3 65.9 Estimated GFR (Non- 52.0 56.9 BUN/Creatinine Ratio 22.7 27.0 Random Glucose 278 mg/dl 292 mg/dl Lactic Acid Level 4.3 mmol/L Calcium Level 7.4 mg/dl 7.0 mg/dl Magnesium Level 1.8 mg/dl Total Bilirubin 0.3 mg/dl Aspartate Amino Transf (AST/SGOT) 12 U/L Alanine Aminotransferase (ALT/SGPT) 25 U/L Alkaline Phosphatase 60 U/L Pro-B-Type Natriuretic Peptide 2269 pg/ml Total Protein 4.7 gm/dl Albumin 1.7 gm/dl Globulin 3.0 gm/dl Albumin/Globulin Ratio 0.6 Procalcitonin 23.26 ng/mL Random Cortisol 73.54 mcg/dl Bedside Glucose 316 mg/dl Troponin I 0.053 ng/ml Test 07/31/16 14:50 07/31/16 15:34 07/31/16 16:45 Urine Random Creatinine 38.0 mg/dl Urine Random Sodium 62 mEq/L Hemoglobin 9.9 g/dL Hematocrit 29.0 % Imaging: An echocardiogram today shows normal left ventricular size with a left ventricular ejection fraction reduced at 30-35%, bioprosthetic mitral and aortic valves neither of which are well visualized. EKG: His electrocardiogram today shows a regular atrial rhythm which is either atrial flutter or some type of atrial tachycardia with a controlled ventricular response. Telemetry reviewed: Atrial fibrillation and possibly atrial tachycardia or flutter. Controlled heart rate. Assessment & Plan #1. Possible sepsis and hypotension: It is possible he has endocarditis, we will need to obtain better records from his [facility] evaluation in November and he has had blood cultures drawn which will need to evaluate. If he has recurrent endocarditis that would be an ominous sign, however at this point I can't be sure that that is the case. The echocardiogram was not good quality but his valves appear to be functioning adequately, we cannot tell if there are vegetations and in that case we needed echocardiogram. The moment I would continue with antibiotics and await culture results. There does not seem to be a specific cardiac cause for his hypotension. #2. Prosthetic valve: There is discrepancy between the records and what the patient says of what appears to be present on the echocardiogram, we will try to determine exactly what his valve surgery was. In any case valves appeared to be working well at this time but we cannot tell if vegetations are present. #3. Left ventricular dysfunction: This appears to be new, an echocardiogram done 07/19/2016 shows normal left ventricular size and function. Presumably his acute left ventricular dysfunction is due to his acute illness and stunning, not in interim cardiac events. I would treat him for his underlying condition and hopefully his left ventricular function will recover quickly. There is no evidence of acute myocardial infarction. #4. Atrial fibrillation: He is reported to have paroxysmal atrial fibrillation, he has been in atrial fibrillation or perhaps atrial flutter or an atrial tachycardia since admission here this visit, at his last visit he was also in atrial fibrillation. He is anticoagulated with warfarin for this. Over the long run he will need to be anticoagulated for his arrhythmia, but not for his valvular disease. For the moment however holding anticoagulation should not pose much risk and may be safer in case invasive procedures are needed. His INR has been subtherapeutic and was 1.9 on 07/26/2016, I don't see an INR this admission but he has one ordered for tomorrow. Thank you for allowing me to participate in his care.
[2016-07-31] MEDS: PIPERACILL/TAZOBAC IV 4.5 GM in DEXTROSE 5% 100ML IV SCH (17:46)
[2016-07-31] MEDS ORDERED: DOBUTamine / D5W 500 MG IV PRN (17:59)
[2016-07-31] MEDS ORDERED: BUMETANIDE IV 1 MG in SYRINGE 0 ML IV SCH (18:30)
[2016-07-31] MEDS: BUDESONIDE 0.5 MG/2 ML VIAL (PULMICORT) INH SCH (19:44)
[2016-07-31] MEDS: HYDROCORTISONE IV 100 MG in SYRINGE 0 ML IV SCH (20:46)
[2016-07-31] MEDS ORDERED: INSULIN GLARGINE SOLOSTAR 100 UNITS/ML 3 ML PEN SC SCH (21:00)
[2016-07-31] MEDS: OSELTAMIVIR PHOSPHATE 75 MG CAP PO SCH (21:34)
[2016-07-31] MEDS ORDERED: VANCOMYCIN INJ 1,000 MG in SODIUM CHLORIDE 0.9% 250ML 250 ML IV SCH (22:00)
[2016-07-31 22:16] LABS: HEMATOCRIT 27.8 % (42-52)
[2016-08-01] VITALS (29 sets, daily range): BP systolic 90–121; BP diastolic 43–65; PULSE 52–115; TEMP 36.8–37.2; O2SAT 94–100
[2016-08-01] MEDS ORDERED: BUMETANIDE IV 1 MG in SYRINGE 0 ML IV ONE (00:15)
[2016-08-01] MEDS: NOREPINEPHRINE BIT INJ 8 MG in DEXTROSE 5% 500ML 500 ML IV PRN ×2 (00:51→20:05)
[2016-08-01 00:55] LABS: INFLUENZA A PCR POS for Influ A (NEG); INFLUENZA B PCR Neg for Influ B (NEG)
[2016-08-01 01:25] LABS: URINE APPEARANCE CLOUDY (CLEAR); URINE BILIRUBIN NEG (NEG); URINE COLOR YELLOW; URINE NITRITE NEG (NEG); URINE SPECIFIC GRAVITY 1.007 (1.000-1.030); UROBILINOGEN NEG (NEG)
[2016-08-01 01:35] LABS: MANUAL MICROSCOPIC REQUIRED? NO; REVIEW REQ? YES
[2016-08-01] MEDS: PIPERACILL/TAZOBAC IV 4.5 GM in DEXTROSE 5% 100ML IV SCH ×3 (03:00→18:28)
[2016-08-01 06:25] LABS: HEMATOCRIT 27.3 % (42-52); MEAN CELL VOLUME 86.4 fL (80-100); MEAN CORPUSCULAR HEMOGLOBIN 30.1 pg (25-34); MEAN CORPUSCULAR HGB CONC 34.8 g/dl (32-36); MEAN PLATELET VOLUME 10.4 fL (7.4-10.4); PLATELET COUNT 195 K/uL (130-400); RED BLOOD COUNT 3.16 M/uL (4.7-6.1); WHITE BLOOD COUNT 9.22 K/uL (4.8-10.8)
[2016-08-01 06:54] LABS: PARTIAL THROMBOPLASTIN RATIO 2.1; PROTHROMBIN TIME (PATIENT) 51.1 SECONDS (9.0-12.0)
[2016-08-01 07:00] LABS: BUN/CREATININE RATIO 28.6 (10-20); CALCIUM 7.7 mg/dl (8.5-10.1); CREATININE 1.1 mg/dl (0.60-1.40); POTASSIUM 3.6 mmol/L (3.5-5.1)
[2016-08-01 07:03] LABS: BASO % 0.1 %; BASO ABS # 0.01 K/uL (0-0.2); COMPLETE YES; DOHLE BODIES 2+; ECHINOCYTES 1+; EOS % 0.2 %; IG% 2.3 %; LYMPH ABS # 0.65 K/uL (1.2-3.4); MONO % 2.1 %; NEUT % 88.3 %; TOXIC GRANULATION 2+; VACUOLIZATION 2+
[2016-08-01 07:05] LABS: INR 4.5 (0.9-1.1)
[2016-08-01 07:08] LABS: ALB/GLOB RATIO 0.5 (0.9-2); PHOSPHORUS 3.6 mg/dl (2.5-4.9)
[2016-08-01] MEDS: BUDESONIDE 0.5 MG/2 ML VIAL (PULMICORT) INH SCH ×2 (07:16→20:45)
[2016-08-01] MEDS: ALBUT/IPRATROP 3MG/0.5MG NEB 3 ML VIAL INH SCH ×4 (07:16→20:45)
--- NOTE | 2016-08-01 07:17 | Critical Care Progress Note ---
Critical Care Progress Note Date of Service Aug 01, 2016. Attending Dr. Hsu Subjective Brando Gilliland is a 65yo male who presented with acute hypoxemic respiratory failure and elevated lactic acid status post a previous hospitalization for pneumonia with colitis with an unknown etiology. He continues on BiPAP at settings of 10/5 and 30% and oxygen saturations greater than 92%. Overnight he had no acute issues; however and influenza PCR returned positive for flu a. He had previously had a dose of Tamiflu and that has now continued since last evening. His levo fed drip was titrated multiple times overnight at a titer straight of 0.3; now running at 0.18 with systolic blood pressures in the low 100s. He is received 3 doses of Bumex with good urinary output, 1.2 L out overnight. Lactic acid is currently being trended most recent 2.1 and pro calcitonin 23.26. This morning upon my visit he denies shortness of breath or cough. States he is still slightly chilled and his muscles are sore; he feels globally weak. He denies fever, chest pain, pressure, palpitations. He is unaware of his atrial fibrillation. He does have a sore throat and dry mouth; likely from the BiPAP. He is still nothing by mouth while on pressors; had one bowel movement on day of admission. He denies numbness or tingling. Objective Vital Signs - as noted Laboratory Data - as noted Physical Exam: General - NAD resting in bed on BiPap Eyes - PERRL, EOMI No icterus, gaze conjugate Neck - Supple, trachea midline, no masses or lymphadenopathy, no JVD or bruits Lungs - No paradoxical chest wall movement, Coarse to auscultation bilaterally, Rhonchi Left Base, no wheezes or rales Heart - Irregularly Irregular, No murmur, rubs, clicks, or gallops appreciated Abdomen - BS present, no bruits noted, tympanic to percussion, soft, nontender, mildly distended, no organomegaly Extremities - No edema, pedal pulses intact Neuro - A&O X4 Strength: Equal bilaterally Reflexes: Patellar & plantar normal and equal CN:PERRL, EOMI, no facial asymmetry, uvula/tongue midline Assessment & Plan (1) Acute hypoxemic respiratory failure (2) Influenza A (3) Septic shock (4) Acute left-sided CHF (congestive heart failure) (5) PETRA (acute kidney injury) (6) COPD (chronic obstructive pulmonary disease) (7) History of Clostridium difficile colitis (8) Hx of bacterial endocarditis (9) History of Gram negative infection (10) Paroxysmal a-fib Neuro: No Pain: IV Tylenol if needed A&O x4 Resp: BiPap Setting 04/17 30* Attempt off BiPap with ABG prior and 30minutes s/p ABGs q8 otherwise Respiratory Regimen * Duo Neb 3mg QID * Pulmicort 0.5ml BID Tamiflu 150mg BID x10d Hydrocortisone 100mg IV TID Broad Spectrum Abx: (Pharmacy consult for renal dosing) * Vanco 1g * Levaquin 750mg * Zosyn 4.5g Repeat CXR Cardiac: Hx Mitral & Aortic Bioprosthetic Valve replacement EF 35-40% Trop trending down [place] Consulted Levophed Titrated to MAP > 65 via Arterial Line; Currently 0.18mcg/kg/min Hold home meds in setting of Hypotension * Lisinopril 10mg qDaily * Diltiazem 60mg TID * Coumadin 2.5mg qDaily Obtain CVP today via Central Line Monitor on telemetry ID: Lactate trending down 2.1; WBC: 9.22, Afebrile Blood Cultures pending Continue Broad Spectrum Antibiotics as above Trend Lactic Acid q8hrs Follow serial H&H and fever curve : Cr. Improving 1.1 (peaked 1.4) (baseline 0.77) FeNA 1.2%, U/A 08/01: RBC 10-30; Hyaline Cast 1-5; Epithelial Cells 5-[address] Maintain 0.5ml/hr UOP Minimize excess fluids Avoid Nephro toxic agents GI: Dr. Whitfield Consulted: will likely hold off on colonoscopy until next week if at all. Continuing to hold on repeat abd CT due to PETRA. DIET: NPO in setting of hypotension requiring pressors AST: 60; ALT 135: Elevated likely due to low flow state Follow serial CMP HEME: H&H 9.5& 27.3 Plts 195 PT 51.1; INR 4.5; APTT 54.1 Holding Coumadin now Repeat AM Labs ENDO/Electrolytes: Insulin drip running at 0.5u/hr BSGs: 130'-140's A1C 7.4: Consult DM Educator K: 3.6; Replete 40meq now and Repeat lab this afternoon Repeat AM Labs MSK: PT/OT Consult to evaluate in place Access: R Triple Lumen IJ Catheter R Radial Arterial Line Left Foot & Left Forearm PIV I have personally evaluated and examined this patient. I agree with assessment and plan of Flako Manzano PA-C. Delayed entry into chart. Patient has positive blood cultures for gram-positive organism, given recurrent bacteremia concern for possible artificial valve endocarditis, however, a MIGUEL while beneficial will not change our current management. Patient not strong candidate to obtain repeat CT scan, I'm concerned for possible GI source of infection given recurrent colitis and concern for translocation bacteria in the setting of chronic inflammation, however this is weight against risk of needing vasoactive medications and a recent history of present illness. I have encouraged the patient to remain off the noninvasive ventilation, we do not have the ability to provide humidification, and worried about desiccation of his upper airways and lower airways as well. I have personally spent 40 minutes of critical care time in the direct management of this patient. This is a life/limb threatening event. This includes time spent evaluating patient, direct bedside care, chart review, placing orders, interpretation of diagnostic studies, discussion with consultants, patient, and family members, as well as other required patient management activities. This time is exclusive of all separately billable procedures, and teaching time and separate from and in addition to any other critical care service time. Consults & Procedures Consultants: Cardiology: Dr. Kraus GI: Dr. Whitfield Procedures: R IJ Central Line: 07/31/16 R Radial Art Line: 07/31/16 ECHO: 07/31/16 Data Medications: Current Inpatient Medications Medications (Trade) Dose Ordered Sig/Jim Route Start Time Stop Time Status Last Admin Dose Admin Acetaminophen (Tylenol Tab) 650 mg Q4H PRN PO 07/31/16 11:00 08/30/16 10:59 Ondansetron HCl 4 mg 4 mg Q6H PRN IV 07/31/16 11:00 08/30/16 10:59 Pantoprazole Sodium 40 mg/ Syringe 10 ml @ 5 mls/min DAILY@1100 IV 08/01/16 11:00 08/31/16 10:59 Hydrocortisone Sodium Succinate 100 mg/Syringe 2 ml @ 4 mls/min TID IV 07/31/16 21:00 08/30/16 20:59 07/31/16 20:46 4 MLS/MIN Norepinephrine Bitartrate/ Dextrose (Levophed Inj/ D5W 500ml) 508 ml @ 0 mls/hr Q0M PRN IV 07/31/16 10:38 08/30/16 10:37 08/01/16 00:51 50.7 MLS/HR Miscellaneous Information (Consult Glycemic Management Pharmacy) 1 ea UD N/A 07/31/16 11:05 08/30/16 11:04 Atorvastatin Calcium (Lipitor Tab) 40 mg DAILY PO 08/01/16 09:00 08/31/16 08:59 Budesonide (Pulmicort Respules 0.5MG/ 2ML Neb Soln) 0.5 mg BIDR INH 07/31/16 20:00 08/30/16 19:59 08/01/16 07:16 0.5 MG Lactobacillus Acidophilus (Floranex Tab) 4 tab TIDM PO 07/31/16 16:30 08/30/16 16:29 Albuterol/ Ipratropium (Duoneb) 3 ml QIDR INH 07/31/16 12:00 08/30/16 11:59 08/01/16 07:16 3 ML Glucose (Glucose 40% Gel) 15-30 GRAMS 15 GRAMS... UD PRN PO 07/31/16 12:45 08/30/16 12:44 Glucose (Glucose Chew Tab) 4-8 Tablets 4 Tabl... UD PRN PO 07/31/16 12:45 08/30/16 12:44 Dextrose (Dextrose 50% 50ML Syringe) 25-50ML OF 50% DW IV FOR... UD PRN IV 07/31/16 12:45 08/30/16 12:44 07/31/16 19:32 25 ML Glucagon 1 mg 1 mg UD PRN SQ 07/31/16 12:45 08/30/16 12:44 Levofloxacin 750 mg/Prmx 150 ml @ 100 mls/hr Q48H IV 08/02/16 12:00 08/09/16 11:59 Piperacillin Sod/ Tazobactam Sod/ Dextrose (Zosyn Iv/D5 100ml) 120 ml @ 30 mls/hr Q8H IV 07/31/16 18:00 08/07/16 17:59 08/01/16 03:00 30 MLS/HR Vancomycin HCl (Consult) 1 ea UD PRN N/A 07/31/16 14:15 08/30/16 14:14 Levofloxacin (Consult) 1 ea UD PRN N/A 07/31/16 14:15 08/30/16 14:14 Piperacillin Sod/ Tazobactam Sod 1 ea 1 ea UD PRN N/A 07/31/16 14:15 08/30/16 14:14 Vancomycin HCl/ Sodium Chloride (Vancomycin Inj/ Nss 250ml) 270 ml @ 125 mls/hr Q18H IV 07/31/16 22:00 08/07/16 21:59 07/31/16 21:34 125 MLS/HR Oseltamivir Phosphate (Tamiflu Cap) 150 mg BID PO 07/31/16 22:00 08/05/16 21:59 07/31/16 21:34 150 MG Insulin Aspart SLIDING SCALE PCHS SC 07/31/16 17:15 08/30/16 17:14 Insulin Human Regular 250 units/ Sodium Chloride 252.5 ml @ 0 mls/hr DAILY@1130 IV 07/31/16 16:16 08/30/16 16:15 07/31/16 16:34 2.4 MLS/HR Dobutamine HCl (DOBUTamine / D5W) 0 ml @ 0 mls/hr Q0M PRN IV 07/31/16 17:59 08/30/16 17:58 I & O: 24-Hour Column 08/01/16 08:00 Intake Total 2161 ml Output Total 2900 ml Balance -739 ml Vital Signs: Date Time Temp Pulse Resp B/P Pulse Ox O2 Delivery O2 Flow Rate FiO2 08/01/16 06:00 103 21 92/49 97 93/59 08/01/16 05:07 72 21 91/52 96 08/01/16 04:00 96 BiPAP 30 08/01/16 04:00 37.0 85 20 99/57 96 BiPAP 30 92/54 08/01/16 03:58 97 20 99/57 96 08/01/16 03:00 97 22 102/56 96 08/01/16 02:00 97 20 103/54 95 08/01/16 00:00 37.2 103 20 94/55 95 96/60 1/18/17 23:59 BiPAP 30 07/31/16 23:00 112 22 95/56 94 1817 22:00 105 23 96/57 94 BiPAP 30 98/62 17 21:00 105 22 81/46 95 18/17 20:03 108 25 93/53 97 81/55 1817 20:00 36.5 106 25 89/51 97 17 20:00 BiPAP 30 07/31/16 19:58 105 95 07/31/17 19:58 103 24 89/49 95 18/17 19:45 105 24 95 BiPAP/CPAP 30 07/31/16 19:00 107 24 97/56 96 07/31/16 18:00 103 26 99/58 97 BiPAP 30 07/31/16 16:00 36.7 101 28 97/61 100 BiPAP 95/56 17 16:00 BiPAP 30 07/31/16 15:19 100 97 07/31/16 15:16 100 28 97 BiPAP/CPAP 30 07/31/16 14:15 106 29 86/52 96 17 14:14 107 27 88/53 95 07/31/17 14:00 107 30 91/53 95 17 13:58 113 30 101/57 94 17 13:45 109 31 92/24 95 18/17 13:30 112 31 100/61 17 13:15 113 32 126/71 94 1817 13:14 114 30 125/70 94 17 13:00 114 32 127/70 94 17 12:55 114 33 142/75 93 1817 12:45 123 27 159/84 92 1817 12:30 121 27 171/83 92 1817 12:14 118 35 170/78 92 17 12:00 112 33 94 07/31/16 12:00 BiPAP 30 07/31/16 11:58 112 30 121/83 94 17 11:46 111 32 93 BiPAP/CPAP 30 07/31/16 11:45 107 37 97 17 11:44 108 31 120/72 98 07/31/16 11:38 110 33 142/84 93 1/18/17 11:30 112 33 93 07/31/16 11:29 114 35 140/100 93 07/31/16 11:15 118 29 94 07/31/16 11:14 112 27 78/53 94 07/31/16 11:00 124 27 96 07/31/16 10:58 126 25 98/58 95 07/31/16 10:45 124 23 95 07/31/16 10:43 123 23 90/71 95 07/31/16 10:30 117 25 94 07/31/16 10:28 123 24 80/57 95 07/31/16 10:20 123 26 84/61 95 07/31/16 10:15 123 28 93 07/31/16 10:14 122 26 77/62 95 07/31/16 10:05 125 99 07/31/16 10:00 36.7 123 22 109/64 96 BiPAP 30 Laboratory Results: Last 24 Hours Test 07/31/16 11:05 07/31/16 11:27 07/31/16 13:32 07/31/16 14:45 Influenza Type A Antigen Neg for Influ A Influenza Type B Antigen Neg for Influ B White Blood Count 3.24 K/uL Red Blood Count 3.45 M/uL Hemoglobin 10.3 g/dL Hematocrit 30.5 % Mean Corpuscular Volume 88.4 fL Mean Corpuscular Hemoglobin 29.9 pg Mean Corpuscular Hemoglobin Concent 33.8 g/dl Platelet Count 165 K/uL Mean Platelet Volume 10.3 fL Neutrophils (%) (Auto) 81.9 % Lymphocytes (%) (Auto) 11.4 % Monocytes (%) (Auto) 4.3 % Eosinophils (%) (Auto) 1.2 % Basophils (%) (Auto) 0.0 % Neutrophils # (Auto) 2.65 K/uL Lymphocytes # (Auto) 0.37 K/uL Monocytes # (Auto) 0.14 K/uL Eosinophils # (Auto) 0.04 K/uL Basophils # (Auto) 0.00 K/uL RDW Standard Deviation 55.4 fL RDW Coefficient of Variation 17.3 % Immature Granulocyte % (Auto) 1.2 % Immature Granulocyte # (Auto) 0.04 K/uL Toxic Vacuolation 1+ Echinocytes 1+ Sodium Level 137 mmol/L 138 mmol/L Potassium Level 4.6 mmol/L 4.7 mmol/L Chloride Level 106 mmol/L 107 mmol/L Carbon Dioxide Level 17 mmol/L 18 mmol/L Anion Gap 14.0 mmol/L 13.0 mmol/L Blood Urea Nitrogen 32 mg/dl 35 mg/dl Creatinine 1.40 mg/dl 1.30 mg/dl Est Creatinine Clear Calc Drug Dose 38.2 ml/min 41.1 ml/min Estimated GFR () 60.3 65.9 Estimated GFR (Non- 52.0 56.9 BUN/Creatinine Ratio 22.7 27.0 Random Glucose 278 mg/dl 292 mg/dl Lactic Acid Level 4.3 mmol/L Calcium Level 7.4 mg/dl 7.0 mg/dl Magnesium Level 1.8 mg/dl Total Bilirubin 0.3 mg/dl Aspartate Amino Transf (AST/SGOT) 12 U/L Alanine Aminotransferase (ALT/SGPT) 25 U/L Alkaline Phosphatase 60 U/L Pro-B-Type Natriuretic Peptide 2269 pg/ml Total Protein 4.7 gm/dl Albumin 1.7 gm/dl Globulin 3.0 gm/dl Albumin/Globulin Ratio 0.6 Procalcitonin 23.26 ng/mL Random Cortisol 73.54 mcg/dl Bedside Glucose 316 mg/dl Troponin I 0.053 ng/ml Test 07/31/16 14:50 07/31/16 16:45 07/31/16 18:30 07/31/16 22:02 Urine Random Creatinine 38.0 mg/dl Urine Random Sodium 62 mEq/L Hemoglobin 9.9 g/dL 9.7 g/dL Hematocrit 29.0 % 27.8 % Lactic Acid Level 3.1 mmol/L Troponin I 0.087 ng/ml Test 07/31/16 22:45 08/01/16 00:23 08/01/16 00:37 08/01/16 06:12 Influenza Type A (RT-PCR) POS for Influ A Influenza Type B (RT-PCR) Neg for Influ B Lactic Acid Level 1.9 mmol/L 2.1 mmol/L Urine Color YELLOW Urine Appearance CLOUDY Urine pH 5.0 Urine Specific [place] 1.007 Urine Protein NEG Urine Glucose (UA) NEG Urine Ketones NEG Urine Occult Blood 2+ Urine Nitrite NEG Urine Bilirubin NEG Urine Urobilinogen NEG Urine Leukocyte Esterase NEG Urine WBC (Auto) 1-5 /hpf Urine RBC (Auto) 10-30 /hpf Urine Hyaline Casts (Auto) 1-5 /lpf Urine Epithelial Cells (Auto) 5-10 /lpf Urine Bacteria (Auto) NEG Urine Pathogenic Casts /lpf Urine Yeast (Auto) BUDDING White Blood Count 9.22 K/uL Red Blood Count 3.16 M/uL Hemoglobin 9.5 g/dL Hematocrit 27.3 % Mean Corpuscular Volume 86.4 fL Mean Corpuscular Hemoglobin 30.1 pg Mean Corpuscular Hemoglobin Concent 34.8 g/dl Platelet Count 195 K/uL Mean Platelet Volume 10.4 fL Neutrophils (%) (Auto) 88.3 % Lymphocytes (%) (Auto) 7.0 % Monocytes (%) (Auto) 2.1 % Eosinophils (%) (Auto) 0.2 % Basophils (%) (Auto) 0.1 % Neutrophils # (Auto) 8.14 K/uL Lymphocytes # (Auto) 0.65 K/uL Monocytes # (Auto) 0.19 K/uL Eosinophils # (Auto) 0.02 K/uL Basophils # (Auto) 0.01 K/uL RDW Standard Deviation 53.6 fL RDW Coefficient of Variation 17.1 % Immature Granulocyte % (Auto) 2.3 % Immature Granulocyte # (Auto) 0.21 K/uL Nucleated RBC Absolute Count (auto) 0.02 K/uL Nucleated Red Blood Cells % 0.2 % Toxic Granulation 2+ Toxic Vacuolation 2+ Dohle Bodies 2+ Echinocytes 1+ Prothrombin Time 51.1 SECONDS Prothromb Time International Ratio 4.5 Activated Partial Thromboplast Time 54.1 SECONDS Partial Thromboplastin Ratio 2.1 Sodium Level 137 mmol/L Potassium Level 3.6 mmol/L Chloride Level 104 mmol/L Carbon Dioxide Level 21 mmol/L Anion Gap 12.0 mmol/L Blood Urea Nitrogen 32 mg/dl Creatinine 1.10 mg/dl Est Creatinine Clear Calc Drug Dose 57.0 ml/min Estimated GFR () 80.6 Estimated GFR (Non- 69.6 BUN/Creatinine Ratio 28.6 Random Glucose 143 mg/dl Calcium Level 7.7 mg/dl Phosphorus Level 3.6 mg/dl Magnesium Level 2.0 mg/dl Total Bilirubin 0.4 mg/dl Aspartate Amino Transf (AST/SGOT) 60 U/L Alanine Aminotransferase (ALT/SGPT) 135 U/L Alkaline Phosphatase 64 U/L Troponin I 0.043 ng/ml Total Protein 4.9 gm/dl Albumin 1.6 gm/dl Globulin 3.3 gm/dl Albumin/Globulin Ratio 0.5
--- NOTE | 2016-08-01 07:27 | Procedure Note ---
Procedure Note Procedure Date Aug 01, 2016. (Tawanna Manzano PA-C) Procedure Description Procedure Name: Right Radial Arterial Catheter Insertion Procedure time out: side/site verified, patient ID confirmed, correct procedure Consent obtained: written Time of procedure: 11:25 Performed by: physician clean out driller helper Indications: diagnostic, therapeutic Contraindications: none Description: Using sterile technique; the right radial artery was cleaned with a chloro- hexadine scrub after adequate palpation and visualization with the ultrasound, a finder needle with overlaying catheter was then used with approach at a 45* angle until a flash was obtained with direct visualization on ultrasound. Using Seldinger technique, there was no difficulty passing the guide wire, on the second attempt the guide wire was then passed successfully into the artery and the catheter was threaded over the guide wire; which was then removed. Arterial blood was seen pulsating from catheter tip and a luer lock valve was attached to the catheter. The A-line catheter was then secured with one surgical suture and covered with a sterile surgical dressing. Pt was reassessed and no evidence of hematoma was appreciated. The tubing was placed between the first and second fingers and taped to the forearm, before a wrist support was placed. Pt tolerated the procedure well with no complications. Consent was obtained by Dr. Olu Hsu Complications: none Patient tolerated procedure: well Post-procedure vital signs: reviewed and stable (Tawanna Manzano PA-C) Comments: I was physically present during the entire procedure (Olu Hsu, D.O.)
--- NOTE | 2016-08-01 07:55 | Hospitalist Progress Note ---
Hospitalist Progress Note Date of Service Aug 01, 2016. Subjective Pt evaluation today including: conversation w/ patient, physical exam, chart review, lab review, review of studies, conversation w/ rehab consultant, review of inpatient medication list Pain: C/o LLQ pain Resting comfortably. Denies any new complaints. Still requiring vasopressors. GI and Cardio input appreciated. Medications Medications (Trade) Dose Ordered Sig/Jim Route Start Time Stop Time Status Last Admin Dose Admin Dopamine HCl/ Dextrose 400 mg 400 mg STK-MED ONCE .ROUTE 07/31/16 10:29 07/31/16 10:30 DC 07/31/16 11:00 400 MG Hydrocortisone Sodium Succinate 100 mg/Syringe 2 ml @ 4 mls/min TID IV 07/31/16 21:00 08/30/16 20:59 07/31/16 20:46 4 MLS/MIN Magnesium Sulfate 1 gm/Prmx 100 ml @ 100 mls/hr NOW ONCE IV 07/31/16 12:00 07/31/16 12:59 DC 07/31/16 13:15 100 MLS/HR Norepinephrine Bitartrate 8 mg/ Dextrose 508 ml @ 0 mls/hr Q0M PRN IV 07/31/16 10:38 08/30/16 10:37 08/01/16 00:51 50.7 MLS/HR Levofloxacin 750 mg/Prmx 150 ml @ 100 mls/hr Q24H IV 07/31/16 12:00 07/31/16 14:06 DC 07/31/16 13:15 100 MLS/HR Vancomycin HCl 1000 mg/Sodium Chloride 270 ml @ 125 mls/hr TODAY@1330 ONCE IV 07/31/16 13:30 07/31/16 15:39 DC 07/31/16 13:28 125 MLS/HR Piperacillin Sod/ Tazobactam Sod 4.5 gm/Dextrose 120 ml @ 240 mls/hr ONE ONCE IV 07/31/16 11:15 07/31/16 11:44 DC 07/31/16 11:33 240 MLS/HR Hydrocortisone Sodium Succinate/ Syringe (Solu-Cortef IV/ Syringe) 2 ml @ 4 mls/min NOW ONCE IV 07/31/16 11:15 07/31/16 11:16 DC 07/31/16 11:34 4 MLS/MIN Budesonide (Pulmicort Respules 0.5MG/ 2ML Neb Soln) 0.5 mg BIDR INH 07/31/16 20:00 08/30/16 19:59 08/01/16 07:16 0.5 MG Albuterol/ Ipratropium (Duoneb) 3 ml QIDR INH 07/31/16 12:00 08/30/16 11:59 08/01/16 07:16 3 ML Oseltamivir Phosphate 150 mg 150 mg NOW ONCE PO 07/31/16 11:30 07/31/16 11:31 DC 07/31/16 11:34 150 MG Parenteral Electrolyte Solution (Normosol R) 1,000 ml @ 999 mls/hr Q1H1M ONCE IV 07/31/16 11:45 07/31/16 12:45 DC 07/31/16 11:45 999 MLS/HR Insulin Aspart (novoLOG ASPART) SLIDING SCALE NOW ONCE SC 07/31/16 12:45 07/31/16 12:46 DC 07/31/16 13:35 7 UNITS Dextrose (Dextrose 50% 50ML Syringe) 25-50ML OF 50% DW IV FOR... UD PRN IV 07/31/16 12:45 08/30/16 12:44 07/31/16 19:32 25 ML Insulin Glargine 5 unit 5 unit NOW ONCE SC 07/31/16 12:45 07/31/16 12:46 DC 07/31/16 13:34 5 UNIT Bumetanide 1 mg/ Syringe 4 ml @ 4 mls/min TODAY@1415 ONCE IV 07/31/16 14:15 07/31/16 14:16 DC 07/31/16 14:52 4 MLS/MIN Piperacillin Sod/ Tazobactam Sod 4.5 gm/Dextrose 120 ml @ 30 mls/hr Q8H IV 07/31/16 18:00 08/07/16 17:59 08/01/16 03:00 30 MLS/HR Vancomycin HCl/ Sodium Chloride (Vancomycin Inj/ Nss 250ml) 270 ml @ 125 mls/hr Q18H IV 07/31/16 22:00 08/07/16 21:59 07/31/16 21:34 125 MLS/HR Oseltamivir Phosphate (Tamiflu Cap) 150 mg BID PO 07/31/16 22:00 08/05/16 21:59 07/31/16 21:34 150 MG Insulin Human Regular (Insulin IV Infusion Protocol) 1 ea Q30M N/A 07/31/16 15:42 07/31/16 16:19 DC 07/31/16 16:08 1 EA Miscellaneous (Insulin Protocol Goal Range (Other)) 1 ea ONE ONCE N/A 07/31/16 15:42 07/31/16 15:43 DC 07/31/16 16:08 1 EA Miscellaneous 1 ea 1 ea ONE ONCE N/A 07/31/16 15:42 07/31/16 15:43 DC 07/31/16 16:08 1 EA Insulin Human Regular 2.5 unit/ Syringe 2.5 ml @ 1 mls/min TODAY@1615 IV 07/31/16 16:15 07/31/16 16:30 DC 07/31/16 16:32 1 MLS/MIN Insulin Human Regular 250 units/ Sodium Chloride 252.5 ml @ 0 mls/hr DAILY@1130 IV 07/31/16 16:16 08/30/16 16:15 07/31/16 16:34 2.4 MLS/HR Bumetanide 1 mg/ Syringe 4 ml @ 4 mls/min TODAY@1830 IV 07/31/16 18:30 07/31/16 19:00 DC 07/31/16 18:48 4 MLS/MIN Bumetanide/Syringe (Bumex IV/ Syringe) 4 ml @ 4 mls/min TODAY@0015 ONCE IV 08/01/16 00:15 08/01/16 00:16 DC 08/01/16 00:22 4 MLS/MIN Objective Vital Signs Date Time Temp Pulse Resp B/P Pulse Ox O2 Delivery O2 Flow Rate FiO2 08/01/16 07:18 100 97 08/01/16 07:17 100 20 97 BiPAP/CPAP 30 08/01/16 06:00 103 21 92/49 97 93/59 08/01/16 05:07 72 21 91/52 96 08/01/16 04:00 96 BiPAP 30 08/01/16 04:00 37.0 85 20 99/57 96 BiPAP 30 92/54 08/01/16 03:58 97 20 99/57 96 08/01/16 03:00 97 22 102/56 96 08/01/16 02:00 97 20 103/54 95 17 00:00 37.2 103 20 94/55 95 96/60 17 23:59 BiPAP 30 07/31/16 23:00 112 22 95/56 94 1817 22:00 105 23 96/57 94 BiPAP 30 98/62 07/31/16 21:00 105 22 81/46 95 07/31/16 20:03 108 25 93/53 97 81/55 07/31/16 20:00 36.5 106 25 89/51 97 18 20:00 BiPAP 30 07/31/16 19:58 105 95 17 19:58 103 24 89/49 95 18 19:45 105 24 95 BiPAP/CPAP 30 07/31/16 19:00 107 24 97/56 96 07/31/16 18:00 103 26 99/58 97 BiPAP 30 07/31/16 16:00 36.7 101 28 97/61 100 BiPAP 95/56 07/31/16 16:00 BiPAP 30 07/31/16 15:19 100 97 07/31/16 15:16 100 28 97 BiPAP/CPAP 30 07/31/16 14:15 106 29 86/52 96 07/31/16 14:14 107 27 88/53 95 17 14:00 107 30 91/53 95 17 13:58 113 30 101/57 94 17 13:45 109 31 92/24 95 17 13:30 112 31 100/61 17 13:15 113 32 126/71 94 1817 13:14 114 30 125/70 94 1817 13:00 114 32 127/70 94 1817 12:55 114 33 142/75 93 1817 12:45 123 27 159/84 92 07/31/16 12:30 121 27 171/83 92 1817 12:14 118 35 170/78 92 07/31/16 12:00 112 33 94 1817 12:00 BiPAP 30 07/31/16 11:58 112 30 121/83 94 07/31/16 11:46 111 32 93 BiPAP/CPAP 30 07/31/16 11:45 107 37 97 07/31/16 11:44 108 31 120/72 98 07/31/16 11:38 110 33 142/84 93 07/31/16 11:30 112 33 93 07/31/16 11:29 114 35 140/100 93 07/31/16 11:15 118 29 94 07/31/16 11:14 112 27 78/53 94 07/31/16 11:00 124 27 96 07/31/16 10:58 126 25 98/58 95 07/31/16 10:45 124 23 95 07/31/16 10:43 123 23 90/71 95 07/31/16 10:30 117 25 94 07/31/16 10:28 123 24 80/57 95 07/31/16 10:20 123 26 84/61 95 07/31/16 10:15 123 28 93 07/31/16 10:14 122 26 77/62 95 07/31/16 10:05 125 99 07/31/16 10:00 36.7 123 22 109/64 96 BiPAP 30 Physical Exam General Appearance: no apparent distress Eyes: sclerae normal Respiratory/Chest: + pertinent finding (a few scattered coarse sounds otherwise fair air entry and not in distress) Cardiovascular: + pertinent finding (tachy, irregular) Abdomen: soft, + pertinent finding (tender in both lower quadrants, L>R, no rebound or rigidity) Extremities: no pedal edema Neurologic/Psychiatric: alert, oriented x 3 Skin: warm/dry Laboratory Results Last 24 Hours Test 07/31/16 11:05 07/31/16 11:27 07/31/16 13:32 07/31/16 14:45 Influenza Type A Antigen Neg for Influ A Influenza Type B Antigen Neg for Influ B White Blood Count 3.24 K/uL Red Blood Count 3.45 M/uL Hemoglobin 10.3 g/dL Hematocrit 30.5 % Mean Corpuscular Volume 88.4 fL Mean Corpuscular Hemoglobin 29.9 pg Mean Corpuscular Hemoglobin Concent 33.8 g/dl Platelet Count 165 K/uL Mean Platelet Volume 10.3 fL Neutrophils (%) (Auto) 81.9 % Lymphocytes (%) (Auto) 11.4 % Monocytes (%) (Auto) 4.3 % Eosinophils (%) (Auto) 1.2 % Basophils (%) (Auto) 0.0 % Neutrophils # (Auto) 2.65 K/uL Lymphocytes # (Auto) 0.37 K/uL Monocytes # (Auto) 0.14 K/uL Eosinophils # (Auto) 0.04 K/uL Basophils # (Auto) 0.00 K/uL RDW Standard Deviation 55.4 fL RDW Coefficient of Variation 17.3 % Immature Granulocyte % (Auto) 1.2 % Immature Granulocyte # (Auto) 0.04 K/uL Toxic Vacuolation 1+ Echinocytes 1+ Sodium Level 137 mmol/L 138 mmol/L Potassium Level 4.6 mmol/L 4.7 mmol/L Chloride Level 106 mmol/L 107 mmol/L Carbon Dioxide Level 17 mmol/L 18 mmol/L Anion Gap 14.0 mmol/L 13.0 mmol/L Blood Urea Nitrogen 32 mg/dl 35 mg/dl Creatinine 1.40 mg/dl 1.30 mg/dl Est Creatinine Clear Calc Drug Dose 38.2 ml/min 41.1 ml/min Estimated GFR () 60.3 65.9 Estimated GFR (Non- 52.0 56.9 BUN/Creatinine Ratio 22.7 27.0 Random Glucose 278 mg/dl 292 mg/dl Lactic Acid Level 4.3 mmol/L Calcium Level 7.4 mg/dl 7.0 mg/dl Magnesium Level 1.8 mg/dl Total Bilirubin 0.3 mg/dl Aspartate Amino Transf (AST/SGOT) 12 U/L Alanine Aminotransferase (ALT/SGPT) 25 U/L Alkaline Phosphatase 60 U/L Pro-B-Type Natriuretic Peptide 2269 pg/ml Total Protein 4.7 gm/dl Albumin 1.7 gm/dl Globulin 3.0 gm/dl Albumin/Globulin Ratio 0.6 Procalcitonin 23.26 ng/mL Random Cortisol 73.54 mcg/dl Bedside Glucose 316 mg/dl Troponin I 0.053 ng/ml Test 07/31/16 14:50 07/31/16 16:45 07/31/16 18:30 07/31/16 22:02 Urine Random Creatinine 38.0 mg/dl Urine Random Sodium 62 mEq/L Hemoglobin 9.9 g/dL 9.7 g/dL Hematocrit 29.0 % 27.8 % Lactic Acid Level 3.1 mmol/L Troponin I 0.087 ng/ml Test 07/31/16 22:45 08/01/16 00:23 08/01/16 00:37 08/01/16 06:12 Influenza Type A (RT-PCR) POS for Influ A Influenza Type B (RT-PCR) Neg for Influ B Lactic Acid Level 1.9 mmol/L 2.1 mmol/L Urine Color YELLOW Urine Appearance CLOUDY Urine pH 5.0 Urine Specific [place] 1.007 Urine Protein NEG Urine Glucose (UA) NEG Urine Ketones NEG Urine Occult Blood 2+ Urine Nitrite NEG Urine Bilirubin NEG Urine Urobilinogen NEG Urine Leukocyte Esterase NEG Urine WBC (Auto) 1-5 /hpf Urine RBC (Auto) 10-30 /hpf Urine Hyaline Casts (Auto) 1-5 /lpf Urine Epithelial Cells (Auto) 5-10 /lpf Urine Bacteria (Auto) NEG Urine Pathogenic Casts /lpf Urine Yeast (Auto) BUDDING White Blood Count 9.22 K/uL Red Blood Count 3.16 M/uL Hemoglobin 9.5 g/dL Hematocrit 27.3 % Mean Corpuscular Volume 86.4 fL Mean Corpuscular Hemoglobin 30.1 pg Mean Corpuscular Hemoglobin Concent 34.8 g/dl Platelet Count 195 K/uL Mean Platelet Volume 10.4 fL Neutrophils (%) (Auto) 88.3 % Lymphocytes (%) (Auto) 7.0 % Monocytes (%) (Auto) 2.1 % Eosinophils (%) (Auto) 0.2 % Basophils (%) (Auto) 0.1 % Neutrophils # (Auto) 8.14 K/uL Lymphocytes # (Auto) 0.65 K/uL Monocytes # (Auto) 0.19 K/uL Eosinophils # (Auto) 0.02 K/uL Basophils # (Auto) 0.01 K/uL RDW Standard Deviation 53.6 fL RDW Coefficient of Variation 17.1 % Immature Granulocyte % (Auto) 2.3 % Immature Granulocyte # (Auto) 0.21 K/uL Nucleated RBC Absolute Count (auto) 0.02 K/uL Nucleated Red Blood Cells % 0.2 % Toxic Granulation 2+ Toxic Vacuolation 2+ Dohle Bodies 2+ Echinocytes 1+ Prothrombin Time 51.1 SECONDS Prothromb Time International Ratio 4.5 Activated Partial Thromboplast Time 54.1 SECONDS Partial Thromboplastin Ratio 2.1 Sodium Level 137 mmol/L Potassium Level 3.6 mmol/L Chloride Level 104 mmol/L Carbon Dioxide Level 21 mmol/L Anion Gap 12.0 mmol/L Blood Urea Nitrogen 32 mg/dl Creatinine 1.10 mg/dl Est Creatinine Clear Calc Drug Dose 57.0 ml/min Estimated GFR () 80.6 Estimated GFR (Non- 69.6 BUN/Creatinine Ratio 28.6 Random Glucose 143 mg/dl Calcium Level 7.7 mg/dl Phosphorus Level 3.6 mg/dl Magnesium Level 2.0 mg/dl Total Bilirubin 0.4 mg/dl Aspartate Amino Transf (AST/SGOT) 60 U/L Alanine Aminotransferase (ALT/SGPT) 135 U/L Alkaline Phosphatase 64 U/L Troponin I 0.043 ng/ml Total Protein 4.9 gm/dl Albumin 1.6 gm/dl Globulin 3.3 gm/dl Albumin/Globulin Ratio 0.5 Diagnostic Results TTE: * -- Conclusions -- * 1. Technically limited study. * 2. Normal LV size and wall thickness. * 3. Moderate to severe global LV dysfunction. LVEF 30-35%. Paradoxical septal motion consistent with post-operative state. * 4. Normal RV size and function. * 5. Bioprosthetic mitral valve present. No significant MR or MS. * 6. Bioprosthetic aortic valve not well visualized. * 7. Diastolic dysfunction. * 8. Compared with prior study on 07/19/2016: Current study is technically limited. LV function is now moderate to severely reduced in the setting of apparent tachyarrhythmia. Assessment and Plan (1) Septic shock Assessment & Plan: Continue to titrate down pressors. Continue broad spectrum abx coverage. Await cultures. Influenza A PCR is positive. Will continue Tamiflu. Acutely decreased EF is likely due to sepsis. Doubt primary cardiac event at this point. (2) Acute on chronic respiratory failure with hypoxemia Assessment & Plan: Stable with sats 97-100% on 30% Fio2 on BIPAP. (3) PETRA (acute kidney injury) Assessment & Plan: Cr actually improved from 1.4 at OSH to 1.1 this AM, despite still having pressor requirement. Will continue to support hemodynamics and avoid nephrotoxins. (4) Acute colitis Assessment & Plan: Will eventually need to have CT to further elucidate. Has hx of C. diff colitis, but C. diff PCR negative this admission. On empiric abx. GI following. (5) Hx of bacterial endocarditis Assessment & Plan: Blood cultures negative so far. Cardiology following. Consideration for MIGUEL would be needed if they became positive. (6) Paroxysmal a-fib Assessment & Plan: Holding negative chronotropes in setting of septic shock. Continue to hold warfarin for INR 4.5 (7) HTN (hypertension) Assessment & Plan: Holding antihypertensives in the setting of shock. (8) COPD (chronic obstructive pulmonary disease) Assessment & Plan: Does not appear to be in exacerbation. Continue with Duonebs and Pulmicort. Continued [facility] stay due to: abnormal vital signs, multiple IV medications needed
[2016-08-01] MEDS: INSULIN ASPART 100 UNITS/ML 3 ML PEN SC SCH ×4 (08:00→21:00)
[2016-08-01] MEDS ORDERED: VANCOMYCIN INJ 1,000 MG in SODIUM CHLORIDE 0.9% 250ML 250 ML IV SCH (08:00)
--- NOTE | 2016-08-01 08:38 | Gastroenterology Progress Note ---
Progress Note Date of Service: Aug 01, 2016 Subjective Pt evaluation today including: conversation w/ patient, physical exam, chart review, lab review, review of studies, review of inpatient medication list Pt on Levo fed; SBP 90s-100s, DBP 50s. HR in 100-100s. He is laying in bed, BiPAP on, appears to be more breathing more comfortably. He has + Flu A PCR, on Tamiflu. Cdiff negative, stool cx pending. Review of Systems Constitutional: No chills, No fever Respiratory: No cough, No shortness of breath Abdomen: + pain, No diarrhea, No nausea, No vomiting Medications Current Inpatient Medications Medications (Trade) Dose Ordered Sig/Jim Route Start Time Stop Time Status Last Admin Dose Admin Acetaminophen (Tylenol Tab) 650 mg Q4H PRN PO 07/31/16 11:00 08/30/16 10:59 Ondansetron HCl 4 mg 4 mg Q6H PRN IV 07/31/16 11:00 08/30/16 10:59 Pantoprazole Sodium 40 mg/ Syringe 10 ml @ 5 mls/min DAILY@1100 IV 08/01/16 11:00 08/31/16 10:59 Hydrocortisone Sodium Succinate 100 mg/Syringe 2 ml @ 4 mls/min TID IV 07/31/16 21:00 08/30/16 20:59 07/31/16 20:46 4 MLS/MIN Norepinephrine Bitartrate/ Dextrose (Levophed Inj/ D5W 500ml) 508 ml @ 0 mls/hr Q0M PRN IV 07/31/16 10:38 08/30/16 10:37 08/01/16 00:51 50.7 MLS/HR Miscellaneous Information (Consult Glycemic Management Pharmacy) 1 ea UD N/A 07/31/16 11:05 08/30/16 11:04 Atorvastatin Calcium (Lipitor Tab) 40 mg DAILY PO 08/01/16 09:00 08/31/16 08:59 Budesonide (Pulmicort Respules 0.5MG/ 2ML Neb Soln) 0.5 mg BIDR INH 07/31/16 20:00 08/30/16 19:59 08/01/16 07:16 0.5 MG Lactobacillus Acidophilus (Floranex Tab) 4 tab TIDM PO 07/31/16 16:30 08/30/16 16:29 Albuterol/ Ipratropium (Duoneb) 3 ml QIDR INH 07/31/16 12:00 08/30/16 11:59 08/01/16 07:16 3 ML Glucose (Glucose 40% Gel) 15-30 GRAMS 15 GRAMS... UD PRN PO 07/31/16 12:45 08/30/16 12:44 Glucose (Glucose Chew Tab) 4-8 Tablets 4 Tabl... UD PRN PO 07/31/16 12:45 08/30/16 12:44 Dextrose (Dextrose 50% 50ML Syringe) 25-50ML OF 50% DW IV FOR... UD PRN IV 07/31/16 12:45 08/30/16 12:44 07/31/16 19:32 25 ML Glucagon 1 mg 1 mg UD PRN SQ 07/31/16 12:45 08/30/16 12:44 Levofloxacin 750 mg/Prmx 150 ml @ 100 mls/hr Q48H IV 08/02/16 12:00 08/09/16 11:59 Piperacillin Sod/ Tazobactam Sod/ Dextrose (Zosyn Iv/D5 100ml) 120 ml @ 30 mls/hr Q8H IV 07/31/16 18:00 08/07/16 17:59 08/01/16 03:00 30 MLS/HR Vancomycin HCl (Consult) 1 ea UD PRN N/A 07/31/16 14:15 08/30/16 14:14 Levofloxacin (Consult) 1 ea UD PRN N/A 07/31/16 14:15 08/30/16 14:14 Piperacillin Sod/ Tazobactam Sod 1 ea 1 ea UD PRN N/A 07/31/16 14:15 08/30/16 14:14 Vancomycin HCl/ Sodium Chloride (Vancomycin Inj/ Nss 250ml) 270 ml @ 125 mls/hr Q18H IV 07/31/16 22:00 08/07/16 21:59 07/31/16 21:34 125 MLS/HR Oseltamivir Phosphate (Tamiflu Cap) 150 mg BID PO 07/31/16 22:00 08/05/16 21:59 07/31/16 21:34 150 MG Insulin Aspart SLIDING SCALE PCHS SC 07/31/16 17:15 08/30/16 17:14 Insulin Human Regular 250 units/ Sodium Chloride 252.5 ml @ 0 mls/hr DAILY@1130 IV 07/31/16 16:16 08/30/16 16:15 07/31/16 16:34 2.4 MLS/HR Dobutamine HCl (DOBUTamine / D5W) 0 ml @ 0 mls/hr Q0M PRN IV 07/31/16 17:59 08/30/16 17:58 Objective Vital Signs Date Time Temp Pulse Resp B/P Pulse Ox O2 Delivery O2 Flow Rate FiO2 08/01/16 07:18 100 97 08/01/16 07:17 100 20 97 BiPAP/CPAP 30 08/01/16 06:00 103 21 92/49 97 93/59 08/01/16 05:07 72 21 91/52 96 08/01/16 04:00 96 BiPAP 30 08/01/16 04:00 37.0 85 20 99/57 96 BiPAP 30 92/54 08/01/16 03:58 97 20 99/57 96 08/01/16 03:00 97 22 102/56 96 08/01/16 02:00 97 20 103/54 95 08/01/16 00:00 37.2 103 20 94/55 95 96/60 07/31/16 23:59 BiPAP 30 07/31/16 23:00 112 22 95/56 94 07/31/16 22:00 105 23 96/57 94 BiPAP 30 98/62 07/31/16 21:00 105 22 81/46 95 07/31/16 20:03 108 25 93/53 97 81/55 07/31/16 20:00 36.5 106 25 89/51 97 07/31/16 20:00 BiPAP 30 07/31/16 19:58 105 95 07/31/16 19:58 103 24 89/49 95 07/31/16 19:45 105 24 95 BiPAP/CPAP 30 07/31/16 19:00 107 24 97/56 96 07/31/16 18:00 103 26 99/58 97 BiPAP 30 07/31/16 16:00 36.7 101 28 97/61 100 BiPAP 95/56 07/31/16 16:00 BiPAP 30 07/31/16 15:19 100 97 07/31/16 15:16 100 28 97 BiPAP/CPAP 30 07/31/16 14:15 106 29 86/52 96 17 14:14 107 27 88/53 95 17 14:00 107 30 91/53 95 17 13:58 113 30 101/57 94 17 13:45 109 31 92/24 95 17 13:30 112 31 100/61 17 13:15 113 32 126/71 94 17 13:14 114 30 125/70 94 17 13:00 114 32 127/70 94 17 12:55 114 33 142/75 93 07/31/16 12:45 123 27 159/84 92 07/31/16 12:30 121 27 171/83 92 17 12:14 118 35 170/78 92 07/31/16 12:00 112 33 94 07/31/16 12:00 BiPAP 30 07/31/16 11:58 112 30 121/83 94 17 11:46 111 32 93 BiPAP/CPAP 30 17 11:45 107 37 97 17 11:44 108 31 120/72 98 1817 11:38 110 33 142/84 93 17 11:30 112 33 93 17 11:29 114 35 140/100 93 17 11:15 118 29 94 17 11:14 112 27 78/53 94 17 11:00 124 27 96 17 10:58 126 25 98/58 95 1817 10:45 124 23 95 18/17 10:43 123 23 90/71 95 18/17 10:30 117 25 94 18/17 10:28 123 24 80/57 95 18/17 10:20 123 26 84/61 95 18/17 10:15 123 28 93 18/17 10:14 122 26 77/62 95 18/17 10:05 125 99 18/17 10:00 36.7 123 22 109/64 96 BiPAP 30 Physical Exam General Appearance: WD/WN, no apparent distress Eyes: normal inspection, PERRL, EOMI Neck: supple, no JVD, trachea midline Respiratory/Chest: no respiratory distress, no accessory muscle use, + decreased breath sounds, + pertinent finding (BiPAP on) Cardiovascular: no gallop, no murmur, + tachycardia Abdomen: normal bowel sounds, soft, + tenderness (Diffuse) Extremities: normal inspection, no pedal edema, no calf tenderness Neurologic/Psych: alert, normal mood/affect, oriented x 3 Skin: normal color, no jaundice, no rash Laboratory Results Last 24 Hours Test 07/31/16 11:05 07/31/16 11:27 07/31/16 13:32 07/31/16 14:45 Influenza Type A Antigen Neg for Influ A Influenza Type B Antigen Neg for Influ B White Blood Count 3.24 K/uL Red Blood Count 3.45 M/uL Hemoglobin 10.3 g/dL Hematocrit 30.5 % Mean Corpuscular Volume 88.4 fL Mean Corpuscular Hemoglobin 29.9 pg Mean Corpuscular Hemoglobin Concent 33.8 g/dl Platelet Count 165 K/uL Mean Platelet Volume 10.3 fL Neutrophils (%) (Auto) 81.9 % Lymphocytes (%) (Auto) 11.4 % Monocytes (%) (Auto) 4.3 % Eosinophils (%) (Auto) 1.2 % Basophils (%) (Auto) 0.0 % Neutrophils # (Auto) 2.65 K/uL Lymphocytes # (Auto) 0.37 K/uL Monocytes # (Auto) 0.14 K/uL Eosinophils # (Auto) 0.04 K/uL Basophils # (Auto) 0.00 K/uL RDW Standard Deviation 55.4 fL RDW Coefficient of Variation 17.3 % Immature Granulocyte % (Auto) 1.2 % Immature Granulocyte # (Auto) 0.04 K/uL Toxic Vacuolation 1+ Echinocytes 1+ Sodium Level 137 mmol/L 138 mmol/L Potassium Level 4.6 mmol/L 4.7 mmol/L Chloride Level 106 mmol/L 107 mmol/L Carbon Dioxide Level 17 mmol/L 18 mmol/L Anion Gap 14.0 mmol/L 13.0 mmol/L Blood Urea Nitrogen 32 mg/dl 35 mg/dl Creatinine 1.40 mg/dl 1.30 mg/dl Est Creatinine Clear Calc Drug Dose 38.2 ml/min 41.1 ml/min Estimated GFR () 60.3 65.9 Estimated GFR (Non- 52.0 56.9 BUN/Creatinine Ratio 22.7 27.0 Random Glucose 278 mg/dl 292 mg/dl Lactic Acid Level 4.3 mmol/L Calcium Level 7.4 mg/dl 7.0 mg/dl Magnesium Level 1.8 mg/dl Total Bilirubin 0.3 mg/dl Aspartate Amino Transf (AST/SGOT) 12 U/L Alanine Aminotransferase (ALT/SGPT) 25 U/L Alkaline Phosphatase 60 U/L Pro-B-Type Natriuretic Peptide 2269 pg/ml Total Protein 4.7 gm/dl Albumin 1.7 gm/dl Globulin 3.0 gm/dl Albumin/Globulin Ratio 0.6 Procalcitonin 23.26 ng/mL Random Cortisol 73.54 mcg/dl Bedside Glucose 316 mg/dl Troponin I 0.053 ng/ml Test 07/31/16 14:50 07/31/16 16:45 07/31/16 18:30 07/31/16 22:02 Urine Random Creatinine 38.0 mg/dl Urine Random Sodium 62 mEq/L Hemoglobin 9.9 g/dL 9.7 g/dL Hematocrit 29.0 % 27.8 % Lactic Acid Level 3.1 mmol/L Troponin I 0.087 ng/ml Test 07/31/16 22:45 08/01/16 00:23 08/01/16 00:37 08/01/16 06:12 Influenza Type A (RT-PCR) POS for Influ A Influenza Type B (RT-PCR) Neg for Influ B Lactic Acid Level 1.9 mmol/L 2.1 mmol/L Urine Color YELLOW Urine Appearance CLOUDY Urine pH 5.0 Urine Specific [place] 1.007 Urine Protein NEG Urine Glucose (UA) NEG Urine Ketones NEG Urine Occult Blood 2+ Urine Nitrite NEG Urine Bilirubin NEG Urine Urobilinogen NEG Urine Leukocyte Esterase NEG Urine WBC (Auto) 1-5 /hpf Urine RBC (Auto) 10-30 /hpf Urine Hyaline Casts (Auto) 1-5 /lpf Urine Epithelial Cells (Auto) 5-10 /lpf Urine Bacteria (Auto) NEG Urine Pathogenic Casts /lpf Urine Yeast (Auto) BUDDING White Blood Count 9.22 K/uL Red Blood Count 3.16 M/uL Hemoglobin 9.5 g/dL Hematocrit 27.3 % Mean Corpuscular Volume 86.4 fL Mean Corpuscular Hemoglobin 30.1 pg Mean Corpuscular Hemoglobin Concent 34.8 g/dl Platelet Count 195 K/uL Mean Platelet Volume 10.4 fL Neutrophils (%) (Auto) 88.3 % Lymphocytes (%) (Auto) 7.0 % Monocytes (%) (Auto) 2.1 % Eosinophils (%) (Auto) 0.2 % Basophils (%) (Auto) 0.1 % Neutrophils # (Auto) 8.14 K/uL Lymphocytes # (Auto) 0.65 K/uL Monocytes # (Auto) 0.19 K/uL Eosinophils # (Auto) 0.02 K/uL Basophils # (Auto) 0.01 K/uL RDW Standard Deviation 53.6 fL RDW Coefficient of Variation 17.1 % Immature Granulocyte % (Auto) 2.3 % Immature Granulocyte # (Auto) 0.21 K/uL Nucleated RBC Absolute Count (auto) 0.02 K/uL Nucleated Red Blood Cells % 0.2 % Toxic Granulation 2+ Toxic Vacuolation 2+ Dohle Bodies 2+ Echinocytes 1+ Prothrombin Time 51.1 SECONDS Prothromb Time International Ratio 4.5 Activated Partial Thromboplast Time 54.1 SECONDS Partial Thromboplastin Ratio 2.1 Sodium Level 137 mmol/L Potassium Level 3.6 mmol/L Chloride Level 104 mmol/L Carbon Dioxide Level 21 mmol/L Anion Gap 12.0 mmol/L Blood Urea Nitrogen 32 mg/dl Creatinine 1.10 mg/dl Est Creatinine Clear Calc Drug Dose 57.0 ml/min Estimated GFR () 80.6 Estimated GFR (Non- 69.6 BUN/Creatinine Ratio 28.6 Random Glucose 143 mg/dl Calcium Level 7.7 mg/dl Phosphorus Level 3.6 mg/dl Magnesium Level 2.0 mg/dl Total Bilirubin 0.4 mg/dl Aspartate Amino Transf (AST/SGOT) 60 U/L Alanine Aminotransferase (ALT/SGPT) 135 U/L Alkaline Phosphatase 64 U/L Troponin I 0.043 ng/ml Total Protein 4.9 gm/dl Albumin 1.6 gm/dl Globulin 3.3 gm/dl Albumin/Globulin Ratio 0.5 Assessment and Plan Patient is a 65 year old male who was here a couple of weeks ago w sepsis w/o unknown course, pneumonia; currently readmitted for respiratory distress. He did have evidence of L sided colitis suspected to be ischemic in nature. Hx of Cdiff positive but negative last admission, also negative stool cx. + Flu, on Tamiflu; Cdiff negative, stool cx pending. He is on Levo-fed, BP 90s- 100s/50s. HR 110s. Plans - Unable to do CT abd/pelvis w contrast given poor renal function; no utility in repeating a non contrasted CT. Would recommend contrasted CT abd/pelvis if renal function improved - Cdiff negative, stool cx pending - Continue broad spectrum antibx for enteric coverage as well - Continue to defer colonoscopy today given pt's poor respiratory status, hypotension on pressors, likely inability to complete bowel prep. Will monitor and re-eval pt on day to day basis to determine if eventually he's clinically stable enough for colonoscopy w sedation to be done. - Rising LFTs ? shock liver given hypotensive episodes yesterday vs med side effect; monitor for now. I performed a history and physical examination of the patient. I have discussed the patient's case, impression and plan with JAYCOB Rodriguez. Her note reflects my findings and plan. Positive for flu A now. Continue to follow conservatively. James Whitfield MD
--- NOTE | 2016-08-01 08:48 | Clinical Documentation Query ---
QUERY 1 OF [address] AKINS, In your clinical opinion is this patient being managed for: ( ) suspected gram negative Pneumonia causing sepsis with septic shock ( x ) Other explanation of clinical findings (Please Explain) ( ) Unable to determine (Please Define) ( ) Need to Discuss ( ) Not Agree This patient has septic shock and Staph aureus bacteremia with unclear source. He is being worked up for endocarditis. The medical record reflects the following clinical findings, treatment, and risk factors. Clinical Indicators: 65 yo male presenting with presumed septic shock of unknown source. Pt recently hospitalized and treated for Stenotrophomonas pneumonia (L lower lobe). Presented with shortness of breath to [place] [facility]. CXR at [facility] showed L basilar consolidation and small L pleural effusion. WBC 3.24, HR 132, RR 22-37, coarse lung sounds bilaterally with rhonchi L base. Treatment:ICU, BIPAP, IV zosyn, IV vancomycin, IV levaquin, IV fluids, nebs Risk Factors:recent Stenotrophomonas pneumonia, COPD, steroid therapy, DM QUERY 2 OF 2 In your clinical opinion is this patient being managed for: (x ) Influenza A ( ) Other explanation of clinical findings (Please Explain) ( ) Unable to determine (Please Define) ( ) Need to Discuss ( ) Not Agree The medical record reflects the following clinical findings, treatment, and risk factors. Clinical Indicators: Flu swab noted to be positive for influenza A Treatment: tamiflu Risk Factors: COPD, rehab at alf, DM Please clarify and document your clinical opinion in the progress notes and discharge summary. Terms such as "probable", "suspected", "likely", "questionable", "possible", or "still to be ruled out" are acceptable. IF IN AGREEMENT, YOU MUST DOCUMENT ABOVE DIAGNOSTIC STATEMENT IN DAILY PROGRESS NOTES AND DISCHARGE SUMMARY. This document is not part of the patient's record. Thank You, Pebbles Razo, MARJORIE [phone]
[2016-08-01] MEDS ORDERED: POTASSIUM CHLR 20 MEQ / WTR 20 MEQ in PREMIXED WATER 100 ML IV ONE ×2 (09:00→10:15)
[2016-08-01] MEDS: HYDROCORTISONE IV 100 MG in SYRINGE 0 ML IV SCH ×3 (09:24→20:08)
[2016-08-01] MEDS: LACTOBACILLUS ACIDOPHILUS (FLORANEX) TAB PO SCH ×3 (09:24→18:28)
[2016-08-01] MEDS: OSELTAMIVIR PHOSPHATE 75 MG CAP PO SCH ×2 (09:24→20:06)
[2016-08-01] MEDS: ATORVASTATIN 40 MG TAB PO SCH (09:25)
--- NOTE | 2016-08-01 10:02 | DIAGNOSTIC IMAGING REPORT ---
CHEST ONE VIEW PORTABLE CLINICAL HISTORY: Respiratory distress COMPARISON STUDY: 07/31/2016 FINDINGS: The heart is normal in size. There are postsurgical changes of midline sternotomy. There is a right internal jugular central venous catheter unchanged the preceding study. There is interstitial thickening, similar to the preceding study. There are left basal airspace opacities which appear stable. There is minor blunting of the lateral costophrenic angles. IMPRESSION: Left lower lobe airspace opacities, similar to the preceding study. Electronically signed by: Jose Juan Dailey M.D. 08/01/2016 10:00 AM Dictated Date/Time: 08/01/2016 9:58 AM
[2016-08-01] MEDS: PANTOprazole INJ 40 MG in SYRINGE 0 ML IV SCH (11:19)
[2016-08-01] MEDS: INSULIN REGULAR 250 UNITS in SODIUM CHLORIDE 0.9% 250ML 250 ML IV SCH (11:25)
[2016-08-01 11:46] LABS: ISTAT ARTERIAL BLOOD GAS HCO3 18 meq/L (19-24); ISTAT ARTERIAL BLOOD GAS PCO2 26 mmHg (35-46); ISTAT ARTERIAL BLOOD GAS PO2 69 mmHg (80-95); ISTAT ARTERIAL BLOOD GAS pH 7.45 (7.35-7.45); ISTAT CARBON DIOXIDE 18 mEq/l (24-31); ISTAT DELIVERY SYSTEM Cannula; ISTAT SITE Art Line
[2016-08-01 11:46] LABS: IPAP 10; ISTAT ARTERIAL BLOOD GAS HCO3 20 meq/L (19-24); ISTAT ARTERIAL BLOOD GAS PCO2 28 mmHg (35-46); ISTAT ARTERIAL BLOOD GAS PO2 189 mmHg (80-95); ISTAT ARTERIAL BLOOD GAS pH 7.46 (7.35-7.45); ISTAT CARBON DIOXIDE 21 mEq/l (24-31); ISTAT DELIVERY SYSTEM BIPAP; ISTAT FIO2 30 %; ISTAT RATE 22; ISTAT SITE Art Line
--- NOTE | 2016-08-01 12:40 | Pharmacy Progress Note ---
Pharmacy Antibiotic Prog Note Date of Service: Aug 01, 2016. Subjective: The patient is currently receiving: * Vancomycin 1000mg IV Q 18 hours (Day 2) * Zosyn 4.5gm (extended infusion) IV Q 8 hrs (Day 2) * Levofloxacin 750mg IV Q 48 hrs (Day 2) * Tamiflu 150mg PO BID (Day 2) Objective: Height (Feet): 5 Height (Inches): 5.00 Weight (Kilograms): 61.000 Lab Results (24hrs): Laboratory Tests Test 07/31/16 14:45 08/01/16 06:12 BUN/Creatinine Ratio 27.0 28.6 Blood Urea Nitrogen 35 mg/dl 32 mg/dl Creatinine 1.30 mg/dl 1.10 mg/dl White Blood Count 9.22 K/uL Red Blood Count 3.16 M/uL Hemoglobin 9.5 g/dL Hematocrit 27.3 % Mean Corpuscular Volume 86.4 fL Mean Corpuscular Hemoglobin 30.1 pg Mean Corpuscular Hemoglobin Concent 34.8 g/dl Platelet Count 195 K/uL Mean Platelet Volume 10.4 fL Neutrophils (%) (Auto) 88.3 % Lymphocytes (%) (Auto) 7.0 % Monocytes (%) (Auto) 2.1 % Eosinophils (%) (Auto) 0.2 % Basophils (%) (Auto) 0.1 % Neutrophils # (Auto) 8.14 K/uL Lymphocytes # (Auto) 0.65 K/uL Monocytes # (Auto) 0.19 K/uL Eosinophils # (Auto) 0.02 K/uL Basophils # (Auto) 0.01 K/uL Micro Results: Item Value Date Time MRSA DNA Surveillance Screen - Final Complete 07/31/16 1000 Nasal Specimen Positive for MRSA by DNA Probe Blood Culture Received 07/31/16 1127 Blood Pending Blood Culture Received 07/31/16 1138 Blood Pending C.difficile Toxin B Gene (PCR) - Final Complete 07/31/16 1300 Stool No C. difficile toxin B gene detected Shiga Toxin Test Ordered 08/01/16 0002 Stool Pending Assessment & Plan: * Patient is currently on day 2 of IV abx therapy for sepsis, possible pulmonary source, possible colitis * He is influenza A + via PCR - currently receiving Tamiflu * No abx deescalation to occur today due to continued SIRS and need for pressor support, concern for ARDS * Renal fxn improving, SCr decreasing (1.4-->1.1) but SCr not yet back to baseline (~0.7), good U.O. however is being diuresed * Given improving renal fxn, doses of Vancomycin and Levofloxacin will need adjusted today VANCOMYCIN * Change to 1000mg (~15.7mg/kg) IV Q 16 hrs * Goal trough 15-20mcg/mL for sepsis/pulm infxn * Will check trough w/ 4th dose of this regimen (includes dose given last evening) ZOSYN * Continue 4.5gm ext infusion IV Q 8 hrs LEVOFLOXACIN * Increase dose to 750mg IV Q 24 hrs for eCrCl > 50cc/min Pharmacy will continue to follow and will adjust dose/frequency as necessary. Thank you
[2016-08-01 14:00] LABS: BUN/CREATININE RATIO 31.1 (10-20); CALCIUM 7.9 mg/dl (8.5-10.1); CREATININE 0.95 mg/dl (0.60-1.40); POTASSIUM 3.9 mmol/L (3.5-5.1)
[2016-08-01] MEDS: VANCOMYCIN INJ 1,000 MG in SODIUM CHLORIDE 0.9% 250ML 250 ML IV SCH (14:09)
[2016-08-01] MEDS: LEVOFLOXACIN / D5W 750 MG in PREMIXED IN D5W 150 ML IV SCH (14:09)
[2016-08-01 15:03] LABS: ISTAT ARTERIAL BLOOD GAS HCO3 16 meq/L (19-24); ISTAT ARTERIAL BLOOD GAS PCO2 24 mmHg (35-46); ISTAT ARTERIAL BLOOD GAS PO2 80 mmHg (80-95); ISTAT ARTERIAL BLOOD GAS pH 7.43 (7.35-7.45); ISTAT CARBON DIOXIDE 17 mEq/l (24-31); ISTAT DELIVERY SYSTEM Cannula; ISTAT SITE Art Line
--- NOTE | 2016-08-01 15:14 | Pharmacy Progress Note ---
Glycemic Control: Progress Nt Date of Service Aug 01, 2016. Scope Glycemic Pharmacist consulted by Jensen Manzano on 07/31/16 for glycemic control and to write orders per [facility] inpatient glycemic control protocol. Objective Accuchecks BSG (last 24hrs): Test 07/31/16 16:01 07/31/16 17:41 07/31/16 18:18 07/31/16 19:17 Bedside Glucose 253 mg/dl (70-99) 147 mg/dl (70-99) 104 mg/dl (70-99) 88 mg/dl (70-99) Test 07/31/16 19:52 07/31/16 20:49 07/31/16 21:49 07/31/16 22:42 Bedside Glucose 164 mg/dl (70-99) 150 mg/dl (70-99) 152 mg/dl (70-99) 144 mg/dl (70-99) Test 08/01/16 00:29 08/01/16 03:09 08/01/16 06:12 08/01/16 06:29 Bedside Glucose 150 mg/dl (70-99) 144 mg/dl (70-99) 137 mg/dl (70-99) Random Glucose 143 mg/dl (70-99) Test 08/01/16 13:03 Random Glucose 138 mg/dl (70-99) Laboratory Data (last 24hrs) Test 08/01/16 06:12 08/01/16 13:03 Anion Gap 12.0 mmol/L 12.0 mmol/L BUN/Creatinine Ratio 28.6 31.1 Blood Urea Nitrogen 32 mg/dl 30 mg/dl Creatinine 1.10 mg/dl 0.95 mg/dl Potassium Level 3.6 mmol/L 3.9 mmol/L Sodium Level 137 mmol/L 135 mmol/L White Blood Count 9.22 K/uL Red Blood Count 3.16 M/uL Hemoglobin 9.5 g/dL Hematocrit 27.3 % Mean Corpuscular Volume 86.4 fL Mean Corpuscular Hemoglobin 30.1 pg Mean Corpuscular Hemoglobin Concent 34.8 g/dl Platelet Count 195 K/uL Mean Platelet Volume 10.4 fL Neutrophils (%) (Auto) 88.3 % Lymphocytes (%) (Auto) 7.0 % Monocytes (%) (Auto) 2.1 % Eosinophils (%) (Auto) 0.2 % Basophils (%) (Auto) 0.1 % Neutrophils # (Auto) 8.14 K/uL Lymphocytes # (Auto) 0.65 K/uL Monocytes # (Auto) 0.19 K/uL Eosinophils # (Auto) 0.02 K/uL Basophils # (Auto) 0.01 K/uL HbA1c: 7.4% Recent Pertinent Medications Outpatient Anti-diabetic Regimen: * Metformin 500mg PO daily * A1c = 7.4 % 07/18/16 Risk Factors for Insulin Resistance: * Steroids: Hydrocortisone 100mg IV TID * Infection: sepsis; probable pulmonary source and w/ risk factors for resistance - started on Vancomycin + Zosyn + Levofloxacin; + influ A on Tamiflu * Pressors: receiving norepinephrine * Diet: NPO Assessment & Plan ASSESSMENT: 07/31/16: * Type 2 diabetic admitted today with sepsis requiring fluid resuscitation, vasopressors and corticosteroids. * Glu on random PRP was 278, not surprising given current stressors * Central IV access is being established, he had only two peripheral lines on admission * BSGs should be checked via iSTAT given hypotension and pressor administration. * Would have a low threshold for starting an IV insulin infusion on this patient given current stressors. SQ absorption of insulin will be less predictable and likely impaired in this patient. If next BSG > 250 would initiate IV insulin infusion per severe stress protocol. Will give SQ Novolog and Lantus now. Check BSGs Q 4 hrs via iSTAT and cover with Novolog. 08/01/16: * IV insulin infusion started yesterday afternoon secondary to BSGs above 300 and continued use of norepi and iv hydrocortisone * BSGs are currently well controlled PLAN FOR INPATIENT GLYCEMIC CONTROL: * Continue the IV insulin drip with the goal range of 140-180 at this time * If vasopressors are weaned off, consider the following: * Lantus 6 units SQ BID -- overlap the insulin drip with the 1st dose for ~4-6 hours minimum * BSG checks Q 4 hrs ; Novolog SQ coverage for BSG elevations * Correction factor 20 mg/dl/unit * Carb ratio 1 unit per 7 grams CHO consumed * Goal range Low 140 mg/dL - High 180 mg/dL * Please note that the plan above was derived based on current level of insulin resistance and hospital stress. These recommendations are appropriate for inpatient admission only. Plan of care upon discharge will need to be reassessed to avoid potential outpatient hypo/hyperglycemia. Thank you.
--- NOTE | 2016-08-01 17:52 | Cardiology Follow-Up ---
Subjective Date of Service: Aug 01, 2016. 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 Records here report that he had an aortic valve replacement and a mitral valve repair which is what he confirms to me, however his echocardiogram suggests both an aortic and mitral bioprosthetic valve. He had enterococcal bacteremia in November [address] [facility] and received 6 weeks of penicillin and ceftriaxone, a MIGUEL at that time is reported in our records here to have shown aortic valve endocarditis although I have not seen that report, he does not recall being told that he had an infection in his heart. He was discharged from [facility] on 07/26/2016. He presented to [place] emergency Department with shortness of breath and was found to be tachycardic, hypotensive and possibly in septic shock. He was placed on BiPAP for his hypoxia and was transferred here. Blood cultures drawn here 07/18/2016 are now positive and one out of 2 for gram- positive cocci, organism not yet determined. He is on low dose norepinephrine and he feels better, he can breathe much better although he remains on high flow oxygen. He has no specific complaints. Social History Smoking Status: Former Smoker History of Alcohol Use: No Review of Systems Respiratory: No cough, No shortness of breath Cardiac: No chest pain, No edema Medications Cardiovascular: Item Value Date Time Atorvastatin 40 mg 08/01/16 0900 Calcium DAILY/PO 08/01/16 0925 (Lipitor Tab) Objective Vital Signs Past 12 Hours Date Time Temp Pulse Resp B/P Pulse Ox O2 Delivery O2 Flow Rate FiO2 08/01/16 16:02 110 22 96 Nasal Cannula 40.0 35 08/01/16 16:00 110 24 96/48 97 High Flow Oxygen 35 08/01/16 15:00 91 20 103/51 97 High Flow Oxygen 35 08/01/16 14:58 104 20 106/51 97 High Flow Oxygen 35 08/01/16 14:18 110 97 08/01/16 13:58 110 22 119/55 95 High Flow Oxygen 35 08/01/16 13:00 99 20 108/51 97 High Flow Oxygen 35 08/01/16 12:36 98 19 104/48 97 High Flow Oxygen 35 90/56 08/01/16 12:00 High Flow Oxygen 40.0 35 08/01/16 11:58 37.1 52 20 99/43 96 High Flow Oxygen 35 08/01/16 11:04 115 22 96 Nasal Cannula 40.0 35 08/01/16 10:58 94 20 103/50 98 High Flow Oxygen 35 101/64 08/01/16 09:00 93 19 113/65 100 BiPAP 30 08/01/16 08:00 99 18 99/51 100 BiPAP 30 108/58 08/01/16 08:00 BiPAP 30 08/01/16 08:00 BiPAP 30 08/01/16 07:18 100 97 08/01/16 07:17 100 20 97 BiPAP/CPAP 30 08/01/16 07:00 87 17 119/58 96 121/59 08/01/16 06:00 103 21 92/49 97 93/59 Last Recorded Weight-Kilograms: 61.000 Intake & Output 8-Hour Column 07/31/16 08/01/16 08/01/16 16:00 00:00 08:00 Intake Total 333 ml 924 ml 904 ml Output Total 400 ml 1250 ml 1250 ml Balance -67 ml -326 ml -346 ml 24-Hour Column 08/01/16 08:00 Intake Total 2161 ml Output Total 2900 ml Balance -739 ml Physical Exam Constitutional: Level of Distress: mild distress Lungs: Auscultation: breath sounds normal Cardiovascular: Heart Auscultation: irregular rate rhythm, pertinent finding (good prosthetic valve sounds) Extremities: no edema Data Laboratory Results: Last 24 Hours Test 07/31/16 17:41 07/31/16 18:18 07/31/16 18:30 07/31/16 19:17 Bedside Glucose 147 mg/dl 104 mg/dl 88 mg/dl Lactic Acid Level 3.1 mmol/L Test 07/31/16 19:52 07/31/16 20:49 07/31/16 21:49 07/31/16 22:02 Bedside Glucose 164 mg/dl 150 mg/dl 152 mg/dl Hemoglobin 9.7 g/dL Hematocrit 27.8 % Troponin I 0.087 ng/ml Test 07/31/16 22:42 07/31/16 22:45 08/01/16 00:23 08/01/16 00:29 Bedside Glucose 144 mg/dl 150 mg/dl Influenza Type A (RT-PCR) POS for Influ A Influenza Type B (RT-PCR) Neg for Influ B Lactic Acid Level 1.9 mmol/L Test 08/01/16 00:37 08/01/16 03:09 08/01/16 06:12 08/01/16 06:29 Urine Color YELLOW Urine Appearance CLOUDY Urine pH 5.0 Urine Specific [place] 1.007 Urine Protein NEG Urine Glucose (UA) NEG Urine Ketones NEG Urine Occult Blood 2+ Urine Nitrite NEG Urine Bilirubin NEG Urine Urobilinogen NEG Urine Leukocyte Esterase NEG Urine WBC (Auto) 1-5 /hpf Urine RBC (Auto) 10-30 /hpf Urine Hyaline Casts (Auto) 1-5 /lpf Urine Epithelial Cells (Auto) 5-10 /lpf Urine Bacteria (Auto) NEG Urine Pathogenic Casts /lpf Urine Yeast (Auto) BUDDING Bedside Glucose 144 mg/dl 137 mg/dl White Blood Count 9.22 K/uL Red Blood Count 3.16 M/uL Hemoglobin 9.5 g/dL Hematocrit 27.3 % Mean Corpuscular Volume 86.4 fL Mean Corpuscular Hemoglobin 30.1 pg Mean Corpuscular Hemoglobin Concent 34.8 g/dl Platelet Count 195 K/uL Mean Platelet Volume 10.4 fL Neutrophils (%) (Auto) 88.3 % Lymphocytes (%) (Auto) 7.0 % Monocytes (%) (Auto) 2.1 % Eosinophils (%) (Auto) 0.2 % Basophils (%) (Auto) 0.1 % Neutrophils # (Auto) 8.14 K/uL Lymphocytes # (Auto) 0.65 K/uL Monocytes # (Auto) 0.19 K/uL Eosinophils # (Auto) 0.02 K/uL Basophils # (Auto) 0.01 K/uL RDW Standard Deviation 53.6 fL RDW Coefficient of Variation 17.1 % Immature Granulocyte % (Auto) 2.3 % Immature Granulocyte # (Auto) 0.21 K/uL Nucleated RBC Absolute Count (auto) 0.02 K/uL Nucleated Red Blood Cells % 0.2 % Toxic Granulation 2+ Toxic Vacuolation 2+ Dohle Bodies 2+ Echinocytes 1+ Prothrombin Time 51.1 SECONDS Prothromb Time International Ratio 4.5 Activated Partial Thromboplast Time 54.1 SECONDS Partial Thromboplastin Ratio 2.1 Sodium Level 137 mmol/L Potassium Level 3.6 mmol/L Chloride Level 104 mmol/L Carbon Dioxide Level 21 mmol/L Anion Gap 12.0 mmol/L Blood Urea Nitrogen 32 mg/dl Creatinine 1.10 mg/dl Est Creatinine Clear Calc Drug Dose 57.0 ml/min Estimated GFR () 80.6 Estimated GFR (Non- 69.6 BUN/Creatinine Ratio 28.6 Random Glucose 143 mg/dl Lactic Acid Level 2.1 mmol/L Calcium Level 7.7 mg/dl Phosphorus Level 3.6 mg/dl Magnesium Level 2.0 mg/dl Total Bilirubin 0.4 mg/dl Aspartate Amino Transf (AST/SGOT) 60 U/L Alanine Aminotransferase (ALT/SGPT) 135 U/L Alkaline Phosphatase 64 U/L Troponin I 0.043 ng/ml Total Protein 4.9 gm/dl Albumin 1.6 gm/dl Globulin 3.3 gm/dl Albumin/Globulin Ratio 0.5 Test 08/01/16 08:53 08/01/16 09:32 08/01/16 10:07 08/01/16 10:11 Bedside Glucose (other) 135 mg/dl 134 mg/dl Blood Gas Sample Site Art Line Art Line Bedside Blood Gas pH (LAB) 7.46 7.45 Bedside Blood Gas pCO2 (LAB) 28 mmHg 26 mmHg Bedside Blood Gas pO2 (LAB) 189 mmHg 69 mmHg Bedside Blood Gas HCO3 (LAB) 20 meq/L 18 meq/L Bedside Blood Gas Total CO2 21 mEq/l 18 mEq/l Bedside Blood Gas Base Excess (LAB) -4.0 meq/L -6.0 meq/L Bedside Blood Gas O2 Saturation 100.0 % 94.0 % Victoriano Test NA NA Oxygen Delivery Device BIPAP Cannula Bedside Oxygen Rate (breaths/min) 22 Bedside FiO2 30 % Blood Gas IPAP 10 Test 08/01/16 11:33 08/01/16 12:30 08/01/16 13:03 08/01/16 14:18 Bedside Glucose (other) 138 mg/dl 150 mg/dl Sodium Level 135 mmol/L Potassium Level 3.9 mmol/L Chloride Level 103 mmol/L Carbon Dioxide Level 20 mmol/L Anion Gap 12.0 mmol/L Blood Urea Nitrogen 30 mg/dl Creatinine 0.95 mg/dl Est Creatinine Clear Calc Drug Dose 66.0 ml/min Estimated GFR () 96.3 Estimated GFR (Non- 83.1 BUN/Creatinine Ratio 31.1 Random Glucose 138 mg/dl Calcium Level 7.9 mg/dl Blood Gas Sample Site Art Line Bedside Blood Gas pH (LAB) 7.43 Bedside Blood Gas pCO2 (LAB) 24 mmHg Bedside Blood Gas pO2 (LAB) 80 mmHg Bedside Blood Gas HCO3 (LAB) 16 meq/L Bedside Blood Gas Total CO2 17 mEq/l Bedside Blood Gas Base Excess (LAB) -8.0 meq/L Bedside Blood Gas O2 Saturation 96.0 % Victoriano Test NA Oxygen Delivery Device Cannula Test 08/01/16 14:21 08/01/16 16:35 Bedside Glucose (other) 153 mg/dl 179 mg/dl Telemetry reviewed: Atrial fibrillation with a well-controlled heart rate. Assessment and Plan #1. Possible sepsis and hypotension: It is possible he has endocarditis, we will need to obtain better records from his [facility] evaluation in November and he has had blood cultures drawn here which are 1 out of 2 positive for gram positives. This could be the same organism which could be an ominous sign with his valves.. The echocardiogram was not good quality but his valves appear to be functioning adequately, we cannot tell if there are vegetations and to evaluate that we need a transesophageal echocardiogram. The moment I would continue with antibiotics and await final culture results. He may need a transesophageal echocardiogram, I discussed with him and he is agreeable. I will see how he is doing in the morning and see if we should set that up for tomorrow some time. The meantime would be good to keep him nothing by mouth overnight. #2. Prosthetic valve: There is discrepancy between the records and what the patient says of what appears to be present on the echocardiogram, we will try to determine exactly what his valve surgery was. In any case valves appeared to be working well at this time but we cannot tell if vegetations are present. #3. Left ventricular dysfunction: This appears to be new, an echocardiogram done 07/19/2016 shows normal left ventricular size and function. Presumably his acute left ventricular dysfunction is due to his acute illness and stunning, not an interim cardiac event. I would treat him for his underlying condition and hopefully his left ventricular function will recover quickly. There is no evidence of acute myocardial infarction. #4. Atrial fibrillation: He is reported to have paroxysmal atrial fibrillation, he has been in atrial fibrillation or perhaps atrial flutter or an atrial tachycardia since admission here this visit, at his last visit he was also in atrial fibrillation. He is anticoagulated with warfarin for this. Over the long run he will need to be anticoagulated for his arrhythmia, but not for his valvular disease. For the moment however holding anticoagulation should not pose much risk and may be safer in case invasive procedures are needed. His INR is supratherapeutic at 4.5 today. Thank you for allowing me to participate in his care.
[2016-08-01 22:38] LABS: ISTAT ARTERIAL BLOOD GAS HCO3 19 meq/L (19-24); ISTAT ARTERIAL BLOOD GAS PCO2 26 mmHg (35-46); ISTAT ARTERIAL BLOOD GAS PO2 84 mmHg (80-95); ISTAT ARTERIAL BLOOD GAS pH 7.46 (7.35-7.45); ISTAT CARBON DIOXIDE 19 mEq/l (24-31); ISTAT DELIVERY SYSTEM Cannula; ISTAT SITE Art Line
[2016-08-02] VITALS (33 sets, daily range): BP systolic 97–175; BP diastolic 37–82; PULSE 92–115; TEMP 36.7–37.1; O2SAT 92–99; Ht 165.1 cm; Wt 67.4 kg
[2016-08-02] MEDS: PIPERACILL/TAZOBAC IV 4.5 GM in DEXTROSE 5% 100ML IV SCH ×2 (01:39→08:35)
[2016-08-02] MEDS: VANCOMYCIN INJ 1,000 MG in SODIUM CHLORIDE 0.9% 250ML 250 ML IV SCH (05:42)
[2016-08-02 06:06] LABS: ISTAT ARTERIAL BLOOD GAS HCO3 21 meq/L (19-24); ISTAT ARTERIAL BLOOD GAS PCO2 29 mmHg (35-46); ISTAT ARTERIAL BLOOD GAS PO2 83 mmHg (80-95); ISTAT ARTERIAL BLOOD GAS pH 7.48 (7.35-7.45); ISTAT CARBON DIOXIDE 22 mEq/l (24-31); ISTAT DELIVERY SYSTEM Cannula; ISTAT SITE Art Line
[2016-08-02 06:20] LABS: HEMATOCRIT 21.7 % (42-52); MEAN CELL VOLUME 86.8 fL (80-100); MEAN CORPUSCULAR HGB CONC 34.6 g/dl (32-36); MEAN PLATELET VOLUME 10.1 fL (7.4-10.4); PLATELET COUNT 142 K/uL (130-400); WHITE BLOOD COUNT 5.71 K/uL (4.8-10.8)
[2016-08-02 06:26] LABS: INR 2.8 (0.9-1.1); PROTHROMBIN TIME (PATIENT) 31.1 SECONDS (9.0-12.0)
[2016-08-02 06:56] LABS: ALB/GLOB RATIO 0.4 (0.9-2); BUN/CREATININE RATIO 33.7 (10-20); CALCIUM 7.4 mg/dl (8.5-10.1); CREATININE 0.85 mg/dl (0.60-1.40); MAGNESIUM 2.1 mg/dl (1.8-2.4); PHOSPHORUS 3.2 mg/dl (2.5-4.9); POTASSIUM 3.2 mmol/L (3.5-5.1)
[2016-08-02] MEDS: LACTOBACILLUS ACIDOPHILUS (FLORANEX) TAB PO SCH ×3 (07:15→15:46)
[2016-08-02] MEDS: ALBUT/IPRATROP 3MG/0.5MG NEB 3 ML VIAL INH SCH ×4 (07:36→18:53)
[2016-08-02] MEDS: BUDESONIDE 0.5 MG/2 ML VIAL (PULMICORT) INH SCH ×2 (07:36→18:53)
--- NOTE | 2016-08-02 07:52 | Critical Care Progress Note ---
Critical Care Progress Note Date of Service Aug 02, 2016. Attending Dr. Hsu Subjective This patient is a 65-year-old male who presents with influenza type a which has cause a decompensated heart failure with an EF of 30-35%. He had no acute events overnight. In fact his norepinephrine has been turned off this morning, and his systolic blood pressure has remained greater than 100. He is also being weaned off high flow oxygen and return to his home two liter nasal cannula. He has been slightly tachycardic 94-112 bpm. He is remained afebrile. He has a Noel in place with good urinary output, even I's and O's. This morning he has no complaints. He denies pain, fever, chills, headache. He denies chest pain/pressure, palpitations, shortness of breath, cough, nausea or vomiting. He has not had a bowel movement since the day of admission; however, he has also not had a diet. He feels much improved, is willing to consider getting out of bed today. He reports a good visit with physical therapy yesterday. Objective Vital Signs - as noted Laboratory Data - as noted Physical Exam: General - NAD resting in bed on 2L nasal cannula Eyes - PERRL, EOMI No icterus, gaze conjugate Neck - Supple, trachea midline, no masses or lymphadenopathy, no JVD or bruits Lungs - No paradoxical chest wall movement, Coarse to auscultation bilaterally, Rhonchi improving at Left Base, no wheezes or rales Heart - Irregularly Irregular, No murmur, rubs, clicks, or gallops appreciated Abdomen - BS present, no bruits noted, tympanic to percussion, soft, tenderness to LLQ, mildly distended, no organomegaly Extremities - No edema, pedal pulses intact Neuro - A&O X4 Strength: Equal bilaterally CN:PERRL, EOMI, no facial asymmetry, uvula/tongue midline Assessment & Plan (1) Acute hypoxemic respiratory failure Previously required BiPap; Baseline 2L Nasal Cannula requirement While on high flow O2: AB.48/29/83/21 Off of high flow O2 this morning; back on home regimen of 2 L via nasal cannula Adequate saturations greater than 92% Continue supplemental O2 Patient back to baseline Continue respiratory regimen as documented in COPD (2) Septic shock Gram + growth in 1 of 2 Blood Cultures: Staph Aureus Possible Contaminant Prev Admission: Gram Neg Nish Bacteremia Neg C. Diff Norepinephrine discontinued Last lactic acid 2.1, repeat once more with next labs. Continue current Broad Spectrum Abx: Day 3 of antibiotics Will consider de-escalation after blood cultures result * Vanco 1 g IV every 14 hour: Goal trough 15-20, trough ordered for 1929 tonight * Zosyn 4.5 g IV every 8 hours * Levaquin 750 mg IV every 24 hours Continue hydrocortisone 100 mg IV 3 times a day * Will consider taper starting tomorrow if systolic blood pressure remained stable Repeat Blood Cultures Pending Consider discontinuing possible future sites of infection as appropriate: Noel , arterial line, central line Monitor on telemetry Follow serial lab work (3) Influenza A Influenza Type A Positive; Likely the cause of his stress induced Cardiomyopathy Did receive Influenza Vaccine this year Continue Tamiflu 150 BID, 3 out of 5 days total Continue to supplement O2 (4) COPD (chronic obstructive pulmonary disease) Tobacco abuse times many years, patient reports quitting in the last 2 months Physical exam findings improving Continue Pulmicort BID and DuoNeb QID Continue supplemental oxygen as needed Monitor on telemetry (5) Acute left-sided CHF (congestive heart failure) Spoke with Dr. Razo this morning as he was in route to examine patient for possible MIGUEL Spoke with Dr. Kraus, who believes blood cultures are likely contaminant and does not feel that the MIGUEL will be necessary Dr. Kraus consulted; appreciate input (6) Anemia 2g drop in hemoglobin in the last 24 hours: Previously 9.5; now 7.78 No sign of outward bleeding, currently no bowel movement to test for heme, patient denies increased abdominal pain from baseline Concern for retroperitoneal hematoma Abd CT currently being held due to recent PETRA and patient's stability having previously required vasopressors for septic shock Hemoccult with next stool Will trend serial CBC q8 hours (7) PETRA (acute kidney injury) Creatinine peaked at 1.4; now 0.85 Baseline around 0.7 Pharmacy consulted broad-spectrum antibiotics and will dose renally accordingly Continue to renally dose medications Avoid nephrotoxic drugs Will begin diet of clear liquids today Continue even I's and O's (8) History of Clostridium difficile colitis Negative C. difficile on admission Repeat C. difficile culture with next bowel movement Currently holding off on CT of abdomen due to recent need for pressors and PETRA Patient is not complaining of increased abdominal pain (9) Hx of bacterial endocarditis History of mitral and atrial bioprosthetic valve replacement Cardiology consulted: Dr. Efra Razo consult for possible MIGUEL Second set of blood cultures pending Minimal threshold to order third set (10) History of Gram negative infection Previous colitis on last admission with gram-negative rods in blood cultures Blood cultures repeated here this admission: 1 out of 2 with staph aureus Repeat cultures now pending Antibiotics as noted above Consult placed for GI, Dr Whitfield, in regards to possible colonoscopy (11) Paroxysmal a-fib PT 31.1; INR 2.8 Currently in A. fib, rate in the high 90s to low 100s Will continue to hold Coumadin at this time in the setting of a 2g decrease in hemoglobin. Concern for retroperitoneal hematoma Cardiology consult in place Monitor on telemetry and follow clinically Repeat coags with a.m. labs When able consider restarting home meds: Currently held for hypotension * Lisinopril 10mg qDaily * Diltiazem 60mg TID * Coumadin 2.5mg qDaily Endocrine/electrolytes Consult dust handler for elevated A1c Insulin drip required less than protocol directions of 0.4; clear liquid diet is being started; therefore we'll switch patient to NovoLog sliding scale Potassium 3.2; replete 40 mEq IV Diet: Begin clear liquid diet, advance as tolerated after MIGUEL or if no MIGUEL DVT prophylaxis: * SCDs in place * Ambulate patient today, out of bed to chair every shift if not symptomatic from orthostatic hypertension Access: Right triple IJ catheter Right radial arterial line Left forearm PIV CCT: 34 minutes, not including any billable procedures. Thank you for including us in the care of this patient. Please review Dr. Hsu's addendum for further recommendations. I have personally evaluated and examined this patient. I agree with assessment and plan of Flako Manzano PA-C. Patient was finally able to be weaned off pressors this morning, as he is not undergoing a transesophageal echocardiogram at allow the patient to eat, we are starting with clears and will progress as tolerated. And happy with the patient improvements, however he is still critically ill due to influenza a, hypoxic respiratory failure, possible bacteremia. Consults & Procedures Consultants: Cardiology: Dr. Kraus GI: Dr. Whitfield Procedures: R IJ Central Line: 1/18/17 R Radial Art Line: 07/31/16 ECHO: 07/31/16 Data Medications: Current Inpatient Medications Medications (Trade) Dose Ordered Sig/Jim Route Start Time Stop Time Status Last Admin Dose Admin Acetaminophen (Tylenol Tab) 650 mg Q4H PRN PO 07/31/16 11:00 08/30/16 10:59 Ondansetron HCl 4 mg 4 mg Q6H PRN IV 07/31/16 11:00 08/30/16 10:59 Pantoprazole Sodium 40 mg/ Syringe 10 ml @ 5 mls/min DAILY@1100 IV 08/01/16 11:00 08/31/16 10:59 08/01/16 11:19 5 MLS/MIN Hydrocortisone Sodium Succinate 100 mg/Syringe 2 ml @ 4 mls/min TID IV 07/31/16 21:00 08/30/16 20:59 08/01/16 20:08 4 MLS/MIN Norepinephrine Bitartrate/ Dextrose (Levophed Inj/ D5W 500ml) 508 ml @ 0 mls/hr Q0M PRN IV 07/31/16 10:38 08/30/16 10:37 08/01/16 20:05 11.7 MLS/HR Miscellaneous Information (Consult Glycemic Management Pharmacy) 1 ea UD N/A 07/31/16 11:05 08/30/16 11:04 Atorvastatin Calcium (Lipitor Tab) 40 mg DAILY PO 08/01/16 09:00 08/31/16 08:59 08/01/16 09:25 40 MG Budesonide (Pulmicort Respules 0.5MG/ 2ML Neb Soln) 0.5 mg BIDR INH 07/31/16 20:00 08/30/16 19:59 08/02/16 07:36 0.5 MG Lactobacillus Acidophilus (Floranex Tab) 4 tab TIDM PO 07/31/16 16:30 08/30/16 16:29 08/01/16 18:28 4 TAB Albuterol/ Ipratropium (Duoneb) 3 ml QIDR INH 07/31/16 12:00 08/30/16 11:59 08/02/16 07:36 3 ML Glucose (Glucose 40% Gel) 15-30 GRAMS 15 GRAMS... UD PRN PO 07/31/16 12:45 08/30/16 12:44 Glucose (Glucose Chew Tab) 4-8 Tablets 4 Tabl... UD PRN PO 07/31/16 12:45 08/30/16 12:44 Dextrose (Dextrose 50% 50ML Syringe) 25-50ML OF 50% DW IV FOR... UD PRN IV 07/31/16 12:45 08/30/16 12:44 07/31/16 19:32 25 ML Glucagon 1 mg 1 mg UD PRN SQ 07/31/16 12:45 08/30/16 12:44 Piperacillin Sod/ Tazobactam Sod/ Dextrose (Zosyn Iv/D5 100ml) 120 ml @ 30 mls/hr Q8H IV 07/31/16 18:00 08/07/16 17:59 08/02/16 01:39 30 MLS/HR Vancomycin HCl (Consult) 1 ea UD PRN N/A 07/31/16 14:15 08/30/16 14:14 Levofloxacin (Consult) 1 ea UD PRN N/A 07/31/16 14:15 08/30/16 14:14 Piperacillin Sod/ Tazobactam Sod (Consult) 1 ea UD PRN N/A 07/31/16 14:15 08/30/16 14:14 Oseltamivir Phosphate (Tamiflu Cap) 150 mg BID PO 07/31/16 22:00 08/05/16 21:59 08/01/16 20:06 150 MG Insulin Aspart [facility] 07/31/16 17:15 08/30/16 17:14 Insulin Human Regular 250 units/ Sodium Chloride 252.5 ml @ 0 mls/hr DAILY@1130 IV 07/31/16 16:16 08/30/16 16:15 08/01/16 11:25 0.4 MLS/HR Levofloxacin 750 mg/Prmx 150 ml @ 100 mls/hr Q24H IV 08/01/16 13:00 08/08/16 12:59 08/01/16 14:09 100 MLS/HR Vancomycin HCl/ Sodium Chloride (Vancomycin Inj/ Nss 250ml) 270 ml @ 125 mls/hr Q16H IV 08/01/16 14:00 08/07/16 21:59 08/02/16 05:42 125 MLS/HR I & O: 24-Hour Column 08/02/16 08:00 Intake Total 1999 ml Output Total 1675 ml Balance 324 ml Vital Signs: Date Time Temp Pulse Resp B/P Pulse Ox O2 Delivery O2 Flow Rate FiO2 08/02/16 07:36 101 22 97 Nasal Cannula 40.0 35 08/02/16 06:00 109 19 100/47 95 High Flow Oxygen 35 08/02/16 05:00 94 18 123/61 96 08/02/16 04:00 96 High Flow Oxygen 35 08/02/16 04:00 36.9 101 17 102/52 97 High Flow Oxygen 35 08/02/16 02:00 98 17 127/56 97 High Flow Oxygen 35 08/02/16 00:00 36.8 99 17 97/45 97 High Flow Oxygen 35 08/01/16 23:59 97 High Flow Oxygen 35 08/01/16 22:00 86 18 110/50 97 High Flow Oxygen 35 08/01/16 20:46 115 22 97 Nasal Cannula 40.0 35 08/01/16 20:00 36.8 105 18 100/46 94 High Flow Oxygen 35 93/58 08/01/16 20:00 95 High Flow Oxygen 35 08/01/16 17:58 105 32 101/44 98 High Flow Oxygen 35 90/62 08/01/16 17:00 37.1 101 19 110/44 96 High Flow Oxygen 35 08/01/16 16:02 110 22 96 Nasal Cannula 40.0 35 08/01/16 16:00 110 24 96/48 97 High Flow Oxygen 35 08/01/16 16:00 High Flow Oxygen 40.0 35 08/01/16 15:00 91 20 103/51 97 High Flow Oxygen 35 08/01/16 14:58 104 20 106/51 97 High Flow Oxygen 35 08/01/16 14:18 110 97 08/01/16 13:58 110 22 119/55 95 High Flow Oxygen 35 08/01/16 13:00 99 20 108/51 97 High Flow Oxygen 35 08/01/16 12:36 98 19 104/48 97 High Flow Oxygen 35 90/56 08/01/16 12:00 High Flow Oxygen 40.0 35 08/01/16 11:58 37.1 52 20 99/43 96 High Flow Oxygen 35 08/01/16 11:04 115 22 96 Nasal Cannula 40.0 35 08/01/16 10:58 94 20 103/50 98 High Flow Oxygen 35 101/64 08/01/16 09:00 93 19 113/65 100 BiPAP 30 08/01/16 08:00 99 18 99/51 100 BiPAP 30 108/58 08/01/16 08:00 BiPAP 30 08/01/16 08:00 BiPAP 30 Laboratory Results: Last 24 Hours Test 08/01/16 08:53 08/01/16 09:32 08/01/16 10:07 08/01/16 10:11 Bedside Glucose (other) 135 mg/dl 134 mg/dl Blood Gas Sample Site Art Line Art Line Bedside Blood Gas pH (LAB) 7.46 7.45 Bedside Blood Gas pCO2 (LAB) 28 mmHg 26 mmHg Bedside Blood Gas pO2 (LAB) 189 mmHg 69 mmHg Bedside Blood Gas HCO3 (LAB) 20 meq/L 18 meq/L Bedside Blood Gas Total CO2 21 mEq/l 18 mEq/l Bedside Blood Gas Base Excess (LAB) -4.0 meq/L -6.0 meq/L Bedside Blood Gas O2 Saturation 100.0 % 94.0 % Victoriano Test NA NA Oxygen Delivery Device BIPAP Cannula Bedside Oxygen Rate (breaths/min) 22 Bedside FiO2 30 % Blood Gas IPAP 10 Test 08/01/16 11:33 08/01/16 12:30 08/01/16 13:03 08/01/16 14:18 Bedside Glucose (other) 138 mg/dl 150 mg/dl Sodium Level 135 mmol/L Potassium Level 3.9 mmol/L Chloride Level 103 mmol/L Carbon Dioxide Level 20 mmol/L Anion Gap 12.0 mmol/L Blood Urea Nitrogen 30 mg/dl Creatinine 0.95 mg/dl Est Creatinine Clear Calc Drug Dose 66.0 ml/min Estimated GFR () 96.3 Estimated GFR (Non- 83.1 BUN/Creatinine Ratio 31.1 Random Glucose 138 mg/dl Calcium Level 7.9 mg/dl Blood Gas Sample Site Art Line Bedside Blood Gas pH (LAB) 7.43 Bedside Blood Gas pCO2 (LAB) 24 mmHg Bedside Blood Gas pO2 (LAB) 80 mmHg Bedside Blood Gas HCO3 (LAB) 16 meq/L Bedside Blood Gas Total CO2 17 mEq/l Bedside Blood Gas Base Excess (LAB) -8.0 meq/L Bedside Blood Gas O2 Saturation 96.0 % Victoriano Test NA Oxygen Delivery Device Cannula Test 08/01/16 14:21 08/01/16 16:35 08/01/16 18:40 08/01/16 21:41 Bedside Glucose (other) 153 mg/dl 179 mg/dl 155 mg/dl 153 mg/dl Test 08/01/16 22:23 08/02/16 01:47 08/02/16 05:49 08/02/16 05:52 Blood Gas Sample Site Art Line Art Line Bedside Blood Gas pH (LAB) 7.46 7.48 Bedside Blood Gas pCO2 (LAB) 26 mmHg 29 mmHg Bedside Blood Gas pO2 (LAB) 84 mmHg 83 mmHg Bedside Blood Gas HCO3 (LAB) 19 meq/L 21 meq/L Bedside Blood Gas Total CO2 19 mEq/l 22 mEq/l Bedside Blood Gas Base Excess (LAB) -5.0 meq/L -3.0 meq/L Bedside Blood Gas O2 Saturation 97.0 % 97.0 % Victoriano Test NA NA Oxygen Delivery Device Cannula Cannula Bedside Glucose (other) 158 mg/dl White Blood Count 5.71 K/uL Red Blood Count 2.50 M/uL Hemoglobin 7.5 g/dL Hematocrit 21.7 % Mean Corpuscular Volume 86.8 fL Mean Corpuscular Hemoglobin 30.0 pg Mean Corpuscular Hemoglobin Concent 34.6 g/dl Platelet Count 142 K/uL Mean Platelet Volume 10.1 fL RDW Standard Deviation 55.1 fL RDW Coefficient of Variation 17.5 % Nucleated RBC Absolute Count (auto) 0.03 K/uL Nucleated Red Blood Cells % 0.5 % Prothrombin Time 31.1 SECONDS Prothromb Time International Ratio 2.8 Sodium Level 138 mmol/L Potassium Level 3.2 mmol/L Chloride Level 104 mmol/L Carbon Dioxide Level 21 mmol/L Anion Gap 13.0 mmol/L Blood Urea Nitrogen 29 mg/dl Creatinine 0.85 mg/dl Est Creatinine Clear Calc Drug Dose 74.4 ml/min Estimated GFR () 105.2 Estimated GFR (Non- 90.8 BUN/Creatinine Ratio 33.7 Random Glucose 159 mg/dl Calcium Level 7.4 mg/dl Phosphorus Level 3.2 mg/dl Magnesium Level 2.1 mg/dl Total Bilirubin 0.3 mg/dl Aspartate Amino Transf (AST/SGOT) 20 U/L Alanine Aminotransferase (ALT/SGPT) 78 U/L Alkaline Phosphatase 68 U/L Total Protein 4.4 gm/dl Albumin 1.3 gm/dl Globulin 3.1 gm/dl Albumin/Globulin Ratio 0.4 Test 08/02/16 06:15 Bedside Glucose (other) 156 mg/dl
[2016-08-02] MEDS: INSULIN ASPART 100 UNITS/ML 3 ML PEN SC SCH ×4 (08:00→20:47)
[2016-08-02 08:08] LABS: COMPLETE YES; IG% 0.4 %; LYMPH % 7.9 %; LYMPH ABS # 0.45 K/uL (1.2-3.4); MONO % 5.1 %; NEUT % 86.6 %; TOXIC GRANULATION 2+
--- NOTE | 2016-08-02 08:16 | Hospitalist Progress Note ---
Hospitalist Progress Note Date of Service Aug 02, 2016. Subjective Pt evaluation today including: conversation w/ patient, physical exam, chart review, lab review, review of studies, review of inpatient medication list Pain: c/o LLQ pain still, a little better than yesterday Objective Vital Signs Date Time Temp Pulse Resp B/P Pulse Ox O2 Delivery O2 Flow Rate FiO2 08/02/16 07:36 101 22 97 Nasal Cannula 40.0 35 08/02/16 06:00 109 19 100/47 95 High Flow Oxygen 35 08/02/16 05:00 94 18 123/61 96 08/02/16 04:00 96 High Flow Oxygen 35 08/02/16 04:00 36.9 101 17 102/52 97 High Flow Oxygen 35 08/02/16 02:00 98 17 127/56 97 High Flow Oxygen 35 08/02/16 00:00 36.8 99 17 97/45 97 High Flow Oxygen 35 08/01/16 23:59 97 High Flow Oxygen 35 08/01/16 22:00 86 18 110/50 97 High Flow Oxygen 35 08/01/16 20:46 115 22 97 Nasal Cannula 40.0 35 08/01/16 20:00 36.8 105 18 100/46 94 High Flow Oxygen 35 93/58 08/01/16 20:00 95 High Flow Oxygen 35 08/01/16 17:58 105 32 101/44 98 High Flow Oxygen 35 90/62 08/01/16 17:00 37.1 101 19 110/44 96 High Flow Oxygen 35 08/01/16 16:02 110 22 96 Nasal Cannula 40.0 35 08/01/16 16:00 110 24 96/48 97 High Flow Oxygen 35 08/01/16 16:00 High Flow Oxygen 40.0 35 08/01/16 15:00 91 20 103/51 97 High Flow Oxygen 35 08/01/16 14:58 104 20 106/51 97 High Flow Oxygen 35 08/01/16 14:18 110 97 08/01/16 13:58 110 22 119/55 95 High Flow Oxygen 35 08/01/16 13:00 99 20 108/51 97 High Flow Oxygen 35 08/01/16 12:36 98 19 104/48 97 High Flow Oxygen 35 90/56 08/01/16 12:00 High Flow Oxygen 40.0 35 08/01/16 11:58 37.1 52 20 99/43 96 High Flow Oxygen 35 08/01/16 11:04 115 22 96 Nasal Cannula 40.0 35 08/01/16 10:58 94 20 103/50 98 High Flow Oxygen 35 101/64 08/01/16 09:00 93 19 113/65 100 BiPAP 30 Physical Exam General Appearance: no apparent distress Eyes: sclerae normal Respiratory/Chest: + pertinent finding (few coarse sounds bilaterally, not in distress) Cardiovascular: regular rate, rhythm Abdomen: soft, + tenderness (mild, in LLQ) Extremities: no pedal edema Neurologic/Psychiatric: alert, oriented x 3 Skin: warm/dry Laboratory Results Last 24 Hours Test 08/01/16 08:53 08/01/16 09:32 08/01/16 10:07 08/01/16 10:11 Bedside Glucose (other) 135 mg/dl 134 mg/dl Blood Gas Sample Site Art Line Art Line Bedside Blood Gas pH (LAB) 7.46 7.45 Bedside Blood Gas pCO2 (LAB) 28 mmHg 26 mmHg Bedside Blood Gas pO2 (LAB) 189 mmHg 69 mmHg Bedside Blood Gas HCO3 (LAB) 20 meq/L 18 meq/L Bedside Blood Gas Total CO2 21 mEq/l 18 mEq/l Bedside Blood Gas Base Excess (LAB) -4.0 meq/L -6.0 meq/L Bedside Blood Gas O2 Saturation 100.0 % 94.0 % Victoriano Test NA NA Oxygen Delivery Device BIPAP Cannula Bedside Oxygen Rate (breaths/min) 22 Bedside FiO2 30 % Blood Gas IPAP 10 Test 08/01/16 11:33 08/01/16 12:30 08/01/16 13:03 08/01/16 14:18 Bedside Glucose (other) 138 mg/dl 150 mg/dl Sodium Level 135 mmol/L Potassium Level 3.9 mmol/L Chloride Level 103 mmol/L Carbon Dioxide Level 20 mmol/L Anion Gap 12.0 mmol/L Blood Urea Nitrogen 30 mg/dl Creatinine 0.95 mg/dl Est Creatinine Clear Calc Drug Dose 66.0 ml/min Estimated GFR () 96.3 Estimated GFR (Non- 83.1 BUN/Creatinine Ratio 31.1 Random Glucose 138 mg/dl Calcium Level 7.9 mg/dl Blood Gas Sample Site Art Line Bedside Blood Gas pH (LAB) 7.43 Bedside Blood Gas pCO2 (LAB) 24 mmHg Bedside Blood Gas pO2 (LAB) 80 mmHg Bedside Blood Gas HCO3 (LAB) 16 meq/L Bedside Blood Gas Total CO2 17 mEq/l Bedside Blood Gas Base Excess (LAB) -8.0 meq/L Bedside Blood Gas O2 Saturation 96.0 % Victoriano Test NA Oxygen Delivery Device Cannula Test 08/01/16 14:21 08/01/16 16:35 08/01/16 18:40 08/01/16 21:41 Bedside Glucose (other) 153 mg/dl 179 mg/dl 155 mg/dl 153 mg/dl Test 08/01/16 22:23 08/02/16 01:47 08/02/16 05:49 08/02/16 05:52 Blood Gas Sample Site Art Line Art Line Bedside Blood Gas pH (LAB) 7.46 7.48 Bedside Blood Gas pCO2 (LAB) 26 mmHg 29 mmHg Bedside Blood Gas pO2 (LAB) 84 mmHg 83 mmHg Bedside Blood Gas HCO3 (LAB) 19 meq/L 21 meq/L Bedside Blood Gas Total CO2 19 mEq/l 22 mEq/l Bedside Blood Gas Base Excess (LAB) -5.0 meq/L -3.0 meq/L Bedside Blood Gas O2 Saturation 97.0 % 97.0 % Victoriano Test NA NA Oxygen Delivery Device Cannula Cannula Bedside Glucose (other) 158 mg/dl White Blood Count 5.71 K/uL Red Blood Count 2.50 M/uL Hemoglobin 7.5 g/dL Hematocrit 21.7 % Mean Corpuscular Volume 86.8 fL Mean Corpuscular Hemoglobin 30.0 pg Mean Corpuscular Hemoglobin Concent 34.6 g/dl Platelet Count 142 K/uL Mean Platelet Volume 10.1 fL RDW Standard Deviation 55.1 fL RDW Coefficient of Variation 17.5 % Nucleated RBC Absolute Count (auto) 0.03 K/uL Nucleated Red Blood Cells % 0.5 % Prothrombin Time 31.1 SECONDS Prothromb Time International Ratio 2.8 Sodium Level 138 mmol/L Potassium Level 3.2 mmol/L Chloride Level 104 mmol/L Carbon Dioxide Level 21 mmol/L Anion Gap 13.0 mmol/L Blood Urea Nitrogen 29 mg/dl Creatinine 0.85 mg/dl Est Creatinine Clear Calc Drug Dose 74.4 ml/min Estimated GFR () 105.2 Estimated GFR (Non- 90.8 BUN/Creatinine Ratio 33.7 Random Glucose 159 mg/dl Calcium Level 7.4 mg/dl Phosphorus Level 3.2 mg/dl Magnesium Level 2.1 mg/dl Total Bilirubin 0.3 mg/dl Aspartate Amino Transf (AST/SGOT) 20 U/L Alanine Aminotransferase (ALT/SGPT) 78 U/L Alkaline Phosphatase 68 U/L Total Protein 4.4 gm/dl Albumin 1.3 gm/dl Globulin 3.1 gm/dl Albumin/Globulin Ratio 0.4 Test 08/02/16 06:15 Bedside Glucose (other) 156 mg/dl Assessment and Plan (1) Septic shock Assessment & Plan: Source not entirely clear. He appears to have a Staph bacteremia without unclear primary source. Will await recs from sign installer and cardio regarding need for MIGUEL to exclude endocarditis. He also is positive for influenza A and his shock could be due to cardiomyopathy from that. For now , will continue with broad spectrum abx pending C&S. Continue Tamiflu. Continue to titrate pressors. On stress dose steroids. (2) Acute on chronic respiratory failure with hypoxemia Assessment & Plan: Now on high flow NC. Continue to titrate down toward baseline 2lpm. (3) PETRA (acute kidney injury) Assessment & Plan: Cr now normalized. Will continue to support hemodynamics and avoid nephrotoxins. (4) Acute colitis Assessment & Plan: Will eventually need to have CT to further elucidate. C. diff PCR negative and stool cx pending. GI following. (5) Hx of bacterial endocarditis Assessment & Plan: Await recs from Cardio and sign installer re: need for MIGUEL. (6) Paroxysmal a-fib Assessment & Plan: Holding negative chronotropes in setting of septic shock. Continue to hold warfarin in anticipation of possible MIGUEL. (7) HTN (hypertension) Assessment & Plan: Holding antihypertensives in the setting of shock. (8) COPD (chronic obstructive pulmonary disease) Assessment & Plan: Does not appear to be in exacerbation. Continue with Duonebs and Pulmicort.
[2016-08-02] MEDS: OSELTAMIVIR PHOSPHATE 75 MG CAP PO SCH ×2 (08:34→20:31)
[2016-08-02] MEDS: ATORVASTATIN 40 MG TAB PO SCH (08:35)
[2016-08-02] MEDS: HYDROCORTISONE IV 100 MG in SYRINGE 0 ML IV SCH ×3 (08:35→20:30)
[2016-08-02] MEDS: PANTOprazole INJ 40 MG in SYRINGE 0 ML IV SCH (08:35)
[2016-08-02 09:02] LABS: HEMATOCRIT 21.7 % (42-52)
[2016-08-02] MEDS ORDERED: [UNRECOGNIZED DRUG - REMARK] ONE (09:30)
[2016-08-02] MEDS ORDERED: INSULIN PROTOCOL GOAL RANGE ONE (10:00)
[2016-08-02] MEDS ORDERED: LEVOFLOXACIN / D5W 750 MG in PREMIXED IN D5W 150 ML IV SCH (12:00)
[2016-08-02] MEDS: POTASSIUM CHLR 20 MEQ / WTR 20 MEQ in PREMIXED WATER 100 ML IV SCH ×2 (12:03→13:15)
[2016-08-02] MEDS: LEVOFLOXACIN / D5W 750 MG in PREMIXED IN D5W 150 ML IV SCH (12:03)
--- NOTE | 2016-08-02 13:31 | Cardiology Follow-Up ---
Subjective Date of Service: Aug 02, 2016. 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 Records here report that he had an aortic valve replacement and a mitral valve repair which is what he confirms to me, however his echocardiogram suggests both an aortic and mitral bioprosthetic valve. 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 He was discharged from [facility] on 07/26/2016. He presented to [facility] emergency Department with shortness of breath and was found to be tachycardic, hypotensive and possibly in septic shock. He was placed on BiPAP for his hypoxia and was transferred here. Blood cultures drawn here 07/18/2016 are positive and one out of 2 for staph aureus. This is evidently a different organism that he had in November 2015. Repeat blood cultures drawn 08/01/2016 are negative so far (although he has been on antibiotics). He feels better, he can breathe much better. He has no specific complaints. Social History Smoking Status: Former Smoker History of Alcohol Use: No Review of Systems Respiratory: No cough, No shortness of breath Cardiac: No chest pain, No edema Medications No cardiovascular Objective Vital Signs Past 12 Hours Date Time Temp Pulse Resp B/P Pulse Ox O2 Delivery O2 Flow Rate FiO2 08/02/16 12:00 Nasal Cannula 2.0 08/02/16 11:58 36.7 104 19 112/41 94 Nasal Cannula 2.0 08/02/16 11:32 107 22 94 Nasal Cannula 08/02/16 10:58 102 19 107/44 92 Nasal Cannula 2.0 08/02/16 10:19 94 21 102/45 93 Nasal Cannula 2.0 08/02/16 10:09 112 26 100/59 93 Nasal Cannula 2.0 08/02/16 10:06 97 19 148/67 96 Nasal Cannula 2.0 08/02/16 09:58 102 17 123/52 96 Nasal Cannula 2.0 08/02/16 08:58 95 17 113/48 94 Nasal Cannula 2.0 08/02/16 08:00 High Flow Oxygen 40 08/02/16 08:00 High Flow Oxygen 40.0 35 08/02/16 07:58 36.7 92 16 123/51 97 High Flow Oxygen 35 08/02/16 07:36 101 22 97 Nasal Cannula 40.0 35 08/02/16 06:58 99 17 132/56 98 High Flow Oxygen 35 08/02/16 06:00 109 19 100/47 95 High Flow Oxygen 35 08/02/16 05:00 94 18 123/61 96 08/02/16 04:00 96 High Flow Oxygen 35 08/02/16 04:00 36.9 101 17 102/52 97 High Flow Oxygen 35 08/02/16 02:00 98 17 127/56 97 High Flow Oxygen 35 Last Recorded Weight-Kilograms: 61.700 Intake & Output 8-Hour Column 08/01/16 08/02/16 08/02/16 16:00 00:00 08:00 Intake Total 669 ml 852 ml 478 ml Output Total 625 ml 550 ml 500 ml Balance 44 ml 302 ml -22 ml 24-Hour Column 08/02/16 08:00 Intake Total 1999 ml Output Total 1675 ml Balance 324 ml Physical Exam Constitutional: Level of Distress: mild distress Lungs: Auscultation: breath sounds normal Cardiovascular: Heart Auscultation: irregular rate rhythm, pertinent finding (good prosthetic valve sounds) Extremities: no edema Data Laboratory Results: Last 24 Hours Test 08/01/16 14:18 08/01/16 14:21 08/01/16 16:35 08/01/16 18:40 Blood Gas Sample Site Art Line Bedside Blood Gas pH (LAB) 7.43 Bedside Blood Gas pCO2 (LAB) 24 mmHg Bedside Blood Gas pO2 (LAB) 80 mmHg Bedside Blood Gas HCO3 (LAB) 16 meq/L Bedside Blood Gas Total CO2 17 mEq/l Bedside Blood Gas Base Excess (LAB) -8.0 meq/L Bedside Blood Gas O2 Saturation 96.0 % Victoriano Test NA Oxygen Delivery Device Cannula Bedside Glucose (other) 153 mg/dl 179 mg/dl 155 mg/dl Test 08/01/16 21:41 08/01/16 22:23 08/02/16 01:47 08/02/16 05:49 Bedside Glucose (other) 153 mg/dl 158 mg/dl Blood Gas Sample Site Art Line Bedside Blood Gas pH (LAB) 7.46 Bedside Blood Gas pCO2 (LAB) 26 mmHg Bedside Blood Gas pO2 (LAB) 84 mmHg Bedside Blood Gas HCO3 (LAB) 19 meq/L Bedside Blood Gas Total CO2 19 mEq/l Bedside Blood Gas Base Excess (LAB) -5.0 meq/L Bedside Blood Gas O2 Saturation 97.0 % Victoriano Test NA Oxygen Delivery Device Cannula White Blood Count 5.71 K/uL Red Blood Count 2.50 M/uL Hemoglobin 7.5 g/dL Hematocrit 21.7 % Mean Corpuscular Volume 86.8 fL Mean Corpuscular Hemoglobin 30.0 pg Mean Corpuscular Hemoglobin Concent 34.6 g/dl Platelet Count 142 K/uL Mean Platelet Volume 10.1 fL Neutrophils (%) (Auto) 86.6 % Lymphocytes (%) (Auto) 7.9 % Monocytes (%) (Auto) 5.1 % Eosinophils (%) (Auto) 0.0 % Basophils (%) (Auto) 0.0 % Neutrophils # (Auto) 4.95 K/uL Lymphocytes # (Auto) 0.45 K/uL Monocytes # (Auto) 0.29 K/uL Eosinophils # (Auto) 0.00 K/uL Basophils # (Auto) 0.00 K/uL RDW Standard Deviation 55.1 fL RDW Coefficient of Variation 17.5 % Immature Granulocyte % (Auto) 0.4 % Immature Granulocyte # (Auto) 0.02 K/uL Nucleated RBC Absolute Count (auto) 0.03 K/uL Nucleated Red Blood Cells % 0.5 % Toxic Granulation 2+ Prothrombin Time 31.1 SECONDS Prothromb Time International Ratio 2.8 Sodium Level 138 mmol/L Potassium Level 3.2 mmol/L Chloride Level 104 mmol/L Carbon Dioxide Level 21 mmol/L Anion Gap 13.0 mmol/L Blood Urea Nitrogen 29 mg/dl Creatinine 0.85 mg/dl Est Creatinine Clear Calc Drug Dose 74.4 ml/min Estimated GFR () 105.2 Estimated GFR (Non- 90.8 BUN/Creatinine Ratio 33.7 Random Glucose 159 mg/dl Calcium Level 7.4 mg/dl Phosphorus Level 3.2 mg/dl Magnesium Level 2.1 mg/dl Total Bilirubin 0.3 mg/dl Aspartate Amino Transf (AST/SGOT) 20 U/L Alanine Aminotransferase (ALT/SGPT) 78 U/L Alkaline Phosphatase 68 U/L Total Protein 4.4 gm/dl Albumin 1.3 gm/dl Globulin 3.1 gm/dl Albumin/Globulin Ratio 0.4 Test 08/02/16 05:52 08/02/16 06:15 08/02/16 08:54 08/02/16 08:59 Blood Gas Sample Site Art Line Bedside Blood Gas pH (LAB) 7.48 Bedside Blood Gas pCO2 (LAB) 29 mmHg Bedside Blood Gas pO2 (LAB) 83 mmHg Bedside Blood Gas HCO3 (LAB) 21 meq/L Bedside Blood Gas Total CO2 22 mEq/l Bedside Blood Gas Base Excess (LAB) -3.0 meq/L Bedside Blood Gas O2 Saturation 97.0 % Victoriano Test NA Oxygen Delivery Device Cannula Bedside Glucose (other) 156 mg/dl 129 mg/dl Hemoglobin 7.7 g/dL Hematocrit 21.7 % Test 08/02/16 10:19 08/02/16 13:00 Bedside Glucose (other) 129 mg/dl Telemetry reviewed: Atrial fibrillation with a reasonable ventricular response Assessment and Plan #1. Possible sepsis and hypotension: It is possible he has endocarditis, we may need to obtain better records from his [facility] evaluation in November where he is reported to have enterococcal sepsis and he has had blood cultures drawn here which are 1 out of 2 positive for staph aureus. This could be a contaminant. The echocardiogram was not good quality but his valves appear to be functioning adequately, we cannot tell if there are vegetations and to evaluate that we would need a transesophageal echocardiogram. At this point I don't think there is enough evidence to suggest he has bacteremia to proceed with transesophageal echocardiography. With a different organism from his prior sepsis, as well as now one that is likely a contaminant, I would await further evidence before proceeding with MIGUEL. #2. Prosthetic valve: There is discrepancy between the records and what the patient says of what appears to be present on the echocardiogram, we will try to determine exactly what his valve surgery was. In any case valves appeared to be working well at this time but we cannot tell if vegetations are present. #3. Left ventricular dysfunction: This appears to be new, an echocardiogram done 07/19/2016 shows normal left ventricular size and function. Presumably his acute left ventricular dysfunction is due to his acute illness and stunning, not an interim cardiac event. I would treat him for his underlying condition and hopefully his left ventricular function will recover quickly. There is no evidence of acute myocardial infarction. #4. Atrial fibrillation: He is reported to have paroxysmal atrial fibrillation, he has been in atrial fibrillation or perhaps atrial flutter or an atrial tachycardia since admission here this visit, at his last visit he was also in atrial fibrillation. He is anticoagulated with warfarin for this. Over the long run he will need to be anticoagulated for his arrhythmia, but not for his valvular disease. One of the newer agents would not be contraindicated, the fact that he has bioprosthetic valves would not contraindicate the use of one of the newer agents. Thank you for allowing me to participate in his care.
[2016-08-02 13:33] LABS: HEMATOCRIT 22.1 % (42-52); MEAN CELL VOLUME 84.7 fL (80-100); MEAN CORPUSCULAR HEMOGLOBIN 29.9 pg (25-34); MEAN CORPUSCULAR HGB CONC 35.3 g/dl (32-36); MEAN PLATELET VOLUME 9.4 fL (7.4-10.4); PLATELET COUNT 131 K/uL (130-400); RED BLOOD COUNT 2.61 M/uL (4.7-6.1); WHITE BLOOD COUNT 5.77 K/uL (4.8-10.8)
--- NOTE | 2016-08-02 13:40 | Pharmacy Progress Note ---
Pharmacy Antibiotic Prog Note Date of Service: Aug 02, 2016. Subjective: The patient is currently receiving: * Vancomycin 1000mg IV Q 16 hrs * Zosyn 4.5gm ext interval dosing IV over 4 hrs Q 8 hours * Levofloxacin 750mg IV Q 24 hrs Today is day # 3 abx therapy for sepsis from possible pulmonary source, pnx, h/ o MRDO in sputum, h/o endocarditis Objective: Height (Feet): 5 Height (Inches): 5.00 Weight (Kilograms): 61.700 Lab Results (24hrs): Laboratory Tests Test 08/02/16 05:49 08/02/16 13:00 BUN/Creatinine Ratio 33.7 Blood Urea Nitrogen 29 mg/dl Creatinine 0.85 mg/dl White Blood Count 5.71 K/uL Red Blood Count 2.50 M/uL Hemoglobin 7.5 g/dL Hematocrit 21.7 % Mean Corpuscular Volume 86.8 fL Mean Corpuscular Hemoglobin 30.0 pg Mean Corpuscular Hemoglobin Concent 34.6 g/dl Platelet Count 142 K/uL Mean Platelet Volume 10.1 fL Neutrophils (%) (Auto) 86.6 % Lymphocytes (%) (Auto) 7.9 % Monocytes (%) (Auto) 5.1 % Eosinophils (%) (Auto) 0.0 % Basophils (%) (Auto) 0.0 % Neutrophils # (Auto) 4.95 K/uL Lymphocytes # (Auto) 0.45 K/uL Monocytes # (Auto) 0.29 K/uL Eosinophils # (Auto) 0.00 K/uL Basophils # (Auto) 0.00 K/uL Micro Results: Item Value Date Time MRSA DNA Surveillance Screen - Final Complete 07/31/16 1000 Nasal Specimen Positive for MRSA by DNA Probe Blood Culture - Preliminary Resulted 07/31/16 1127 Blood NO GROWTH TO DATE. Blood Culture - Preliminary Resulted 07/31/16 1138 Blood Staphylococcus Aureus C.difficile Toxin B Gene (PCR) - Final Complete 07/31/16 1300 Stool No C. difficile toxin B gene detected Blood Culture Received 08/01/16 1625 Blood Pending Blood Culture Received 08/01/16 1631 Blood Pending Item Value Date Time Influenza Type A (RT-PCR) POS for Influ A *A 07/31/16 2245 Assessment & Plan: VANCOMYCIN * Renal fxn continues to improve: SCr 1.4-->1.1-->0.85 * Vancomycin dosing interval likely needs adjusted as a result. Will shorten the interval to Q 14 hours (1000mg IV Q 14 hrs) * A level is due with the next dose. Will still obtain this level tonight. * Goal trough 15-20mcg/mL for sepsis/pulm infxn/ruling out endocarditis LEVOFLOXACIN + ZOSYN * Deescalation was discussed on rounds today, however the current regimen is to continue for another 24 hrs. 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 Need for atypical coverage discussed but tests to r /o atypical infxn not yet performed. * Continue both abx at the current doses Pharmacy will continue to follow and will adjust dose/frequency as necessary. Thank you
[2016-08-02 14:06] LABS: ACANTHOCYTES 1+; COMPLETE YES; DOHLE BODIES 1+; ECHINOCYTES 1+; EOS % 0.2 %; IG% 1.4 %; LYMPH % 6.6 %; LYMPH ABS # 0.38 K/uL (1.2-3.4); MICROCYTOSIS PRESENT; MONO % 1.9 %; NEUT % 89.9 %; TOXIC GRANULATION 2+
[2016-08-02] MEDS: INSULIN REGULAR 250 UNITS in SODIUM CHLORIDE 0.9% 250ML 250 ML IV SCH (14:09)
[2016-08-02] MEDS ORDERED: INSULIN GLARGINE SOLOSTAR 100 UNITS/ML 3 ML PEN SC ONE (15:30)
--- NOTE | 2016-08-02 15:47 | Pharmacy Progress Note ---
Glycemic Control: Progress Nt Date of Service Aug 02, 2016. Scope Glycemic Pharmacist consulted by Jensen CASTRO on 07/31/16 for glycemic control and to write orders per [facility] inpatient glycemic control protocol. Objective Accuchecks BSG (last 24hrs): Test 08/02/16 05:49 Random Glucose 159 mg/dl (70-99) Laboratory Data (last 24hrs) Test 08/02/16 05:49 08/02/16 13:22 Anion Gap 13.0 mmol/L BUN/Creatinine Ratio 33.7 Blood Urea Nitrogen 29 mg/dl Creatinine 0.85 mg/dl Potassium Level 3.2 mmol/L Sodium Level 138 mmol/L White Blood Count 5.71 K/uL 5.77 K/uL Red Blood Count 2.50 M/uL 2.61 M/uL Hemoglobin 7.5 g/dL 7.8 g/dL Hematocrit 21.7 % 22.1 % Mean Corpuscular Volume 86.8 fL 84.7 fL Mean Corpuscular Hemoglobin 30.0 pg 29.9 pg Mean Corpuscular Hemoglobin Concent 34.6 g/dl 35.3 g/dl Platelet Count 142 K/uL 131 K/uL Mean Platelet Volume 10.1 fL 9.4 fL Neutrophils (%) (Auto) 86.6 % 89.9 % Lymphocytes (%) (Auto) 7.9 % 6.6 % Monocytes (%) (Auto) 5.1 % 1.9 % Eosinophils (%) (Auto) 0.0 % 0.2 % Basophils (%) (Auto) 0.0 % 0.0 % Neutrophils # (Auto) 4.95 K/uL 5.19 K/uL Lymphocytes # (Auto) 0.45 K/uL 0.38 K/uL Monocytes # (Auto) 0.29 K/uL 0.11 K/uL Eosinophils # (Auto) 0.00 K/uL 0.01 K/uL Basophils # (Auto) 0.00 K/uL 0.00 K/uL HbA1c: 7.4% 07/18/16 Recent Pertinent Medications Outpatient Anti-diabetic Regimen: * Metformin 500mg PO daily * A1c = 7.4 % 07/18/16 Risk Factors for Insulin Resistance: * Steroids: Hydrocortisone 100mg IV TID * Infection: sepsis; probable pulmonary source and w/ risk factors for resistance - started on Vancomycin + Zosyn + Levofloxacin; + influ A on Tamiflu * Pressors: norepinephrine titrated off * Diet: clear liquids Assessment & Plan ASSESSMENT: 07/31/16: * Type 2 diabetic admitted today with sepsis requiring fluid resuscitation, vasopressors and corticosteroids. * Glu on random PRP was 278, not surprising given current stressors * Central IV access is being established, he had only two peripheral lines on admission * BSGs should be checked via iSTAT given hypotension and pressor administration. * Would have a low threshold for starting an IV insulin infusion on this patient given current stressors. SQ absorption of insulin will be less predictable and likely impaired in this patient. If next BSG > 250 would initiate IV insulin infusion per severe stress protocol. Will give SQ Novolog and Lantus now. Check BSGs Q 4 hrs via iSTAT and cover with Novolog. 08/01/16: * IV insulin infusion started yesterday afternoon secondary to BSGs above 300 and continued use of norepi and iv hydrocortisone * BSGs are currently well controlled 08/02/16: * IV insulin infusion continues at this time; BSGs well controlled * Norepi weaned off, starting clear liq diet - uncertain how well pt will tolerate PO * Will begin transition to SQ basal/bolus regimen at this time * Insulin infusion running @0.3units/hr = ~7.2units/day = ~0.1units/kg/day - this info will be used to estimate basal dose PLAN FOR INPATIENT GLYCEMIC CONTROL: * Continue the IV insulin drip with the goal range of 120-180 at this time but begin transition to SQ * Lantus 6 units SQ x 1 now -- overlap the insulin drip with the 1st dose for ~4 -6 hours or less if insulin adjustment calculator says hold insulin infusion * BSG checks ACHS and at 0200 tonight * Correction factor 35 mg/dl/unit (to be used when insulin drip d/c'd) * Carb ratio 1 unit per 14 grams CHO consumed (may be used while on drip) * Goal range Low 120 mg/dL - High 160 mg/dL * Please note that the plan above was derived based on current level of insulin resistance and hospital stress. These recommendations are appropriate for inpatient admission only. Plan of care upon discharge will need to be reassessed to avoid potential outpatient hypo/hyperglycemia. Thank you.
[2016-08-02] MEDS ORDERED: VANCOMYCIN TROUGH ONE (19:30)
[2016-08-02] MEDS ORDERED: VANCOMYCIN INJ 1,000 MG in SODIUM CHLORIDE 0.9% 250ML 250 ML IV SCH (20:00)
[2016-08-02] MEDS ORDERED: CLOPIDOGREL BISULFATE 300 MG TAB PO ONE (20:28)
[2016-08-02] MEDS ORDERED: [UNRECOGNIZED DRUG - REMARK] ONE (21:30)
[2016-08-02 22:05] LABS: HEMATOCRIT 21.9 % (42-52); MEAN CELL VOLUME 84.9 fL (80-100); MEAN CORPUSCULAR HEMOGLOBIN 29.5 pg (25-34); MEAN CORPUSCULAR HGB CONC 34.7 g/dl (32-36); MEAN PLATELET VOLUME 10.1 fL (7.4-10.4); PLATELET COUNT 140 K/uL (130-400); RED BLOOD COUNT 2.58 M/uL (4.7-6.1); WHITE BLOOD COUNT 5.34 K/uL (4.8-10.8)
[2016-08-02 22:26] LABS: COMPLETE YES; DOHLE BODIES 1+; ECHINOCYTES 2+; EOS % 0.2 %; IG% 1.5 %; LYMPH % 5.6 %; MONO % 3.2 %; NEUT % 89.5 %; TOXIC GRANULATION 1+
[2016-08-03] VITALS (34 sets, daily range): BP systolic 103–161; BP diastolic 48–73; PULSE 84–118; TEMP 36.6–37; O2SAT 92–98
[2016-08-03] MEDS ORDERED: INSULIN ASPART 100 UNITS/ML 3 ML PEN SC ONE (02:00)
[2016-08-03 06:06] LABS: HEMATOCRIT 21.5 % (42-52); MEAN CELL VOLUME 85.7 fL (80-100); MEAN CORPUSCULAR HEMOGLOBIN 29.5 pg (25-34); MEAN CORPUSCULAR HGB CONC 34.4 g/dl (32-36); MEAN PLATELET VOLUME 10.2 fL (7.4-10.4); PLATELET COUNT 148 K/uL (130-400); RED BLOOD COUNT 2.51 M/uL (4.7-6.1)
[2016-08-03 06:13] LABS: INR 2.2 (0.9-1.1); PROTHROMBIN TIME (PATIENT) 24.4 SECONDS (9.0-12.0)
[2016-08-03 06:38] LABS: CALCIUM 7.8 mg/dl (8.5-10.1); CREATININE 0.69 mg/dl (0.60-1.40); MAGNESIUM 2.1 mg/dl (1.8-2.4); POTASSIUM 3.4 mmol/L (3.5-5.1)
[2016-08-03 06:41] LABS: ALB/GLOB RATIO 0.5 (0.9-2); PHOSPHORUS 2.8 mg/dl (2.5-4.9)
[2016-08-03 06:56] LABS: ACANTHOCYTES 1+; COMPLETE YES; LYMPH ABS # 0.52 K/uL (1.2-3.4); MONO % 8.3 %; NEUT % 80.7 %; POLYCHROMASIA 1+; TOXIC GRANULATION 1+
[2016-08-03] MEDS: BUDESONIDE 0.5 MG/2 ML VIAL (PULMICORT) INH SCH ×2 (07:08→19:04)
[2016-08-03] MEDS: ALBUT/IPRATROP 3MG/0.5MG NEB 3 ML VIAL INH SCH ×4 (07:08→19:04)
[2016-08-03] MEDS: LACTOBACILLUS ACIDOPHILUS (FLORANEX) TAB PO SCH ×3 (07:48→16:36)
[2016-08-03] MEDS: ATORVASTATIN 40 MG TAB PO SCH (07:48)
[2016-08-03] MEDS: HYDROCORTISONE IV 100 MG in SYRINGE 0 ML IV SCH ×2 (07:49→13:47)
[2016-08-03] MEDS: OSELTAMIVIR PHOSPHATE 75 MG CAP PO SCH ×2 (07:49→20:41)
[2016-08-03] MEDS: INSULIN GLARGINE SOLOSTAR 100 UNITS/ML 3 ML PEN SC SCH (07:50)
[2016-08-03] MEDS: INSULIN ASPART 100 UNITS/ML 3 ML PEN SC SCH ×4 (07:55→20:46)
[2016-08-03] MEDS: VANCOMYCIN INJ 1,000 MG in SODIUM CHLORIDE 0.9% 250ML 250 ML IV SCH ×2 (07:58→20:39)
[2016-08-03] MEDS: PANTOprazole INJ 40 MG in SYRINGE 0 ML IV SCH (12:07)
[2016-08-03] MEDS: LEVOFLOXACIN / D5W 750 MG in PREMIXED IN D5W 150 ML IV SCH (12:14)
--- NOTE | 2016-08-03 14:22 | Critical Care Progress Note ---
Critical Care Progress Note Date of Service Aug 03, 2016. Attending Dr. Hsu Subjective Patient feels more improved from yesterday, no abdominal pain Objective Vital Signs - as noted Laboratory Data - as noted Physical Exam: General - NAD resting in bed on 2L nasal cannula Eyes - PERRL, EOMI No icterus, gaze conjugate Neck - Supple, trachea midline, no masses or lymphadenopathy, no JVD or bruits Lungs - No paradoxical chest wall movement, Coarse to auscultation bilaterally, Rhonchi improving at Left Base, no wheezes or rales Heart - Irregularly Irregular, No murmur, rubs, clicks, or gallops appreciated Abdomen - BS present, no bruits noted, tympanic to percussion, soft, tenderness to LLQ, mildly distended, no organomegaly Extremities - No edema, pedal pulses intact Neuro - A&O X4 Strength: Equal bilaterally CN:PERRL, EOMI, no facial asymmetry, uvula/tongue midline Assessment & Plan (1) Acute hypoxemic respiratory failure Remains on on supplemental O2 at home level. Acute COPD exacerbation resolved (2) Septic shock Gram + growth in 1 of 2 Blood Cultures: Staph Aureus Possible Contaminant Prev Admission: Gram Neg Nish Bacteremia Neg C. Diff Norepinephrine discontinued Last lactic acid 2.1, repeat once more with next labs. Continue current Broad Spectrum Abx: Day 3 of antibiotics Will consider de-escalation after blood cultures result * Vanco 1 g IV every 14 hour: Goal trough 15-20, trough ordered for 1929 ton * Zosyn 4.5 g IV every 8 hours * Levaquin 750 mg IV every 24 hours Continue hydrocortisone 100 mg IV 3 times a day * Will consider taper starting tomorrow if systolic blood pressure remained stable Repeat Blood Cultures Pending Consider discontinuing possible future sites of infection as appropriate: Noel , arterial line, central line Monitor on telemetry Follow serial lab work Discontinue Levaquin and Zosyn down to single agent (3) Influenza A Influenza Type A Positive; Likely the cause of his stress induced Cardiomyopathy Did receive Influenza Vaccine this year Continue Tamiflu 150 BID, 4 out of 5 days total Continue to supplement O2 (4) COPD (chronic obstructive pulmonary disease) Tobacco abuse times many years, patient reports quitting in the last 2 months Physical exam findings improving Continue Pulmicort BID and DuoNeb QID Continue supplemental oxygen as needed Monitor on telemetry (5) Acute left-sided CHF (congestive heart failure) Cardiology deferring transesophageal echo at this time would reconsider if additional blood cultures turn positive (6) Anemia 2g drop in hemoglobin in the last 24 hours: Previously 9.5; now 7.78 No sign of outward bleeding, currently no bowel movement to test for heme, patient denies increased abdominal pain from baseline Concern for retroperitoneal hematoma Hemoglobin and hematocrit holding steady will minimize blood draws (7) PETRA (acute kidney injury) Creatinine peaked at 1.4; now 0.85 Baseline around 0.7 Pharmacy consulted broad-spectrum antibiotics and will dose renally accordingly Continue to renally dose medications Avoid nephrotoxic drugs Significant improvement in renal function (8) History of Clostridium difficile colitis Negative C. difficile on admission Repeat C. difficile culture with next bowel movement Currently holding off on CT of abdomen due to recent need for pressors and PETRA Patient is not complaining of increased abdominal pain (9) Hx of bacterial endocarditis History of mitral and atrial bioprosthetic valve replacement Cardiology consulted: Dr. Efra Razo consult for possible MIGUEL Second set of blood cultures pending Minimal threshold to order third set (10) History of Gram negative infection Previous colitis on last admission with gram-negative rods in blood cultures Blood cultures repeated here this admission: 1 out of 2 with staph aureus Repeat cultures now pending Antibiotics as noted above Consult placed for GI, Dr Whitfield, in regards to possible colonoscopy (11) Paroxysmal a-fib PT 31.1; INR 2.8 Currently in A. fib, rate in the high 90s to low 100s Will continue to hold Coumadin at this time in the setting of a 2g decrease in hemoglobin. Concern for retroperitoneal hematoma Cardiology consult in place Monitor on telemetry and follow clinically Repeat coags with a.m. labs When able consider restarting home meds: Currently held for hypotension * Lisinopril 10mg qDaily * Diltiazem 60mg TID * Coumadin 2.5mg qDaily * * Still therapeutic INR at this time Decrease stress dose steroids from 100 milligrams 3 times a day to 50 milligrams 3 times a day We'll discontinue arterial line, consider discontinuation of central venous access if blood cultures remain negative. Stable for downgraded to telemetry status. Consults & Procedures Consultants: Cardiology: Dr. Kraus GI: Dr. Whitfield Procedures: R IJ Central Line: 07/31/16 continue at this point until second blood cultures are negative, the patient long-term antibiotics may need picc R Radial Art Line: 07/31/16 discontinued today ECHO: 07/31/16 Data Medications: Current Inpatient Medications Medications (Trade) Dose Ordered Sig/Jim Route Start Time Stop Time Status Last Admin Dose Admin Acetaminophen (Tylenol Tab) 650 mg Q4H PRN PO 07/31/16 11:00 08/30/16 10:59 Ondansetron HCl 4 mg 4 mg Q6H PRN IV 07/31/16 11:00 08/30/16 10:59 Pantoprazole Sodium 40 mg/ Syringe 10 ml @ 5 mls/min DAILY@1100 IV 08/01/16 11:00 08/31/16 10:59 08/03/16 12:07 5 MLS/MIN Hydrocortisone Sodium Succinate 100 mg/Syringe 2 ml @ 4 mls/min TID IV 07/31/16 21:00 08/30/16 20:59 08/03/16 13:47 4 MLS/MIN Norepinephrine Bitartrate/ Dextrose (Levophed Inj/ D5W 500ml) 508 ml @ 0 mls/hr Q0M PRN IV 07/31/16 10:38 08/30/16 10:37 08/01/16 20:05 11.7 MLS/HR Miscellaneous Information (Consult Glycemic Management Pharmacy) 1 ea UD N/A 07/31/16 11:05 08/30/16 11:04 Atorvastatin Calcium (Lipitor Tab) 40 mg DAILY PO 08/01/16 09:00 08/31/16 08:59 08/03/16 07:48 40 MG Budesonide (Pulmicort Respules 0.5MG/ 2ML Neb Soln) 0.5 mg BIDR INH 07/31/16 20:00 08/30/16 19:59 08/03/16 07:08 0.5 MG Lactobacillus Acidophilus (Floranex Tab) 4 tab TIDM PO 07/31/16 16:30 08/30/16 16:29 08/03/16 12:08 4 TAB Albuterol/ Ipratropium (Duoneb) 3 ml QIDR INH 07/31/16 12:00 08/30/16 11:59 08/03/16 11:06 3 ML Glucose (Glucose 40% Gel) 15-30 GRAMS 15 GRAMS... UD PRN PO 07/31/16 12:45 08/30/16 12:44 Glucose (Glucose Chew Tab) 4-8 Tablets 4 Tabl... UD PRN PO 07/31/16 12:45 08/30/16 12:44 Dextrose (Dextrose 50% 50ML Syringe) 25-50ML OF 50% DW IV FOR... UD PRN IV 07/31/16 12:45 08/30/16 12:44 07/31/16 19:32 25 ML Glucagon (Glucagon Inj) 1 mg UD PRN SQ 07/31/16 12:45 08/30/16 12:44 Vancomycin HCl (Consult) 1 ea UD PRN N/A 07/31/16 14:15 08/30/16 14:14 Levofloxacin (Consult) 1 ea UD PRN N/A 07/31/16 14:15 08/30/16 14:14 Oseltamivir Phosphate 150 mg 150 mg BID PO 07/31/16 22:00 08/05/16 21:59 08/03/16 07:49 150 MG Levofloxacin/Prmx (Levaquin / D5W/ Premixed D5W) 150 ml @ 100 mls/hr Q24H IV 08/01/16 13:00 08/08/16 12:59 08/03/16 12:14 100 MLS/HR Insulin Aspart (novoLOG ASPART) SLIDING SCALE ACHS SC 08/02/16 21:00 09/01/16 20:59 08/03/16 12:13 2 UNITS Insulin Glargine 6 unit 6 unit QAM SC 08/03/16 09:00 09/02/16 08:59 08/03/16 07:50 6 UNIT Vancomycin HCl/ Sodium Chloride (Vancomycin Inj/ Nss 250ml) 270 ml @ 125 mls/hr Q12H IV 08/03/16 08:00 08/07/16 07:59 08/03/16 07:58 125 MLS/HR I & O: 24-Hour Column 08/03/16 08:00 Intake Total 1522 ml Output Total 1050 ml Balance 472 ml Vital Signs: Date Time Temp Pulse Resp B/P Pulse Ox O2 Delivery O2 Flow Rate FiO2 08/03/16 12:00 36.7 103 21 142/54 94 Nasal Cannula 2.0 08/03/16 12:00 95 Nasal Cannula 2.0 08/03/16 11:58 98 24 149/55 94 08/03/16 11:06 94 14 95 Nasal Cannula 2.0 08/03/16 11:00 87 21 139/55 95 08/03/16 10:00 84 21 133/56 95 Nasal Cannula 2.0 08/03/16 09:00 97 19 150/59 95 08/03/16 08:00 104 20 161/61 95 08/03/16 07:58 36.8 93 19 152/63 95 Nasal Cannula 2.0 08/03/16 07:45 95 Nasal Cannula 2.0 08/03/16 07:08 93 14 94 Nasal Cannula 2.0 08/03/16 07:00 95 17 137/57 94 08/03/16 06:00 95 22 130/52 93 08/03/16 05:58 95 21 135/52 92 08/03/16 05:00 98 17 129/57 92 08/03/16 04:26 93 Nasal Cannula 2.0 08/03/16 04:00 99 29 115/52 93 08/03/16 04:00 36.7 99 20 115/52 93 08/03/16 03:58 93 20 114/49 94 08/03/16 03:00 87 16 134/60 94 08/03/16 02:00 103 16 132/56 94 08/03/16 01:58 102 18 129/58 94 08/03/16 01:00 94 19 123/56 93 08/03/16 00:00 37.0 93 20 126/58 94 08/03/16 00:00 93 Nasal Cannula 2.0 08/02/16 23:58 98 19 121/55 94 08/02/16 23:00 105 17 122/56 95 08/02/16 22:00 108 14 127/57 96 08/02/16 21:59 92 17 126/55 96 08/02/16 21:00 108 23 139/58 95 08/02/16 20:00 93 Nasal Cannula 2.0 08/02/16 20:00 37.1 113 175/82 93 08/02/16 19:59 115 160/76 95 08/02/16 19:00 104 20 106/47 99 08/02/16 18:53 98 14 96 Nasal Cannula 2.0 08/02/16 17:58 108 21 123/51 95 Nasal Cannula 2.0 08/02/16 16:07 101 22 96 Nasal Cannula 2.0 08/02/16 16:00 112 21 120/50 96 Nasal Cannula 2.0 08/02/16 16:00 Nasal Cannula 2.0 08/02/16 15:59 36.9 112 25 106/46 96 Nasal Cannula 2.0 08/02/16 15:00 104 18 114/43 95 Nasal Cannula 2.0 Laboratory Results: Last 24 Hours Test 08/02/16 15:37 08/02/16 17:24 08/02/16 19:19 08/02/16 21:30 Bedside Glucose 163 mg/dl 160 mg/dl Vancomycin Level Trough 15.6 mcg/ml White Blood Count 5.34 K/uL Red Blood Count 2.58 M/uL Hemoglobin 7.6 g/dL Hematocrit 21.9 % Mean Corpuscular Volume 84.9 fL Mean Corpuscular Hemoglobin 29.5 pg Mean Corpuscular Hemoglobin Concent 34.7 g/dl Platelet Count 140 K/uL Mean Platelet Volume 10.1 fL Neutrophils (%) (Auto) 89.5 % Lymphocytes (%) (Auto) 5.6 % Monocytes (%) (Auto) 3.2 % Eosinophils (%) (Auto) 0.2 % Basophils (%) (Auto) 0.0 % Neutrophils # (Auto) 4.78 K/uL Lymphocytes # (Auto) 0.30 K/uL Monocytes # (Auto) 0.17 K/uL Eosinophils # (Auto) 0.01 K/uL Basophils # (Auto) 0.00 K/uL RDW Standard Deviation 53.8 fL RDW Coefficient of Variation 17.4 % Immature Granulocyte % (Auto) 1.5 % Immature Granulocyte # (Auto) 0.08 K/uL Nucleated RBC Absolute Count (auto) 0.03 K/uL Nucleated Red Blood Cells % 0.5 % Toxic Granulation 1+ Dohle Bodies 1+ Echinocytes 2+ Test 08/03/16 05:40 08/03/16 14:00 White Blood Count 5.20 K/uL Red Blood Count 2.51 M/uL Hemoglobin 7.4 g/dL Hematocrit 21.5 % Mean Corpuscular Volume 85.7 fL Mean Corpuscular Hemoglobin 29.5 pg Mean Corpuscular Hemoglobin Concent 34.4 g/dl Platelet Count 148 K/uL Mean Platelet Volume 10.2 fL Neutrophils (%) (Auto) 80.7 % Lymphocytes (%) (Auto) 10.0 % Monocytes (%) (Auto) 8.3 % Eosinophils (%) (Auto) 0.0 % Basophils (%) (Auto) 0.0 % Neutrophils # (Auto) 4.20 K/uL Lymphocytes # (Auto) 0.52 K/uL Monocytes # (Auto) 0.43 K/uL Eosinophils # (Auto) 0.00 K/uL Basophils # (Auto) 0.00 K/uL RDW Standard Deviation 55.0 fL RDW Coefficient of Variation 17.5 % Immature Granulocyte % (Auto) 1.0 % Immature Granulocyte # (Auto) 0.05 K/uL Nucleated RBC Absolute Count (auto) 0.03 K/uL Nucleated Red Blood Cells % 0.5 % Toxic Granulation 1+ Polychromasia 1+ Acanthocytes 1+ Prothrombin Time 24.4 SECONDS Prothromb Time International Ratio 2.2 Sodium Level 143 mmol/L Potassium Level 3.4 mmol/L Chloride Level 110 mmol/L Carbon Dioxide Level 18 mmol/L Anion Gap 15.0 mmol/L Blood Urea Nitrogen 30 mg/dl Creatinine 0.69 mg/dl Est Creatinine Clear Calc Drug Dose 91.6 ml/min Estimated GFR () 114.7 Estimated GFR (Non- 98.9 BUN/Creatinine Ratio 43.0 Random Glucose 159 mg/dl Calcium Level 7.8 mg/dl Phosphorus Level 2.8 mg/dl Magnesium Level 2.1 mg/dl Total Bilirubin 0.3 mg/dl Aspartate Amino Transf (AST/SGOT) 18 U/L Alanine Aminotransferase (ALT/SGPT) 57 U/L Alkaline Phosphatase 67 U/L Total Protein 4.4 gm/dl Albumin 1.4 gm/dl Globulin 3.0 gm/dl Albumin/Globulin Ratio 0.5
[2016-08-03 14:50] LABS: HEMATOCRIT 20.6 % (42-52)
--- NOTE | 2016-08-03 15:25 | Pharmacy Progress Note ---
Glycemic: Assessment & Plan Date of Service Aug 03, 2016. Assessment & Plan The patient received 12-15 units of insulin on 08/02 and insulin drip was transitioned to SQ. BSGs ranging 159-191 mg/dl over the past 24hrs. Steroid is being decreased which should decrease insulin needs, but diet is being advanced to type 2 diabetic AHA, which should increase insulin requirements. Same for now and reassess in am. * Basal insulin: Lantus 6 units every 24 hours * Correctional Insulin: Novolog Correction per scale ACHS Goal Range: Low 120 mg/dL - High 160 mg/dL Correction Factor: 35 mg/dL/unit * Prandial insulin: Per carb ratio of 1 unit per 12 grams CHO consumed BSGs continue to improve, no changes needed to inpatient regimen at this time. Pharmacy will continue to monitor patient daily and write orders per [facility] inpatient glycemic control protocol. Thanks. * Please note that the plan above was derived based on current level of insulin resistance and hospital stress. These recommendations are appropriate for inpatient admission only. Plan of care upon discharge will need to be reassessed to avoid potential outpatient hypo/hyperglycemia.
--- NOTE | 2016-08-03 19:17 | Hospitalist Progress Note ---
Hospitalist Progress Note Date of Service Aug 03, 2016. Subjective Pt evaluation today including: conversation w/ patient, physical exam, chart review, lab review, review of studies, review of inpatient medication list feeling better comparing to yesterday, no SOB, no chest pain, no nausea, no vomiting Objective Vital Signs Date Time Temp Pulse Resp B/P Pulse Ox O2 Delivery O2 Flow Rate FiO2 08/03/16 16:10 88 19 134/48 95 08/03/16 16:00 94 Nasal Cannula 2.0 08/03/16 16:00 36.7 92 19 136/50 95 Nasal Cannula 2.0 08/03/16 15:58 90 18 131/48 95 08/03/16 15:00 85 19 131/49 95 08/03/16 14:59 99 16 95 Nasal Cannula 2.0 08/03/16 14:00 93 27 130/52 96 08/03/16 13:58 94 23 127/50 95 08/03/16 13:00 99 18 148/55 93 08/03/16 12:00 103 21 142/54 94 Nasal Cannula 2.0 08/03/16 12:00 36.7 103 21 142/54 94 Nasal Cannula 2.0 08/03/16 12:00 95 Nasal Cannula 2.0 08/03/16 11:58 98 24 149/55 94 08/03/16 11:58 98 24 149/55 94 08/03/16 11:06 94 14 95 Nasal Cannula 2.0 08/03/16 11:00 87 21 139/55 95 08/03/16 11:00 87 21 139/55 95 08/03/16 10:00 84 21 133/56 95 08/03/16 10:00 84 21 133/56 95 Nasal Cannula 2.0 08/03/16 09:59 98 18 133/57 95 08/03/16 09:00 97 19 150/59 95 08/03/16 09:00 97 19 150/59 95 08/03/16 08:00 104 20 161/61 95 08/03/16 08:00 104 20 161/61 95 08/03/16 07:58 93 19 152/63 95 08/03/16 07:58 36.8 93 19 152/63 95 Nasal Cannula 2.0 08/03/16 07:45 95 Nasal Cannula 2.0 08/03/16 07:08 93 14 94 Nasal Cannula 2.0 08/03/16 07:00 95 17 137/57 94 08/03/16 07:00 95 17 137/57 94 08/03/16 06:00 95 22 130/52 93 08/03/16 06:00 95 22 130/52 93 08/03/16 05:58 95 21 135/52 92 08/03/16 05:58 95 21 135/52 92 08/03/16 05:00 98 17 129/57 92 08/03/16 05:00 98 17 129/57 92 08/03/16 04:26 93 Nasal Cannula 2.0 08/03/16 04:00 99 29 115/52 93 08/03/16 04:00 99 29 115/52 93 08/03/16 04:00 36.7 99 20 115/52 93 08/03/16 03:58 93 20 114/49 94 08/03/16 03:58 93 20 114/49 94 08/03/16 03:00 87 16 134/60 94 08/03/16 03:00 87 16 134/60 94 08/03/16 02:00 103 16 132/56 94 08/03/16 02:00 103 16 132/56 94 08/03/16 01:58 102 18 129/58 94 08/03/16 01:58 102 18 129/58 94 08/03/16 01:00 94 19 123/56 93 08/03/16 01:00 94 19 123/56 93 08/03/16 00:00 37.0 93 20 126/58 94 08/03/16 00:00 93 20 126/58 94 08/03/16 00:00 93 Nasal Cannula 2.0 08/02/16 23:58 98 19 121/55 94 08/02/16 23:00 105 17 122/56 95 08/02/16 22:00 108 14 127/57 96 08/02/16 21:59 92 17 126/55 96 08/02/16 21:00 108 23 139/58 95 08/02/16 20:00 93 Nasal Cannula 2.0 08/02/16 20:00 37.1 113 175/82 93 08/02/16 19:59 115 160/76 95 Physical Exam General Appearance: no apparent distress Eyes: normal inspection ENT: hearing grossly normal Neck: supple Respiratory/Chest: chest non-tender, no respiratory distress Cardiovascular: no edema, + irregularly irregular Abdomen: normal bowel sounds, non tender, soft Extremities: non-tender Neurologic/Psychiatric: oriented x 3 Skin: normal color Laboratory Results Last 24 Hours Test 08/02/16 19:19 08/02/16 21:30 08/03/16 05:40 08/03/16 14:27 Vancomycin Level Trough 15.6 mcg/ml White Blood Count 5.34 K/uL 5.20 K/uL Red Blood Count 2.58 M/uL 2.51 M/uL Hemoglobin 7.6 g/dL 7.4 g/dL 7.2 g/dL Hematocrit 21.9 % 21.5 % 20.6 % Mean Corpuscular Volume 84.9 fL 85.7 fL Mean Corpuscular Hemoglobin 29.5 pg 29.5 pg Mean Corpuscular Hemoglobin Concent 34.7 g/dl 34.4 g/dl Platelet Count 140 K/uL 148 K/uL Mean Platelet Volume 10.1 fL 10.2 fL Neutrophils (%) (Auto) 89.5 % 80.7 % Lymphocytes (%) (Auto) 5.6 % 10.0 % Monocytes (%) (Auto) 3.2 % 8.3 % Eosinophils (%) (Auto) 0.2 % 0.0 % Basophils (%) (Auto) 0.0 % 0.0 % Neutrophils # (Auto) 4.78 K/uL 4.20 K/uL Lymphocytes # (Auto) 0.30 K/uL 0.52 K/uL Monocytes # (Auto) 0.17 K/uL 0.43 K/uL Eosinophils # (Auto) 0.01 K/uL 0.00 K/uL Basophils # (Auto) 0.00 K/uL 0.00 K/uL RDW Standard Deviation 53.8 fL 55.0 fL RDW Coefficient of Variation 17.4 % 17.5 % Immature Granulocyte % (Auto) 1.5 % 1.0 % Immature Granulocyte # (Auto) 0.08 K/uL 0.05 K/uL Nucleated RBC Absolute Count (auto) 0.03 K/uL 0.03 K/uL Nucleated Red Blood Cells % 0.5 % 0.5 % Toxic Granulation 1+ 1+ Dohle Bodies 1+ Echinocytes 2+ Polychromasia 1+ Acanthocytes 1+ Prothrombin Time 24.4 SECONDS Prothromb Time International Ratio 2.2 Sodium Level 143 mmol/L Potassium Level 3.4 mmol/L Chloride Level 110 mmol/L Carbon Dioxide Level 18 mmol/L Anion Gap 15.0 mmol/L Blood Urea Nitrogen 30 mg/dl Creatinine 0.69 mg/dl Est Creatinine Clear Calc Drug Dose 91.6 ml/min Estimated GFR () 114.7 Estimated GFR (Non- 98.9 BUN/Creatinine Ratio 43.0 Random Glucose 159 mg/dl Calcium Level 7.8 mg/dl Phosphorus Level 2.8 mg/dl Magnesium Level 2.1 mg/dl Total Bilirubin 0.3 mg/dl Aspartate Amino Transf (AST/SGOT) 18 U/L Alanine Aminotransferase (ALT/SGPT) 57 U/L Alkaline Phosphatase 67 U/L Total Protein 4.4 gm/dl Albumin 1.4 gm/dl Globulin 3.0 gm/dl Albumin/Globulin Ratio 0.5 Test 08/03/16 16:35 Bedside Glucose 212 mg/dl Assessment and Plan Patient is a 65-year-old gentleman with PMH of COPD, chronic hypoxemic respiratory failure, on 2liters of oxygen at all times, paroxysmal atrial fibrillation, aortic stenosis, status post bioprosthetic aortic valve replacement, status post mitral valve repair enterococcal bacteremia presented to ER due to septic shock. 1 septic shock: improving, off norepinephrine, BP is stable, continue current antibiotics, f/u blood culture, monitor on telemetry. Cardiology deferring transesophageal echo at this time would reconsider if additional blood cultures turn positive 2 acute hypoxemic respiratory failure: COPD exacerbation is resolved, continue on supplemental O2 at home level 3 influenza A: positive,continue tamiflu 150 bid, 4 out of 5 days total 4 COPD: continue pulmicort Bid and Duoneb qid 5 Anemia: Hemoglobin drop from 9.5 to 7.78 in 24 hours, but no sign of active bleeding, vital sign stable, monitor 6 EPTRA: resolved, Avoid nephrotoxic drugs 7 A fib: Currently in A. fib, rate in the high 90s to low 100s Will continue to hold Coumadin at this time in the setting of a 2g decrease in hemoglobin. f/u maintenance supervisor mechanical
[2016-08-03] MEDS: HYDROCORTISONE IV 50 MG in SYRINGE 0 ML IV SCH (20:39)
[2016-08-03 22:44] LABS: HEMATOCRIT 21.3 % (42-52)
[2016-08-04] VITALS (25 sets, daily range): BP systolic 104–136; BP diastolic 66–84; PULSE 67–118; TEMP 36.6–37; O2SAT 90–98
[2016-08-04] MEDS ORDERED: PANTOprazole INJ 40 MG in SYRINGE 0 ML IV SCH (00:15)
[2016-08-04] MEDS ORDERED: INSULIN ASPART 100 UNITS/ML 3 ML PEN SC SCH (02:00)
--- NOTE | 2016-08-04 02:42 | Progress Note ---
Progress Note Active melena reported by staff Hb steadily decreasing - now 7.2 Pt is being folllowed by GI Will transfuse 2 units PRBCs
[2016-08-04] MEDS: INSULIN ASPART 100 UNITS/ML 3 ML PEN SC SCH ×4 (07:00→20:55)
[2016-08-04] MEDS: HYDROCORTISONE IV 50 MG in SYRINGE 0 ML IV SCH ×3 (07:33→21:30)
[2016-08-04] MEDS: PANTOprazole INJ 40 MG in SYRINGE 0 ML IV SCH ×2 (07:33→21:30)
[2016-08-04] MEDS: LACTOBACILLUS ACIDOPHILUS (FLORANEX) TAB PO SCH ×3 (07:34→16:42)
[2016-08-04] MEDS: ATORVASTATIN 40 MG TAB PO SCH (07:34)
[2016-08-04] MEDS: OSELTAMIVIR PHOSPHATE 75 MG CAP PO SCH ×2 (07:35→20:54)
[2016-08-04] MEDS: VANCOMYCIN INJ 1,000 MG in SODIUM CHLORIDE 0.9% 250ML 250 ML IV SCH ×2 (07:38→19:56)
[2016-08-04] MEDS: INSULIN GLARGINE SOLOSTAR 100 UNITS/ML 3 ML PEN SC SCH (07:38)
[2016-08-04] MEDS: ALBUT/IPRATROP 3MG/0.5MG NEB 3 ML VIAL INH SCH ×4 (07:44→19:41)
[2016-08-04] MEDS: BUDESONIDE 0.5 MG/2 ML VIAL (PULMICORT) INH SCH ×2 (07:44→19:41)
--- NOTE | 2016-08-04 08:03 | Cardiology Follow-Up ---
Subjective Date of Service: Aug 04, 2016. 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 Records here report that he had an aortic valve replacement and a mitral valve repair which is what he confirms to me, however his echocardiogram suggests both an aortic and mitral bioprosthetic valve. 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 He was discharged from [facility] on 07/26/2016. He presented to [place]'s emergency Department with shortness of breath and was found to be tachycardic, hypotensive and possibly in septic shock. He was placed on BiPAP for his hypoxia and was transferred here. Blood cultures drawn here 07/31/2016 are positive and one out of 2 for staph aureus. This is evidently a different organism that he had in November 2015. Repeat blood cultures drawn 08/01/2016 are negative (although he has been on antibiotics). A transthoracic echocardiogram here does not show the valves very well, however in the absence of clear suggestion of endocarditis transesophageal echocardiography it has not been done. He feels much better. He has no specific complaints. Social History Smoking Status: Former Smoker History of Alcohol Use: No Review of Systems Respiratory: No cough, No shortness of breath Cardiac: No chest pain, No edema Medications Cardiovascular: Item Value Date Time Atorvastatin 40 mg 08/01/16 0900 Calcium DAILY/PO 08/04/16 0734 (Lipitor Tab) Objective Vital Signs Past 12 Hours Date Time Temp Pulse Resp B/P Pulse Ox O2 Delivery O2 Flow Rate FiO2 08/04/16 07:44 89 16 98 Nasal Cannula 2.0 08/04/16 05:40 36.7 90 14 136/79 90 2.0 08/04/16 04:03 98 Nasal Cannula 2.0 08/04/16 04:00 36.8 99 14 123/81 95 2.0 08/04/16 03:36 98 08/04/16 03:33 36.9 14 119/84 97 2.0 08/04/16 03:23 37.0 99 14 116/80 98 2.0 08/04/16 02:59 36.6 93 14 120/72 97 08/04/16 02:30 37.0 84 14 114/71 96 2.0 08/04/16 00:51 36.9 90 14 127/66 93 08/04/16 00:29 36.9 93 14 131/83 96 08/04/16 00:04 36.9 86 18 104/69 94 Nasal Cannula 2.0 08/04/16 00:00 98 Nasal Cannula 2.0 08/03/16 20:00 98 Nasal Cannula 2.0 Last Recorded Weight-Kilograms: 65.400 Intake & Output 8-Hour Column 08/03/16 08/04/16 08/04/16 16:00 00:00 08:00 Intake Total 1039 ml 211 ml 1291 ml Output Total 400 ml 350 ml 200 ml Balance 639 ml -139 ml 1091 ml 24-Hour Column 08/04/16 08:00 Intake Total 2541 ml Output Total 950 ml Balance 1591 ml Physical Exam Constitutional: Level of Distress: mild distress Lungs: Auscultation: breath sounds normal Cardiovascular: Heart Auscultation: irregular rate rhythm, pertinent finding (good prosthetic valve sounds) Extremities: no edema Data Laboratory Results: Last 24 Hours Test 08/03/16 14:27 08/03/16 16:35 08/03/16 20:20 08/03/16 20:30 Hemoglobin 7.2 g/dL 7.2 g/dL Hematocrit 20.6 % 21.3 % Bedside Glucose 212 mg/dl 238 mg/dl Test 08/04/16 01:56 08/04/16 04:44 08/04/16 06:00 08/04/16 06:31 Bedside Glucose 231 mg/dl 183 mg/dl Telemetry reviewed: Paroxysmal atrial fibrillation as well as periods of sinus rhythm with frequent premature atrial beats. He does have quite rapid heart rates during atrial fibrillation at times. Assessment and Plan #1. Possible sepsis and hypotension: It seems unlikely that he has endocarditis , from his [facility] evaluation in November he is reported to have enterococcal sepsis and he has had blood cultures drawn here which are 1 out of 2 positive for staph aureus but repeat cultures are negative. This probably represents a contaminant. The echocardiogram was not good quality but his valves appear to be functioning adequately, we cannot tell if there are vegetations and to evaluate that we would need a transesophageal echocardiogram. At this point I don't think there is enough evidence to suggest he has bacteremia to proceed with transesophageal echocardiography. With a different organism from his prior sepsis, as well as now one that is likely a contaminant, I would await further evidence before proceeding with MIGUEL. #2. Prosthetic valve: There is discrepancy between the records and what the patient says of what appears to be present on the echocardiogram. In any case valves appeared to be working well at this time but we cannot tell if vegetations are present. #3. Left ventricular dysfunction: This appears to be new, an echocardiogram done 07/19/2016 shows normal left ventricular size and function. Presumably his acute left ventricular dysfunction 07/31/2016 is due to his acute illness and stunning, not an interim cardiac event. I would treat him for his underlying condition and hopefully his left ventricular function will recover quickly. There is no evidence of acute myocardial infarction. It appears that he will be here for some time therefore I will repeat the echocardiogram to look for recovery. #4. Atrial fibrillation: He is reported to have paroxysmal atrial fibrillation, he has had paroxysmal atrial fibrillation since admission here this visit, at his last visit he was also in atrial fibrillation. He is anticoagulated with warfarin for this. Over the long run he will need to be anticoagulated for his arrhythmia, but not for his valvular disease. One of the newer agents would not be contraindicated, the fact that he has bioprosthetic valves would not contraindicate the use of one of the newer agents. His heart rate is currently somewhat elevated, I believe he was on diltiazem prior to admission (at least before his admission here) and I will restart that. I'm hesitant to use beta blockade although if he has significant residual left ventricular dysfunction we probably should do that. Thank you for allowing me to participate in his care.
[2016-08-04] MEDS: DILTIAZEM HCL 120 MG CAPCR PO SCH (08:51)
[2016-08-04 09:25] LABS: HEMATOCRIT 28.2 % (42-52); MEAN CELL VOLUME 87.9 fL (80-100); MEAN CORPUSCULAR HEMOGLOBIN 30.2 pg (25-34); MEAN CORPUSCULAR HGB CONC 34.4 g/dl (32-36); MEAN PLATELET VOLUME 10.1 fL (7.4-10.4); PLATELET COUNT 127 K/uL (130-400); RED BLOOD COUNT 3.21 M/uL (4.7-6.1); WHITE BLOOD COUNT 5.52 K/uL (4.8-10.8)
[2016-08-04 09:32] LABS: PROTHROMBIN TIME (PATIENT) 21.6 SECONDS (9.0-12.0)
[2016-08-04] MEDS ORDERED: INSULIN GLARGINE SOLOSTAR 100 UNITS/ML 3 ML PEN SC ONE (09:45)
[2016-08-04 09:54] LABS: BUN/CREATININE RATIO 37.2 (10-20); CALCIUM 7.8 mg/dl (8.5-10.1); CREATININE 0.74 mg/dl (0.60-1.40); MAGNESIUM 1.9 mg/dl (1.8-2.4); POTASSIUM 2.8 mmol/L (3.5-5.1)
[2016-08-04 09:56] LABS: COMPLETE YES; DOHLE BODIES 1+; ECHINOCYTES 1+; LYMPH ABS # 0.39 K/uL (1.2-3.4); META ABS # 0.05 K/uL (0-0); METAMYELOCYTE % 0.9 %; MYELOCYTE % 0.9 %; NEUTROPHILS % 82.5 %; TOXIC GRANULATION 1+
[2016-08-04] MEDS ORDERED: NURSING VERBAL MED ORDER ONE (10:15)
[2016-08-04] MEDS ORDERED: POTASSIUM CHLORIDE 20 MEQ TABCR PO ONE (10:30)
--- NOTE | 2016-08-04 11:32 | Hospitalist Progress Note ---
Hospitalist Progress Note Date of Service Aug 04, 2016. Subjective Pt evaluation today including: conversation w/ patient, physical exam, chart review, lab review, review of studies, review of inpatient medication list overnight had 3 episodes of bloody bowel movement Objective Vital Signs Date Time Temp Pulse Resp B/P Pulse Ox O2 Delivery O2 Flow Rate FiO2 08/04/16 10:59 36.8 99 16 131/68 92 Nasal Cannula 2.0 08/04/16 08:00 97 Nasal Cannula 2.0 08/04/16 08:00 36.7 118 18 112/78 97 Nasal Cannula 2.0 08/04/16 07:44 89 16 98 Nasal Cannula 2.0 08/04/16 05:40 36.7 90 14 136/79 90 2.0 08/04/16 04:03 98 Nasal Cannula 2.0 08/04/16 04:00 36.8 99 14 123/81 95 2.0 08/04/16 03:36 98 08/04/16 03:33 36.9 14 119/84 97 2.0 08/04/16 03:23 37.0 99 14 116/80 98 2.0 08/04/16 02:59 36.6 93 14 120/72 97 08/04/16 02:30 37.0 84 14 114/71 96 2.0 08/04/16 00:51 36.9 90 14 127/66 93 08/04/16 00:29 36.9 93 14 131/83 96 08/04/16 00:04 36.9 86 18 104/69 94 Nasal Cannula 2.0 08/04/16 00:00 98 Nasal Cannula 2.0 08/03/16 20:00 98 Nasal Cannula 2.0 08/03/16 19:24 36.6 97 22 103/73 98 Nasal Cannula 2.0 08/03/16 19:04 118 16 95 Nasal Cannula 2.0 08/03/16 16:10 88 19 134/48 95 08/03/16 16:00 94 Nasal Cannula 2.0 08/03/16 16:00 36.7 92 19 136/50 95 Nasal Cannula 2.0 08/03/16 15:58 90 18 131/48 95 08/03/16 15:00 85 19 131/49 95 08/03/16 14:59 99 16 95 Nasal Cannula 2.0 08/03/16 14:00 93 27 130/52 96 08/03/16 13:58 94 23 127/50 95 08/03/16 13:00 99 18 148/55 93 08/03/16 12:00 103 21 142/54 94 Nasal Cannula 2.0 08/03/16 12:00 36.7 103 21 142/54 94 Nasal Cannula 2.0 08/03/16 12:00 95 Nasal Cannula 2.0 08/03/16 11:58 98 24 149/55 94 08/03/16 11:58 98 24 149/55 94 Physical Exam General Appearance: no apparent distress Eyes: normal inspection ENT: hearing grossly normal Neck: supple Respiratory/Chest: chest non-tender, + decreased breath sounds Cardiovascular: regular rate, rhythm Abdomen: normal bowel sounds, + tenderness (mild on left groin area ) Extremities: normal range of motion, non-tender Neurologic/Psychiatric: no motor/sensory deficits, oriented x 3 Skin: normal color Laboratory Results Last 24 Hours Test 08/03/16 14:27 08/03/16 16:35 08/03/16 20:20 08/03/16 20:30 Hemoglobin 7.2 g/dL 7.2 g/dL Hematocrit 20.6 % 21.3 % Bedside Glucose 212 mg/dl 238 mg/dl Test 08/04/16 01:56 08/04/16 06:31 08/04/16 09:11 Bedside Glucose 231 mg/dl 183 mg/dl White Blood Count 5.52 K/uL Red Blood Count 3.21 M/uL Hemoglobin 9.7 g/dL Hematocrit 28.2 % Mean Corpuscular Volume 87.9 fL Mean Corpuscular Hemoglobin 30.2 pg Mean Corpuscular Hemoglobin Concent 34.4 g/dl Platelet Count 127 K/uL Mean Platelet Volume 10.1 fL RDW Standard Deviation 52.5 fL RDW Coefficient of Variation 16.3 % Neutrophils % (Manual) 82.5 % Lymphocytes % (Manual) 7.0 % Monocytes % (Manual) 8.7 % Metamyelocytes % 0.9 % Myelocytes % 0.9 % Neutrophils # (Manual) 4.55 K/uL Total Absolute Neutrophils 4.55 K/uL Lymphocytes # (Manual) 0.39 K/uL Total Absolute Lymphocytes 0.39 K/uL Monocytes # (Manual) 0.48 K/uL Metamyelocytes # 0.05 K/uL Myelocytes # 0.05 K/uL Toxic Granulation 1+ Dohle Bodies 1+ Echinocytes 1+ Prothrombin Time 21.6 SECONDS Prothromb Time International Ratio 2.0 Sodium Level 146 mmol/L Potassium Level 2.8 mmol/L Chloride Level 112 mmol/L Carbon Dioxide Level 20 mmol/L Anion Gap 14.0 mmol/L Blood Urea Nitrogen 28 mg/dl Creatinine 0.74 mg/dl Est Creatinine Clear Calc Drug Dose 85.4 ml/min Estimated GFR () 111.4 Estimated GFR (Non- 96.1 BUN/Creatinine Ratio 37.2 Random Glucose 153 mg/dl Calcium Level 7.8 mg/dl Magnesium Level 1.9 mg/dl Assessment and Plan Patient is a 65-year-old gentleman with PMH of COPD, chronic hypoxemic respiratory failure, on 2liters of oxygen at all times, paroxysmal atrial fibrillation, aortic stenosis, status post bioprosthetic aortic valve replacement, status post mitral valve repair enterococcal bacteremia presented to ER due to septic shock. 1 Lower GI bleeding: overnight has 3 episodes bloody bowel movement, got 2 unit blood transfusion during the night. may related to colitis, informed GI about this issue. Dr. cherry will come to see him later. consider colonoscopy since he is stable to tolerant now. monitor H@H 2 septic shock: resolved, off norepinephrine, BP is stable, continue current antibiotics, blood cultures drawn here which are 1 out of 2 positive for staph aureus but repeat cultures are negative., monitor on telemetry. unclear sources. may related to GI. F/U GI 2 acute hypoxemic respiratory failure: COPD exacerbation is resolved, continue on supplemental O2 at home level 3 influenza A: positive,continue tamiflu 150 bid, 5 out of 5 days total 4 COPD: continue pulmicort Bid and Duoneb qid 5 Anemia: Hemoglobin drop from 9.5 to 7.2 in 24 hours, related to lower GI bleeding, got 2 unit transfusion, monitor H@H 6 PETRA: resolved, Avoid nephrotoxic drugs 7 A fib: Currently in A. fib, rate in the high 90s to low 100s Will continue to hold Coumadin at this time in the setting lower GL bleeding. f/u senior abap developer
--- NOTE | 2016-08-04 14:09 | Progress Note ---
Progress Note Events noted - had episodes of hematochezia last night and slow downward trend in hgb since admission. Transfused 2 U with approp rise in Hgb. Reports lower abd pain, but hungry. Vital Signs Past 12 Hours Date Time Temp Pulse Resp B/P Pulse Ox O2 Delivery O2 Flow Rate FiO2 08/04/16 12:00 92 Nasal Cannula 2.0 35 08/04/16 12:00 36.8 99 16 131/68 92 Nasal Cannula 2.0 08/04/16 11:44 97 Nasal Cannula 2.0 08/04/16 11:38 85 16 95 Nasal Cannula 2.0 08/04/16 10:59 36.8 99 16 131/68 92 Nasal Cannula 2.0 08/04/16 08:00 97 Nasal Cannula 2.0 08/04/16 08:00 36.7 118 18 112/78 97 Nasal Cannula 2.0 08/04/16 07:44 89 16 98 Nasal Cannula 2.0 08/04/16 05:40 36.7 90 14 136/79 90 2.0 08/04/16 04:03 98 Nasal Cannula 2.0 08/04/16 04:00 36.8 99 14 123/81 95 2.0 08/04/16 03:36 98 08/04/16 03:33 36.9 14 119/84 97 2.0 08/04/16 03:23 37.0 99 14 116/80 98 2.0 08/04/16 02:59 36.6 93 14 120/72 97 08/04/16 02:30 37.0 84 14 114/71 96 2.0 Appears chronically ill, but in NAD Abd: Mild to moderate tenderness in LLQ on light palpation. Abd mildly tympanic. Last 24 Hours Test 08/03/16 14:27 08/03/16 16:35 08/03/16 20:20 08/03/16 20:30 Hemoglobin 7.2 g/dL 7.2 g/dL Hematocrit 20.6 % 21.3 % Bedside Glucose 212 mg/dl 238 mg/dl Test 08/04/16 01:56 08/04/16 06:31 08/04/16 09:11 08/04/16 11:21 Bedside Glucose 231 mg/dl 183 mg/dl 159 mg/dl White Blood Count 5.52 K/uL Red Blood Count 3.21 M/uL Hemoglobin 9.7 g/dL Hematocrit 28.2 % Mean Corpuscular Volume 87.9 fL Mean Corpuscular Hemoglobin 30.2 pg Mean Corpuscular Hemoglobin Concent 34.4 g/dl Platelet Count 127 K/uL Mean Platelet Volume 10.1 fL RDW Standard Deviation 52.5 fL RDW Coefficient of Variation 16.3 % Neutrophils % (Manual) 82.5 % Lymphocytes % (Manual) 7.0 % Monocytes % (Manual) 8.7 % Metamyelocytes % 0.9 % Myelocytes % 0.9 % Neutrophils # (Manual) 4.55 K/uL Total Absolute Neutrophils 4.55 K/uL Lymphocytes # (Manual) 0.39 K/uL Total Absolute Lymphocytes 0.39 K/uL Monocytes # (Manual) 0.48 K/uL Metamyelocytes # 0.05 K/uL Myelocytes # 0.05 K/uL Toxic Granulation 1+ Dohle Bodies 1+ Echinocytes 1+ Prothrombin Time 21.6 SECONDS Prothromb Time International Ratio 2.0 Sodium Level 146 mmol/L Potassium Level 2.8 mmol/L Chloride Level 112 mmol/L Carbon Dioxide Level 20 mmol/L Anion Gap 14.0 mmol/L Blood Urea Nitrogen 28 mg/dl Creatinine 0.74 mg/dl Est Creatinine Clear Calc Drug Dose 85.4 ml/min Estimated GFR () 111.4 Estimated GFR (Non- 96.1 BUN/Creatinine Ratio 37.2 Random Glucose 153 mg/dl Calcium Level 7.8 mg/dl Magnesium Level 1.9 mg/dl A/P: Rectal bleeding, ischemic colitis - His continued rectal bleeding seems consistent with dx of ischemic colitis although i cannot exclude IBD or infectious colitis. Will plan flex sig tomorrow.
--- NOTE | 2016-08-04 15:06 | Pharmacy Progress Note ---
Glycemic: Assessment & Plan Date of Service Aug 04, 2016. Assessment & Plan * BSGs ranging 153 - 238 mg/dl over the past 24hrs. * Diet: AHA/DM2 * Steroids being tapered: HC 100mg IV i0zzals --> 50mg IV f8talia. * BSG control is improving as Lantus approaches SS. Of note, the pt is refusing some insulin doses. Continue PLAN FOR INPATIENT GLYCEMIC CONTROL: * Basal insulin: Lantus 6 units qAM * Correctional Insulin: Novolog Correction per scale ACHS Goal Range: Low 120 mg/dL - High 160 mg/dL Correction Factor: 35 mg/dL/unit * Prandial insulin: Per carb ratio of 1 unit per 14 grams CHO consumed BSGs continue to improve, no changes needed to inpatient regimen at this time. Pharmacy will continue to monitor patient daily and write orders per [facility] inpatient glycemic control protocol. Thanks. * Please note that the plan above was derived based on current level of insulin resistance and hospital stress. These recommendations are appropriate for inpatient admission only. Plan of care upon discharge will need to be reassessed to avoid potential outpatient hypo/hyperglycemia.
[2016-08-04] MEDS ORDERED: VANCOMYCIN TROUGH ONE (19:30)
--- NOTE | 2016-08-04 20:50 | Pharmacy Progress Note ---
Pharmacy Antibiotic Prog Note Date of Service: Aug 04, 2016. Subjective: The patient is currently receiving: * Vancomycin 1000mg IV Q 12 hrs * Levofloxacin 750mg IV Q 24 hrs Today is day # 5 abx therapy for sepsis from possible pulmonary source, pnx, h/ o MRDO in sputum, h/o endocarditis Objective: Height (Feet): 5 Height (Inches): 5.00 Weight (Kilograms): 65.400 Levels: Item Value Date Time Vancomycin Level Trough 22.6 mcg/ml 08/04/161939 Vancomycin Level Trough 15.6 mcg/ml 08/02/161918 Lab Results (24hrs): Laboratory Tests Test 08/04/16 09:11 BUN/Creatinine Ratio 37.2 Blood Urea Nitrogen 28 mg/dl Creatinine 0.74 mg/dl White Blood Count 5.52 K/uL Red Blood Count 3.21 M/uL Hemoglobin 9.7 g/dL Hematocrit 28.2 % Mean Corpuscular Volume 87.9 fL Mean Corpuscular Hemoglobin 30.2 pg Mean Corpuscular Hemoglobin Concent 34.4 g/dl Platelet Count 127 K/uL Mean Platelet Volume 10.1 fL Item Value Date Time Creatinine 0.74 mg/dl 08/04/16 0911 Est Creatinine Clear Calc Drug Dose 85.4 ml/min 08/04/16 0911 Creatinine 0.69 mg/dl 08/03/16 0540 Est Creatinine Clear Calc Drug Dose 91.6 ml/min 08/03/16 0540 Creatinine 0.85 mg/dl 08/02/16 0549 Est Creatinine Clear Calc Drug Dose 74.4 ml/min 08/02/16 0549 Creatinine 0.95 mg/dl 08/01/16 1303 Est Creatinine Clear Calc Drug Dose 66.0 ml/min 08/01/16 1303 Creatinine 1.10 mg/dl 08/01/16 0612 Est Creatinine Clear Calc Drug Dose 57.0 ml/min 08/01/16 0612 Recent Pertinent Medications: * Day # 5: Continues Tamiflu 150mg po BID Assessment & Plan: VANC-IV: * This drug level is: Supratherapeutic. Will maintain dose but slightly extend dosing interval * Resume previously used dose of VANC 1000mg IV every 14 hours. * Goal trough level estimate: ~20 mcg/mL. * Recheck Vanc trough prior to dose on 1/24 1400. LVQ-IV: Continue 750mg IV every 24 hours Pharmacy will continue to follow and will adjust dose/frequency as necessary. Thank you
[2016-08-05] VITALS (13 sets, daily range): BP systolic 113–129; BP diastolic 64–83; PULSE 80–103; TEMP 36.8–36.9; O2SAT 92–98
[2016-08-05 05:27] LABS: HEMATOCRIT 25.9 % (42-52); MEAN CELL VOLUME 87.8 fL (80-100); MEAN CORPUSCULAR HEMOGLOBIN 30.2 pg (25-34); MEAN CORPUSCULAR HGB CONC 34.4 g/dl (32-36); PLATELET COUNT 120 K/uL (130-400); RED BLOOD COUNT 2.95 M/uL (4.7-6.1); WHITE BLOOD COUNT 6.01 K/uL (4.8-10.8)
[2016-08-05 05:35] LABS: INR 1.8 (0.9-1.1); PROTHROMBIN TIME (PATIENT) 19.6 SECONDS (9.0-12.0)
[2016-08-05 05:54] LABS: BASO % 0.3 %; BASO ABS # 0.02 K/uL (0-0.2); COMPLETE YES; EOS % 0.3 %; IG% 6.2 %; LYMPH % 10.1 %; LYMPH ABS # 0.61 K/uL (1.2-3.4); MONO % 7.3 %; NEUT % 75.8 %; TOXIC GRANULATION 1+
[2016-08-05 06:11] LABS: BUN/CREATININE RATIO 44.1 (10-20); CALCIUM 7.7 mg/dl (8.5-10.1); CREATININE 0.63 mg/dl (0.60-1.40); MAGNESIUM 1.9 mg/dl (1.8-2.4); POTASSIUM 3.3 mmol/L (3.5-5.1)
[2016-08-05] MEDS: INSULIN ASPART 100 UNITS/ML 3 ML PEN SC SCH ×4 (07:00→21:26)
[2016-08-05] MEDS: ALBUT/IPRATROP 3MG/0.5MG NEB 3 ML VIAL INH SCH ×4 (07:02→19:36)
[2016-08-05] MEDS: BUDESONIDE 0.5 MG/2 ML VIAL (PULMICORT) INH SCH ×2 (07:02→19:36)
[2016-08-05] MEDS: LACTOBACILLUS ACIDOPHILUS (FLORANEX) TAB PO SCH ×3 (07:30→17:36)
[2016-08-05] MEDS: HYDROCORTISONE IV 50 MG in SYRINGE 0 ML IV SCH ×3 (08:52→21:27)
[2016-08-05] MEDS: DILTIAZEM HCL 120 MG CAPCR PO SCH (08:53)
[2016-08-05] MEDS: OSELTAMIVIR PHOSPHATE 75 MG CAP PO SCH ×2 (08:53→21:31)
[2016-08-05] MEDS: PANTOprazole INJ 40 MG in SYRINGE 0 ML IV SCH ×2 (08:53→21:27)
[2016-08-05] MEDS: ATORVASTATIN 40 MG TAB PO SCH (08:53)
[2016-08-05] MEDS: INSULIN GLARGINE SOLOSTAR 100 UNITS/ML 3 ML PEN SC SCH (09:00)
[2016-08-05] MEDS ORDERED: INSULIN GLARGINE SOLOSTAR 100 UNITS/ML 3 ML PEN SC SCH (09:00)
--- NOTE | 2016-08-05 11:04 | Gastroenterology Progress Note ---
Progress Note Date of Service: Aug 05, 2016 Subjective Pt evaluation today including: conversation w/ patient, physical exam, chart review, lab review, review of studies, review of inpatient medication list Pt still having L sided abd pain. Denies any n/v. Currently on O2 2L NC. He did not some dyspnea w exertion but not at rest. Review of Systems Constitutional: No chills, No fever Respiratory: + dyspnea on exertion, No cough, No shortness of breath Cardiac: No chest pain Abdomen: + GI bleeding (Had rectal bleeding over weekend. ), + pain, + see HPI , No nausea, No vomiting Medications Current Inpatient Medications Medications (Trade) Dose Ordered Sig/Jim Route Start Time Stop Time Status Last Admin Dose Admin Acetaminophen (Tylenol Tab) 650 mg Q4H PRN PO 07/31/16 11:00 08/30/16 10:59 Ondansetron HCl (Zofran Inj) 4 mg Q6H PRN IV 07/31/16 11:00 08/30/16 10:59 Miscellaneous Information (Consult Glycemic Management Pharmacy) 1 ea UD N/A 07/31/16 11:05 08/30/16 11:04 Atorvastatin Calcium (Lipitor Tab) 40 mg DAILY PO 08/01/16 09:00 08/31/16 08:59 08/05/16 08:53 40 MG Budesonide (Pulmicort Respules 0.5MG/ 2ML Neb Soln) 0.5 mg BIDR INH 07/31/16 20:00 08/30/16 19:59 08/05/16 07:02 0.5 MG Lactobacillus Acidophilus (Floranex Tab) 4 tab TIDM PO 07/31/16 16:30 08/30/16 16:29 08/04/16 16:42 4 TAB Albuterol/ Ipratropium (Duoneb) 3 ml QIDR INH 07/31/16 12:00 08/30/16 11:59 08/05/16 07:02 3 ML Glucose (Glucose 40% Gel) 15-30 GRAMS 15 GRAMS... UD PRN PO 07/31/16 12:45 08/30/16 12:44 Glucose (Glucose Chew Tab) 4-8 Tablets 4 Tabl... UD PRN PO 07/31/16 12:45 08/30/16 12:44 Dextrose (Dextrose 50% 50ML Syringe) 25-50ML OF 50% DW IV FOR... UD PRN IV 07/31/16 12:45 08/30/16 12:44 07/31/16 19:32 25 ML Glucagon (Glucagon Inj) 1 mg UD PRN SQ 07/31/16 12:45 08/30/16 12:44 Vancomycin HCl (Consult) 1 ea UD PRN N/A 07/31/16 14:15 08/30/16 14:14 Oseltamivir Phosphate (Tamiflu Cap) 150 mg BID PO 07/31/16 22:00 08/05/16 21:59 08/05/16 08:53 150 MG Insulin Aspart (novoLOG ASPART) SLIDING SCALE ACHS SC 08/02/16 21:00 09/01/16 20:59 08/04/16 20:55 2 UNITS Insulin Glargine 6 unit 6 unit QAM SC 08/03/16 09:00 09/02/16 08:59 08/05/16 09:00 6 UNIT Hydrocortisone Sodium Succinate 50 mg/Syringe 1 ml @ 4 mls/min TID IV 08/03/16 21:00 09/02/16 20:59 08/05/16 08:52 4 MLS/MIN Pantoprazole Sodium/Syringe (Protonix Inj/ Syringe) 10 ml @ 5 mls/min DAILY@ IV 08/04/16 09:00 09/03/16 08:59 08/05/16 08:53 5 MLS/MIN Diltiazem HCl 120 mg 120 mg QAM PO 08/04/16 09:00 09/03/16 08:59 08/05/16 08:53 120 MG Vancomycin HCl/ Sodium Chloride (Vancomycin Inj/ Nss 250ml) 270 ml @ 125 mls/hr Q14H IV 08/05/16 10:00 08/09/16 23:59 Polyethylene (Miralax Powder Packet) 119 gm ONE ONCE PO 08/05/16 17:00 08/05/16 17:01 Bisacodyl (Dulcolax Tab) 20 mg ONE ONCE PO 08/05/16 17:00 08/05/16 17:01 Polyethylene (Miralax Powder Packet) 119 gm ONE ONCE PO 08/05/16 21:00 08/05/16 21:01 Objective Vital Signs Date Time Temp Pulse Resp B/P Pulse Ox O2 Delivery O2 Flow Rate FiO2 08/05/16 08:00 Nasal Cannula 2.0 08/05/16 07:19 36.8 82 20 124/74 94 2.0 08/05/16 07:02 85 16 95 Nasal Cannula 2.0 08/05/16 04:00 Nasal Cannula 2.0 08/05/16 03:33 36.9 80 17 115/64 96 Nasal Cannula 2.0 08/05/16 00:00 Nasal Cannula 2.0 08/04/16 23:53 36.7 100 17 123/80 96 Nasal Cannula 2.0 08/04/16 20:00 98 Nasal Cannula 2.0 08/04/16 19:41 79 16 97 Nasal Cannula 2.0 08/04/16 18:58 36.9 92 18 134/67 96 Nasal Cannula 2.0 08/04/16 16:00 97 Nasal Cannula 2.0 08/04/16 15:17 74 16 97 Nasal Cannula 2.0 08/04/16 15:04 36.7 67 18 119/70 95 Nasal Cannula 2.0 08/04/16 12:00 92 Nasal Cannula 2.0 35 08/04/16 12:00 36.8 99 16 131/68 92 Nasal Cannula 2.0 08/04/16 11:44 97 Nasal Cannula 2.0 08/04/16 11:38 85 16 95 Nasal Cannula 2.0 08/04/16 10:59 36.8 99 16 131/68 92 Nasal Cannula 2.0 Physical Exam General Appearance: WD/WN, no apparent distress Eyes: normal inspection, PERRL, EOMI Neck: supple, no JVD, trachea midline Respiratory/Chest: no respiratory distress, no accessory muscle use, + decreased breath sounds Cardiovascular: regular rate, rhythm, no gallop, no murmur Abdomen: normal bowel sounds, soft, + tenderness (RUQ, LLQ) Extremities: normal inspection, no pedal edema, no calf tenderness Neurologic/Psych: alert, normal mood/affect, oriented x 3 Skin: normal color, no jaundice, no rash Laboratory Results Last 24 Hours Test 08/04/16 11:21 08/04/16 16:16 08/04/16 19:40 08/04/16 19:52 Bedside Glucose 159 mg/dl 169 mg/dl 218 mg/dl Vancomycin Level Trough 22.6 mcg/ml Test 08/05/16 04:44 08/05/16 06:41 White Blood Count 6.01 K/uL Red Blood Count 2.95 M/uL Hemoglobin 8.9 g/dL Hematocrit 25.9 % Mean Corpuscular Volume 87.8 fL Mean Corpuscular Hemoglobin 30.2 pg Mean Corpuscular Hemoglobin Concent 34.4 g/dl Platelet Count 120 K/uL Mean Platelet Volume 10.0 fL Neutrophils (%) (Auto) 75.8 % Lymphocytes (%) (Auto) 10.1 % Monocytes (%) (Auto) 7.3 % Eosinophils (%) (Auto) 0.3 % Basophils (%) (Auto) 0.3 % Neutrophils # (Auto) 4.55 K/uL Lymphocytes # (Auto) 0.61 K/uL Monocytes # (Auto) 0.44 K/uL Eosinophils # (Auto) 0.02 K/uL Basophils # (Auto) 0.02 K/uL RDW Standard Deviation 53.9 fL RDW Coefficient of Variation 16.8 % Immature Granulocyte % (Auto) 6.2 % Immature Granulocyte # (Auto) 0.37 K/uL Toxic Granulation 1+ Prothrombin Time 19.6 SECONDS Prothromb Time International Ratio 1.8 Sodium Level 147 mmol/L Potassium Level 3.3 mmol/L Chloride Level 114 mmol/L Carbon Dioxide Level 22 mmol/L Anion Gap 11.0 mmol/L Blood Urea Nitrogen 28 mg/dl Creatinine 0.63 mg/dl Est Creatinine Clear Calc Drug Dose 100.3 ml/min Estimated GFR () 119.0 Estimated GFR (Non- 102.7 BUN/Creatinine Ratio 44.1 Random Glucose 181 mg/dl Calcium Level 7.7 mg/dl Magnesium Level 1.9 mg/dl Bedside Glucose 159 mg/dl Assessment and Plan Patient is a 65 year old male who was here a couple of weeks ago w sepsis w/o unknown course, pneumonia; currently readmitted for respiratory distress. He did have evidence of L sided colitis suspected to be ischemic in nature. Hx of Cdiff positive but negative last admission, also negative stool cx. + Flu, on Tamiflu; Cdiff negative, stool cx negative. He's off pressures and BiPAP, on O2 2L NC 94% sat. He still having some L sided abd pain, and some rectal bleeding over weekend. Hgb 8.9 after 2U PRBC transfusion. Plans - Continue broad spectrum antibx for enteric coverage as well - Rising LFTs -> resolved. Suspected med side effect reaction vs shock liver - He was initially scheduled for flexible sigmoidscopy today, though hasn't received enema and he likely can tolerate a full bowel prep now, respiratory status also more stable. Thus will plan for full bowel prep starting this evening in anticipation for Colonoscopy by Dr. Smith on 08/06. CL diet only today, NPO after midnight. Addendum: Pt seen at afternoon rounds w Dr. Smith. He was having coarse and productive coughing; bilateral lungs w fine wheezing. Will cancel non emergent colonoscopy given change in respiratory status. He likely has ischemic colitis given pattern in CT scan; will continue current treatment, and plan for Colonoscopy in 4-[address] Smith. I saw and evaluated the patient. He still has SOB and coughing with minimal exertion, no further hematochezia. Given the persistent respiratory issues I would suggest we defer colonoscopy for 1 month to allow him time to recovery and minimize his chance of perioperative complications. At this time his hematochezia has resolved and imaging was suggestive of ischemic colitis. Given this I would suggest a delayed examination.
[2016-08-05] MEDS: VANCOMYCIN INJ 1,000 MG in SODIUM CHLORIDE 0.9% 250ML 250 ML IV SCH ×2 (11:14→23:36)
[2016-08-05] MEDS ORDERED: NURSING VERBAL MED ORDER ONE (16:00)
[2016-08-05] MEDS ORDERED: SODIUM CHLORIDE 0.65% NA SOLN 45 ML (OCEAN) PRN (16:15)
[2016-08-05] MEDS ORDERED: BISACODYL 5 MG TABEC PO ONE (17:00)
[2016-08-05] MEDS ORDERED: POLYETHYLENE (MIRALAX) 17 GM PACK PO ONE ×2 (17:00→21:00)
--- NOTE | 2016-08-05 18:38 | Hospitalist Progress Note ---
Hospitalist Progress Note Date of Service Aug 05, 2016. Subjective Pt evaluation today including: conversation w/ patient, physical exam, chart review, lab review, review of studies, review of inpatient medication list Patient reports feeling weak overall. He feels it will be sometime until he is "back on his feet". He reports that his pain is controlled. No new concerns today. Additional Comments: A 10 system review was performed and all were negative. Positives were placed in the subjective section. Objective Vital Signs Date Time Temp Pulse Resp B/P Pulse Ox O2 Delivery O2 Flow Rate FiO2 08/05/16 16:00 94 Room Air 2.0 08/05/16 15:49 82 16 94 Nasal Cannula 2.0 08/05/16 15:19 36.8 88 20 117/72 95 2.0 08/05/16 12:00 Nasal Cannula 2.0 08/05/16 11:17 36.8 100 20 129/79 92 2.0 08/05/16 11:15 91 16 94 Nasal Cannula 2.0 08/05/16 08:00 Nasal Cannula 2.0 08/05/16 07:19 36.8 82 20 124/74 94 2.0 08/05/16 07:02 85 16 95 Nasal Cannula 2.0 08/05/16 04:00 Nasal Cannula 2.0 08/05/16 03:33 36.9 80 17 115/64 96 Nasal Cannula 2.0 08/05/16 00:00 Nasal Cannula 2.0 08/04/16 23:53 36.7 100 17 123/80 96 Nasal Cannula 2.0 08/04/16 20:00 98 Nasal Cannula 2.0 08/04/16 19:41 79 16 97 Nasal Cannula 2.0 08/04/16 18:58 36.9 92 18 134/67 96 Nasal Cannula 2.0 Physical Exam Notes: GEN: Awake, alert, and oriented x 3. Not in acute distress HEENT: Tm's intact, no inflammation, EOMI, PERRLA, MMM Neck: Soft, supple Lungs: few scattered rhonchi. Heart: REG, nrl S1S2 without murmurs, rubs or gallops Abdomen: Soft, NT, ND, + BS EXT: No C/C/E NEURO: CN's II-XII grossly intact, non-focal Skin: warm, dry, no rashes PSYCH: pleasant, cooperative, no signs of significant anxiety or depression. Laboratory Results Last 24 Hours Test 08/04/16 19:40 08/04/16 19:52 08/05/16 04:44 08/05/16 06:41 Vancomycin Level Trough 22.6 mcg/ml Bedside Glucose 218 mg/dl 159 mg/dl White Blood Count 6.01 K/uL Red Blood Count 2.95 M/uL Hemoglobin 8.9 g/dL Hematocrit 25.9 % Mean Corpuscular Volume 87.8 fL Mean Corpuscular Hemoglobin 30.2 pg Mean Corpuscular Hemoglobin Concent 34.4 g/dl Platelet Count 120 K/uL Mean Platelet Volume 10.0 fL Neutrophils (%) (Auto) 75.8 % Lymphocytes (%) (Auto) 10.1 % Monocytes (%) (Auto) 7.3 % Eosinophils (%) (Auto) 0.3 % Basophils (%) (Auto) 0.3 % Neutrophils # (Auto) 4.55 K/uL Lymphocytes # (Auto) 0.61 K/uL Monocytes # (Auto) 0.44 K/uL Eosinophils # (Auto) 0.02 K/uL Basophils # (Auto) 0.02 K/uL RDW Standard Deviation 53.9 fL RDW Coefficient of Variation 16.8 % Immature Granulocyte % (Auto) 6.2 % Immature Granulocyte # (Auto) 0.37 K/uL Toxic Granulation 1+ Prothrombin Time 19.6 SECONDS Prothromb Time International Ratio 1.8 Sodium Level 147 mmol/L Potassium Level 3.3 mmol/L Chloride Level 114 mmol/L Carbon Dioxide Level 22 mmol/L Anion Gap 11.0 mmol/L Blood Urea Nitrogen 28 mg/dl Creatinine 0.63 mg/dl Est Creatinine Clear Calc Drug Dose 100.3 ml/min Estimated GFR () 119.0 Estimated GFR (Non- 102.7 BUN/Creatinine Ratio 44.1 Random Glucose 181 mg/dl Calcium Level 7.7 mg/dl Magnesium Level 1.9 mg/dl Test 08/05/16 11:00 08/05/16 16:17 Bedside Glucose 144 mg/dl 191 mg/dl Assessment and Plan 1) Lower GI bleeding - appears to have stabilized. Due to lung issues plan to hold off on colonoscopy for 4 weeks. 2) septic shock: resolved, 3) influenza A: positive, tamiflu course. 4) COPD: continue pulmicort Bid and Duoneb qid 5) Anemia: continue to monitor. 6) PETRA: resolved, Avoid nephrotoxic drugs 7) A fib: Cardiology consulted and following.
[2016-08-06] VITALS (7 sets, daily range): BP systolic 104–126; BP diastolic 58–84; PULSE 63–120; TEMP 36.7–37.1; O2SAT 91–95
[2016-08-06 05:40] LABS: MEAN CELL VOLUME 87.7 fL (80-100); MEAN CORPUSCULAR HEMOGLOBIN 30.2 pg (25-34); MEAN CORPUSCULAR HGB CONC 34.4 g/dl (32-36); MEAN PLATELET VOLUME 10.7 fL (7.4-10.4); PLATELET COUNT 124 K/uL (130-400); RED BLOOD COUNT 2.85 M/uL (4.7-6.1); WHITE BLOOD COUNT 6.86 K/uL (4.8-10.8)
[2016-08-06 06:05] LABS: BUN/CREATININE RATIO 36.9 (10-20); CALCIUM 7.6 mg/dl (8.5-10.1); CREATININE 0.62 mg/dl (0.60-1.40); POTASSIUM 3.1 mmol/L (3.5-5.1)
[2016-08-06 06:36] LABS: COMPLETE YES; ECHINOCYTES 1+; LYMPH ABS # 0.36 K/uL (1.2-3.4); LYMPHOCYTE % 5.2 %; META ABS # 0.12 K/uL (0-0); METAMYELOCYTE % 1.7 %; MYELOCYTE % 4.3 %; NEUTROPHILS % 87.9 %; POLYCHROMASIA 1+; TOXIC GRANULATION 1+
[2016-08-06] MEDS: BUDESONIDE 0.5 MG/2 ML VIAL (PULMICORT) INH SCH ×2 (07:00→19:09)
[2016-08-06] MEDS: ALBUT/IPRATROP 3MG/0.5MG NEB 3 ML VIAL INH SCH ×2 (07:00→19:09)
[2016-08-06] MEDS: ATORVASTATIN 40 MG TAB PO SCH (07:36)
[2016-08-06] MEDS: LACTOBACILLUS ACIDOPHILUS (FLORANEX) TAB PO SCH ×3 (07:36→16:25)
[2016-08-06] MEDS: PANTOprazole INJ 40 MG in SYRINGE 0 ML IV SCH (07:37)
[2016-08-06] MEDS: DILTIAZEM HCL 120 MG CAPCR PO SCH (07:37)
[2016-08-06] MEDS: HYDROCORTISONE IV 50 MG in SYRINGE 0 ML IV SCH ×3 (07:37→22:06)
[2016-08-06] MEDS: INSULIN ASPART 100 UNITS/ML 3 ML PEN SC SCH ×4 (07:55→22:14)
[2016-08-06] MEDS ORDERED: INSULIN GLARGINE SOLOSTAR 100 UNITS/ML 3 ML PEN SC ONE (09:00)
--- NOTE | 2016-08-06 10:12 | Gastroenterology Progress Note ---
Progress Note Date of Service: Aug 06, 2016 Subjective Pt evaluation today including: conversation w/ patient, physical exam, chart review, lab review, review of inpatient medication list Pt denies any abd pain, n/v; hungry, wants to eat more solid food. He denies any more BMs since yesterday. Still having WONG but denies any CP. Review of Systems Constitutional: No chills, No fever Respiratory: + dyspnea on exertion, No cough, No shortness of breath Cardiac: No chest pain Abdomen: No nausea, No pain, No vomiting Medications Current Inpatient Medications Medications (Trade) Dose Ordered Sig/Jim Route Start Time Stop Time Status Last Admin Dose Admin Acetaminophen (Tylenol Tab) 650 mg Q4H PRN PO 07/31/16 11:00 08/30/16 10:59 Ondansetron HCl (Zofran Inj) 4 mg Q6H PRN IV 07/31/16 11:00 08/30/16 10:59 Miscellaneous Information (Consult Glycemic Management Pharmacy) 1 ea UD N/A 07/31/16 11:05 08/30/16 11:04 Atorvastatin Calcium (Lipitor Tab) 40 mg DAILY PO 08/01/16 09:00 08/31/16 08:59 08/06/16 07:36 40 MG Budesonide (Pulmicort Respules 0.5MG/ 2ML Neb Soln) 0.5 mg BIDR INH 07/31/16 20:00 08/30/16 19:59 08/06/16 07:00 0.5 MG Lactobacillus Acidophilus (Floranex Tab) 4 tab TIDM PO 07/31/16 16:30 08/30/16 16:29 08/06/16 07:36 4 TAB Albuterol/ Ipratropium (Duoneb) 3 ml QIDR INH 07/31/16 12:00 08/30/16 11:59 08/06/16 07:00 3 ML Glucose (Glucose 40% Gel) 15-30 GRAMS 15 GRAMS... UD PRN PO 07/31/16 12:45 08/30/16 12:44 Glucose (Glucose Chew Tab) 4-8 Tablets 4 Tabl... UD PRN PO 07/31/16 12:45 08/30/16 12:44 Dextrose (Dextrose 50% 50ML Syringe) 25-50ML OF 50% DW IV FOR... UD PRN IV 07/31/16 12:45 08/30/16 12:44 07/31/16 19:32 25 ML Glucagon (Glucagon Inj) 1 mg UD PRN SQ 07/31/16 12:45 08/30/16 12:44 Vancomycin HCl (Consult) 1 ea UD PRN N/A 07/31/16 14:15 08/30/16 14:14 Insulin Aspart (novoLOG ASPART) SLIDING SCALE ACHS SC 08/02/16 21:00 09/01/16 20:59 08/05/16 21:26 2 UNITS Insulin Glargine 6 unit 6 unit QAM SC 08/03/16 09:00 09/02/16 08:59 Future hold 08/05/16 09:00 6 UNIT Hydrocortisone Sodium Succinate/ Syringe (Solu-Cortef IV/ Syringe) 1 ml @ 4 mls/min TID IV 08/03/16 21:00 09/02/16 20:59 08/06/16 07:37 4 MLS/MIN Diltiazem HCl 120 mg 120 mg QAM PO 08/04/16 09:00 09/03/16 08:59 08/06/16 07:37 120 MG Vancomycin HCl/ Sodium Chloride (Vancomycin Inj/ Nss 250ml) 270 ml @ 125 mls/hr Q14H IV 08/05/16 10:00 08/09/16 23:59 08/05/16 23:36 125 MLS/HR Sodium Chloride ([place] Nasal Turner) 1 sprays PRN PRN NA 08/05/16 16:15 09/04/16 16:14 08/05/16 16:40 1 SPRAYS Pantoprazole Sodium (Protonix Tab) 40 mg BID PO 08/06/16 21:00 09/05/16 20:59 Enteral Nutritional Formula (Boost) 1 can TIDM PO 08/06/16 11:30 09/05/16 11:29 Objective Vital Signs Date Time Temp Pulse Resp B/P Pulse Ox O2 Delivery O2 Flow Rate FiO2 08/06/16 08:00 Nasal Cannula 2.0 08/06/16 07:16 37.1 63 18 126/84 92 2.0 08/06/16 07:00 67 16 95 Nasal Cannula 2.0 08/06/16 04:00 Nasal Cannula 2.0 08/06/16 03:33 36.8 92 17 104/58 95 Nasal Cannula 2.0 08/06/16 00:00 Nasal Cannula 2.0 08/05/16 23:57 36.8 102 17 113/64 94 Nasal Cannula 2.0 08/05/16 20:00 92 Nasal Cannula 2.0 08/05/16 19:42 103 16 92 Nasal Cannula 2.0 08/05/16 19:05 36.8 97 18 119/83 94 Nasal Cannula 2.0 08/05/16 16:00 94 Room Air 2.0 08/05/16 15:49 82 16 94 Nasal Cannula 2.0 08/05/16 15:19 36.8 88 20 117/72 95 2.0 08/05/16 12:00 Nasal Cannula 2.0 08/05/16 11:17 36.8 100 20 129/79 92 2.0 08/05/16 11:15 91 16 94 Nasal Cannula 2.0 Physical Exam General Appearance: WD/WN, no apparent distress Eyes: normal inspection, PERRL, EOMI Neck: supple, no JVD, trachea midline Respiratory/Chest: no respiratory distress, no accessory muscle use, + decreased breath sounds, + wheezing (fine wheezing on L mid lobe) Cardiovascular: regular rate, rhythm, no gallop, no murmur Abdomen: normal bowel sounds, non tender, soft Extremities: normal inspection, no pedal edema, no calf tenderness Neurologic/Psych: alert, normal mood/affect, oriented x 3 Skin: normal color, no jaundice, no rash Laboratory Results Last 24 Hours Test 08/05/16 11:00 08/05/16 16:17 08/05/16 20:16 08/05/16 20:41 Bedside Glucose 144 mg/dl 191 mg/dl 210 mg/dl 200 mg/dl Test 08/06/16 04:50 08/06/16 06:42 White Blood Count 6.86 K/uL Red Blood Count 2.85 M/uL Hemoglobin 8.6 g/dL Hematocrit 25.0 % Mean Corpuscular Volume 87.7 fL Mean Corpuscular Hemoglobin 30.2 pg Mean Corpuscular Hemoglobin Concent 34.4 g/dl Platelet Count 124 K/uL Mean Platelet Volume 10.7 fL RDW Standard Deviation 54.3 fL RDW Coefficient of Variation 17.0 % Neutrophils % (Manual) 87.9 % Lymphocytes % (Manual) 5.2 % Monocytes % (Manual) 0.9 % Metamyelocytes % 1.7 % Myelocytes % 4.3 % Neutrophils # (Manual) 6.03 K/uL Total Absolute Neutrophils 6.03 K/uL Lymphocytes # (Manual) 0.36 K/uL Total Absolute Lymphocytes 0.36 K/uL Monocytes # (Manual) 0.06 K/uL Metamyelocytes # 0.12 K/uL Myelocytes # 0.29 K/uL Toxic Granulation 1+ Polychromasia 1+ Echinocytes 1+ Sodium Level 146 mmol/L Potassium Level 3.1 mmol/L Chloride Level 113 mmol/L Carbon Dioxide Level 24 mmol/L Anion Gap 9.0 mmol/L Blood Urea Nitrogen 23 mg/dl Creatinine 0.62 mg/dl Est Creatinine Clear Calc Drug Dose 101.9 ml/min Estimated GFR () 119.8 Estimated GFR (Non- 103.4 BUN/Creatinine Ratio 36.9 Random Glucose 123 mg/dl Calcium Level 7.6 mg/dl Bedside Glucose 123 mg/dl Assessment and Plan Patient is a 65 year old male who was here a couple of weeks ago w sepsis w/o unknown course, pneumonia; currently readmitted for respiratory distress. He did have evidence of L sided colitis suspected to be ischemic in nature. Hx of Cdiff positive but negative last admission, also negative stool cx. + Flu, on Tamiflu; Cdiff negative, stool cx negative. He's off pressures and BiPAP, on O2 2L NC 94% sat. He currently denies any abd pain, n/v, no BMs since weekend. Hgb stable around 8.6. He received 2U PRBC transfusion over weekend when Hgb dropped to 7.4 Plans - Continue broad spectrum antibx for enteric coverage as well - Rising LFTs -> resolved. Suspected med side effect reaction vs shock liver - Will postpone non emergent colonoscopy given change in respiratory status ( still having coughing, wheezing, WONG). He likely has ischemic colitis given pattern in CT scan; will continue current treatment, and plan for Colonoscopy in 4-[address] Smith. - Start [place] diet, w Boost/Ensure supplement w meals; advance as tolerated. I saw and evaluated the patient, we are planning for colonoscopy in about 4 weeks for f/u of the CT findings. Please call with any questions.
[2016-08-06] MEDS ORDERED: BOOST VANILLA PO SCH ×2 (11:30)
[2016-08-06] MEDS: VANCOMYCIN INJ 1,000 MG in SODIUM CHLORIDE 0.9% 250ML 250 ML IV SCH (13:24)
[2016-08-06] MEDS ORDERED: VANCOMYCIN TROUGH ONE (13:30)
--- NOTE | 2016-08-06 14:30 | Pharmacy Progress Note ---
Glycemic: Assessment & Plan Date of Service Aug 06, 2016. Assessment & Plan Outpatient Anti-diabetic Regimen: * Metformin 500mg PO daily * A1c = 7.4 % 07/18/16 ASSESSMENT: * Patient is a 65yo type 2 diabetic male, admitted with sepsis. * Patient continues to receive IV steroids (hydrocortisone 50mg IV TID). * Pt was made NPO at midnight last night for colonoscopy this morning, however, this procedure has been postponed d/t respiratory status. Diet was resumed with lunch. Pt is also receiving Boost glucose control TID. * Lantus dose was given at a reduced dose this morning d/t NPO status, but will resume previous dose tomorrow now that diet has been resumed. * Patient received 9 units of insulin yesterday with BSGs ranging from 144 - 200 mg/dL. PLAN FOR INPATIENT GLYCEMIC CONTROL: * Lantus 4 units SQ this morning, then resume 6 units QAM tomorrow * Correctional Insulin with NOVOLOG per scale ACHS * Correction factor 35 mg/dl/unit * Carb ratio 1 unit per 14 grams CHO consumed * Goal range Low 120 mg/dL - High 160 mg/dL * Please note that the plan above was derived based on current level of insulin resistance and hospital stress. These recommendations are appropriate for inpatient admission only. Plan of care upon discharge will need to be reassessed to avoid potential outpatient hypo/hyperglycemia. Thank you.
--- NOTE | 2016-08-06 14:51 | Pharmacy Progress Note ---
Pharmacy Antibiotic Prog Note Date of Service: Aug 06, 2016. Subjective: The patient is currently receiving Vancomycin 1000 mg IV every 14 hours. The patient is currently on day # 7 of 10 IV therapy. Objective: Height (Feet): 5 Height (Inches): 5.00 Weight (Kilograms): 68.600 Levels: Item Value Date Time Vancomycin Level Trough 22.2 mcg/ml 08/06/16 1325 Lab Results (24hrs): Laboratory Tests Test 08/06/16 04:50 BUN/Creatinine Ratio 36.9 Blood Urea Nitrogen 23 mg/dl Creatinine 0.62 mg/dl White Blood Count 6.86 K/uL Red Blood Count 2.85 M/uL Hemoglobin 8.6 g/dL Hematocrit 25.0 % Mean Corpuscular Volume 87.7 fL Mean Corpuscular Hemoglobin 30.2 pg Mean Corpuscular Hemoglobin Concent 34.4 g/dl Platelet Count 124 K/uL Mean Platelet Volume 10.7 fL Micro Results: Item Value Date Time Blood Culture - Final Complete 07/31/16 1138 Blood Staphylococcus Aureus BLD CULT Final 08/03/16-1250 Organism 1 STAPHYLOCOCCUS AUREUS SENS SENSITIVITY TO FOLLOW SENSITIVITY RESULT INDICATES A METHICILLIN RESISTANT STAPH. AUREUS. PHONED TO JAVON LOWE ON 08/03/16 AT 0710 BY Floyd Vargas. Results were verbalized back to MANJU. RESULTS WERE ALSO CALLED TO [facility] CONTROL ANSWERING MACHINE ON 08/03/16 BY MANJU. Phoned Positive Blood Culture Gram Stain Report to JOSE ALBERTO GARCIA on 08/01/16 At 1313 By DOMITILA. Results were verbalized back to DOMITILA. 1. STAPHYLOCOCCUS AUREUS Target Route Dose RX AB Cost M.I.C. IQ ------ ----- ------ -- ------ -------- - ------ TRIMET/SULFA R >2/38 * OXACILLIN R * >2 VANCOMYCIN S 2 ERYTHROMYCIN R >4 TETRACYCLINE S <=4 CLINDAMYCIN S <=0.5 DAPTOMYCIN S <=0.5 RIFAMPIN S <=1 S = SENSITIVE I = INTERMEDIATE R = RESISTANT Recent Pertinent Medications: During this admission, patient received Zosyn IV <24 hours on admission; 5 days of Tamiflu; 72 hours of Levaquin IV. Assessment & Plan: 65 yo M remains on Vancomycin IV for pulmonary coverage/MRSA positive blood cultures (07/15). Vancomycin * This drug level is: Supratherapeutic. * Decrease dose to 1000 mg IV every 16 hours. * Goal trough level estimate: between 15 - 20 mcg/mL. * A repeat level will NOT be ordered unless there is a change in renal function or duration is extended past 10 days. Pharmacy will continue to follow and will adjust dose/frequency as necessary. Thank you
[2016-08-06] MEDS ORDERED: OPTIRAY 320 IV PRN (15:00)
--- NOTE | 2016-08-06 16:13 | DIAGNOSTIC IMAGING REPORT ---
CT OF THE CHEST WITH IV CONTRAST CLINICAL HISTORY: COPD exacerbation, sepsis and hypotension. Evaluate for pneumonia. COMPARISON STUDY: Chest radiograph August 01, 2016. TECHNIQUE: Following IV administration of 89 mL of Optiray-320, helical axial images of the chest were obtained. Images were viewed in the axial, sagittal and coronal planes. IV contrast was administered without complication. CT DOSE: 291.82 mGy.cm FINDINGS: A mildly enlarged right hilar lymph node measures 1.1 cm in short axis diameter. A prominent subcarinal lymph node measures 1 cm in short axis diameter. There is a prosthetic aortic valve. The size of the heart is normal. There is no pericardial effusion. There are small bilateral pleural effusions. Severe emphysema is noted. There are secretions within the trachea and left mainstem bronchus. Consolidation is noted within the left lower lobe and lingula as well as mild consolidation within the right lower lobe. Lungs are suboptimally assessed due to respiratory motion. There is no pneumothorax. No suspicious osseous lesions are present. Visualized portions of the upper abdomen demonstrate multiple large bilateral renal cysts. The pancreatic parenchymal calcifications. There are gallstones within the gallbladder. There may be trace abdominal ascites. IMPRESSION: 1. Bilateral lower lobe and lingular consolidation suggestive of multifocal pneumonia. Secretions within the trachea and left mainstem bronchus. The findings could reflect aspiration. A follow-up chest CT in 2 months to ensure resolution is recommended. 2. Mildly enlarged right hilar and subcarinal lymph nodes. These may be reactive but are indeterminate and should be assessed on subsequent CT. 3. Small bilateral pleural effusions. 4. Severe emphysema. Electronically signed by: Juliocesar Menjivar M.D. 08/06/2016 4:11 PM Dictated Date/Time: 08/06/2016 4:04 PM
[2016-08-06] MEDS: BOOST GLUCOSE CONTROL PO SCH (16:25)
--- NOTE | 2016-08-06 16:40 | Hospitalist Progress Note ---
Hospitalist Progress Note Date of Service Aug 06, 2016. Subjective Pt evaluation today including: conversation w/ patient, physical exam, chart review, lab review, review of studies, review of inpatient medication list Patient feeling better each day. He feels tired over all. Additional Comments: A 10 system review was performed and all were negative. Positives were placed in the subjective section. Objective Vital Signs Date Time Temp Pulse Resp B/P Pulse Ox O2 Delivery O2 Flow Rate FiO2 08/06/16 15:35 Nasal Cannula 2.0 08/06/16 15:33 36.7 120 18 108/67 94 2.0 08/06/16 12:00 Nasal Cannula 2.0 08/06/16 11:06 36.8 115 20 121/71 91 2.0 08/06/16 08:00 Nasal Cannula 2.0 08/06/16 07:16 37.1 63 18 126/84 92 2.0 08/06/16 07:00 67 16 95 Nasal Cannula 2.0 08/06/16 04:00 Nasal Cannula 2.0 08/06/16 03:33 36.8 92 17 104/58 95 Nasal Cannula 2.0 08/06/16 00:00 Nasal Cannula 2.0 08/05/16 23:57 36.8 102 17 113/64 94 Nasal Cannula 2.0 08/05/16 20:00 92 Nasal Cannula 2.0 08/05/16 19:42 103 16 92 Nasal Cannula 2.0 08/05/16 19:05 36.8 97 18 119/83 94 Nasal Cannula 2.0 Physical Exam Notes: GEN: Awake, alert, and oriented x 3. Not in acute distress HEENT: Tm's intact, no inflammation, EOMI, PERRLA, MMM Neck: Soft, supple Lungs: few scattered rhonchi. Heart: REG, nrl S1S2 without murmurs, rubs or gallops Abdomen: Soft, NT, ND, + BS EXT: No C/C/E NEURO: CN's II-XII grossly intact, non-focal Skin: warm, dry, no rashes PSYCH: pleasant, cooperative, no signs of significant anxiety or depression. Laboratory Results Last 24 Hours Test 08/05/16 20:16 08/05/16 20:41 08/06/16 04:50 08/06/16 06:42 Bedside Glucose 210 mg/dl 200 mg/dl 123 mg/dl White Blood Count 6.86 K/uL Red Blood Count 2.85 M/uL Hemoglobin 8.6 g/dL Hematocrit 25.0 % Mean Corpuscular Volume 87.7 fL Mean Corpuscular Hemoglobin 30.2 pg Mean Corpuscular Hemoglobin Concent 34.4 g/dl Platelet Count 124 K/uL Mean Platelet Volume 10.7 fL RDW Standard Deviation 54.3 fL RDW Coefficient of Variation 17.0 % Neutrophils % (Manual) 87.9 % Lymphocytes % (Manual) 5.2 % Monocytes % (Manual) 0.9 % Metamyelocytes % 1.7 % Myelocytes % 4.3 % Neutrophils # (Manual) 6.03 K/uL Total Absolute Neutrophils 6.03 K/uL Lymphocytes # (Manual) 0.36 K/uL Total Absolute Lymphocytes 0.36 K/uL Monocytes # (Manual) 0.06 K/uL Metamyelocytes # 0.12 K/uL Myelocytes # 0.29 K/uL Toxic Granulation 1+ Polychromasia 1+ Echinocytes 1+ Sodium Level 146 mmol/L Potassium Level 3.1 mmol/L Chloride Level 113 mmol/L Carbon Dioxide Level 24 mmol/L Anion Gap 9.0 mmol/L Blood Urea Nitrogen 23 mg/dl Creatinine 0.62 mg/dl Est Creatinine Clear Calc Drug Dose 101.9 ml/min Estimated GFR () 119.8 Estimated GFR (Non- 103.4 BUN/Creatinine Ratio 36.9 Random Glucose 123 mg/dl Calcium Level 7.6 mg/dl Test 08/06/16 11:12 08/06/16 13:25 08/06/16 16:24 Bedside Glucose 145 mg/dl 235 mg/dl Vancomycin Level Trough 22.2 mcg/ml Assessment and Plan 1) Lower GI bleeding - appears to have stabilized. Due to lung issues plan to hold off on colonoscopy for 4 weeks. 2) septic shock: resolved 3) influenza A: positive, tamiflu course completed. 4) COPD: continue pulmicort Bid and Duoneb qid 5) Anemia: continue to monitor. 6) PETRA: resolved, Avoid nephrotoxic drugs 7) A fib: Cardiology consulted and following. I ordered a CT scan of the chest today to evaluate the area infiltrate in the left lower on previous CXR.
[2016-08-06] MEDS: PANTOprazole SOD 40 MG TAB PO SCH (22:07)
[2016-08-07] VITALS (12 sets, daily range): BP systolic 114–157; BP diastolic 65–77; PULSE 83–106; TEMP 36.7–37; O2SAT 92–96
[2016-08-07] MEDS: VANCOMYCIN INJ 1,000 MG in SODIUM CHLORIDE 0.9% 250ML 250 ML IV SCH (03:37)
[2016-08-07 05:32] LABS: HEMATOCRIT 25.6 % (42-52); MEAN CELL VOLUME 87.7 fL (80-100); MEAN CORPUSCULAR HEMOGLOBIN 29.1 pg (25-34); MEAN CORPUSCULAR HGB CONC 33.2 g/dl (32-36); MEAN PLATELET VOLUME 10.3 fL (7.4-10.4); PLATELET COUNT 111 K/uL (130-400); RED BLOOD COUNT 2.92 M/uL (4.7-6.1); WHITE BLOOD COUNT 7.29 K/uL (4.8-10.8)
[2016-08-07 05:55] LABS: BASO % 0.1 %; BASO ABS # 0.01 K/uL (0-0.2); COMPLETE YES; ECHINOCYTES 1+; EOS % 0.1 %; IG% 4.3 %; LYMPH % 7.8 %; LYMPH ABS # 0.57 K/uL (1.2-3.4); MONO % 2.5 %; NEUT % 85.2 %; TOXIC GRANULATION 1+
[2016-08-07 06:15] LABS: BUN/CREATININE RATIO 35.4 (10-20); CALCIUM 7.4 mg/dl (8.5-10.1); CREATININE 0.61 mg/dl (0.60-1.40)
[2016-08-07 06:18] LABS: POTASSIUM 2.6 mmol/L (3.5-5.1)
[2016-08-07] MEDS: ALBUT/IPRATROP 3MG/0.5MG NEB 3 ML VIAL INH SCH ×4 (07:07→19:49)
[2016-08-07] MEDS: BUDESONIDE 0.5 MG/2 ML VIAL (PULMICORT) INH SCH ×2 (07:07→19:49)
[2016-08-07] MEDS: BOOST GLUCOSE CONTROL PO SCH ×3 (07:53→16:12)
[2016-08-07] MEDS: HYDROCORTISONE IV 50 MG in SYRINGE 0 ML IV SCH (07:54)
[2016-08-07] MEDS: LACTOBACILLUS ACIDOPHILUS (FLORANEX) TAB PO SCH ×3 (07:54→16:12)
[2016-08-07] MEDS: DILTIAZEM HCL 120 MG CAPCR PO SCH (07:54)
[2016-08-07] MEDS: ATORVASTATIN 40 MG TAB PO SCH (07:54)
[2016-08-07] MEDS: PANTOprazole SOD 40 MG TAB PO SCH ×2 (07:55→20:11)
[2016-08-07] MEDS ORDERED: POTASSIUM CHLORIDE 20 MEQ TABCR PO ONE (08:15)
[2016-08-07] MEDS: INSULIN ASPART 100 UNITS/ML 3 ML PEN SC SCH ×4 (08:30→21:54)
[2016-08-07] MEDS: INSULIN GLARGINE SOLOSTAR 100 UNITS/ML 3 ML PEN SC SCH (08:46)
--- NOTE | 2016-08-07 14:06 | Pharmacy Progress Note ---
Glycemic: Assessment & Plan Date of Service Aug 07, 2016. Assessment & Plan Assessment * Patient managed on oral diabetes medications at home - on insulin 2nd steroid- induced hyperglycemia. Hydrocortisone stopped today. * Will stop Lantus * Will loosen carb count to prevent hypoglycemia * Colonoscopy postponed x4 weeks Plan * Basal insulin: Discontinue Lantus * Correctional Insulin: Novolog Correction per scale ACHS Goal Range: Low 120 mg/dL - High 160 mg/dL Correction Factor: 35 mg/dL/unit * Prandial insulin: Loosen carb ratio of 1 unit per 15 grams CHO consumed Pharmacy will continue to monitor patient daily and write orders per [facility] inpatient glycemic control protocol. Thanks. * Please note that the plan above was derived based on current level of insulin resistance and hospital stress. These recommendations are appropriate for inpatient admission only. Plan of care upon discharge will need to be reassessed to avoid potential outpatient hypo/hyperglycemia.
--- NOTE | 2016-08-07 14:58 | Medical Consult ---
Consultation Date of Consultation: Aug 07, 2016. Attending Physician: Prem Mabry DO Reason for Consultation: B/L pneumonia, abx choice/length of treatment History of Present Illness Patient is a 65 yo male known to the ID service from previous admission who presented to the ED with worsening respiratory status at [facility]. 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 The patient previously received 6 weeks of IV antibiotic therapy during his enterococcal bacteremia/ endocarditis via PICC line. During the patient's admission prior to current, he improved during admission and was discharged on PO Bactrim DS BID. He also had a colitis of unknown origin during that admission as well. C. Diff toxin was negative, and stool culture was negative and showed no WBC's. Following discharge, the patient states that he was sent to [facility] and continued to feel worse and worse. His respiratory status continued to be poor and his breathing and cough became worse. He states that he does have a cough at baseline, but it has been worse recently. Since current admission, the patient did have a TTE which showed no evidence of vegetation but an EJ of 30-35%. The patient has had no further diarrhea during this admission. He has not had fever but continues to be on a soft/liquid diet and states that he does have sore throat when trying to eat more solid foods. His lactic acid was up to 4.3 on admission, but his WBC count has been within normal. Initial blood cultures grew MRSA in 1/2 cultures but repeat blood cultures showed no growth. Repeat stool culture and C. Diff toxin were negative. MRSA nasal swab was also positive.Chest X-Ray appeared similar to previous showing left lower lobe consolidation. CT scan of the chest showed bilateral lower lobe and lingular consolidation suggestive of multifocal pneumonia. Dr. Sierra was also present during my exam and ROS. Past Medical/Surgical History Medical Problems: (1) Acute hypoxemic respiratory failure (2) Acute left-sided CHF (congestive heart failure) (3) PETRA (acute kidney injury) (4) Anemia (5) COPD (chronic obstructive pulmonary disease) (6) Dyslipidemia (7) History of Clostridium difficile colitis (8) History of Gram negative infection (9) HTN (hypertension) (10) Hx of bacterial endocarditis (11) Influenza A (12) Paroxysmal a-fib (13) Sepsis Surgical Problems: (1) H/O aortic valve replacement (2) H/O mitral valve repair Family History Diabetes mellitus MOTHER Noncontributory Social History Smoking Status: Former Smoker Housing Status: lives alone, other Allergies Coded Allergies: No Known Allergies (Unverified , 07/17/16) Home Medications Reported Home Medications Medications Dose Route/Sig Max Daily Dose Days Date Category Pulmicort Respules 0.5MG/2ML (Budesonide (Inhalation)) 0.5 Mg/2 Ml May 0.5 Mg INH BIDR 07/26/16 Rx [Enteral Nutrition Formula] 1 CAN Liqd 0.5 Can PO TIDM 07/26/16 Rx Floranex (Lactobacillus Acidophilus) 1 Tab Tab 4 Tab PO TIDM 07/26/16 Rx Brovana (Arformoterol Tartrate) 15 Mcg/2 Ml Neb 15 Mcg INH BIDR 07/26/16 Rx Nystatin 5 Ml Susp 4 Ml PO QID 07/26/16 Rx Bactrim 400MG/80MG (Trimethoprim/Sulfamethoxazole) 1 Ea Tab 1 Tab PO BID 07/26/16 Rx Duoneb (Ipratropium-Albuterol) 3 Ml Nebu 1 Treatment INH Q4H 07/17/16 Reported Lisinopril 10 Mg Tab PO DAILY 07/17/16 Reported Proair Respiclick (Albuterol Sulfate) 108 Mcg/Act Aer Unknown Dose UNKNOWN 07/17/16 Reported Coumadin (Warfarin Sod) 2.5 Mg Tab 1 Tab PO DAILY 30 07/17/16 Reported Diltiazem Hcl 60 Mg Tab PO TID 07/17/16 Reported Protonix (Pantoprazole Sodium) 40 Mg Tab 40 Mg PO DAILY 07/17/16 Reported Lipitor (Atorvastatin Calcium) 40 Mg Tab 40 Mg PO DAILY 07/17/16 Reported Current Inpatient Medications Current Inpatient Medications Medications (Trade) Dose Ordered Sig/Jim Route Start Time Stop Time Status Last Admin Dose Admin Acetaminophen (Tylenol Tab) 650 mg Q4H PRN PO 07/31/16 11:00 08/30/16 10:59 Ondansetron HCl (Zofran Inj) 4 mg Q6H PRN IV 07/31/16 11:00 08/30/16 10:59 Miscellaneous Information (Consult Glycemic Management Pharmacy) 1 ea UD N/A 07/31/16 11:05 08/30/16 11:04 Atorvastatin Calcium (Lipitor Tab) 40 mg DAILY PO 08/01/16 09:00 08/31/16 08:59 08/07/16 07:54 40 MG Budesonide (Pulmicort Respules 0.5MG/ 2ML Neb Soln) 0.5 mg BIDR INH 07/31/16 20:00 08/30/16 19:59 08/07/16 07:07 0.5 MG Lactobacillus Acidophilus (Floranex Tab) 4 tab TIDM PO 07/31/16 16:30 08/30/16 16:29 08/07/16 11:07 4 TAB Albuterol/ Ipratropium (Duoneb) 3 ml QIDR INH 07/31/16 12:00 08/30/16 11:59 08/07/16 11:55 3 ML Glucose (Glucose 40% Gel) 15-30 GRAMS 15 GRAMS... UD PRN PO 07/31/16 12:45 08/30/16 12:44 Glucose (Glucose Chew Tab) 4-8 Tablets 4 Tabl... UD PRN PO 07/31/16 12:45 08/30/16 12:44 Dextrose (Dextrose 50% 50ML Syringe) 25-50ML OF 50% DW IV FOR... UD PRN IV 07/31/16 12:45 08/30/16 12:44 07/31/16 19:32 25 ML Glucagon (Glucagon Inj) 1 mg UD PRN SQ 07/31/16 12:45 08/30/16 12:44 Vancomycin HCl (Consult) 1 ea UD PRN N/A 07/31/16 14:15 08/30/16 14:14 Insulin Aspart (novoLOG ASPART) SLIDING SCALE ACHS SC 08/02/16 21:00 09/01/16 20:59 08/07/16 08:30 4 UNITS Diltiazem HCl (Cardizem Cd Cap) 120 mg QAM PO 08/04/16 09:00 09/03/16 08:59 08/07/16 07:54 120 MG Sodium Chloride ([place] Nasal [place]) 1 sprays PRN PRN NA 08/05/16 16:15 09/04/16 16:14 08/05/16 16:40 1 SPRAYS Pantoprazole Sodium (Protonix Tab) 40 mg BID PO 08/06/16 21:00 09/05/16 20:59 08/07/16 07:55 40 MG Enteral Nutritional Formula (Boost Glucose Control) 1 can TIDM PO 08/06/16 16:45 09/05/16 16:44 08/07/16 11:07 1 CAN Ioversol 125 ml 125 ml UD PRN IV 08/06/16 15:00 08/10/16 14:59 Vancomycin HCl/ Sodium Chloride (Vancomycin Inj/ Nss 250ml) 270 ml @ 125 mls/hr Q16H IV 08/08/16 00:00 08/09/16 23:59 Review of Systems Constitutional: + fatigue, + weakness, No fever Eyes: No worsening of vision ENT: No hearing loss Respiratory: + cough, + dyspnea on exertion, + shortness of breath, + sputum Cardiovascular: + problem reported (aortic valve replacement, mitral valve repair), No chest pain Abdomen: No diarrhea, No nausea, No pain, No vomiting Musculoskeletal: + swelling (mild b/l LE), No joint pain, No muscle pain Genitourinary - Male: No hematuria Integumentary: No itch, No new/changing skin lesions, No rash Physical Exam Date Time Temp Pulse Resp B/P Pulse Ox O2 Delivery O2 Flow Rate FiO2 08/07/16 12:00 Nasal Cannula 2.0 08/07/16 11:55 84 16 95 Nasal Cannula 2.0 08/07/16 10:59 36.9 93 18 117/72 93 2.0 08/07/16 08:00 Nasal Cannula 2.0 08/07/16 07:53 36.8 83 20 132/77 95 2.0 08/07/16 07:07 85 16 94 Nasal Cannula 2.0 08/07/16 04:00 Nasal Cannula 2.0 08/07/16 03:39 36.8 87 16 116/76 93 Nasal Cannula 2.0 08/07/16 00:06 36.7 99 19 116/71 96 Nasal Cannula 2.0 08/06/16 23:59 Nasal Cannula 2.0 08/06/16 20:03 36.8 99 18 113/72 94 2.0 08/06/16 20:00 Nasal Cannula 2.0 08/06/16 19:09 83 16 95 Nasal Cannula 2.0 08/06/16 15:35 Nasal Cannula 2.0 08/06/16 15:33 36.7 120 18 108/67 94 2.0 General Appearance: WD/WN, no apparent distress Head: normocephalic, atraumatic Eyes: normal inspection, sclerae normal ENT: hearing grossly normal Neck: supple, trachea midline, + pertinent finding (Right IJ catheter in place) Respiratory/Chest: chest non-tender, no respiratory distress, no accessory muscle use, + crackles, + wheezing (mild bilateral lower lobes) Cardiovascular: regular rate, rhythm, + pertinent finding (prosthetic valve sounds) Abdomen/GI: normal bowel sounds, non tender, + distended (mild) Back: normal inspection Extremities/Musculoskelatal: normal inspection, + pertinent finding (trace b/l LE edema) Neurologic/Psych: alert, normal mood/affect Skin: normal color, warm/dry, no rash Laboratory Results CT OF THE CHEST WITH IV CONTRAST CLINICAL HISTORY: COPD exacerbation, sepsis and hypotension. Evaluate for pneumonia. COMPARISON STUDY: Chest radiograph August 01, 2016. TECHNIQUE: Following IV administration of 89 mL of Optiray-320, helical axial images of the chest were obtained. Images were viewed in the axial, sagittal and coronal planes. IV contrast was administered without complication. CT DOSE: 291.82 mGy.cm FINDINGS: A mildly enlarged right hilar lymph node measures 1.1 cm in short axis diameter. A prominent subcarinal lymph node measures 1 cm in short axis diameter. There is a prosthetic aortic valve. The size of the heart is normal. There is no pericardial effusion. There are small bilateral pleural effusions. Severe emphysema is noted. There are secretions within the trachea and left mainstem bronchus. Consolidation is noted within the left lower lobe and lingula as well as mild consolidation within the right lower lobe. Lungs are suboptimally assessed due to respiratory motion. There is no pneumothorax. No suspicious osseous lesions are present. Visualized portions of the upper abdomen demonstrate multiple large bilateral renal cysts. The pancreatic parenchymal calcifications. There are gallstones within the gallbladder. There may be trace abdominal ascites. IMPRESSION: 1. Bilateral lower lobe and lingular consolidation suggestive of multifocal pneumonia. Secretions within the trachea and left mainstem bronchus. The findings could reflect aspiration. A follow-up chest CT in 2 months to ensure resolution is recommended. 2. Mildly enlarged right hilar and subcarinal lymph nodes. These may be reactive but are indeterminate and should be assessed on subsequent CT. 3. Small bilateral pleural effusions. 4. Severe emphysema. RUN DATE: 08/03/16 [facility] LAB PAGE 1 RUN TIME: 1250 Specimen Inquiry PATIENT: BANDAR ROWLAND LOC: [facility] U # : [id number] AGE/SX: 65/M ROOM: E111 REG : 07/31/[address]: Karolina Piña MD : 1950 BED: 1 DIS : STATUS: ADM IN TLOC: SPEC #: [id number] ANNAMARIE: 07/31/16 STATUS: COMP REQ #: [id number] RECD: 07/31/16-[address]: Tawanna Manzano PA -C SOURCE: BLOOD ENTR: 07/31/16-[address]: Merrill Wilkes MD [facility]: No Doctor, Assigned Javon Hsu , D.OCarolin ORDERED: BLOOD CULTURE Procedure Result Verified Site BLD CULT Final 08/03/16-1250 Organism 1 STAPHYLOCOCCUS AUREUS SENS SENSITIVITY TO FOLLOW SENSITIVITY RESULT INDICATES A METHICILLIN RESISTANT STAPH. AUREUS. PHONED TO JAVON LOWE ON 08/03/16 AT 0710 BY Floyd Vargas. Results were verbalized back to MANJU. RESULTS WERE ALSO CALLED TO [facility] INFECTION CONTROL ANSWERING MACHINE ON 08/03/16 BY MANJU. Phoned Positive Blood Culture Gram Stain Report to JOSE ALBERTO GARCIA on 08/01/16 At 1313 By DOMITILA. Results were verbalized back to DOMITILA. 1. STAPHYLOCOCCUS AUREUS Target Route Dose RX AB Cost M.I.C. IQ ------ ----- ------ -- ------ -------- - ------ TRIMET/SULFA R >2/38 * OXACILLIN R * >2 VANCOMYCIN S 2 ERYTHROMYCIN R >4 TETRACYCLINE S <=4 CLINDAMYCIN S <=0.5 DAPTOMYCIN S <=0.5 RIFAMPIN S <=1 S = SENSITIVE I = INTERMEDIATE R = RESISTANT Item Value Date Time Shiga Toxin Test - Final Complete 08/03/16 2220 Stool No E. Coli shiga toxin 1 or shiga tox... Blood Culture - Final Complete 08/01/16 1625 Blood NO GROWTH Blood Culture - Final Complete 08/01/16 1631 Blood NO GROWTH C.difficile Toxin B Gene (PCR) - Final Complete 07/31/16 1300 Stool No C. difficile toxin B gene detected Blood Culture - Final Complete 07/31/16 1138 Blood Staphylococcus Aureus Blood Culture - Final Complete 07/31/16 1127 Blood NO GROWTH MRSA DNA Surveillance Screen - Final Complete 07/31/16 1000 Nasal Specimen Positive for MRSA by DNA Probe Last 24 Hours Test 08/06/16 16:24 08/06/16 20:47 08/07/16 04:40 08/07/16 06:36 Bedside Glucose 235 mg/dl 209 mg/dl 167 mg/dl White Blood Count 7.29 K/uL Red Blood Count 2.92 M/uL Hemoglobin 8.5 g/dL Hematocrit 25.6 % Mean Corpuscular Volume 87.7 fL Mean Corpuscular Hemoglobin 29.1 pg Mean Corpuscular Hemoglobin Concent 33.2 g/dl Platelet Count 111 K/uL Mean Platelet Volume 10.3 fL Neutrophils (%) (Auto) 85.2 % Lymphocytes (%) (Auto) 7.8 % Monocytes (%) (Auto) 2.5 % Eosinophils (%) (Auto) 0.1 % Basophils (%) (Auto) 0.1 % Neutrophils # (Auto) 6.21 K/uL Lymphocytes # (Auto) 0.57 K/uL Monocytes # (Auto) 0.18 K/uL Eosinophils # (Auto) 0.01 K/uL Basophils # (Auto) 0.01 K/uL RDW Standard Deviation 54.1 fL RDW Coefficient of Variation 17.0 % Immature Granulocyte % (Auto) 4.3 % Immature Granulocyte # (Auto) 0.31 K/uL Toxic Granulation 1+ Echinocytes 1+ Sodium Level 147 mmol/L Potassium Level 2.6 mmol/L Chloride Level 112 mmol/L Carbon Dioxide Level 27 mmol/L Anion Gap 8.0 mmol/L Blood Urea Nitrogen 22 mg/dl Creatinine 0.61 mg/dl Est Creatinine Clear Calc Drug Dose 103.6 ml/min Estimated GFR () 120.6 Estimated GFR (Non- 104.1 BUN/Creatinine Ratio 35.4 Random Glucose 180 mg/dl Calcium Level 7.4 mg/dl Test 08/07/16 11:17 Bedside Glucose 159 mg/dl Assessment & Plan Patient with bilateral bibasilar pneumonia, Influenza A on admission, MRSA bacteremia, and history of prosthetic valve replacement. He also previously was treated for Stenotrophomonas pneumonia with PO Bactrim prior to current admission. With 1/2 blood cultures positive for MRSA, feel this is a true pathogen despite negative repeat blood cultures. Due to history of prosthetic valve replacement, feel that this patient should have MIGUEL to R/O Endocarditis. Seems most likely that this patient could have a MRSA pneumonia with his recent positive flu as well, but with his history of endocarditis, valve replacement, and bacteremia- seems reasonable. Recommend continuing current therapy with IV Vancomycin. Likely the patient will need at least 2 weeks of IV therapy, but pending MIGUEL may require up to 6. We will continue to follow. Plan: 1. Continue Vancomycin 2. MIGUEL PROVIDER ADDENDUM: Patient examined and reviewed with Ms. Damon. Agree with above assessment. Strongly recommend MIGUEL if feasible.
--- NOTE | 2016-08-07 14:59 | Hospitalist Progress Note ---
Hospitalist Progress Note Date of Service Aug 07, 2016. Subjective Pt evaluation today including: conversation w/ patient, physical exam, chart review, lab review, review of studies, review of inpatient medication list Patient feels about the same. Appetite has been ok. He feels very weak all over. He has exertional SOB. No reported fever or chills. He reports having less cough. He says, "it sounds junky, but I don't cough anything out". I reviewed the CT scan of the chest with him and explained that I consulted pulmonary and infectious disease to assist on treating this b/l pneumonia. With consideration of chronic aspiration, I ordered speech therapy to evaluate for this. Objective Vital Signs Date Time Temp Pulse Resp B/P Pulse Ox O2 Delivery O2 Flow Rate FiO2 08/07/16 12:00 Nasal Cannula 2.0 08/07/16 11:55 84 16 95 Nasal Cannula 2.0 08/07/16 10:59 36.9 93 18 117/72 93 2.0 08/07/16 08:00 Nasal Cannula 2.0 08/07/16 07:53 36.8 83 20 132/77 95 2.0 08/07/16 07:07 85 16 94 Nasal Cannula 2.0 08/07/16 04:00 Nasal Cannula 2.0 08/07/16 03:39 36.8 87 16 116/76 93 Nasal Cannula 2.0 08/07/16 00:06 36.7 99 19 116/71 96 Nasal Cannula 2.0 08/06/16 23:59 Nasal Cannula 2.0 08/06/16 20:03 36.8 99 18 113/72 94 2.0 08/06/16 20:00 Nasal Cannula 2.0 08/06/16 19:09 83 16 95 Nasal Cannula 2.0 08/06/16 15:35 Nasal Cannula 2.0 08/06/16 15:33 36.7 120 18 108/67 94 2.0 Physical Exam Notes: A 10 system review was performed and all were negative. Positives were placed in the subjective section. Laboratory Results Last 24 Hours Test 08/06/16 16:24 08/06/16 20:47 08/07/16 04:40 08/07/16 06:36 Bedside Glucose 235 mg/dl 209 mg/dl 167 mg/dl White Blood Count 7.29 K/uL Red Blood Count 2.92 M/uL Hemoglobin 8.5 g/dL Hematocrit 25.6 % Mean Corpuscular Volume 87.7 fL Mean Corpuscular Hemoglobin 29.1 pg Mean Corpuscular Hemoglobin Concent 33.2 g/dl Platelet Count 111 K/uL Mean Platelet Volume 10.3 fL Neutrophils (%) (Auto) 85.2 % Lymphocytes (%) (Auto) 7.8 % Monocytes (%) (Auto) 2.5 % Eosinophils (%) (Auto) 0.1 % Basophils (%) (Auto) 0.1 % Neutrophils # (Auto) 6.21 K/uL Lymphocytes # (Auto) 0.57 K/uL Monocytes # (Auto) 0.18 K/uL Eosinophils # (Auto) 0.01 K/uL Basophils # (Auto) 0.01 K/uL RDW Standard Deviation 54.1 fL RDW Coefficient of Variation 17.0 % Immature Granulocyte % (Auto) 4.3 % Immature Granulocyte # (Auto) 0.31 K/uL Toxic Granulation 1+ Echinocytes 1+ Sodium Level 147 mmol/L Potassium Level 2.6 mmol/L Chloride Level 112 mmol/L Carbon Dioxide Level 27 mmol/L Anion Gap 8.0 mmol/L Blood Urea Nitrogen 22 mg/dl Creatinine 0.61 mg/dl Est Creatinine Clear Calc Drug Dose 103.6 ml/min Estimated GFR () 120.6 Estimated GFR (Non- 104.1 BUN/Creatinine Ratio 35.4 Random Glucose 180 mg/dl Calcium Level 7.4 mg/dl Test 08/07/16 11:17 Bedside Glucose 159 mg/dl Assessment and Plan 1) B/L lung infiltrates/Pneumonia - Based on his lung exam I ordered a CT scan yesterday and was amazed at the degree of infiltrate in both lung. He has been afebrile and does not have an elevated white count making it tempting to switch to oral antibiotic and discharge to rehab, however I told him that with this finding I suspect he would have returned worse if not septic. Perhaps is having chronic aspiration. I have asked pulmonary, infectious disease and speech therapy to assist with evaluations and recommendations to get a better understanding of why these infiltrates are still present to the degree that they are. Could this be viral from influenza and will just take time to resolve? 2) Episode of lower Gi bleeding - this has resolved and stabilized. Due to lung issues GI elected to hold off on colonoscopy for at least 4 weeks. 3) influenza A: positive, tamiflu course completed. 4) COPD: continue pulmicort Bid and Duoneb qid. 5) Anemia: continue to monitor. 6) PETRA: resolved, Avoid nephrotoxic drugs where possible. 7) A fib: Cardiology consulted and following. Heart rate has been stable on oral cardizem, full anticoagulation has been held due to GI bleed. I do plan to start sub-q heparin for DVT prophylaxis today as I feel his risk for DVT is high. 8) Septic shock - resolved. It appears that the IV steroid was being used for pressors effect and not to treat a COPD exacerbation. Therefore I stopped this completely. I consider that the steroid is causing the elevated sodium and hypokalemia.
--- NOTE | 2016-08-07 15:28 | PULMONARY CONSULTATION ---
DATE OF CONSULTATION: 08/07/2016 TIME: 02:30 p.m. REPORT OF CONSULTATION: The patient was seen in room 216. He is a 65-year-old male who has had a complicated course. He initially was admitted to [facility] earlier this month. He was then transferred to [facility], where he was admitted from July 17 through the . His diagnoses included a left lower lobe pneumonia and colitis. His sputum cultures were positive for stenotrophomonas. The patient feels that he was discharged too soon. He was sent to a rehab facility. Subsequently, he became ill and went back to the ER at [place], where he was then transferred here. He was felt to be septic. He had tachycardia and hypotension with blood pressures as low as 62/43. He was treated with fluid resuscitation and was started on dopamine. The patient was then admitted for several days to the ICU. He was transferred out a couple of days ago. Pulmonary consultation is now requested because of the CAT scan findings. CAT scan of the chest was done on the . This showed evidence of bilateral lower lobe as well as lingular division of the left upper lobe consolidation. He appeared to have some degree of retained secretions. There were mildly enlarged right hilar and subcarinal lymph nodes. Severe emphysema was noted. Very small effusions were present. The CAT scan of the chest was more abnormal than expected from the plain chest x-ray findings. One also finds evidence of prior cardiac surgery on the chest x-rays. The patient does not feel that bad. He is short of breath with minimal exertion such as trying to get to the bathroom. He feels very weak. He has a loose cough. He is not bringing up any phlegm. At home, he coughs up mucus and he feels it is because he takes Mucinex. He has been getting nebulizer treatments. He is not having any chest pains. The patient denies difficulty swallowing. He has not had chills, fevers or sweats. Even when he was in the ICU, it did not appear that he had significant fevers. A few days ago, he had some melena reported. The patient himself did not see it. He states he has had mild nausea. Most recently, he has not had a bowel movement for a few days he states. The patient was a longstanding smoker. He has not smoked since late last month. Realistically, he has been in the hospital most of that time. Most of his life, he smoked between 1 and 1-1/2 packs per day, although he had quit for a relatively short periods few times. Alcohol use is described as none. 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 He states he had exposure to some chemicals and dust and probably some plastics. He worked there for 13 years. Other jobs included cutting grass. PAST MEDICAL HISTORY: 1. The patient had rheumatic fever as a child. He has had valvular heart disease. 2. Paroxysmal atrial fib. 3. Aortic stenosis. 4. C. diff infection. 5. 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 6. Diverticulitis. 7. Decreased ejection fraction 30%-35%. 8. Diabetes mellitus. PAST SURGICAL HISTORY: 1. Aortic valve replacement. 2. Mitral valve repair. FAMILY HISTORY: Mother at age 77. Liver cancer and diabetes. The patient does not know the medical history of his father. MEDICATIONS: At home, 1. ProAir inhaler p.r.n. 2. Brovana b.i.d. 3. Atorvastatin 40 mg daily. 4. Budesonide b.i.d. 5. Diltiazem 60 mg t.i.d. 6. DuoNeb as needed. 7. Lactobacillus. 8. Lisinopril 10 mg daily. 9. Nystatin. 10. Pantoprazole 40 mg daily. 11. Bactrim. 12. Coumadin. REVIEW OF SYSTEMS: The patient's energy level has been low. He denies any syncope or near syncope. No ophthalmic complaints. Denies ENT symptoms at present. No chest pain or palpitations. Pulmonary history is as noted above. GI history is as noted above. Remainder of review of systems is otherwise negative. PHYSICAL EXAMINATION: GENERAL: Mr. Gilliland is a 65-year-old male who was cooperative, alert and oriented. BMI is normal at 24.8. VITAL SIGNS: Temperature is 36.9. Heart rate 84 per minute and the rhythm is irregular. Saturations were 95% on 2 liters. Respiratory rate was 20 breaths per minute. It was not labored. Blood pressure 117/72. HEENT: Pupils were reactive. Mouth exam showed dentures on top and an absence of teeth on the bottom. NECK: Palpation of the neck reveals no lymph nodes or masses. CHEST: There is a scar on the anterior chest from prior surgery. A mild systolic murmur was heard. Scattered rhonchi were heard bilaterally. These are better heard in the lower lung olvera. Some rales accompanied these as well. ABDOMEN: Seems mildly distended. The bowel sounds were present. They were slightly diminished. There was no tenderness to palpation or masses. EXTREMITIES: Showed no cyanosis, clubbing or edema. LABORATORY DATA: White count today is 7.29. Hemoglobin is 8.5. Platelets are 111,000. Serial blood gases were done when the patient was in the ICU. The most recent on August 02 showed a pH of 7.48 with a pCO2 of 29 and pO2 of 83. Electrolytes showed sodium 147, potassium 2.6, chloride 112, and bicarbonate 27. BUN is 22 with a creatinine of 0.61. Blood sugar today was 180. Flu test was positive for influenza A. This was by PCR. The patient had blood cultures during this hospital stay, 07/17 that showed Staphylococcus aureus that was methicillin resistant. C. diff was negative. The MRSA smear from nasal swab was positive. IMPRESSION: 1. Pneumonia, left lower lobe, left upper lobe, and right lower lobe -- possibly secondary to MRSA. 2. Chronic obstructive pulmonary disease with exacerbation. 3. Emphysema. 4. Sepsis. 5. Influenza A infection. COMMENTS AND RECOMMENDATIONS: The patient does not seem to be unstable. Vital signs have been fairly good. He likely has secretions that are difficult to clear. We will put him on Mucinex as he states he takes it at home. Antibiotic choice is deferred to infectious disease, who are seeing the patient. The patient did not want to try flutter valve. He states he has had it before and did not like it. We will try a vest to see if this will improve his secretion clearance. Potassium supplementation is advised. This is deferred to his hospitalist. He is on neb treatments. Thank you for asking me to assist in his care. ROSANA
[2016-08-07] MEDS: GUAIFENESIN 600 MG TABCR PO SCH (20:11)
[2016-08-08] VITALS (10 sets, daily range): BP systolic 108–127; BP diastolic 66–79; PULSE 80–117; TEMP 36.6–37.4; O2SAT 90–96
[2016-08-08] MEDS ORDERED: VANCOMYCIN INJ 1,000 MG in SODIUM CHLORIDE 0.9% 250ML 250 ML IV SCH ×2
[2016-08-08] MEDS: BUDESONIDE 0.5 MG/2 ML VIAL (PULMICORT) INH SCH ×2 (07:04→19:43)
[2016-08-08] MEDS: ALBUT/IPRATROP 3MG/0.5MG NEB 3 ML VIAL INH SCH ×4 (07:04→19:43)
[2016-08-08 07:41] LABS: MEAN CELL VOLUME 89.2 fL (80-100); MEAN CORPUSCULAR HEMOGLOBIN 30.2 pg (25-34); MEAN CORPUSCULAR HGB CONC 33.8 g/dl (32-36); MEAN PLATELET VOLUME 10.7 fL (7.4-10.4); PLATELET COUNT 131 K/uL (130-400); RED BLOOD COUNT 3.25 M/uL (4.7-6.1); WHITE BLOOD COUNT 12.66 K/uL (4.8-10.8)
[2016-08-08 08:10] LABS: BUN/CREATININE RATIO 33.4 (10-20); CALCIUM 7.7 mg/dl (8.5-10.1); CREATININE 0.62 mg/dl (0.60-1.40); POTASSIUM 2.8 mmol/L (3.5-5.1)
[2016-08-08 08:12] LABS: ACANTHOCYTES 2+; BASO % 0.1 %; BASO ABS # 0.01 K/uL (0-0.2); COMPLETE YES; EOS % 0.6 %; GIANT PLATELETS 1+; IG% 1.3 %; LARGE PLATELETS 1+; LYMPH % 7.3 %; LYMPH ABS # 0.93 K/uL (1.2-3.4); MONO % 1.5 %; NEUT % 89.2 %; TOXIC GRANULATION 1+
[2016-08-08] MEDS: PANTOprazole SOD 40 MG TAB PO SCH ×2 (08:20→21:52)
[2016-08-08] MEDS: BOOST GLUCOSE CONTROL PO SCH ×3 (08:20→17:00)
[2016-08-08] MEDS: LACTOBACILLUS ACIDOPHILUS (FLORANEX) TAB PO SCH ×3 (08:20→17:00)
[2016-08-08] MEDS: GUAIFENESIN 600 MG TABCR PO SCH ×2 (08:21→21:54)
[2016-08-08] MEDS: ATORVASTATIN 40 MG TAB PO SCH (08:21)
[2016-08-08] MEDS: DILTIAZEM HCL 120 MG CAPCR PO SCH (08:21)
[2016-08-08] MEDS: INSULIN ASPART 100 UNITS/ML 3 ML PEN SC SCH ×5 (08:56→21:56)
[2016-08-08] MEDS ORDERED: DEXTROSE 5% 1000ML 1,000 ML IV SCH (09:15)
[2016-08-08] MEDS ORDERED: POTASSIUM CHLORIDE 20 MEQ TABCR PO ONE (09:30)
--- NOTE | 2016-08-08 10:39 | Infectious Disease Progress Nt ---
Progress Note Date of Service Aug 08, 2016. Subjective Pt evaluation today including: conversation w/ patient, physical exam, chart review, lab review, review of studies, review of inpatient medication list WBC count this morning was 12.66. Hgb 9.8 this morning. Sodium of 147 and Potassium 2.8 this morning. Patient states that he continued to have a severe amount of phlegm last night and barely got any sleep. His cough has improved. He states that he is very fatigued, but is feeling slightly improved. He does not however feel that the amount of sputum production has improved. All Other Systems: Reviewed and Negative Medications Current Inpatient Medications Medications (Trade) Dose Ordered Sig/Jim Route Start Time Stop Time Status Last Admin Dose Admin Acetaminophen (Tylenol Tab) 650 mg Q4H PRN PO 07/31/16 11:00 08/30/16 10:59 Ondansetron HCl (Zofran Inj) 4 mg Q6H PRN IV 07/31/16 11:00 08/30/16 10:59 Miscellaneous Information (Consult Glycemic Management Pharmacy) 1 ea UD N/A 07/31/16 11:05 08/30/16 11:04 Atorvastatin Calcium (Lipitor Tab) 40 mg DAILY PO 08/01/16 09:00 08/31/16 08:59 08/08/16 08:21 40 MG Budesonide (Pulmicort Respules 0.5MG/ 2ML Neb Soln) 0.5 mg BIDR INH 07/31/16 20:00 08/30/16 19:59 08/08/16 07:04 0.5 MG Lactobacillus Acidophilus (Floranex Tab) 4 tab TIDM PO 07/31/16 16:30 08/30/16 16:29 08/08/16 08:20 4 TAB Albuterol/ Ipratropium (Duoneb) 3 ml QIDR INH 07/31/16 12:00 08/30/16 11:59 08/08/16 07:04 3 ML Glucose (Glucose 40% Gel) 15-30 GRAMS 15 GRAMS... UD PRN PO 07/31/16 12:45 08/30/16 12:44 Glucose (Glucose Chew Tab) 4-8 Tablets 4 Tabl... UD PRN PO 07/31/16 12:45 08/30/16 12:44 Dextrose (Dextrose 50% 50ML Syringe) 25-50ML OF 50% DW IV FOR... UD PRN IV 07/31/16 12:45 08/30/16 12:44 07/31/16 19:32 25 ML Glucagon (Glucagon Inj) 1 mg UD PRN SQ 07/31/16 12:45 08/30/16 12:44 Vancomycin HCl (Consult) 1 ea UD PRN N/A 07/31/16 14:15 08/30/16 14:14 Insulin Aspart (novoLOG ASPART) SLIDING SCALE ACHS SC 08/02/16 21:00 09/01/16 20:59 08/08/16 08:56 1 UNITS Diltiazem HCl (Cardizem Cd Cap) 120 mg QAM PO 08/04/16 09:00 09/03/16 08:59 08/08/16 08:21 120 MG Sodium Chloride ([place] Nasal Hendrix) 1 sprays PRN PRN NA 08/05/16 16:15 09/04/16 16:14 08/05/16 16:40 1 SPRAYS Pantoprazole Sodium (Protonix Tab) 40 mg BID PO 08/06/16 21:00 09/05/16 20:59 08/08/16 08:20 40 MG Enteral Nutritional Formula (Boost Glucose Control) 1 can TIDM PO 08/06/16 16:45 09/05/16 16:44 08/08/16 08:20 1 CAN Ioversol 125 ml 125 ml UD PRN IV 08/06/16 15:00 08/10/16 14:59 Vancomycin HCl/ Sodium Chloride (Vancomycin Inj/ Nss 250ml) 270 ml @ 125 mls/hr Q16H IV 08/08/16 00:00 08/09/16 23:59 08/07/16 23:32 125 MLS/HR Guaifenesin (Mucinex Contr Rel Tab) 1,200 mg Q12 PO 08/07/16 21:00 09/06/16 20:59 08/08/16 08:21 1,200 MG Potassium Chloride 40 meq 40 meq BID PO 08/08/16 21:00 09/07/16 20:59 Dextrose (D5W 1000ml) 1,000 ml @ 80 mls/hr [id number] IV 08/08/16 09:15 09/07/16 09:14 Objective Vital Signs Date Time Temp Pulse Resp B/P Pulse Ox O2 Delivery O2 Flow Rate FiO2 08/08/16 08:00 Nasal Cannula 2.0 08/08/16 07:29 37.4 117 18 108/79 90 2.0 08/08/16 07:04 92 16 94 Nasal Cannula 2.0 08/08/16 04:03 Nasal Cannula 2.0 08/08/16 03:55 36.9 107 20 127/79 91 Nasal Cannula 2.0 08/08/16 00:00 Nasal Cannula 2.0 08/07/16 23:20 36.7 106 20 157/73 93 Nasal Cannula 2.0 08/07/16 20:00 94 Nasal Cannula 2.0 35 08/07/16 19:49 92 16 94 Nasal Cannula 2.0 08/07/16 19:39 36.9 98 18 120/73 94 Nasal Cannula 2.0 08/07/16 16:30 37.0 103 16 114/65 92 Room Air 08/07/16 16:00 Nasal Cannula 2.0 08/07/16 15:39 88 16 95 Nasal Cannula 2.0 08/07/16 12:00 Nasal Cannula 2.0 08/07/16 11:55 84 16 95 Nasal Cannula 2.0 08/07/16 10:59 36.9 93 18 117/72 93 2.0 Physical Exam General Appearance: WD/WN, no apparent distress Eyes: normal inspection, sclerae normal ENT: hearing grossly normal Neck: supple, trachea midline, + pertinent finding (Right IJ) Respiratory/Chest: chest non-tender, lungs clear, normal breath sounds, no respiratory distress, no accessory muscle use Cardiovascular: regular rate, rhythm, + systolic murmur (murmur of prosthetic valve) Abdomen: normal bowel sounds, non tender, soft Extremities: normal range of motion Neurologic/Psychiatric: alert, normal mood/affect Skin: normal color, warm/dry, no rash Laboratory Results Last 24 Hours Test 08/07/16 11:17 08/07/16 16:05 08/07/16 19:45 08/08/16 06:51 Bedside Glucose 159 mg/dl 241 mg/dl 215 mg/dl 93 mg/dl Test 08/08/16 06:53 White Blood Count 12.66 K/uL Red Blood Count 3.25 M/uL Hemoglobin 9.8 g/dL Hematocrit 29.0 % Mean Corpuscular Volume 89.2 fL Mean Corpuscular Hemoglobin 30.2 pg Mean Corpuscular Hemoglobin Concent 33.8 g/dl Platelet Count 131 K/uL Mean Platelet Volume 10.7 fL Neutrophils (%) (Auto) 89.2 % Lymphocytes (%) (Auto) 7.3 % Monocytes (%) (Auto) 1.5 % Eosinophils (%) (Auto) 0.6 % Basophils (%) (Auto) 0.1 % Neutrophils # (Auto) 11.29 K/uL Lymphocytes # (Auto) 0.93 K/uL Monocytes # (Auto) 0.19 K/uL Eosinophils # (Auto) 0.08 K/uL Basophils # (Auto) 0.01 K/uL RDW Standard Deviation 56.5 fL RDW Coefficient of Variation 17.5 % Immature Granulocyte % (Auto) 1.3 % Immature Granulocyte # (Auto) 0.16 K/uL Toxic Granulation 1+ Large Platelets 1+ Giant Platelets 1+ Acanthocytes 2+ Sodium Level 147 mmol/L Potassium Level 2.8 mmol/L Chloride Level 113 mmol/L Carbon Dioxide Level 24 mmol/L Anion Gap 10.0 mmol/L Blood Urea Nitrogen 21 mg/dl Creatinine 0.62 mg/dl Est Creatinine Clear Calc Drug Dose 101.9 ml/min Estimated GFR () 119.8 Estimated GFR (Non- 103.4 BUN/Creatinine Ratio 33.4 Random Glucose 84 mg/dl Calcium Level 7.7 mg/dl Assessment and Plan (1) Septic shock Status: Acute (2) Influenza A (3) COPD (chronic obstructive pulmonary disease) Status: Chronic (4) Hx of bacterial endocarditis Status: Chronic Patient with bilateral bibasilar pneumonia, Influenza A on admission (now resolved), MRSA bacteremia, and history of prosthetic valve replacement. With 1/ 2 blood cultures positive for MRSA on admission, strongly recommending MIGUEL. It seems likely that this will be delayed though due to patient's respiratory state and continued mucus production. Will continue IV Vancomycin. Will repeat sputum culture. May consider additional coverage if sputum production and respiratory symptoms do not improve. Plan: 1. Continue Vanco 2. Sputum culture 3. MIGUEL (may be delayed due to sputum) PROVIDER ADDENDUM: Patient reviewed with Ms. Damon. Agree with above assessment.
--- NOTE | 2016-08-08 13:03 | Pharmacy Progress Note ---
Glycemic: Assessment & Plan Date of Service Aug 08, 2016. Assessment & Plan Assessment * AM fasting BSG slightly low to 93 mg/dL this AM - likely 2nd patient receiving Lantus yesterday AM then having steroids stopped. No further intervention required as Lantus was stopped * Stressors that cause insulin resistance back close to baseline. Will resume home regimen (but keep correction prn hyperglycemia). * Start metformin * Discontinue carb ratio * Only insulin patient will receive is correction. Will therefore decrease goal range and slightly tighten correction factor Plan * Basal insulin: None * Correctional Insulin: Novolog Correction per scale ACHS Decrease Goal Range: Low 100 mg/dL - High 140 mg/dL Tighten Correction Factor: 30 mg/dL/unit * Prandial insulin: Eliminate carb ratio * Oral agents: Resume metformin 500 mg po daily Pharmacy will continue to monitor patient daily and write orders per [facility] inpatient glycemic control protocol. Thanks. * Please note that the plan above was derived based on current level of insulin resistance and hospital stress. These recommendations are appropriate for inpatient admission only. Plan of care upon discharge will need to be reassessed to avoid potential outpatient hypo/hyperglycemia.
--- NOTE | 2016-08-08 13:40 | PULMONARY PROGRESS NOTE ---
DATE: 08/08/2016 TIME: 1:00 p.m. SUBJECTIVE: The patient states he feels extremely fatigued. He did not sleep well last night. He just has no energy. He still feels short of breath. He states he has winded just getting up from the bed to the chair. He has winded going to the bathroom. His cough is the same. It is harsh, but unable to bring up any phlegm. He states he is hungry for other foods. He has only had very soft foods for the past several days. OBJECTIVE: GENERAL: The patient looks fairly comfortable. VITAL SIGNS: He did have a low grade temperature of 37.4 earlier today; most recent temperature 36.9. ENT: Unremarkable and unchanged. HEART: Heart rate was 95 beats per minute. Blood pressure 117/76. CHEST: Respiratory rate 20 breaths per minute. Rhonchi bilaterally are heard along with end-expiratory wheezing. Saturation was 90% on 2 liters. ABDOMEN: Soft and nontender. He states he has not had a bowel movement for several days. EXTREMITIES: There was no cyanosis or clubbing. LABORATORY DATA: White count today is elevated at 12.66; this is higher than prior when was 7.29 on the 25th. Hemoglobin is 9.8. Platelets are 131,000. INR today was 1.8. Electrolytes show sodium 147, potassium 2.8, chloride 113, and bicarbonate 24. The BUN was 21 with a creatinine of 0.62. IMPRESSIONS: 1. Bilateral pneumonia involving left lower lobe, left upper lobe, and right lower lobe, presumably secondary to methicillin-resistant staphylococcus aureus. 2. Chronic obstructive pulmonary disease with exacerbation. 3. Emphysema. 4. Acute influenza A. 5. Hypokalemia. PLAN: The patient does not feel well today. He continues to have complaints of significant shortness of breath. I was questioned by Dr. Dean today as to whether the patient would be a candidate for a MIGUEL from a pulmonary perspective. The patient has had blood gases done during this hospital stay which did not show carbon dioxide retention. However, they may have been at the times of an acute sepsis. I would like to repeat that at present and see how the blood gases now. I have ordered a vest for the patient for percussion purposes. Unfortunately, none are available at present. The patient is reluctant to wear a vest, but I encouraged him to do so when one becomes available. He also did not want a flutter valve. A new sputum is pending. The patient's oral potassium was increased today. Obviously, that should be corrected before he has a scope as well. I do not know what this patient is at baseline. I have only seen him for the first time yesterday. I am going to suggest holding on the MIGUEL for right now. To help his breathing, I would consider giving some steroids. The downside of this of course is that it may affect his blood sugars and it may alter his body's immunity a bit. Will give him perhaps 2 doses of IV steroids and see if this improves anything for him. The patient is getting Mucinex and I would continue that.
[2016-08-08] MEDS ORDERED: METHYLPREDNISOLONE IV 40 MG in SYRINGE 0 ML IV ONE (14:00)
--- NOTE | 2016-08-08 14:10 | DIAGNOSTIC IMAGING REPORT ---
VIDEO SWALLOW HISTORY: r/o aspiration, secretions in trachea; please schedule per order TECHNIQUE: Video fluoroscopic evaluation of swallowing was performed in the AP and lateral projections by the speech pathology staff. The patient is fed nectar-thick and thin liquid barium, a barium coated wafer, and barium pudding. FLUOROSCOPY TIME: 1.3 minutes. A cine loop was submitted.. COMPARISON STUDY: None. FINDINGS: There is normal hyoid excursion and epiglottic deflection. Multiple cysts of penetration without aspiration with the thin liquid barium. The barium did not pass into the stomach and remains within the distal esophagus. IMPRESSION: 1. No aspiration identified. The barium did not pass into the stomach and remained within the distal esophagus. Consider barium swallow for further evaluation. 2. Please see the speech pathologist report for detailed findings and recommendations. Electronically signed by: Shashi Patel M.D. 08/08/2016 2:09 PM Dictated Date/Time: 08/08/2016 2:05 PM
[2016-08-08 15:31] LABS: ARTERIAL BLD GAS O2 SATURATION 88.7 % (90-95); ARTERIAL BLOOD GAS BASE EXCESS -1.1 mEq/L (-9-1.8); ARTERIAL BLOOD GAS HCO3 21 mmol/L (19-24); ARTERIAL BLOOD GAS PO2 55 mm/Hg (80-95)
[2016-08-08 15:39] LABS: ALLEN TEST POS (POS); O2 ADMINISTRATION 2 L
[2016-08-08 15:52] LABS: ARTERIAL BLOOD GAS pH 7.51 (7.35-7.45)
[2016-08-08] MEDS: VANCOMYCIN INJ 1,000 MG in SODIUM CHLORIDE 0.9% 250ML 250 ML IV SCH (16:00)
--- NOTE | 2016-08-08 21:10 | Hospitalist Progress Note ---
Hospitalist Progress Note Date of Service Aug 08, 2016. Subjective Pt evaluation today including: conversation w/ patient, physical exam, chart review, lab review, review of studies, review of inpatient medication list Patient feeling about the same. I appreciated input by both ID and pulmonology. The patient has no new concerns or new problems. Additional Comments: A 10 system review was performed and all were negative. Positives were placed in the subjective section. Objective Vital Signs Date Time Temp Pulse Resp B/P Pulse Ox O2 Delivery O2 Flow Rate FiO2 08/08/16 20:29 36.9 80 18 110/67 95 Room Air 08/08/16 18:55 90 16 94 Nasal Cannula 2.0 08/08/16 16:01 102 16 92 Nasal Cannula 2.0 08/08/16 16:00 90 Nasal Cannula 2.0 08/08/16 15:43 Nasal Cannula 2.0 08/08/16 12:00 Nasal Cannula 2.0 08/08/16 11:27 95 16 90 Nasal Cannula 2.0 08/08/16 11:23 36.9 93 18 117/76 92 2.0 08/08/16 08:00 Nasal Cannula 2.0 08/08/16 07:29 37.4 117 18 108/79 90 2.0 08/08/16 07:04 92 16 94 Nasal Cannula 2.0 08/08/16 04:03 Nasal Cannula 2.0 08/08/16 03:55 36.9 107 20 127/79 91 Nasal Cannula 2.0 08/08/16 00:00 Nasal Cannula 2.0 08/07/16 23:20 36.7 106 20 157/73 93 Nasal Cannula 2.0 Physical Exam Notes: GEN: Awake, alert, and oriented x 3. Not in acute distress HEENT: Tm's intact, no inflammation, EOMI, PERRLA, MMM Neck: Soft, supple Lungs: + rhonchi b/l with expiratory wheezes. Heart: REG, nrl S1S2 without murmurs, rubs or gallops Abdomen: Soft, NT, ND, + BS EXT: No C/C/E NEURO: CN's II-XII grossly intact, non-focal Skin: warm, dry, no rashes PSYCH: pleasant, cooperative, no signs of significant anxiety or depression. Laboratory Results Last 24 Hours Test 08/08/16 06:51 08/08/16 06:53 08/08/16 11:19 08/08/16 15:13 Bedside Glucose 93 mg/dl 145 mg/dl White Blood Count 12.66 K/uL Red Blood Count 3.25 M/uL Hemoglobin 9.8 g/dL Hematocrit 29.0 % Mean Corpuscular Volume 89.2 fL Mean Corpuscular Hemoglobin 30.2 pg Mean Corpuscular Hemoglobin Concent 33.8 g/dl Platelet Count 131 K/uL Mean Platelet Volume 10.7 fL Neutrophils (%) (Auto) 89.2 % Lymphocytes (%) (Auto) 7.3 % Monocytes (%) (Auto) 1.5 % Eosinophils (%) (Auto) 0.6 % Basophils (%) (Auto) 0.1 % Neutrophils # (Auto) 11.29 K/uL Lymphocytes # (Auto) 0.93 K/uL Monocytes # (Auto) 0.19 K/uL Eosinophils # (Auto) 0.08 K/uL Basophils # (Auto) 0.01 K/uL RDW Standard Deviation 56.5 fL RDW Coefficient of Variation 17.5 % Immature Granulocyte % (Auto) 1.3 % Immature Granulocyte # (Auto) 0.16 K/uL Toxic Granulation 1+ Large Platelets 1+ Giant Platelets 1+ Acanthocytes 2+ Sodium Level 147 mmol/L Potassium Level 2.8 mmol/L Chloride Level 113 mmol/L Carbon Dioxide Level 24 mmol/L Anion Gap 10.0 mmol/L Blood Urea Nitrogen 21 mg/dl Creatinine 0.62 mg/dl Est Creatinine Clear Calc Drug Dose 101.9 ml/min Estimated GFR () 119.8 Estimated GFR (Non- 103.4 BUN/Creatinine Ratio 33.4 Random Glucose 84 mg/dl Calcium Level 7.7 mg/dl Arterial Blood pH 7.51 Arterial Blood Partial Pressure CO2 27 mmHg Arterial Blood Partial Pressure O2 55 mm/Hg Arterial Blood HCO3 21 mmol/L Arterial Blood Oxygen Saturation 88.7 % Arterial Blood Base Excess -1.1 mEq/L Arterial Blood Gas Delivery 2 L Victoriano Test POS Test 08/08/16 16:20 08/08/16 20:51 Bedside Glucose 198 mg/dl 242 mg/dl Assessment and Plan 1) B/L lung infiltrates/Pneumonia - continue Vanco. 2) Episode of lower Gi bleeding - this has resolved and stabilized. Due to lung issues GI elected to hold off on colonoscopy for at least 4 weeks. 3) influenza A: positive, tamiflu course completed. 4) COPD: continue pulmicort Bid and Duoneb qid. 5) Anemia: continue to monitor. 6) PETRA: resolved, Avoid nephrotoxic drugs where possible. 7) A fib: Cardiology consulted and following. Heart rate has been stable on oral cardizem, full anticoagulation has been held due to GI bleed. I do plan to start sub-q heparin for DVT prophylaxis today as I feel his risk for DVT is high. 8) Septic shock - resolved.
[2016-08-08] MEDS: POTASSIUM CHLORIDE 20 MEQ TABCR PO SCH (21:53)
[2016-08-09] VITALS (8 sets, daily range): BP systolic 111–124; BP diastolic 59–70; PULSE 75–89; TEMP 36.6–36.7; O2SAT 93–97
[2016-08-09 06:28] LABS: HEMATOCRIT 26.5 % (42-52); IG% 0.9 %; LYMPH % 6.7 %; LYMPH ABS # 0.53 K/uL (1.2-3.4); MEAN CELL VOLUME 89.5 fL (80-100); MEAN CORPUSCULAR HEMOGLOBIN 29.4 pg (25-34); MEAN CORPUSCULAR HGB CONC 32.8 g/dl (32-36); MEAN PLATELET VOLUME 10.5 fL (7.4-10.4); MONO % 2.4 %; PLATELET COUNT 123 K/uL (130-400); RED BLOOD COUNT 2.96 M/uL (4.7-6.1); WHITE BLOOD COUNT 7.89 K/uL (4.8-10.8)
[2016-08-09] MEDS: INSULIN ASPART 100 UNITS/ML 3 ML PEN SC SCH ×4 (06:30→21:15)
[2016-08-09 07:07] LABS: COMPLETE YES
[2016-08-09 07:33] LABS: CALCIUM 7.5 mg/dl (8.5-10.1); CREATININE 0.66 mg/dl (0.60-1.40)
[2016-08-09] MEDS: ALBUT/IPRATROP 3MG/0.5MG NEB 3 ML VIAL INH SCH ×4 (07:33→19:20)
[2016-08-09] MEDS: BUDESONIDE 0.5 MG/2 ML VIAL (PULMICORT) INH SCH ×2 (07:33→19:20)
[2016-08-09] MEDS ORDERED: METHYLPREDNISOLONE IV 40 MG in SYRINGE 0 ML IV ONE (08:00)
[2016-08-09] MEDS: POTASSIUM CHLORIDE 20 MEQ TABCR PO SCH ×2 (08:27→21:11)
[2016-08-09] MEDS: PANTOprazole SOD 40 MG TAB PO SCH ×2 (08:27→21:11)
[2016-08-09] MEDS: GUAIFENESIN 600 MG TABCR PO SCH ×2 (08:28→21:11)
[2016-08-09] MEDS: LACTOBACILLUS ACIDOPHILUS (FLORANEX) TAB PO SCH ×3 (09:28→18:02)
[2016-08-09] MEDS: DILTIAZEM HCL 120 MG CAPCR PO SCH (09:29)
[2016-08-09] MEDS: BOOST GLUCOSE CONTROL PO SCH ×3 (09:30→18:04)
[2016-08-09] MEDS: VANCOMYCIN INJ 1,000 MG in SODIUM CHLORIDE 0.9% 250ML 250 ML IV SCH (09:30)
[2016-08-09] MEDS: ATORVASTATIN 40 MG TAB PO SCH (09:34)
--- NOTE | 2016-08-09 10:32 | PULMONARY PROGRESS NOTE ---
DATE: 08/09/2016 TIME: 10:00 a.m. SUBJECTIVE: The patient is feeling much better. His cough is improved. He does not hear or feel the crackling in his chest that he was previously. He is not bringing up any mucus. He is less short of breath today. OBJECTIVE: GENERAL: The patient appears comfortable at rest. VITAL SIGNS: He is afebrile with a temperature of 36.6. There have been no recorded fevers in the past 24 hours. ENT: Unchanged and unremarkable. HEART: Rate is 75 beats per minute. The rhythm was irregular. Blood pressure is 111/59. CHEST: Auscultation of the lung olvera revealed very few rhonchi today. This is much less than it had been on the prior 2 days. His respiratory rate was 18 breaths per minute and not labored. Oxygen saturation was 93% on 2 liters. EXTREMITIES: Showed trace ankle edema. There was no cyanosis or clubbing. LABORATORY DATA: White count today is 7.89. Hemoglobin 8.7. Platelets 123,000. Sputum culture still has not been done. The patient had a blood gas done yesterday afternoon. The pH was 7.51 with a pCO2 of 27 and a pO2 of 55 done on 2 liter nasal cannula. This would imply a respiratory alkalosis. This is consistent with what his prior blood gases were. The video swallow was done yesterday. No aspiration was identified. The barium did not pass into the stomach and remained within the distal esophagus. The barium swallow was advised for further evaluation. IMPRESSIONS: 1. Bilateral pneumonia including left lower lobe, left upper lobe, and right lower lobe, presumably secondary to MRSA. 2. Chronic obstructive pulmonary disease with exacerbation -- improved. 3. Emphysema. 4. Acute influenza A. 5. Hypokalemia. COMMENTS AND RECOMMENDATIONS: The patient clinically is better today. If he continues to improve, he may be able to have the transesophageal echo early next week. I am not certain what to make of the swallow study noted above. Consideration is given to doing the barium swallow as suggested by the radiologist. Would continue with his current antibiotic, which includes vancomycin. Infectious disease is managing that. Would continue with his neb treatments.
--- NOTE | 2016-08-09 12:29 | Pharmacy Progress Note ---
Glycemic: Assessment & Plan Date of Service Aug 09, 2016. Assessment & Plan ASSESSMENT: The patient is currently receiving 8 units of insulin per day. BSGs ranging 93 - 242 mg/dl over the past 24hrs, CR was eliminated yesterday, but patient does require some carb coverage due to steroids. Patient received 1 time doses of Solu-medrol 40mg IV yesterday and today, and had D5W running at 80cc/hr from [id number] yesterday, contributing to hyperglycemia. Test 08/08/16 16:20 08/08/16 20:51 08/09/16 05:38 08/09/16 07:30 Bedside Glucose 198 mg/dl (70-99) 242 mg/dl (70-99) 163 mg/dl (70-99) Random Glucose 155 mg/dl (70-99) Test 08/09/16 11:16 Bedside Glucose 163 mg/dl (70-99) PLAN: * Correctional Insulin: Novolog Correction per scale ACHS Goal Range: Low 120 mg/dL - High 160 mg/dL Correction Factor: 30 mg/dL/unit * Prandial insulin: Per carb ratio of 1 unit per 10 grams CHO consumed * Oral agents: Metformin 500mg PO daily with breakfast restarted last night Pharmacy will continue to monitor patient daily and write orders per [facility] inpatient glycemic control protocol. Thanks. * Please note that the plan above was derived based on current level of insulin resistance and hospital stress. These recommendations are appropriate for inpatient admission only. Plan of care upon discharge will need to be reassessed to avoid potential outpatient hypo/hyperglycemia.
[2016-08-09] MEDS: HEPARIN SOD 5000 UNIT/0.5 ML CARP SQ SCH ×2 (13:51→21:14)
--- NOTE | 2016-08-09 17:08 | Infectious Disease Progress Nt ---
Progress Note Date of Service Aug 09, 2016. Subjective Pt evaluation today including: conversation w/ patient, physical exam, chart review, lab review, review of studies, conversation w/ business consultant (Dr. Gillette), review of inpatient medication list White blood cell count this morning was 7.89. His hemoglobin was 8.7. His creatinine was 0.66. The patient continues on IV vancomycin. Video swallow showed no evidence of aspiration. The patient's sputum culture is pending. His repeat blood cultures continue to show no growth. Patient is feeling improved today. He is not experiencing as much sputum production. He continues to have a cough. He states that he would like to stay in house until he is much improved. All Other Systems: Reviewed and Negative Medications Current Inpatient Medications Medications (Trade) Dose Ordered Sig/Jim Route Start Time Stop Time Status Last Admin Dose Admin Acetaminophen (Tylenol Tab) 650 mg Q4H PRN PO 07/31/16 11:00 08/30/16 10:59 Ondansetron HCl (Zofran Inj) 4 mg Q6H PRN IV 07/31/16 11:00 08/30/16 10:59 Miscellaneous Information (Consult Glycemic Management Pharmacy) 1 ea UD N/A 07/31/16 11:05 08/30/16 11:04 Atorvastatin Calcium (Lipitor Tab) 40 mg DAILY PO 08/01/16 09:00 08/31/16 08:59 08/09/16 09:34 40 MG Budesonide (Pulmicort Respules 0.5MG/ 2ML Neb Soln) 0.5 mg BIDR INH 07/31/16 20:00 08/30/16 19:59 08/09/16 07:33 0.5 MG Lactobacillus Acidophilus (Floranex Tab) 4 tab TIDM PO 07/31/16 16:30 08/30/16 16:29 08/09/16 13:52 4 TAB Albuterol/ Ipratropium (Duoneb) 3 ml QIDR INH 07/31/16 12:00 08/30/16 11:59 08/09/16 15:35 3 ML Glucose (Glucose 40% Gel) 15-30 GRAMS 15 GRAMS... UD PRN PO 07/31/16 12:45 08/30/16 12:44 Glucose (Glucose Chew Tab) 4-8 Tablets 4 Tabl... UD PRN PO 07/31/16 12:45 08/30/16 12:44 Dextrose (Dextrose 50% 50ML Syringe) 25-50ML OF 50% DW IV FOR... UD PRN IV 07/31/16 12:45 08/30/16 12:44 07/31/16 19:32 25 ML Glucagon (Glucagon Inj) 1 mg UD PRN SQ 07/31/16 12:45 08/30/16 12:44 Vancomycin HCl (Consult) 1 ea UD PRN N/A 07/31/16 14:15 08/30/16 14:14 Diltiazem HCl (Cardizem Cd Cap) 120 mg QAM PO 08/04/16 09:00 09/03/16 08:59 08/09/16 09:29 120 MG Sodium Chloride (Luce Nasal [place]) 1 sprays PRN PRN NA 08/05/16 16:15 09/04/16 16:14 08/05/16 16:40 1 SPRAYS Pantoprazole Sodium (Protonix Tab) 40 mg BID PO 08/06/16 21:00 09/05/16 20:59 08/09/16 08:27 40 MG Enteral Nutritional Formula (Boost Glucose Control) 1 can TIDM PO 08/06/16 16:45 09/05/16 16:44 08/09/16 13:53 1 CAN Ioversol (Optiray 320) 125 ml UD PRN IV 08/06/16 15:00 08/10/16 14:59 Guaifenesin (Mucinex Contr Rel Tab) 1,200 mg Q12 PO 08/07/16 21:00 09/06/16 20:59 08/09/16 08:28 1,200 MG Potassium Chloride 40 meq 40 meq BID PO 08/08/16 21:00 09/07/16 20:59 08/09/16 08:27 40 MEQ Vancomycin HCl/ Sodium Chloride (Vancomycin Inj/ Nss 250ml) 270 ml @ 125 mls/hr Q16H IV 08/08/16 16:00 08/16/16 23:59 08/09/16 09:30 125 MLS/HR Metformin HCl (Glucophage Tab) 500 mg QDB PO 08/09/16 16:45 09/08/16 16:44 Insulin Aspart (novoLOG ASPART) SLIDING SCALE G... ACHS SC 08/09/16 06:30 09/08/16 06:29 08/09/16 13:49 4 UNITS Heparin Sodium (Porcine) (Heparin 10 Unit/ ml 5 ml Flush) 5 ml PRN PRN FLUSH 08/09/16 06:45 09/08/16 06:44 Heparin Sodium (Porcine) (Heparin Sq 5000 Unit/0.5ml) 5,000 unit Q8 SQ 08/09/16 14:00 09/08/16 13:59 08/09/16 13:51 5,000 UNIT Objective Vital Signs Date Time Temp Pulse Resp B/P Pulse Ox O2 Delivery O2 Flow Rate FiO2 08/09/16 15:35 78 16 94 Nasal Cannula 2.0 08/09/16 15:23 36.6 82 18 124/70 93 Nasal Cannula 2.0 08/09/16 11:33 89 16 94 Nasal Cannula 2.0 08/09/16 08:00 93 Nasal Cannula 2.0 08/09/16 07:55 36.6 75 18 111/59 93 Nasal Cannula 2.0 08/09/16 07:33 81 16 97 Nasal Cannula 2.0 08/09/16 00:10 Nasal Cannula 4.0 08/08/16 23:05 36.6 97 18 116/66 96 Room Air 08/08/16 20:29 36.9 80 18 110/67 95 Room Air 08/08/16 18:55 90 16 94 Nasal Cannula 2.0 Physical Exam General Appearance: WD/WN, no apparent distress Eyes: normal inspection, sclerae normal ENT: hearing grossly normal Neck: supple, trachea midline Respiratory/Chest: chest non-tender, normal breath sounds, no respiratory distress, no accessory muscle use, + pertinent finding ( very mild coarse breath sounds today. Decreased breath sounds at bases.) Cardiovascular: + irregularly irregular Abdomen: normal bowel sounds, non tender, soft Extremities: normal range of motion Neurologic/Psychiatric: alert, normal mood/affect Skin: normal color, warm/dry, no rash Laboratory Results VIDEO SWALLOW HISTORY: r/o aspiration, secretions in trachea; please schedule per order TECHNIQUE: Video fluoroscopic evaluation of swallowing was performed in the AP and lateral projections by the speech pathology staff. The patient is fed nectar-thick and thin liquid barium, a barium coated wafer, and barium pudding. FLUOROSCOPY TIME: 1.3 minutes. A cine loop was submitted.. COMPARISON STUDY: None. FINDINGS: There is normal hyoid excursion and epiglottic deflection. Multiple cysts of penetration without aspiration with the thin liquid barium. The barium did not pass into the stomach and remains within the distal esophagus. IMPRESSION: 1. No aspiration identified. The barium did not pass into the stomach and remained within the distal esophagus. Consider barium swallow for further evaluation. 2. Please see the speech pathologist report for detailed findings and recommendations. Item Value Date Time Shiga Toxin Test - Final Complete 08/03/16 2220 Stool No E. Coli shiga toxin 1 or shiga tox... Gram Stain Received 08/09/16 1610 Sputum Expectorated Sputum Pending Blood Culture - Final Complete 08/01/16 1631 Blood NO GROWTH Blood Culture - Final Complete 08/01/16 1625 Blood NO GROWTH Last 24 Hours Test 08/08/16 20:51 08/09/16 05:38 08/09/16 07:30 08/09/16 11:16 Bedside Glucose 242 mg/dl 163 mg/dl 163 mg/dl White Blood Count 7.89 K/uL Red Blood Count 2.96 M/uL Hemoglobin 8.7 g/dL Hematocrit 26.5 % Mean Corpuscular Volume 89.5 fL Mean Corpuscular Hemoglobin 29.4 pg Mean Corpuscular Hemoglobin Concent 32.8 g/dl Platelet Count 123 K/uL Mean Platelet Volume 10.5 fL Neutrophils (%) (Auto) 90.0 % Lymphocytes (%) (Auto) 6.7 % Monocytes (%) (Auto) 2.4 % Eosinophils (%) (Auto) 0.0 % Basophils (%) (Auto) 0.0 % Neutrophils # (Auto) 7.10 K/uL Lymphocytes # (Auto) 0.53 K/uL Monocytes # (Auto) 0.19 K/uL Eosinophils # (Auto) 0.00 K/uL Basophils # (Auto) 0.00 K/uL RDW Standard Deviation 57.7 fL RDW Coefficient of Variation 17.5 % Immature Granulocyte % (Auto) 0.9 % Immature Granulocyte # (Auto) 0.07 K/uL Red Blood Cell Morphology Unremarkable Sodium Level 145 mmol/L Potassium Level 4.0 mmol/L Chloride Level 112 mmol/L Carbon Dioxide Level 24 mmol/L Anion Gap 9.0 mmol/L Blood Urea Nitrogen 22 mg/dl Creatinine 0.66 mg/dl Est Creatinine Clear Calc Drug Dose 95.8 ml/min Estimated GFR () 116.8 Estimated GFR (Non- 100.7 BUN/Creatinine Ratio 33.0 Random Glucose 155 mg/dl Calcium Level 7.5 mg/dl Magnesium Level 2.0 mg/dl Assessment and Plan (1) Septic shock Status: Acute (2) Influenza A (3) COPD (chronic obstructive pulmonary disease) Status: Chronic (4) Hx of bacterial endocarditis Status: Chronic Patient with bilateral bibasilar pneumonia, Influenza A on admission (now resolved), MRSA bacteremia, and history of prosthetic valve replacement. With 1/ 2 blood cultures positive for MRSA on admission, awaiting MIGUEL. MIGUEL has been delayed due to respiratory status, but would prefer that this is done the earliest possible time. Continue IV vancomycin. The patient likely will need to complete at least 2 weeks of therapy, but maybe up to 6 weeks pending MIGUEL evaluation. Plan: 1. Continue Vanco 2. Follow sputum culture 3. MIGUEL when able PROVIDER ADDENDUM: Patient reviewed with Ms. Damon. Agree with above assessment.
[2016-08-09] MEDS: METFORMIN HCL 500 MG TAB PO SCH (18:02)
--- NOTE | 2016-08-09 18:24 | Hospitalist Progress Note ---
Hospitalist Progress Note Date of Service Aug 09, 2016. Subjective Pt evaluation today including: conversation w/ patient, physical exam, chart review, lab review, review of studies, review of inpatient medication list Patient is looking ok today. MIGUEL has been put on hold for now until respiratory condition improves. Also speech ask to order barium swallow which I did. Additional Comments: A 10 system review was performed and all were negative. Positives were placed in the subjective section. Objective Vital Signs Date Time Temp Pulse Resp B/P Pulse Ox O2 Delivery O2 Flow Rate FiO2 08/09/16 16:00 Nasal Cannula 2.0 08/09/16 15:35 78 16 94 Nasal Cannula 2.0 08/09/16 15:23 36.6 82 18 124/70 93 Nasal Cannula 2.0 08/09/16 11:33 89 16 94 Nasal Cannula 2.0 08/09/16 08:00 93 Nasal Cannula 2.0 08/09/16 07:55 36.6 75 18 111/59 93 Nasal Cannula 2.0 08/09/16 07:33 81 16 97 Nasal Cannula 2.0 08/09/16 00:10 Nasal Cannula 4.0 08/08/16 23:05 36.6 97 18 116/66 96 Room Air 08/08/16 20:29 36.9 80 18 110/67 95 Room Air 08/08/16 18:55 90 16 94 Nasal Cannula 2.0 Physical Exam Notes: GEN: Awake, alert, and oriented x 3. Not in acute distress HEENT: Tm's intact, no inflammation, EOMI, PERRLA, MMM Neck: Soft, supple Lungs: + rhonchi, but much less overall. b/l with expiratory wheezes. Heart: REG, nrl S1S2 without murmurs, rubs or gallops Abdomen: Soft, NT, ND, + BS EXT: No C/C/E NEURO: CN's II-XII grossly intact, non-focal Skin: warm, dry, no rashes PSYCH: pleasant, cooperative, no signs of significant anxiety or depression. Laboratory Results Last 24 Hours Test 08/08/16 20:51 08/09/16 05:38 08/09/16 07:30 08/09/16 11:16 Bedside Glucose 242 mg/dl 163 mg/dl 163 mg/dl White Blood Count 7.89 K/uL Red Blood Count 2.96 M/uL Hemoglobin 8.7 g/dL Hematocrit 26.5 % Mean Corpuscular Volume 89.5 fL Mean Corpuscular Hemoglobin 29.4 pg Mean Corpuscular Hemoglobin Concent 32.8 g/dl Platelet Count 123 K/uL Mean Platelet Volume 10.5 fL Neutrophils (%) (Auto) 90.0 % Lymphocytes (%) (Auto) 6.7 % Monocytes (%) (Auto) 2.4 % Eosinophils (%) (Auto) 0.0 % Basophils (%) (Auto) 0.0 % Neutrophils # (Auto) 7.10 K/uL Lymphocytes # (Auto) 0.53 K/uL Monocytes # (Auto) 0.19 K/uL Eosinophils # (Auto) 0.00 K/uL Basophils # (Auto) 0.00 K/uL RDW Standard Deviation 57.7 fL RDW Coefficient of Variation 17.5 % Immature Granulocyte % (Auto) 0.9 % Immature Granulocyte # (Auto) 0.07 K/uL Red Blood Cell Morphology Unremarkable Sodium Level 145 mmol/L Potassium Level 4.0 mmol/L Chloride Level 112 mmol/L Carbon Dioxide Level 24 mmol/L Anion Gap 9.0 mmol/L Blood Urea Nitrogen 22 mg/dl Creatinine 0.66 mg/dl Est Creatinine Clear Calc Drug Dose 95.8 ml/min Estimated GFR () 116.8 Estimated GFR (Non- 100.7 BUN/Creatinine Ratio 33.0 Random Glucose 155 mg/dl Calcium Level 7.5 mg/dl Magnesium Level 2.0 mg/dl Test 08/09/16 16:28 Bedside Glucose 244 mg/dl Assessment and Plan 1) B/L lung infiltrates/Pneumonia - continue Vanco. 2) Episode of lower Gi bleeding - this has resolved and stabilized. Due to lung issues GI elected to hold off on colonoscopy for at least 4 weeks. 3) influenza A: positive, tamiflu course completed. 4) COPD: continue pulmicort Bid and Duoneb qid. 5) Anemia: continue to monitor. 6) PETRA: resolved, Avoid nephrotoxic drugs where possible. 7) A fib: Cardiology consulted and following. Heart rate has been stable on oral cardizem, full anticoagulation has been held due to GI bleed. I do plan to start sub-q heparin for DVT prophylaxis today as I feel his risk for DVT is high. 8) Septic shock - resolved. Not much to add today. We are continuing antibiotics and do anticipate that he will be here through the weekend. I will alert the on coming hospitalist to re- order a MIGUEL in that the one I had ordered was deferred due to the patients respiratory condition.
[2016-08-09] MEDS ORDERED: INSULIN REGULAR 4 UNITS in SYRINGE 3.96 ML IV SCH (22:00)
[2016-08-09] MEDS ORDERED: VANCOMYCIN TROUGH ONE (23:30)
[2016-08-10] VITALS (11 sets, daily range): BP systolic 109–129; BP diastolic 67–78; PULSE 69–100; TEMP 36.9–37.1; O2SAT 89–98
[2016-08-10] MEDS: VANCOMYCIN INJ 1,000 MG in SODIUM CHLORIDE 0.9% 250ML 250 ML IV SCH ×2 (00:08→19:54)
[2016-08-10] MEDS ORDERED: INSULIN ASPART 100 UNITS/ML 3 ML PEN SC SCH (02:00)
[2016-08-10] MEDS: HEPARIN SOD 5000 UNIT/0.5 ML CARP SQ SCH ×3 (05:46→21:41)
[2016-08-10] MEDS: ALBUT/IPRATROP 3MG/0.5MG NEB 3 ML VIAL INH SCH ×4 (07:46→19:42)
[2016-08-10] MEDS: BUDESONIDE 0.5 MG/2 ML VIAL (PULMICORT) INH SCH ×2 (07:46→19:42)
[2016-08-10] MEDS ORDERED: INSULIN GLARGINE SOLOSTAR 100 UNITS/ML 3 ML PEN SC SCH (09:00)
[2016-08-10] MEDS: BOOST GLUCOSE CONTROL PO SCH ×3 (09:47→16:51)
[2016-08-10] MEDS: LACTOBACILLUS ACIDOPHILUS (FLORANEX) TAB PO SCH ×3 (09:50→16:53)
[2016-08-10] MEDS: GUAIFENESIN 600 MG TABCR PO SCH ×2 (09:51→19:55)
[2016-08-10] MEDS: ATORVASTATIN 40 MG TAB PO SCH (09:51)
[2016-08-10] MEDS: PANTOprazole SOD 40 MG TAB PO SCH ×2 (09:51→19:55)
[2016-08-10] MEDS: METFORMIN HCL 500 MG TAB PO SCH (09:51)
[2016-08-10] MEDS: POTASSIUM CHLORIDE 20 MEQ TABCR PO SCH ×2 (09:52→19:54)
[2016-08-10] MEDS: DILTIAZEM HCL 120 MG CAPCR PO SCH (09:52)
[2016-08-10] MEDS: INSULIN ASPART 100 UNITS/ML 3 ML PEN SC SCH ×4 (09:55→20:15)
--- NOTE | 2016-08-10 11:27 | PULMONARY PROGRESS NOTE ---
DATE: 08/10/2016 DATE: 08/10/2016. TIME: 11:00 a.m. SUBJECTIVE: The patient remains profoundly weak. He states that physical therapy tried to stand him yesterday and they were unsuccessful. He is almost too weak to even sit on the side of the bed. He is not complaining of any respiratory problems. He has an occasional cough. He did expectorate some sputum that was sent to the lab. This showed moderate polys with few bacteria. OBJECTIVE: GENERAL: The patient appeared comfortable. Whenever I go in he does have the lights out and the shades closed. The possibility of underlying depression is to be considered. Temperature is 37. EARS, NOSE, THROAT: Exam is unremarkable. HEART: Heart rate was 80 beats per minute. Blood pressure is 120/68. CHEST: Respiratory rate is 18 breaths per minute. He has end expiratory wheezing heard greater on the right than the left. He did cough once when I was examining him. The cough sounded loose. Saturations are 94% on 2 liters. ABDOMEN: Soft and nontender. No masses are palpable. EXTREMITIES: Showed no cyanosis or clubbing or edema. Blood sugar this morning was 144. IMPRESSIONS: 1. Pneumonia, left upper lobe, left lower lobe, right lower lobe. 2. Chronic obstructive pulmonary disease with exacerbation. 3. Emphysema. 4. Influenza A. COMMENTS AND RECOMMENDATIONS: The patient clinically seems fairly stable. We will order a chest x-ray tomorrow morning to follow up on the infiltrates. The antibiotics are as per ID. We will continue his nebulizer treatments. If he continues to improve, he would be acceptable for the MIGUEL for early next week.
--- NOTE | 2016-08-10 13:09 | Pharmacy Progress Note ---
Pharmacy Antibiotic Prog Note Date of Service: Aug 10, 2016. Subjective: The patient is currently receiving Vancomycin 1000 mg IV every 16 hours. The patient is currently on day # 11 of Vancomycin IV therapy. Objective: Height (Feet): 5 Height (Inches): 5.00 Weight (Kilograms): 68.300 Levels: Item Value Date Time Vancomycin Level Trough 21.0 mcg/ml 08/09/16 0005 Assessment & Plan: Assessment * 65 y/o M with MRSA bacteremia on Vancomycin. * Goal Vancomycin trough 15-20 mcg/mL * Trough level on 08/10 @ 0005 (appropriately drawn) of 21 mcg/mL is slightly supratherapeutic. * Renal function appears to be stable. Will slightly extend dosing interval and delay next dose to target a lower trough. Plan * Decr' Vancomycin to 1000mg (~15mg/kg) IV q18h * Recheck trough on 08/12 @ 0730 (prior to 3rd dose and therefore not reflective of steady state) Pharmacy will continue to follow and will adjust dose/frequency as necessary. Thank you
--- NOTE | 2016-08-10 13:58 | Pharmacy Progress Note ---
Glycemic: Assessment & Plan Date of Service Aug 10, 2016. Assessment & Plan The patient is currently receiving about 21 units of insulin per day. BSGs ranging 144 - 291 mg/dl over the past 24hrs. Patient has not had any Lantus the past two days, I will restart Lantus and tighten CF and CR. Patient didn't have any IV Solu-medrol today, so we will need to closely monitor patient's changing insulin needs. Test 08/09/16 16:28 08/09/16 20:55 08/10/16 00:06 08/10/16 02:15 Bedside Glucose 244 mg/dl (70-99) 291 mg/dl (70-99) 232 mg/dl (70-99) 206 mg/dl (70-99) Test 08/10/16 07:38 08/10/16 11:26 Bedside Glucose 144 mg/dl (70-99) 174 mg/dl (70-99) * Basal insulin: Lantus 6 units every 24 hours * Correctional Insulin: Novolog Correction per scale ACHS Goal Range: Low 120 mg/dL - High 160 mg/dL Correction Factor: 25 mg/dL/unit * Prandial insulin: Per carb ratio of 1 unit per 9 grams CHO consumed Pharmacy will continue to monitor patient daily and write orders per [facility] inpatient glycemic control protocol. Thanks. * Please note that the plan above was derived based on current level of insulin resistance and hospital stress. These recommendations are appropriate for inpatient admission only. Plan of care upon discharge will need to be reassessed to avoid potential outpatient hypo/hyperglycemia.
--- NOTE | 2016-08-10 19:32 | Hospitalist Progress Note ---
Hospitalist Progress Note Date of Service Aug 10, 2016. Subjective Pt evaluation today including: conversation w/ patient, physical exam, chart review, lab review, review of studies, review of inpatient medication list Patient is feeling about the same. I told him that we do not have anything new to add today. He is primarily receiving antibiotics for a pneumonia that we are considering to MRSA. His cough is less now than days earlier, but still has a "junky" quality to it. Additional Comments: A 10 system review was performed and all were negative. Positives were placed in the subjective section. Objective Vital Signs Date Time Temp Pulse Resp B/P Pulse Ox O2 Delivery O2 Flow Rate FiO2 08/10/16 16:10 88 16 93 Nasal Cannula 2.0 08/10/16 15:40 Nasal Cannula 2.0 08/10/16 15:25 36.9 80 16 109/67 92 Nasal Cannula 2.0 08/10/16 12:08 100 16 92 Nasal Cannula 2.0 08/10/16 11:51 36.9 77 20 121/70 93 Nasal Cannula 2.0 08/10/16 10:26 94 Nasal Cannula 2.0 08/10/16 08:14 37.0 80 16 120/68 94 Nasal Cannula 2.0 08/10/16 07:46 69 16 97 Nasal Cannula 2.0 08/10/16 00:00 Nasal Cannula 2.0 08/09/16 23:36 36.7 78 17 124/66 94 Room Air Physical Exam Notes: GEN: Awake, alert, and oriented x 3. Not in acute distress HEENT: Tm's intact, no inflammation, EOMI, PERRLA, MMM Neck: Soft, supple Lungs: + rhonchi, but much less overall. b/l with expiratory wheezes. Heart: REG, nrl S1S2 without murmurs, rubs or gallops Abdomen: Soft, NT, ND, + BS EXT: No C/C/E NEURO: CN's II-XII grossly intact, non-focal Skin: warm, dry, no rashes PSYCH: pleasant, cooperative, no signs of significant anxiety or depression. Laboratory Results Last 24 Hours Test 08/09/16 20:55 08/10/16 00:06 08/10/16 02:15 08/10/16 07:38 Bedside Glucose 291 mg/dl 232 mg/dl 206 mg/dl 144 mg/dl Test 08/10/16 11:26 08/10/16 16:28 Bedside Glucose 174 mg/dl 108 mg/dl Assessment and Plan 1) B/L lung infiltrates/Pneumonia - continue Vanco. 2) Episode of lower Gi bleeding - this has resolved and stabilized. Due to lung issues GI elected to hold off on colonoscopy for at least 4 weeks. 3) influenza A: positive, tamiflu course completed. 4) COPD: continue pulmicort Bid and Duoneb qid. 5) Anemia: continue to monitor. 6) PETRA: resolved, Avoid nephrotoxic drugs where possible. 7) A fib: Cardiology consulted and following. Heart rate has been stable on oral cardizem, full anticoagulation has been held due to GI bleed. DVT prophylaxis in the form of sub-q heparin. 8) Septic shock - resolved. Continuing antibiotics. Please re-order a MIGUEL when the patients respiratory status improves to the point the he could tolerate. . Continued [facility] stay due to: multiple IV medications needed
[2016-08-11] MEDS: HEPARIN SOD 5000 UNIT/0.5 ML CARP SQ SCH ×3 (05:31→21:21)
[2016-08-11 05:47] LABS: BASO % 0.1 %; BASO ABS # 0.01 K/uL (0-0.2); COMPLETE YES; EOS % 0.4 %; HEMATOCRIT 27.9 % (42-52); IG% 0.9 %; LYMPH % 9.2 %; LYMPH ABS # 0.82 K/uL (1.2-3.4); MEAN CELL VOLUME 90.6 fL (80-100); MEAN CORPUSCULAR HEMOGLOBIN 30.2 pg (25-34); MEAN CORPUSCULAR HGB CONC 33.3 g/dl (32-36); MEAN PLATELET VOLUME 10.1 fL (7.4-10.4); MONO % 1.8 %; NEUT % 87.6 %; PLATELET COUNT 146 K/uL (130-400); RED BLOOD COUNT 3.08 M/uL (4.7-6.1); WHITE BLOOD COUNT 8.89 K/uL (4.8-10.8)
[2016-08-11 06:17] LABS: BUN/CREATININE RATIO 33.8 (10-20); CALCIUM 7.9 mg/dl (8.5-10.1); CREATININE 0.68 mg/dl (0.60-1.40); POTASSIUM 4.3 mmol/L (3.5-5.1)
[2016-08-11] MEDS: INSULIN ASPART 100 UNITS/ML 3 ML PEN SC SCH ×4 (06:30→20:20)
[2016-08-11] MEDS: ALBUT/IPRATROP 3MG/0.5MG NEB 3 ML VIAL INH SCH ×4 (07:36→20:12)
[2016-08-11 07:39] VITALS: PULSE 92; O2SAT 94
[2016-08-11] MEDS: BUDESONIDE 0.5 MG/2 ML VIAL (PULMICORT) INH SCH ×2 (07:40→20:12)
[2016-08-11 08:01] VITALS: BP 133/81; PULSE 117; TEMP 37.2; O2SAT 93
--- NOTE | 2016-08-11 08:13 | DIAGNOSTIC IMAGING REPORT ---
CHEST ONE VIEW PORTABLE HISTORY: Short of breath. Follow-up pneumonia. COMPARISON: Chest 08/01/2016. FINDINGS: Poststernotomy changes and a cardiac valve prosthesis are again noted. The heart is normal in size. Right jugular central venous catheter terminates in the SVC. No pneumothorax. Small bilateral pleural effusions are again noted. Perihilar interstitial thickening and bibasilar airspace opacities have progressed. IMPRESSION: 1. Perihilar interstitial thickening and bibasilar opacities have progressed. This could represent worsening pneumonia or superimposed pulmonary edema. 2. Small bilateral pleural effusions persist. Electronically signed by: Shashi Patel M.D. 08/11/2016 8:12 AM Dictated Date/Time: 08/11/2016 8:10 AM
[2016-08-11] MEDS: BOOST GLUCOSE CONTROL PO SCH ×3 (08:31→17:21)
[2016-08-11] MEDS: POTASSIUM CHLORIDE 20 MEQ TABCR PO SCH ×2 (08:31→21:19)
[2016-08-11] MEDS: GUAIFENESIN 600 MG TABCR PO SCH ×2 (08:31→21:19)
[2016-08-11] MEDS: ATORVASTATIN 40 MG TAB PO SCH (08:31)
[2016-08-11] MEDS: METFORMIN HCL 500 MG TAB PO SCH (08:32)
[2016-08-11] MEDS: LACTOBACILLUS ACIDOPHILUS (FLORANEX) TAB PO SCH ×3 (08:32→17:21)
[2016-08-11] MEDS: DILTIAZEM HCL 120 MG CAPCR PO SCH (08:34)
[2016-08-11] MEDS: PANTOprazole SOD 40 MG TAB PO SCH ×2 (08:35→21:19)
--- NOTE | 2016-08-11 08:41 | PULMONARY PROGRESS NOTE ---
DATE: 08/11/2016 TIME: 7:35 a.m. SUBJECTIVE: The patient states he is coughing a little more today. He remains short of breath with any exertion. He continues to feel weak. The patient is very reluctant to even sit up off the side of the bed or to get out of bed. He denies any chest pains. OBJECTIVE: GENERAL: The patient appears comfortable. He did have a loose cough, however, when I was present. VITAL SIGNS: Temperature is 37.1. ENT: Unremarkable. HEART: Heart rate is 98 per minute. The rhythm is irregularly irregular. Blood pressure 129/78. CHEST: Respiratory rate 20 per minute. There was increased wheezing and rhonchi this morning. This may be affected by the fact that it is early in the morning. His saturations are 92% on 2 liters. ABDOMEN: Soft and nontender. EXTREMITIES: Show no edema. Sputum culture has been returned showing MRSA. This would correlate with an MRSA pneumonia. Chest x-ray was done this morning. There is no report available. Per my review, he has an increase in bilateral infiltrates compared with the prior x-ray done August 01. White count today is 8.89. Hemoglobin 9.3. Platelets are 146,000. INR today is 1.8. Sodium 144, potassium 4.3, chloride 109, bicarbonate 27. BUN was 23 with a creatinine of 0.68. IMPRESSIONS: 1. Pneumonia, left upper lobe, left lower lobe, right lower lobe - appears to be progressing on x-ray. 2. Chronic obstructive pulmonary disease with exacerbation. 3. Emphysema. 4. Influenza A. 5. Atrial fibrillation. COMMENTS AND RECOMMENDATIONS: The patient seems a little more congested from a respiratory perspective. He actually sounded better 2 days ago than he does now. Thus he is not yet cleared for transesophageal echo. I would encourage at least trying to get the patient to sit up on the side of the bed or perhaps sit in a chair if at all possible. He remains on vancomycin as per ID.
--- NOTE | 2016-08-11 13:23 | Pharmacy Progress Note ---
Glycemic: Assessment & Plan Date of Service Aug 11, 2016. Assessment & Plan The patient is currently receiving 13 units of insulin per day. BSGs ranging 74 - 174 mg/dl over the past 24hrs. Patient did not have any Solu-medrol yesterday and one dose of Lantus. Patient no longer needs Lantus without IV steroids. I will also loosen CF and CR to prevent hypoglycemia. Test 08/10/16 16:28 08/10/16 19:23 08/11/16 05:40 08/11/16 07:32 Bedside Glucose 108 mg/dl (70-99) 130 mg/dl (70-99) 79 mg/dl (70-99) Random Glucose 74 mg/dl (70-99) Test 08/11/16 11:29 Bedside Glucose 135 mg/dl (70-99) * Basal insulin: DISCONTINUE LANTUS * Correctional Insulin: Novolog Correction per scale ACHS Goal Range: Low 120 mg/dL - High 160 mg/dL LOOSEN: Correction Factor: 30 mg/dL/unit * Prandial insulin: LOOSEN: Per carb ratio of 1 unit per 12 grams CHO consumed * Oral agents: Metformin 500mg PO daily Pharmacy will continue to monitor patient daily and write orders per [facility] inpatient glycemic control protocol. Thanks. * Please note that the plan above was derived based on current level of insulin resistance and hospital stress. These recommendations are appropriate for inpatient admission only. Plan of care upon discharge will need to be reassessed to avoid potential outpatient hypo/hyperglycemia.
[2016-08-11] MEDS: VANCOMYCIN INJ 1,000 MG in SODIUM CHLORIDE 0.9% 250ML 250 ML IV SCH (13:29)
[2016-08-11 15:28] VITALS: BP 114/69; PULSE 102; TEMP 36.9; O2SAT 94
[2016-08-11 15:31] VITALS: PULSE 105; O2SAT 93
--- NOTE | 2016-08-11 18:32 | Hospitalist Progress Note ---
Hospitalist Progress Note Date of Service Aug 11, 2016. Subjective Pt evaluation today including: conversation w/ patient, physical exam, chart review, lab review, review of studies, review of inpatient medication list Patient reports feeling weak, but otherwise doing the same. Additional Comments: A 10 system review was performed and all were negative. Positives were placed in the subjective section. Objective Vital Signs Date Time Temp Pulse Resp B/P Pulse Ox O2 Delivery O2 Flow Rate FiO2 08/11/16 15:31 105 16 93 Nasal Cannula 2.0 08/11/16 15:28 36.9 102 18 114/69 94 Nasal Cannula 2.0 08/11/16 08:01 37.2 117 20 133/81 93 Nasal Cannula 2.0 08/11/16 08:00 Nasal Cannula 2.0 08/11/16 07:39 92 16 94 Nasal Cannula 2.0 08/11/16 00:05 Nasal Cannula 2.0 08/10/16 22:59 37.1 99 20 129/78 92 Nasal Cannula 2.0 08/10/16 20:00 Nasal Cannula 2.0 08/10/16 19:46 96 16 95 Nasal Cannula 2.0 Physical Exam Notes: GEN: Awake, alert, and oriented x 3. Not in acute distress HEENT: Tm's intact, no inflammation, EOMI, PERRLA, MMM Neck: Soft, supple Lungs: + rhonchi, more pronounced today than yesterdAY. b/l with expiratory wheezes. Heart: REG, nrl S1S2 without murmurs, rubs or gallops Abdomen: Soft, NT, ND, + BS EXT: No C/C/E NEURO: CN's II-XII grossly intact, non-focal Skin: warm, dry, no rashes PSYCH: pleasant, cooperative, no signs of significant anxiety or depression. Laboratory Results Last 24 Hours Test 08/10/16 19:23 08/11/16 05:40 08/11/16 07:32 08/11/16 11:29 Bedside Glucose 130 mg/dl 79 mg/dl 135 mg/dl White Blood Count 8.89 K/uL Red Blood Count 3.08 M/uL Hemoglobin 9.3 g/dL Hematocrit 27.9 % Mean Corpuscular Volume 90.6 fL Mean Corpuscular Hemoglobin 30.2 pg Mean Corpuscular Hemoglobin Concent 33.3 g/dl Platelet Count 146 K/uL Mean Platelet Volume 10.1 fL Neutrophils (%) (Auto) 87.6 % Lymphocytes (%) (Auto) 9.2 % Monocytes (%) (Auto) 1.8 % Eosinophils (%) (Auto) 0.4 % Basophils (%) (Auto) 0.1 % Neutrophils # (Auto) 7.78 K/uL Lymphocytes # (Auto) 0.82 K/uL Monocytes # (Auto) 0.16 K/uL Eosinophils # (Auto) 0.04 K/uL Basophils # (Auto) 0.01 K/uL RDW Standard Deviation 57.8 fL RDW Coefficient of Variation 17.6 % Immature Granulocyte % (Auto) 0.9 % Immature Granulocyte # (Auto) 0.08 K/uL Sodium Level 144 mmol/L Potassium Level 4.3 mmol/L Chloride Level 109 mmol/L Carbon Dioxide Level 27 mmol/L Anion Gap 8.0 mmol/L Blood Urea Nitrogen 23 mg/dl Creatinine 0.68 mg/dl Est Creatinine Clear Calc Drug Dose 93.0 ml/min Estimated GFR () 115.3 Estimated GFR (Non- 99.5 BUN/Creatinine Ratio 33.8 Random Glucose 74 mg/dl Calcium Level 7.9 mg/dl Test 08/11/16 16:15 Bedside Glucose 165 mg/dl Assessment and Plan 1) B/L lung infiltrates/Pneumonia - continue Vanco. 2) Episode of lower Gi bleeding - this has resolved and stabilized. Due to lung issues GI elected to hold off on colonoscopy for at least 4 weeks. 3) influenza A: positive, tamiflu course completed. 4) COPD: continue pulmicort Bid and Duoneb qid. 5) Anemia: continue to monitor. 6) PETRA: resolved, Avoid nephrotoxic drugs where possible. 7) A fib: Cardiology consulted and following. Heart rate has been stable on oral cardizem, full anticoagulation has been held due to GI bleed. DVT prophylaxis in the form of sub-q heparin. 8) Septic shock - resolved. Continuing antibiotics. Please re-order a MIGUEL when the patients respiratory status improves to the point the he could tolerate. .
[2016-08-11 20:12] VITALS: PULSE 100; O2SAT 94
[2016-08-11 23:39] VITALS: BP 122/69; PULSE 81; TEMP 36.9; O2SAT 93
[2016-08-12] MEDS: HEPARIN SOD 5000 UNIT/0.5 ML CARP SQ SCH ×3 (05:36→21:49)
[2016-08-12] MEDS: INSULIN ASPART 100 UNITS/ML 3 ML PEN SC SCH ×4 (06:30→21:47)
[2016-08-12 06:58] VITALS: BP 118/77; PULSE 78; TEMP 37.1; O2SAT 92
[2016-08-12] MEDS ORDERED: VANCOMYCIN TROUGH ONE (07:30)
[2016-08-12] MEDS: ALBUT/IPRATROP 3MG/0.5MG NEB 3 ML VIAL INH SCH ×4 (07:49→20:00)
[2016-08-12] MEDS: BUDESONIDE 0.5 MG/2 ML VIAL (PULMICORT) INH SCH ×2 (07:49→20:00)
[2016-08-12 08:03] VITALS: PULSE 90; O2SAT 93
[2016-08-12 08:07] LABS: HEMATOCRIT 29.5 % (42-52); MEAN CELL VOLUME 90.2 fL (80-100); MEAN CORPUSCULAR HGB CONC 33.2 g/dl (32-36); MEAN PLATELET VOLUME 10.2 fL (7.4-10.4); PLATELET COUNT 144 K/uL (130-400); RED BLOOD COUNT 3.27 M/uL (4.7-6.1); WHITE BLOOD COUNT 8.38 K/uL (4.8-10.8)
[2016-08-12 08:33] LABS: BUN/CREATININE RATIO 24.4 (10-20); CALCIUM 7.9 mg/dl (8.5-10.1); CREATININE 0.77 mg/dl (0.60-1.40); POTASSIUM 4.1 mmol/L (3.5-5.1)
--- NOTE | 2016-08-12 08:44 | DIAGNOSTIC IMAGING REPORT ---
(BARIUM SWALLOW) ESOPHAGUS CLINICAL HISTORY: Dysphagiadysphagia COMPARISON STUDY: None FLUOROSCOPY TIME: 1.7 minutes. FINDINGS: Patient initiates swallowing function well. Esophageal motility is slightly diminished. There is no fixed defect. There is good flow of contrast to the stomach. There is no significant gastroesophageal reflux. IMPRESSION: Moderately diminished esophageal motility. Otherwise negative study Electronically signed by: Adam Collins M.D. 08/12/2016 8:43 AM Dictated Date/Time: 08/12/2016 8:43 AM
[2016-08-12] MEDS: VANCOMYCIN INJ 1,000 MG in SODIUM CHLORIDE 0.9% 250ML 250 ML IV SCH (09:06)
[2016-08-12] MEDS: GUAIFENESIN 600 MG TABCR PO SCH ×2 (09:06→21:45)
[2016-08-12] MEDS: POTASSIUM CHLORIDE 20 MEQ TABCR PO SCH ×2 (09:06→21:44)
[2016-08-12] MEDS: PANTOprazole SOD 40 MG TAB PO SCH ×2 (09:07→21:44)
[2016-08-12] MEDS: ATORVASTATIN 40 MG TAB PO SCH (09:07)
[2016-08-12] MEDS: METFORMIN HCL 500 MG TAB PO SCH (09:07)
[2016-08-12] MEDS: DILTIAZEM HCL 120 MG CAPCR PO SCH (09:08)
[2016-08-12] MEDS: LACTOBACILLUS ACIDOPHILUS (FLORANEX) TAB PO SCH ×3 (09:08→17:51)
[2016-08-12] MEDS: BOOST GLUCOSE CONTROL PO SCH ×3 (09:11→17:59)
[2016-08-12 11:37] VITALS: PULSE 99; O2SAT 93
--- NOTE | 2016-08-12 11:52 | Infectious Disease Progress Nt ---
Progress Note Date of Service Aug 12, 2016. Subjective Pt evaluation today including: conversation w/ patient, physical exam, chart review, lab review, review of studies, conversation w/ financial services consultant (Dr. Caicedo), review of inpatient medication list WBC count this morning was 8.38. Creatinine was 0.77. Sputum culture is also growing MRSA. Repeat blood cultures were finalized showing no growth. MIGUEL was postponed. Patient continues to have sputum production, but feels that his breathing has improved. He did have one loose stool last night, but none since. All Other Systems: Reviewed and Negative Medications Current Inpatient Medications Medications (Trade) Dose Ordered Sig/Jim Route Start Time Stop Time Status Last Admin Dose Admin Acetaminophen (Tylenol Tab) 650 mg Q4H PRN PO 07/31/16 11:00 08/30/16 10:59 08/10/16 14:58 650 MG Ondansetron HCl (Zofran Inj) 4 mg Q6H PRN IV 07/31/16 11:00 08/30/16 10:59 Miscellaneous Information (Consult Glycemic Management Pharmacy) 1 ea UD N/A 07/31/16 11:05 08/30/16 11:04 Atorvastatin Calcium (Lipitor Tab) 40 mg DAILY PO 08/01/16 09:00 08/31/16 08:59 08/12/16 09:07 40 MG Budesonide (Pulmicort Respules 0.5MG/ 2ML Neb Soln) 0.5 mg BIDR INH 07/31/16 20:00 08/30/16 19:59 08/12/16 07:49 0.5 MG Lactobacillus Acidophilus (Floranex Tab) 4 tab TIDM PO 07/31/16 16:30 08/30/16 16:29 08/12/16 09:08 4 TAB Albuterol/ Ipratropium (Duoneb) 3 ml QIDR INH 07/31/16 12:00 08/30/16 11:59 08/12/16 11:37 3 ML Glucose (Glucose 40% Gel) 15-30 GRAMS 15 GRAMS... UD PRN PO 07/31/16 12:45 08/30/16 12:44 Glucose (Glucose Chew Tab) 4-8 Tablets 4 Tabl... UD PRN PO 07/31/16 12:45 08/30/16 12:44 Dextrose (Dextrose 50% 50ML Syringe) 25-50ML OF 50% DW IV FOR... UD PRN IV 07/31/16 12:45 08/30/16 12:44 07/31/16 19:32 25 ML Glucagon (Glucagon Inj) 1 mg UD PRN SQ 07/31/16 12:45 08/30/16 12:44 Vancomycin HCl (Consult) 1 ea UD PRN N/A 07/31/16 14:15 08/30/16 14:14 Diltiazem HCl (Cardizem Cd Cap) 120 mg QAM PO 08/04/16 09:00 09/03/16 08:59 08/12/16 09:08 120 MG Sodium Chloride ([place] Nasal [place]) 1 sprays PRN PRN NA 08/05/16 16:15 09/04/16 16:14 08/05/16 16:40 1 SPRAYS Pantoprazole Sodium (Protonix Tab) 40 mg BID PO 08/06/16 21:00 09/05/16 20:59 08/12/16 09:07 40 MG Enteral Nutritional Formula (Boost Glucose Control) 1 can TIDM PO 08/06/16 16:45 09/05/16 16:44 08/12/16 09:11 1 CAN Guaifenesin (Mucinex Contr Rel Tab) 1,200 mg Q12 PO 08/07/16 21:00 09/06/16 20:59 08/12/16 09:06 1,200 MG Potassium Chloride (Klor-Con Tab) 40 meq BID PO 08/08/16 21:00 09/07/16 20:59 08/12/16 09:06 40 MEQ Metformin HCl (Glucophage Tab) 500 mg QDB PO 08/09/16 16:45 09/08/16 16:44 08/12/16 09:07 500 MG Insulin Aspart (novoLOG ASPART) SLIDING SCALE G... ACHS SC 08/09/16 06:30 09/08/16 06:29 08/11/16 17:24 2 UNITS Heparin Sodium (Porcine) (Heparin 10 Unit/ ml 5 ml Flush) 5 ml PRN PRN FLUSH 08/09/16 06:45 09/08/16 06:44 08/11/16 17:58 5 ML Heparin Sodium (Porcine) 5000 unit 5,000 unit Q8 SQ 08/09/16 14:00 09/08/16 13:59 08/12/16 05:36 5,000 UNIT Vancomycin HCl/ Sodium Chloride (Vancomycin Inj/ Nss 250ml) 270 ml @ 125 mls/hr Q18H IV 08/10/16 20:00 08/24/16 19:59 08/12/16 09:06 125 MLS/HR Objective Vital Signs Date Time Temp Pulse Resp B/P Pulse Ox O2 Delivery O2 Flow Rate FiO2 08/12/16 11:37 99 16 93 Nasal Cannula 2.0 08/12/16 08:03 90 16 93 Nasal Cannula 2.0 08/12/16 08:00 Nasal Cannula 2.0 08/12/16 06:58 37.1 78 20 118/77 92 Nasal Cannula 2.0 08/12/16 00:00 Nasal Cannula 2.0 08/11/16 23:39 36.9 81 20 122/69 93 Nasal Cannula 2.0 08/11/16 20:12 100 16 94 Nasal Cannula 2.0 08/11/16 20:00 Nasal Cannula 2.0 08/11/16 15:40 Nasal Cannula 2.0 08/11/16 15:31 105 16 93 Nasal Cannula 2.0 08/11/16 15:28 36.9 102 18 114/69 94 Nasal Cannula 2.0 Physical Exam General Appearance: WD/WN, no apparent distress Eyes: normal inspection, sclerae normal ENT: hearing grossly normal Neck: supple, trachea midline Respiratory/Chest: chest non-tender, no respiratory distress, no accessory muscle use, + rhonchi (mild at bilateral bases and slightly left upper lobe) Cardiovascular: + systolic murmur, + irregularly irregular Abdomen: normal bowel sounds, non tender, soft Neurologic/Psychiatric: alert, normal mood/affect Skin: normal color, warm/dry, no rash Laboratory Results RUN DATE: 08/12/16 [facility] LAB PAGE 1 RUN TIME: 801 Specimen Inquiry PATIENT: BANDAR ROWLAND LOC: JEOVANYW U # : [id number] AGE/SX: 65/M ROOM: [facility] REG : 07/31/[address]: Prem Mabry DO : 1950 BED: 1 DIS : STATUS: ADM IN TLOC: SPEC #: [id number] ANNAMARIE: 08/09/16 STATUS: COMP REQ #: [id number] RECD: 08/09/[address]: Prem Mabry DO SOURCE: SPUTUM ENTR: 08/09/16 [facility] DR: Zaheer Sierra MD [facility]: EXP.SPUTUM Wei [place] DO Kedem, Roy ., MD No Doctor, Renny Webster M.D., Brian W., D.O. Schneider, Donald S., MD ORDERED: SPUT CULT/SMR COMMENTS: Has Specimen Been Obtained/Collected? Y Procedure Result Verified Site GRAM STAIN Final 08/10/16-957 RESULT MODERATE POLYS FEW EPITHELIAL CELLS FEW GRAM POSITIVE COCCI FEW GRAM POSITIVE BACILLI SPUTUM CULTURE Final 08/12/16-801 Organism 1 STAPHYLOCOCCUS AUREUS QUANITY MODERATE SENS SENSITIVITY TO FOLLOW NORMAL [place] LIGHT NORMAL [place] SENSITIVITY RESULT INDICATES A METHICILLIN RESISTANT STAPH. AUREUS. PHONED TO [employer]IA 2W, Revo Round MACHINE ON 08/11/16 AT 0732 BY Heladio Chapman. Results were verbalized back to TREVOR. 1. STAPHYLOCOCCUS AUREUS Target Route Dose RX AB Cost M.I.C. IQ ------ ----- ------ -- ------ -------- - ------ TRIMET/SULFA R >2/38 * OXACILLIN R * >2 VANCOMYCIN S 2 ERYTHROMYCIN R >4 TETRACYCLINE S <=4 CLINDAMYCIN S <=0.5 RIFAMPIN S <=1 S = SENSITIVE I = INTERMEDIATE R = RESISTANT Item Value Date Time Gram Stain - Final Complete 08/09/16 1610 Sputum Expectorated Sputum Last 24 Hours Test 08/11/16 16:15 08/11/16 20:12 08/12/16 06:55 08/12/16 07:39 Bedside Glucose 165 mg/dl 139 mg/dl 103 mg/dl White Blood Count 8.38 K/uL Red Blood Count 3.27 M/uL Hemoglobin 9.8 g/dL Hematocrit 29.5 % Mean Corpuscular Volume 90.2 fL Mean Corpuscular Hemoglobin 30.0 pg Mean Corpuscular Hemoglobin Concent 33.2 g/dl RDW Standard Deviation 57.0 fL RDW Coefficient of Variation 17.3 % Platelet Count 144 K/uL Mean Platelet Volume 10.2 fL Sodium Level 143 mmol/L Potassium Level 4.1 mmol/L Chloride Level 107 mmol/L Carbon Dioxide Level 27 mmol/L Anion Gap 9.0 mmol/L Blood Urea Nitrogen 19 mg/dl Creatinine 0.77 mg/dl Est Creatinine Clear Calc Drug Dose 82.1 ml/min Estimated GFR () 109.6 Estimated GFR (Non- 94.6 BUN/Creatinine Ratio 24.4 Random Glucose 98 mg/dl Calcium Level 7.9 mg/dl Vancomycin Level Trough 19.3 mcg/ml Test 08/12/16 11:07 Bedside Glucose 112 mg/dl Assessment and Plan (1) Septic shock Status: Acute (2) Influenza A (3) COPD (chronic obstructive pulmonary disease) Status: Chronic (4) Hx of bacterial endocarditis Status: Chronic Patient with bilateral bibasilar pneumonia with sputum positive for MRSA, Influenza A on admission (now resolved), MRSA bacteremia, and history of prosthetic valve replacement. MIGUEL has been delayed again due to respiratory status. Continue IV vancomycin. Feel that if this patient is unable to have MIGUEL , would prefer to continue IV Vancomycin to complete at least 4-6 weeks with his history of endocarditis and aortic valve replacement. Plan: 1. Continue Vanco PROVIDER ADDENDUM: Pt. reviewed with Ms. Damon. Agree with above assessment.
--- NOTE | 2016-08-12 14:53 | Pharmacy Progress Note ---
Pharmacy Antibiotic Prog Note Date of Service: Aug 12, 2016. Subjective: The patient is currently receiving Vancomycin 1000mg IV every 18 hours. The patient is currently on day # 13 of Vancomycin IV therapy. Objective: Height (Feet): 5 Height (Inches): 5.00 Weight (Kilograms): 68.300 Levels: Item Value Date Time Vancomycin Level Trough 19.3 mcg/ml 08/12/16 0739 Lab Results (24hrs): Laboratory Tests Test 08/12/16 07:39 BUN/Creatinine Ratio 24.4 Blood Urea Nitrogen 19 mg/dl Creatinine 0.77 mg/dl White Blood Count 8.38 K/uL Micro Results: Item Value Date Time Gram Stain - Final Complete 08/09/16 1610 Sputum Expectorated Sputum Blood Culture - Final Complete 07/31/16 1138 Blood Staphylococcus Aureus Assessment & Plan: This drug level is: Therapeutic. Patient is supposed to complete 14 days of Vancomycin. Today is day #13. Will continue Vancomycin 1000mg IV every 18 hours for remainder of therapy. Will follow up with physician regarding duration as there was some speculation that he might require up to 6 weeks. Goal trough level estimate: between 15-20 mcg/mL. Pharmacy will continue to follow and will adjust dose/frequency as necessary. Thank you
--- NOTE | 2016-08-12 15:53 | Hospitalist Progress Note ---
Hospitalist Progress Note Date of Service Aug 12, 2016. Subjective Pt evaluation today including: conversation w/ patient, physical exam, chart review, lab review, review of studies, review of inpatient medication list Patient had no acute issues overnight Patient c/o of SOB with exertion, denies any chest pain Denies any fever Constitutional: No fever Eyes: No worsening of vision ENT: No hearing loss Respiratory: No cough Cardiovascular: No chest pain Abdomen: No constipation, No pain, No vomiting Musculoskeletal: No joint pain Male : No dysuria Neurologic: No memory loss Psychiatric: No depression symptoms Heme: No abnormal bleeding/bruising Medications Current Inpatient Medications Medications (Trade) Dose Ordered Sig/Jim Route Start Time Stop Time Status Last Admin Dose Admin Acetaminophen (Tylenol Tab) 650 mg Q4H PRN PO 07/31/16 11:00 08/30/16 10:59 08/10/16 14:58 650 MG Ondansetron HCl (Zofran Inj) 4 mg Q6H PRN IV 07/31/16 11:00 08/30/16 10:59 Miscellaneous Information (Consult Glycemic Management Pharmacy) 1 ea UD N/A 07/31/16 11:05 08/30/16 11:04 Atorvastatin Calcium (Lipitor Tab) 40 mg DAILY PO 08/01/16 09:00 08/31/16 08:59 08/12/16 09:07 40 MG Budesonide (Pulmicort Respules 0.5MG/ 2ML Neb Soln) 0.5 mg BIDR INH 07/31/16 20:00 08/30/16 19:59 08/12/16 07:49 0.5 MG Lactobacillus Acidophilus (Floranex Tab) 4 tab TIDM PO 07/31/16 16:30 08/30/16 16:29 08/12/16 14:06 4 TAB Albuterol/ Ipratropium (Duoneb) 3 ml QIDR INH 07/31/16 12:00 08/30/16 11:59 08/12/16 11:37 3 ML Glucose (Glucose 40% Gel) 15-30 GRAMS 15 GRAMS... UD PRN PO 07/31/16 12:45 08/30/16 12:44 Glucose (Glucose Chew Tab) 4-8 Tablets 4 Tabl... UD PRN PO 07/31/16 12:45 08/30/16 12:44 Dextrose (Dextrose 50% 50ML Syringe) 25-50ML OF 50% DW IV FOR... UD PRN IV 07/31/16 12:45 08/30/16 12:44 07/31/16 19:32 25 ML Glucagon (Glucagon Inj) 1 mg UD PRN SQ 07/31/16 12:45 08/30/16 12:44 Vancomycin HCl (Consult) 1 ea UD PRN N/A 07/31/16 14:15 08/30/16 14:14 Diltiazem HCl (Cardizem Cd Cap) 120 mg QAM PO 08/04/16 09:00 09/03/16 08:59 08/12/16 09:08 120 MG Sodium Chloride ([place] Nasal [place]) 1 sprays PRN PRN NA 08/05/16 16:15 09/04/16 16:14 08/05/16 16:40 1 SPRAYS Pantoprazole Sodium (Protonix Tab) 40 mg BID PO 08/06/16 21:00 09/05/16 20:59 08/12/16 09:07 40 MG Enteral Nutritional Formula (Boost Glucose Control) 1 can TIDM PO 08/06/16 16:45 09/05/16 16:44 08/12/16 09:11 1 CAN Guaifenesin (Mucinex Contr Rel Tab) 1,200 mg Q12 PO 08/07/16 21:00 09/06/16 20:59 08/12/16 09:06 1,200 MG Potassium Chloride (Klor-Con Tab) 40 meq BID PO 08/08/16 21:00 09/07/16 20:59 08/12/16 09:06 40 MEQ Metformin HCl (Glucophage Tab) 500 mg QDB PO 08/09/16 16:45 09/08/16 16:44 08/12/16 09:07 500 MG Insulin Aspart (novoLOG ASPART) SLIDING SCALE G... ACHS SC 08/09/16 06:30 09/08/16 06:29 08/11/16 17:24 2 UNITS Heparin Sodium (Porcine) (Heparin 10 Unit/ ml 5 ml Flush) 5 ml PRN PRN FLUSH 08/09/16 06:45 09/08/16 06:44 08/12/16 12:11 5 ML Heparin Sodium (Porcine) 5000 unit 5,000 unit Q8 SQ 08/09/16 14:00 09/08/16 13:59 08/12/16 14:09 5,000 UNIT Vancomycin HCl/ Sodium Chloride (Vancomycin Inj/ Nss 250ml) 270 ml @ 125 mls/hr Q18H IV 08/10/16 20:00 08/24/16 19:59 08/12/16 09:06 125 MLS/HR Objective Vital Signs Date Time Temp Pulse Resp B/P Pulse Ox O2 Delivery O2 Flow Rate FiO2 08/12/16 11:37 99 16 93 Nasal Cannula 2.0 08/12/16 08:03 90 16 93 Nasal Cannula 2.0 08/12/16 08:00 Nasal Cannula 2.0 08/12/16 06:58 37.1 78 20 118/77 92 Nasal Cannula 2.0 08/12/16 00:00 Nasal Cannula 2.0 08/11/16 23:39 36.9 81 20 122/69 93 Nasal Cannula 2.0 08/11/16 20:12 100 16 94 Nasal Cannula 2.0 08/11/16 20:00 Nasal Cannula 2.0 08/11/16 15:40 Nasal Cannula 2.0 Physical Exam General Appearance: WD/WN, no apparent distress Eyes: normal inspection ENT: normal ENT inspection Neck: supple Respiratory/Chest: chest non-tender, + crackles, + rhonchi Cardiovascular: regular rate, rhythm, no edema Abdomen: normal bowel sounds, non tender, soft Extremities: normal range of motion, non-tender Neurologic/Psychiatric: central office associate II-XII nml as tested, no motor/sensory deficits, oriented x 3 Skin: normal color, warm/dry Laboratory Results Last 24 Hours Test 08/11/16 16:15 08/11/16 20:12 08/12/16 06:55 08/12/16 07:39 Bedside Glucose 165 mg/dl 139 mg/dl 103 mg/dl White Blood Count 8.38 K/uL Red Blood Count 3.27 M/uL Hemoglobin 9.8 g/dL Hematocrit 29.5 % Mean Corpuscular Volume 90.2 fL Mean Corpuscular Hemoglobin 30.0 pg Mean Corpuscular Hemoglobin Concent 33.2 g/dl RDW Standard Deviation 57.0 fL RDW Coefficient of Variation 17.3 % Platelet Count 144 K/uL Mean Platelet Volume 10.2 fL Sodium Level 143 mmol/L Potassium Level 4.1 mmol/L Chloride Level 107 mmol/L Carbon Dioxide Level 27 mmol/L Anion Gap 9.0 mmol/L Blood Urea Nitrogen 19 mg/dl Creatinine 0.77 mg/dl Est Creatinine Clear Calc Drug Dose 82.1 ml/min Estimated GFR () 109.6 Estimated GFR (Non- 94.6 BUN/Creatinine Ratio 24.4 Random Glucose 98 mg/dl Calcium Level 7.9 mg/dl Vancomycin Level Trough 19.3 mcg/ml Test 08/12/16 11:07 Bedside Glucose 112 mg/dl Assessment and Plan 65 yo male who has again presented as a direct admit from [facility]. He was most recently admitted to [facility] in the same fashion on 07/17- for a possible C. Diff colitis after COPD exacerbation there. Patient discharged from [facility] to [facility] for [facility]. Developed poor po intake and malaise. Transferred back to [facility] with sepsis. Transferred to ICU, and required dopamine drip for hypotension. Developed Hypoxia requiring intermittent bipap. Transferred to medical floors in fair condition MRSA/Bacteremia with ?Endocarditis and Sepsis - appreciate infectious disease input - patient currently on vancomycin - MIGUEL cannot be done due to patients respiratory status - blood culture NGTD since 1.19 - order picc line in am B/L MRSA PNA - appreciate infectious disease input - cont vancomycin COPD - course lung sounds on exam - cont duonebs and pulmicort - cont vibration vest Episode of LGIB - GI consulted on patient - plan for colonoscopy as outpatient when patients respiratory status stable Influenzae - completed tamiflu course afibb - cardiology consulted on patient - controlled on cardiazem - hold anticoagulation due to LGIB PETRA -resolved - Avoid nephrotoxic drugs where possible. DVT prophylaxis - sub-q heparin. Disposition- [facility] in 1-2 days
[2016-08-12 16:14] VITALS: PULSE 94; O2SAT 94
[2016-08-12 20:00] VITALS: PULSE 63; O2SAT 94
[2016-08-12 20:27] VITALS: BP 118/73; PULSE 103; TEMP 37.4; O2SAT 93
[2016-08-13] VITALS (14 sets, daily range): BP systolic 101–133; BP diastolic 65–79; PULSE 87–106; TEMP 37.2–37.5; O2SAT 90–96
[2016-08-13] MEDS: VANCOMYCIN INJ 1,000 MG in SODIUM CHLORIDE 0.9% 250ML 250 ML IV SCH ×2 (02:03→20:08)
[2016-08-13] MEDS: HEPARIN SOD 5000 UNIT/0.5 ML CARP SQ SCH ×3 (06:24→20:10)
[2016-08-13 06:37] LABS: BUN/CREATININE RATIO 22.8 (10-20); CALCIUM 7.6 mg/dl (8.5-10.1); CREATININE 0.76 mg/dl (0.60-1.40); POTASSIUM 3.9 mmol/L (3.5-5.1)
[2016-08-13] MEDS: ALBUT/IPRATROP 3MG/0.5MG NEB 3 ML VIAL INH SCH ×4 (07:50→20:15)
[2016-08-13] MEDS: BUDESONIDE 0.5 MG/2 ML VIAL (PULMICORT) INH SCH ×2 (07:50→20:15)
[2016-08-13] MEDS: DILTIAZEM HCL 120 MG CAPCR PO SCH (08:33)
[2016-08-13] MEDS: ATORVASTATIN 40 MG TAB PO SCH (08:33)
[2016-08-13] MEDS: GUAIFENESIN 600 MG TABCR PO SCH ×2 (08:33→20:09)
[2016-08-13] MEDS: PANTOprazole SOD 40 MG TAB PO SCH ×2 (08:34→20:08)
[2016-08-13] MEDS: METFORMIN HCL 500 MG TAB PO SCH (08:34)
[2016-08-13] MEDS: LACTOBACILLUS ACIDOPHILUS (FLORANEX) TAB PO SCH ×3 (08:34→17:01)
[2016-08-13] MEDS: POTASSIUM CHLORIDE 20 MEQ TABCR PO SCH ×2 (08:35→20:10)
[2016-08-13] MEDS: INSULIN ASPART 100 UNITS/ML 3 ML PEN SC SCH ×4 (08:38→21:00)
[2016-08-13] MEDS: BOOST GLUCOSE CONTROL PO SCH ×3 (08:40→17:01)
--- NOTE | 2016-08-13 10:50 | Pharmacy Progress Note ---
Glycemic: Assessment & Plan Date of Service Aug 13, 2016. Assessment & Plan ASSESSMENT: * The patient is currently receiving 3 units of insulin per day. * BSGs ranging 103 - 142 mg/dl over the past 24hrs. * Today BSGs trending below goal range. PLAN: * Continue Metformin 500 mg PO daily * Correctional Insulin: Novolog Correction per scale ACHS Goal Range: Low 120 mg/dL - High 160 mg/dL Correction Factor: 30 mg/dL/unit * REMOVE prandial insulin Pharmacy will continue to monitor patient daily and write orders per [facility] inpatient glycemic control protocol. Thanks. * Please note that the plan above was derived based on current level of insulin resistance and hospital stress. These recommendations are appropriate for inpatient admission only. Plan of care upon discharge will need to be reassessed to avoid potential outpatient hypo/hyperglycemia.
--- NOTE | 2016-08-13 12:55 | Pulmonology Progress Note ---
Pulmonary Progress Note Date of Service Aug 13, 2016. Attending Will Lynch Subjective Patient notes continued inability to clear mucus secretion with easy fatigability just transferring from chair to bed. Objective Patient will complete full sentences with no signs of acute respiratory insufficiency while lying in bed. Vital signs: Reviewed Stable on 2 L nasal cannula respiratory: Bilateral diffuse rhonchi greatest at the bases on inspiration and expiration Cardiac: S1-S2 very distant heart sounds Extremities: No pitting edema in dependent regions Microbiology #1 expectorated sputum 08/09/16 MRSA #2 blood culture 07/31/16 MRSA #3 expectorated sputum 07/18/16 stenotrophomonas Inpatient medications: #1 vancomycin #2 guaifenesin #3 Pulmicort nebulized twice a day #4 DuoNeb 4 times a day Pertinent swallow: 08/12/16: Mildly diminished esophageal motility Chest x-ray: The 2016: Progressive opacification of the bilateral hemithoraces with costophrenic blunting left greater than right Assessment & Plan 65-year-old gentleman with multilobar pneumonia and bacteremia: #1 pulmonary: Patient continues to have difficulty with mucous secretions and severe fatigability with minimal transition. At this time I do not believe he is ready to undergo transesophageal echocardiogram. We will continue pulmonary toilet but initiate dornase to help increase mucous clearance. #2 ID: Patient has grown out MRSA from blood cultures as well as expectorated sputum with similar sensitivity patterns. Currently being treated with vancomycin per ID. Data Medications: Current Inpatient Medications Medications (Trade) Dose Ordered Sig/Jim Route Start Time Stop Time Status Last Admin Dose Admin Acetaminophen (Tylenol Tab) 650 mg Q4H PRN PO 07/31/16 11:00 08/30/16 10:59 08/10/16 14:58 650 MG Ondansetron HCl (Zofran Inj) 4 mg Q6H PRN IV 07/31/16 11:00 08/30/16 10:59 Miscellaneous Information (Consult Glycemic Management Pharmacy) 1 ea UD N/A 07/31/16 11:05 08/30/16 11:04 Atorvastatin Calcium (Lipitor Tab) 40 mg DAILY PO 08/01/16 09:00 08/31/16 08:59 08/13/16 08:33 40 MG Budesonide (Pulmicort Respules 0.5MG/ 2ML Neb Soln) 0.5 mg BIDR INH 07/31/16 20:00 08/30/16 19:59 08/13/16 07:50 0.5 MG Lactobacillus Acidophilus (Floranex Tab) 4 tab TIDM PO 07/31/16 16:30 08/30/16 16:29 08/13/16 08:34 4 TAB Albuterol/ Ipratropium (Duoneb) 3 ml QIDR INH 07/31/16 12:00 08/30/16 11:59 08/13/16 11:55 3 ML Glucose (Glucose 40% Gel) 15-30 GRAMS 15 GRAMS... UD PRN PO 07/31/16 12:45 08/30/16 12:44 Glucose (Glucose Chew Tab) 4-8 Tablets 4 Tabl... UD PRN PO 07/31/16 12:45 08/30/16 12:44 Dextrose (Dextrose 50% 50ML Syringe) 25-50ML OF 50% DW IV FOR... UD PRN IV 07/31/16 12:45 08/30/16 12:44 07/31/16 19:32 25 ML Glucagon (Glucagon Inj) 1 mg UD PRN SQ 07/31/16 12:45 08/30/16 12:44 Vancomycin HCl (Consult) 1 ea UD PRN N/A 07/31/16 14:15 08/30/16 14:14 Diltiazem HCl (Cardizem Cd Cap) 120 mg QAM PO 08/04/16 09:00 09/03/16 08:59 08/13/16 08:33 120 MG Sodium Chloride ([place] Nasal [place]) 1 sprays PRN PRN NA 08/05/16 16:15 09/04/16 16:14 08/05/16 16:40 1 SPRAYS Pantoprazole Sodium (Protonix Tab) 40 mg BID PO 08/06/16 21:00 09/05/16 20:59 08/13/16 08:34 40 MG Enteral Nutritional Formula (Boost Glucose Control) 1 can TIDM PO 08/06/16 16:45 09/05/16 16:44 08/13/16 08:40 1 CAN Guaifenesin (Mucinex Contr Rel Tab) 1,200 mg Q12 PO 08/07/16 21:00 09/06/16 20:59 08/13/16 08:33 1,200 MG Potassium Chloride (Klor-Con Tab) 40 meq BID PO 08/08/16 21:00 09/07/16 20:59 08/13/16 08:35 40 MEQ Metformin HCl (Glucophage Tab) 500 mg QDB PO 08/09/16 16:45 09/08/16 16:44 08/13/16 08:34 500 MG Insulin Aspart (novoLOG ASPART) SLIDING SCALE G... ACHS SC 08/09/16 06:30 09/08/16 06:29 08/13/16 08:38 4 UNITS Heparin Sodium (Porcine) (Heparin 10 Unit/ ml 5 ml Flush) 5 ml PRN PRN FLUSH 08/09/16 06:45 09/08/16 06:44 08/13/16 11:22 15 ML Heparin Sodium (Porcine) 5000 unit 5,000 unit Q8 SQ 08/09/16 14:00 09/08/16 13:59 08/13/16 06:24 5,000 UNIT Vancomycin HCl/ Sodium Chloride (Vancomycin Inj/ Nss 250ml) 270 ml @ 125 mls/hr Q18H IV 08/10/16 20:00 08/24/16 19:59 08/13/16 02:03 125 MLS/HR I & O: 24-Hour Column 08/13/16 08:00 Intake Total 970 ml Output Total 2265 ml Balance -1295 ml Vital Signs: Date Time Temp Pulse Resp B/P Pulse Ox O2 Delivery O2 Flow Rate FiO2 08/13/16 11:55 99 16 94 Nasal Cannula 2.0 08/13/16 08:45 Nasal Cannula 2.0 08/13/16 08:18 105 16 93 Nasal Cannula 2.0 08/13/16 07:46 37.3 99 20 133/68 91 Nasal Cannula 2.0 08/13/16 00:00 37.5 88 18 127/76 92 Nasal Cannula 2.0 08/13/16 00:00 Nasal Cannula 2.0 08/12/16 20:27 37.4 103 18 118/73 93 Nasal Cannula 2.0 08/12/16 20:00 63 16 94 Nasal Cannula 2.0 08/12/16 16:14 94 16 94 Nasal Cannula 2.0 08/12/16 16:00 Nasal Cannula 2.0 Laboratory Results: Last 24 Hours Test 08/12/16 16:27 08/12/16 20:17 08/13/16 05:40 08/13/16 11:20 Bedside Glucose 126 mg/dl 142 mg/dl 76 mg/dl Sodium Level 143 mmol/L Potassium Level 3.9 mmol/L Chloride Level 108 mmol/L Carbon Dioxide Level 26 mmol/L Anion Gap 9.0 mmol/L Blood Urea Nitrogen 17 mg/dl Creatinine 0.76 mg/dl Est Creatinine Clear Calc Drug Dose 83.2 ml/min Estimated GFR () 110.2 Estimated GFR (Non- 95.1 BUN/Creatinine Ratio 22.8 Random Glucose 92 mg/dl Calcium Level 7.6 mg/dl
--- NOTE | 2016-08-13 14:35 | Pharmacy Progress Note ---
Pharmacy Antibiotic Prog Note Date of Service: Aug 13, 2016. Subjective: The patient is currently receiving Vancomycin 1000mg IV every 18 hours. The patient is currently on day # 14 of Vancomycin IV therapy. Objective: Height (Feet): 5 Height (Inches): 5.00 Weight (Kilograms): 68.300 Levels: Item Value Date Time Vancomycin Level Trough 19.3 mcg/ml 08/12/16 0739 Lab Results (24hrs): Laboratory Tests Test 08/13/16 05:40 BUN/Creatinine Ratio 22.8 Blood Urea Nitrogen 17 mg/dl Creatinine 0.76 mg/dl Assessment & Plan: Patient will require 4-6 weeks total of Vancomycin IV therapy per ID. He is going to have a PICC line placed and be discharged to [facility] in [place] tomorrow 08/14/16. I received a call to check on the ability of more simplified dosing regimen for SNF care. Given his past trough was 19.3mcg/ml and his renal function looks to be about baseline at this time, I feel an attempt at daily Vancomycin dosing at an increased concentration is viable. I would recommend a trough level prior to the 08/16/16 dose to see how this is working. I will convert him to daily dosing for tomorrow at 1000 and then this will be continued at the SNF. New dose starting tomorrow Vancomycin 1250mg (~ 18mg/kg) IV daily. Pharmacy will continue to follow and will adjust dose/frequency as necessary. Thank you
--- NOTE | 2016-08-13 15:53 | Hospitalist Progress Note ---
Hospitalist Progress Note Date of Service Aug 13, 2016. Subjective Pt evaluation today including: conversation w/ patient, physical exam, chart review, lab review, review of studies, review of inpatient medication list Patient had no acute issues overnight Denies any chest pain or SOB Constitutional: No fever Eyes: No worsening of vision ENT: No hearing loss Respiratory: No cough, No shortness of breath Cardiovascular: No chest pain, No edema Abdomen: No constipation, No diarrhea, No pain, No vomiting Musculoskeletal: No joint pain Male : No dysuria, No incontinence Neurologic: No memory loss Psychiatric: No depression symptoms Heme: No abnormal bleeding/bruising Endo: No fatigue Skin: No rash Medications Current Inpatient Medications Medications (Trade) Dose Ordered Sig/Jim Route Start Time Stop Time Status Last Admin Dose Admin Acetaminophen (Tylenol Tab) 650 mg Q4H PRN PO 07/31/16 11:00 08/30/16 10:59 08/10/16 14:58 650 MG Ondansetron HCl (Zofran Inj) 4 mg Q6H PRN IV 07/31/16 11:00 08/30/16 10:59 Miscellaneous Information (Consult Glycemic Management Pharmacy) 1 ea UD N/A 07/31/16 11:05 08/30/16 11:04 Atorvastatin Calcium (Lipitor Tab) 40 mg DAILY PO 08/01/16 09:00 08/31/16 08:59 08/13/16 08:33 40 MG Budesonide (Pulmicort Respules 0.5MG/ 2ML Neb Soln) 0.5 mg BIDR INH 07/31/16 20:00 08/30/16 19:59 08/13/16 07:50 0.5 MG Lactobacillus Acidophilus (Floranex Tab) 4 tab TIDM PO 07/31/16 16:30 08/30/16 16:29 08/13/16 08:34 4 TAB Albuterol/ Ipratropium (Duoneb) 3 ml QIDR INH 07/31/16 12:00 08/30/16 11:59 08/13/16 15:18 3 ML Glucose (Glucose 40% Gel) 15-30 GRAMS 15 GRAMS... UD PRN PO 07/31/16 12:45 08/30/16 12:44 Glucose (Glucose Chew Tab) 4-8 Tablets 4 Tabl... UD PRN PO 07/31/16 12:45 08/30/16 12:44 Dextrose (Dextrose 50% 50ML Syringe) 25-50ML OF 50% DW IV FOR... UD PRN IV 07/31/16 12:45 08/30/16 12:44 07/31/16 19:32 25 ML Glucagon (Glucagon Inj) 1 mg UD PRN SQ 07/31/16 12:45 08/30/16 12:44 Vancomycin HCl (Consult) 1 ea UD PRN N/A 07/31/16 14:15 08/30/16 14:14 Diltiazem HCl (Cardizem Cd Cap) 120 mg QAM PO 08/04/16 09:00 09/03/16 08:59 08/13/16 08:33 120 MG Sodium Chloride ([place] Nasal [place]) 1 sprays PRN PRN NA 08/05/16 16:15 09/04/16 16:14 08/05/16 16:40 1 SPRAYS Pantoprazole Sodium (Protonix Tab) 40 mg BID PO 08/06/16 21:00 09/05/16 20:59 08/13/16 08:34 40 MG Enteral Nutritional Formula (Boost Glucose Control) 1 can TIDM PO 08/06/16 16:45 09/05/16 16:44 08/13/16 08:40 1 CAN Guaifenesin (Mucinex Contr Rel Tab) 1,200 mg Q12 PO 08/07/16 21:00 09/06/16 20:59 08/13/16 08:33 1,200 MG Potassium Chloride (Klor-Con Tab) 40 meq BID PO 08/08/16 21:00 09/07/16 20:59 08/13/16 08:35 40 MEQ Metformin HCl (Glucophage Tab) 500 mg QDB PO 08/09/16 16:45 09/08/16 16:44 08/13/16 08:34 500 MG Insulin Aspart (novoLOG ASPART) SLIDING SCALE G... ACHS SC 08/09/16 06:30 09/08/16 06:29 08/13/16 08:38 4 UNITS Heparin Sodium (Porcine) (Heparin 10 Unit/ ml 5 ml Flush) 5 ml PRN PRN FLUSH 08/09/16 06:45 09/08/16 06:44 08/13/16 11:22 15 ML Heparin Sodium (Porcine) 5000 unit 5,000 unit Q8 SQ 08/09/16 14:00 09/08/16 13:59 08/13/16 14:07 5,000 UNIT Vancomycin HCl/ Sodium Chloride (Vancomycin Inj/ Nss 250ml) 270 ml @ 125 mls/hr Q18H IV 08/10/16 20:00 08/13/16 22:10 08/13/16 02:03 125 MLS/HR Dornase [place] 2.5 ml 2.5 ml BIDR INH 08/13/16 20:00 09/12/16 19:59 Vancomycin HCl/ Sodium Chloride (Vancomycin Inj/ Nss 250ml) 275 ml @ 125 mls/hr Q24H IV 08/14/16 10:00 08/27/16 10:01 Objective Vital Signs Date Time Temp Pulse Resp B/P Pulse Ox O2 Delivery O2 Flow Rate FiO2 08/13/16 15:18 95 16 92 Nasal Cannula 2.0 08/13/16 15:17 37.2 89 18 108/67 94 Room Air 08/13/16 11:55 99 16 94 Nasal Cannula 2.0 08/13/16 08:45 Nasal Cannula 2.0 08/13/16 08:18 105 16 93 Nasal Cannula 2.0 08/13/16 07:46 37.3 99 20 133/68 91 Nasal Cannula 2.0 08/13/16 00:00 37.5 88 18 127/76 92 Nasal Cannula 2.0 08/13/16 00:00 Nasal Cannula 2.0 08/12/16 20:27 37.4 103 18 118/73 93 Nasal Cannula 2.0 08/12/16 20:00 63 16 94 Nasal Cannula 2.0 08/12/16 16:14 94 16 94 Nasal Cannula 2.0 08/12/16 16:00 Nasal Cannula 2.0 Physical Exam General Appearance: WD/WN, no apparent distress Eyes: normal inspection ENT: normal ENT inspection Neck: supple, no adenopathy Respiratory/Chest: chest non-tender, no respiratory distress, no accessory muscle use, + rales, + rhonchi Cardiovascular: regular rate, rhythm, no edema Abdomen: normal bowel sounds, non tender, soft Extremities: normal range of motion, non-tender 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, no motor/sensory deficits, alert, oriented x 3 Laboratory Results Last 24 Hours Test 08/12/16 16:27 08/12/16 20:17 08/13/16 05:40 08/13/16 11:20 Bedside Glucose 126 mg/dl 142 mg/dl 76 mg/dl Sodium Level 143 mmol/L Potassium Level 3.9 mmol/L Chloride Level 108 mmol/L Carbon Dioxide Level 26 mmol/L Anion Gap 9.0 mmol/L Blood Urea Nitrogen 17 mg/dl Creatinine 0.76 mg/dl Est Creatinine Clear Calc Drug Dose 83.2 ml/min Estimated GFR () 110.2 Estimated GFR (Non- 95.1 BUN/Creatinine Ratio 22.8 Random Glucose 92 mg/dl Calcium Level 7.6 mg/dl Assessment and Plan 65 yo male who has again presented as a direct admit from [facility]. He was most recently admitted to [facility] in the same fashion on 07/17- for a possible C. Diff colitis after COPD exacerbation there. Patient discharged from [facility] to custodial for rehabilitation. Developed poor po intake and malaise. Transferred back to [facility] with sepsis. Transferred to ICU, and required dopamine drip for hypotension. Developed Hypoxia requiring intermittent bipap. Transferred to medical floors in fair condition MRSA/Bacteremia with ?Endocarditis and Sepsis - appreciate infectious disease input - patient currently on vancomycin - MIGUEL cannot be done due to patients respiratory status - blood culture NGTD since 08.01 - Picc line today - will treat patient for 4-6 weeks per I/D B/L MRSA PNA - appreciate infectious disease input - cont vancomycin COPD - course lung sounds on exam - cont duonebs/pulmozyme and pulmicort - cont vibration vest Episode of LGIB - GI consulted on patient - plan for colonoscopy as outpatient when patients respiratory status stable - HGB stable Chronic Systolic CHF - euvolemic Influenzae - completed tamiflu course afibb - cardiology consulted on patient - controlled on cardiazem - hold anticoagulation due to LGIB PETRA -resolved - Avoid nephrotoxic drugs where possible. DVT prophylaxis - sub-q heparin. Disposition- [facility] in in am
--- NOTE | 2016-08-13 17:03 | DIAGNOSTIC IMAGING REPORT ---
SINGLE VIEW CHEST CLINICAL HISTORY: PICC placement FINDINGS: An AP, portable, upright chest radiograph is compared to study dated 08/11/2016 and correlated with chest CT dated 08/06/2016. The examination is degraded by portable technique, apical lordotic positioning, and patient rotation. A right internal jugular central venous catheter is unchanged in position. A left PICC line is been placed. The tip of the catheter projects over the cavoatrial junction. The patient is status post midline sternotomy. The heart is enlarged and there is atherosclerotic calcification of the thoracic aorta. The pulmonary vasculature is noncongested. Emphysema and chronic interstitial thickening is similar to previous. Bibasilar patchy airspace consolidation, left greater than right similar to previous. Small pleural effusions are identified, left larger than right. No pneumothorax is seen. The skeletal structures are osteopenic. The bony thorax is grossly intact. IMPRESSION: 1. A left PICC line has been placed. The tip of the catheter projects over the cavoatrial junction. 2. Cardiomegaly and emphysema. 3. Bibasilar consolidation and pleural effusions are similar in appearance to previous.. Electronically signed by: Justin Wilson M.D. 08/13/2016 5:02 PM Dictated Date/Time: 08/13/2016 4:59 PM
[2016-08-13] MEDS: DORNASE ALFA (2500U) 2.5MG/2.5ML INH SCH (20:15)
[2016-08-14] VITALS (9 sets, daily range): BP systolic 97–115; BP diastolic 55–74; PULSE 80–103; TEMP 37–37.5; O2SAT 92–95
[2016-08-14] MEDS: HEPARIN SOD 5000 UNIT/0.5 ML CARP SQ SCH ×3 (05:35→22:34)
[2016-08-14] MEDS: INSULIN ASPART 100 UNITS/ML 3 ML PEN SC SCH ×4 (06:30→21:00)
[2016-08-14] MEDS: BUDESONIDE 0.5 MG/2 ML VIAL (PULMICORT) INH SCH ×2 (07:09→19:31)
[2016-08-14] MEDS: ALBUT/IPRATROP 3MG/0.5MG NEB 3 ML VIAL INH SCH ×4 (07:09→19:31)
[2016-08-14] MEDS: DORNASE ALFA (2500U) 2.5MG/2.5ML INH SCH ×2 (07:09→19:31)
[2016-08-14] MEDS: METFORMIN HCL 500 MG TAB PO SCH (07:34)
[2016-08-14] MEDS: BOOST GLUCOSE CONTROL PO SCH ×3 (07:34→17:00)
[2016-08-14] MEDS: LACTOBACILLUS ACIDOPHILUS (FLORANEX) TAB PO SCH ×3 (07:34→17:09)
[2016-08-14] MEDS: PANTOprazole SOD 40 MG TAB PO SCH ×2 (07:35→21:53)
[2016-08-14] MEDS: POTASSIUM CHLORIDE 20 MEQ TABCR PO SCH ×2 (07:35→21:53)
[2016-08-14] MEDS: ATORVASTATIN 40 MG TAB PO SCH (07:35)
[2016-08-14] MEDS: GUAIFENESIN 600 MG TABCR PO SCH ×2 (07:35→21:53)
[2016-08-14] MEDS: DILTIAZEM HCL 180 MG CAPCR PO SCH (08:40)
[2016-08-14] MEDS: VANCOMYCIN INJ 1,250 MG in SODIUM CHLORIDE 0.9% 250ML 250 ML IV SCH (10:47)
--- NOTE | 2016-08-14 11:07 | PULMONARY PROGRESS NOTE ---
DATE: 08/14/2016 PROBLEM LIST: Includes: 1. Bilateral pneumonia with culture positive for methicillin-resistant staph aureus. 2. Methicillin staph aureus bacteremia. 3. History of Stenotrophomonas in the sputum as of 07/18/2016. SUBJECTIVE: The patient reports that he is feeling much better today. States that his breathing is much improved. He feels that the dornase which was started yesterday by Dr. Lynch is helpful. He states that he has been able to expectorate a lot of the mucus and once he is able to do that his breathing feels much better. He is not having any side effect to the dornase that he is aware of. He feels that his breathing has improved. He has less short of breath than he did previously. He has less chest heaviness and tightness. He still is coughing some, but the cough is much looser. He feels that his breathing is getting close to being back to his baseline. He is not having any chest pain with respirations. He is not having any chest pain at rest. He is not having any palpitations. He has not had any GI symptoms. No nausea or vomiting. His appetite has been normal. No change in his bowels. No difficulty voiding. He has not had any fever or chills. He has been up moving around the room a little bit. He still gets very fatigued with moving from the chair to bed, but it is better than it was. OBJECTIVE: GENERAL: The patient is a 65-year-old male lying in bed in no acute distress. He is alert and oriented x3. Mood is good. Affect is good. VITAL SIGNS: Temp 37.0, pulse 103, respiration 20, blood pressure is 114/74, pulse ox 92% on 2 liters. HEENT: Normocephalic, atraumatic. Pupils equal, round and reactive to light and accommodation. Extraocular movements are intact. [place] moist gingival and buccal mucosa. NECK: Supple. No mass. No adenopathy. No bruit. CHEST: Diminished breath sounds. The patient has some coarse wheezes in the upper airways. A lot of them do seem to clear with coughing. No rale or rhonchi noted. CARDIOVASCULAR: Slightly tachycardic. There are no murmurs, gallops or rubs noted. ABDOMEN: Soft, bowel sounds present, nontender. No guarding, rigidity or organomegaly. EXTREMITIES: No appreciated edema, no erythema, no cyanosis or clubbing. No new lab data noted. The patient had a chest x-ray done yesterday following PICC line placement, and essentially lung olvera similar to previous. IMPRESSION: This is a 65-year-old male with bilateral pneumonia with sputum growing out methicillin-resistant Staphylococcus aureus on 08/09/2016, as well as a Stenotrophomonas on 07/18/2016. At this time, the patient is covered with vancomycin via PICC line. At this point, the patient seems to be responding well to the dornase. Would recommend that we continue it. Continue aggressive pulmonary toilet. According to the patient and from what I can tell from the hospitalist note and sr. social media & mobile manager, the patient will be transferred to [facility] in the near future. Will continue to follow through hospitalization. Patient and plan reviewed and agree with above note ROSANA
--- NOTE | 2016-08-14 15:38 | Hospitalist Progress Note ---
Hospitalist Progress Note Date of Service Aug 14, 2016. Subjective Pt evaluation today including: conversation w/ patient, physical exam, chart review, lab review, review of studies, review of inpatient medication list Patient had uncontrolled afibb overnight Patient denies any chest pain or SOB Constitutional: No fever Eyes: No worsening of vision ENT: No hearing loss Respiratory: No cough, No shortness of breath Cardiovascular: No chest pain Abdomen: No constipation, No nausea, No pain Musculoskeletal: No joint pain Male : No dysuria Neurologic: No memory loss Psychiatric: No depression symptoms Skin: No rash Medications Current Inpatient Medications Medications (Trade) Dose Ordered Sig/Jim Route Start Time Stop Time Status Last Admin Dose Admin Acetaminophen (Tylenol Tab) 650 mg Q4H PRN PO 07/31/16 11:00 08/30/16 10:59 08/10/16 14:58 650 MG Ondansetron HCl (Zofran Inj) 4 mg Q6H PRN IV 07/31/16 11:00 08/30/16 10:59 Miscellaneous Information (Consult Glycemic Management Pharmacy) 1 ea UD N/A 07/31/16 11:05 08/30/16 11:04 Atorvastatin Calcium (Lipitor Tab) 40 mg DAILY PO 08/01/16 09:00 08/31/16 08:59 08/14/16 07:35 40 MG Budesonide (Pulmicort Respules 0.5MG/ 2ML Neb Soln) 0.5 mg BIDR INH 07/31/16 20:00 08/30/16 19:59 08/14/16 07:09 0.5 MG Lactobacillus Acidophilus (Floranex Tab) 4 tab TIDM PO 07/31/16 16:30 08/30/16 16:29 08/14/16 12:27 4 TAB Albuterol/ Ipratropium (Duoneb) 3 ml QIDR INH 07/31/16 12:00 08/30/16 11:59 08/14/16 15:02 3 ML Glucose (Glucose 40% Gel) 15-30 GRAMS 15 GRAMS... UD PRN PO 07/31/16 12:45 08/30/16 12:44 Glucose (Glucose Chew Tab) 4-8 Tablets 4 Tabl... UD PRN PO 07/31/16 12:45 08/30/16 12:44 Dextrose (Dextrose 50% 50ML Syringe) 25-50ML OF 50% DW IV FOR... UD PRN IV 07/31/16 12:45 08/30/16 12:44 07/31/16 19:32 25 ML Glucagon (Glucagon Inj) 1 mg UD PRN SQ 07/31/16 12:45 08/30/16 12:44 Vancomycin HCl (Consult) 1 ea UD PRN N/A 07/31/16 14:15 08/30/16 14:14 Sodium Chloride ([place] Nasal [place]) 1 sprays PRN PRN NA 08/05/16 16:15 09/04/16 16:14 08/05/16 16:40 1 SPRAYS Pantoprazole Sodium (Protonix Tab) 40 mg BID PO 08/06/16 21:00 09/05/16 20:59 08/14/16 07:35 40 MG Enteral Nutritional Formula (Boost Glucose Control) 1 can TIDM PO 08/06/16 16:45 09/05/16 16:44 08/14/16 12:27 1 CAN Guaifenesin (Mucinex Contr Rel Tab) 1,200 mg Q12 PO 08/07/16 21:00 09/06/16 20:59 08/14/16 07:35 1,200 MG Potassium Chloride (Klor-Con Tab) 40 meq BID PO 08/08/16 21:00 09/07/16 20:59 08/14/16 07:35 40 MEQ Metformin HCl (Glucophage Tab) 500 mg QDB PO 08/09/16 16:45 09/08/16 16:44 08/14/16 07:34 500 MG Insulin Aspart (novoLOG ASPART) SLIDING SCALE G... ACHS SC 08/09/16 06:30 09/08/16 06:29 08/13/16 08:38 4 UNITS Heparin Sodium (Porcine) (Heparin 10 Unit/ ml 5 ml Flush) 5 ml PRN PRN FLUSH 08/09/16 06:45 09/08/16 06:44 08/13/16 11:22 15 ML Heparin Sodium (Porcine) (Heparin Sq 5000 Unit/0.5ml) 5,000 unit Q8 SQ 08/09/16 14:00 09/08/16 13:59 08/14/16 14:07 5,000 UNIT Dornase [place] 2.5 ml 2.5 ml BIDR INH 08/13/16 20:00 09/12/16 19:59 08/14/16 07:09 2.5 ML Vancomycin HCl/ Sodium Chloride (Vancomycin Inj/ Nss 250ml) 275 ml @ 125 mls/hr Q24H IV 08/14/16 10:00 08/27/16 10:01 08/14/16 10:47 125 MLS/HR Heparin Sodium (Porcine) (Heparin 10 Unit/ ml 5 ml Flush) 5 ml PRN PRN FLUSH 08/13/16 21:45 09/12/16 21:44 08/14/16 13:32 5 ML Diltiazem HCl (Cardizem Cd Cap) 180 mg QAM PO 08/14/16 09:00 09/13/16 08:59 08/14/16 08:40 180 MG Objective Vital Signs Date Time Temp Pulse Resp B/P Pulse Ox O2 Delivery O2 Flow Rate FiO2 08/14/16 07:09 80 16 93 Nasal Cannula 2.0 08/14/16 00:01 Nasal Cannula 2.0 08/13/16 23:57 37.4 96 18 118/71 96 Nasal Cannula 2.0 08/13/16 22:19 90 16 94 Nasal Cannula 2.0 08/13/16 18:30 91 22 105/65 93 Nasal Cannula 2.0 08/13/16 18:15 106 26 120/79 94 Nasal Cannula 2.0 08/13/16 18:00 95 24 110/72 92 Nasal Cannula 2.0 08/13/16 17:45 102 28 101/66 90 Nasal Cannula 2.0 08/13/16 17:30 87 28 113/71 94 Nasal Cannula 2.0 08/13/16 16:00 Nasal Cannula 2.0 08/13/16 15:18 95 16 92 Nasal Cannula 2.0 08/13/16 15:17 37.2 89 18 108/67 94 Room Air 08/13/16 11:55 99 16 94 Nasal Cannula 2.0 08/13/16 08:45 Nasal Cannula 2.0 08/13/16 08:18 105 16 93 Nasal Cannula 2.0 Physical Exam General Appearance: WD/WN, no apparent distress Eyes: normal inspection ENT: normal ENT inspection Neck: supple Respiratory/Chest: chest non-tender, + rales, + rhonchi Cardiovascular: regular rate, rhythm Abdomen: normal bowel sounds, non tender, soft Extremities: normal range of motion, non-tender 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 He was most recently admitted to [facility] in the same fashion on 07/17- for a possible C. Diff colitis after COPD exacerbation there. Patient discharged from [facility] to care home for rehabilitation. Developed poor po intake and malaise. Transferred back to [facility] with sepsis. Transferred to ICU, and required dopamine drip for hypotension. Developed Hypoxia requiring intermittent bipap. Transferred to medical floors in fair condition MRSA/Bacteremia with ?Endocarditis and Sepsis - appreciate infectious disease input - patient currently on vancomycin - MIGUEL cannot be done due to patients respiratory status - blood culture NGTD since 08.01 - Picc line today - will treat patient for 4-6 weeks per I/D/ evaluation for MIGUEL need will be re- evaluated as outpatient B/L MRSA PNA - appreciate infectious disease input - cont vancomycin COPD - course lung sounds on exam - cont duonebs/dornase and pulmicort - cont vibration vest prn Episode of LGIB - GI consulted on patient - plan for colonoscopy as outpatient when patients respiratory status stable - HGB stable Chronic Systolic CHF - euvolemic Influenzae - completed tamiflu course afibb - cardiology consulted on patient - uncontrolled - increase cardiazem to 180 mg - hold anticoagulation due to LGIB PETRA -resolved - Avoid nephrotoxic drugs where possible. DVT prophylaxis - sub-q heparin. Disposition- YULISSA alvarez [facility] in in am
--- NOTE | 2016-08-14 15:47 | Infectious Disease Progress Nt ---
Progress Note Date of Service Aug 14, 2016. Subjective Pt evaluation today including: conversation w/ patient, physical exam, chart review, lab review, review of studies, review of inpatient medication list Patient states that he continues to be fatigued and weak, but his SOB and cough continues to improve. He has not been out of bed much at all. Note that the patient is unable to undergo MIGUEL due to respiratory status according to Pulmonary opinion. Repeat chest X-ray yesterday showed PICC line in left arm along with bibasilar consolidation similar in appearance to previous study. WBC count today was 8.38. Creatinine continues to be stable at 0.76 yesterday. All Other Systems: Reviewed and Negative Medications Current Inpatient Medications Medications (Trade) Dose Ordered Sig/Jim Route Start Time Stop Time Status Last Admin Dose Admin Acetaminophen (Tylenol Tab) 650 mg Q4H PRN PO 07/31/16 11:00 08/30/16 10:59 08/10/16 14:58 650 MG Ondansetron HCl (Zofran Inj) 4 mg Q6H PRN IV 07/31/16 11:00 08/30/16 10:59 Miscellaneous Information (Consult Glycemic Management Pharmacy) 1 ea UD N/A 07/31/16 11:05 08/30/16 11:04 Atorvastatin Calcium (Lipitor Tab) 40 mg DAILY PO 08/01/16 09:00 08/31/16 08:59 08/14/16 07:35 40 MG Budesonide (Pulmicort Respules 0.5MG/ 2ML Neb Soln) 0.5 mg BIDR INH 07/31/16 20:00 08/30/16 19:59 08/14/16 07:09 0.5 MG Lactobacillus Acidophilus (Floranex Tab) 4 tab TIDM PO 07/31/16 16:30 08/30/16 16:29 08/14/16 12:27 4 TAB Albuterol/ Ipratropium (Duoneb) 3 ml QIDR INH 07/31/16 12:00 08/30/16 11:59 08/14/16 15:02 3 ML Glucose (Glucose 40% Gel) 15-30 GRAMS 15 GRAMS... UD PRN PO 07/31/16 12:45 08/30/16 12:44 Glucose (Glucose Chew Tab) 4-8 Tablets 4 Tabl... UD PRN PO 07/31/16 12:45 08/30/16 12:44 Dextrose (Dextrose 50% 50ML Syringe) 25-50ML OF 50% DW IV FOR... UD PRN IV 07/31/16 12:45 08/30/16 12:44 07/31/16 19:32 25 ML Glucagon (Glucagon Inj) 1 mg UD PRN SQ 07/31/16 12:45 08/30/16 12:44 Vancomycin HCl (Consult) 1 ea UD PRN N/A 07/31/16 14:15 08/30/16 14:14 Sodium Chloride ([place] Nasal [place]) 1 sprays PRN PRN NA 08/05/16 16:15 09/04/16 16:14 08/05/16 16:40 1 SPRAYS Pantoprazole Sodium (Protonix Tab) 40 mg BID PO 08/06/16 21:00 09/05/16 20:59 08/14/16 07:35 40 MG Enteral Nutritional Formula (Boost Glucose Control) 1 can TIDM PO 08/06/16 16:45 09/05/16 16:44 08/14/16 12:27 1 CAN Guaifenesin (Mucinex Contr Rel Tab) 1,200 mg Q12 PO 08/07/16 21:00 09/06/16 20:59 08/14/16 07:35 1,200 MG Potassium Chloride (Klor-Con Tab) 40 meq BID PO 08/08/16 21:00 09/07/16 20:59 08/14/16 07:35 40 MEQ Metformin HCl (Glucophage Tab) 500 mg QDB PO 08/09/16 16:45 09/08/16 16:44 08/14/16 07:34 500 MG Insulin Aspart (novoLOG ASPART) SLIDING SCALE G... ACHS SC 08/09/16 06:30 09/08/16 06:29 08/13/16 08:38 4 UNITS Heparin Sodium (Porcine) (Heparin 10 Unit/ ml 5 ml Flush) 5 ml PRN PRN FLUSH 08/09/16 06:45 09/08/16 06:44 08/13/16 11:22 15 ML Heparin Sodium (Porcine) (Heparin Sq 5000 Unit/0.5ml) 5,000 unit Q8 SQ 08/09/16 14:00 09/08/16 13:59 08/14/16 14:07 5,000 UNIT Dornase [place] 2.5 ml 2.5 ml BIDR INH 08/13/16 20:00 09/12/16 19:59 08/14/16 07:09 2.5 ML Vancomycin HCl/ Sodium Chloride (Vancomycin Inj/ Nss 250ml) 275 ml @ 125 mls/hr Q24H IV 08/14/16 10:00 08/27/16 10:01 08/14/16 10:47 125 MLS/HR Heparin Sodium (Porcine) (Heparin 10 Unit/ ml 5 ml Flush) 5 ml PRN PRN FLUSH 08/13/16 21:45 09/12/16 21:44 08/14/16 13:32 5 ML Diltiazem HCl (Cardizem Cd Cap) 180 mg QAM PO 08/14/16 09:00 09/13/16 08:59 08/14/16 08:40 180 MG Objective Vital Signs Date Time Temp Pulse Resp B/P Pulse Ox O2 Delivery O2 Flow Rate FiO2 08/14/16 15:10 37.2 95 20 115/69 95 Nasal Cannula 3.0 95 08/14/16 15:03 90 16 94 Nasal Cannula 3.0 08/14/16 09:47 92 Nasal Cannula 2.0 08/14/16 08:00 Nasal Cannula 2.0 08/14/16 07:56 37.0 103 20 114/74 92 Nasal Cannula 2.0 08/14/16 07:40 95 97/55 08/14/16 07:09 80 16 93 Nasal Cannula 2.0 08/14/16 00:01 Nasal Cannula 2.0 08/13/16 23:57 37.4 96 18 118/71 96 Nasal Cannula 2.0 08/13/16 22:19 90 16 94 Nasal Cannula 2.0 08/13/16 18:30 91 22 105/65 93 Nasal Cannula 2.0 08/13/16 18:15 106 26 120/79 94 Nasal Cannula 2.0 08/13/16 18:00 95 24 110/72 92 Nasal Cannula 2.0 08/13/16 17:45 102 28 101/66 90 Nasal Cannula 2.0 08/13/16 17:30 87 28 113/71 94 Nasal Cannula 2.0 08/13/16 16:00 Nasal Cannula 2.0 Physical Exam General Appearance: WD/WN, no apparent distress Eyes: normal inspection, sclerae normal ENT: hearing grossly normal Neck: supple, trachea midline Respiratory/Chest: chest non-tender, no respiratory distress, no accessory muscle use, + pertinent finding (very mild course breath sounds at bases- otherwise much improved) Cardiovascular: regular rate, rhythm Abdomen: normal bowel sounds Neurologic/Psychiatric: alert, normal mood/affect Skin: normal color, warm/dry, no rash Laboratory Results SINGLE VIEW CHEST CLINICAL HISTORY: PICC placement FINDINGS: An AP, portable, upright chest radiograph is compared to study dated 08/11/2016 and correlated with chest CT dated 08/06/2016. The examination is degraded by portable technique, apical lordotic positioning, and patient rotation. A right internal jugular central venous catheter is unchanged in position. A left PICC line is been placed. The tip of the catheter projects over the cavoatrial junction. The patient is status post midline sternotomy. The heart is enlarged and there is atherosclerotic calcification of the thoracic aorta. The pulmonary vasculature is noncongested. Emphysema and chronic interstitial thickening is similar to previous. Bibasilar patchy airspace consolidation, left greater than right similar to previous. Small pleural effusions are identified, left larger than right. No pneumothorax is seen. The skeletal structures are osteopenic. The bony thorax is grossly intact. IMPRESSION: 1. A left PICC line has been placed. The tip of the catheter projects over the cavoatrial junction. 2. Cardiomegaly and emphysema. 3. Bibasilar consolidation and pleural effusions are similar in appearance to previous.. Last 24 Hours Test 08/13/16 16:42 08/13/16 20:40 08/14/16 07:45 08/14/16 11:26 Bedside Glucose 91 mg/dl 137 mg/dl 96 mg/dl 100 mg/dl Test 08/14/16 15:14 Assessment and Plan (1) Septic shock Status: Acute (2) Influenza A (3) COPD (chronic obstructive pulmonary disease) Status: Chronic (4) Hx of bacterial endocarditis Status: Chronic Patient with bilateral bibasilar pneumonia with sputum positive for MRSA, Influenza A on admission (now resolved), MRSA bacteremia, and history of prosthetic valve replacement. MIGUEL is unable to be done due to respiratory status therefore, recommend continuing IV Vancomycin to complete at least 4 weeks of therapy, but may extend to 6 weeks pending further improvement due to history of endocarditis and prosthetic aortic valve replacement. He will need ID followup. Will also repeat procalcitonin. Plan: 1. Continue Vanco. Tentative stop date 08/29, but may need to complete 6 weeks since MIGUEL cannot be performed (which would extend stop date to 09/12) 2. ID Follow up PROVIDER ADDENDUM: Patient reviewed with Ms. Damon. Agree with above assessment.
[2016-08-15 06:35] LABS: HEMATOCRIT 25.3 % (42-52); MEAN CORPUSCULAR HEMOGLOBIN 29.5 pg (25-34); MEAN CORPUSCULAR HGB CONC 32.4 g/dl (32-36); MEAN PLATELET VOLUME 10.2 fL (7.4-10.4); PLATELET COUNT 147 K/uL (130-400); RED BLOOD COUNT 2.78 M/uL (4.7-6.1); WHITE BLOOD COUNT 8.54 K/uL (4.8-10.8)
[2016-08-15] MEDS: HEPARIN SOD 5000 UNIT/0.5 ML CARP SQ SCH ×2 (06:37→13:28)
[2016-08-15] MEDS: BUDESONIDE 0.5 MG/2 ML VIAL (PULMICORT) INH SCH (07:53)
[2016-08-15 07:54] VITALS: PULSE 99; O2SAT 97
[2016-08-15] MEDS: ALBUT/IPRATROP 3MG/0.5MG NEB 3 ML VIAL INH SCH (07:54)
[2016-08-15] MEDS: DORNASE ALFA (2500U) 2.5MG/2.5ML INH SCH (07:54)
[2016-08-15] MEDS: INSULIN ASPART 100 UNITS/ML 3 ML PEN SC SCH ×2 (07:58→12:33)
[2016-08-15] MEDS: BOOST GLUCOSE CONTROL PO SCH ×2 (07:58→12:41)
[2016-08-15 08:00] VITALS: BP 106/71; PULSE 98; TEMP 37; O2SAT 93
[2016-08-15] MEDS: GUAIFENESIN 600 MG TABCR PO SCH (08:00)
[2016-08-15] MEDS: LACTOBACILLUS ACIDOPHILUS (FLORANEX) TAB PO SCH ×2 (08:00→12:32)
[2016-08-15] MEDS: METFORMIN HCL 500 MG TAB PO SCH (08:01)
[2016-08-15] MEDS: POTASSIUM CHLORIDE 20 MEQ TABCR PO SCH (08:01)
[2016-08-15] MEDS: DILTIAZEM HCL 180 MG CAPCR PO SCH (08:02)
[2016-08-15] MEDS: ATORVASTATIN 40 MG TAB PO SCH (08:02)
[2016-08-15] MEDS: PANTOprazole SOD 40 MG TAB PO SCH (08:05)
--- NOTE | 2016-08-15 09:26 | Pulmonology Progress Note ---
Pulmonary Progress Note Date of Service Aug 15, 2016. Attending Will Lynch Subjective Patient having increased mucus production/clearance. Denies fever, chills, pleurisy Objective Patient able to complete full sentences, not using accessory muscles are becoming tachypnea During our conversation/no signs of respiratory insufficiency Vital signs: Reviewed Stable on 2 L nasal cannula respiratory: Bilateral diffuse rhonchi greatest at the bases on inspiration and expiration Cardiac: S1-S2 very distant heart sounds Extremities: No pitting edema in dependent regions Microbiology #1 expectorated sputum 08/09/16 MRSA #2 blood culture 07/31/16 MRSA #3 expectorated sputum 07/18/16 stenotrophomonas Inpatient medications: #1 vancomycin #2 guaifenesin #3 Pulmicort nebulized twice a day #4 DuoNeb 4 times a day #5 Dornase nebulized #6 Mucinex #7 Pulmicort twice a day nebulized Pertinent swallow: 08/12/16: Mildly diminished esophageal motility CXR (08/13/2016) (l) PICC line, No signs of PTX, continued, no acute changes Assessment & Plan 65-year-old gentleman with multilobar pneumonia and bacteremia: #1 Pulmonary: This time suggest patient continue on his guaifenesin, Pulmicort nebulizer twice daily, duo nebs 4 times daily and Mucinex. She also be followed out by his pool hand and possibly switch to inhalers when appropriate. #2 ID: Patient has grown out MRSA from blood cultures as well as expectorated sputum with similar sensitivity patterns. Currently being treated with vancomycin per ID. Data Medications: Current Inpatient Medications Medications (Trade) Dose Ordered Sig/Jim Route Start Time Stop Time Status Last Admin Dose Admin Acetaminophen (Tylenol Tab) 650 mg Q4H PRN PO 07/31/16 11:00 08/30/16 10:59 08/10/16 14:58 650 MG Ondansetron HCl (Zofran Inj) 4 mg Q6H PRN IV 07/31/16 11:00 08/30/16 10:59 Miscellaneous Information (Consult Glycemic Management Pharmacy) 1 ea UD N/A 07/31/16 11:05 08/30/16 11:04 Atorvastatin Calcium (Lipitor Tab) 40 mg DAILY PO 08/01/16 09:00 08/31/16 08:59 08/15/16 08:02 40 MG Budesonide (Pulmicort Respules 0.5MG/ 2ML Neb Soln) 0.5 mg BIDR INH 07/31/16 20:00 08/30/16 19:59 08/15/16 07:53 0.5 MG Lactobacillus Acidophilus (Floranex Tab) 4 tab TIDM PO 07/31/16 16:30 08/30/16 16:29 08/15/16 08:00 4 TAB Albuterol/ Ipratropium (Duoneb) 3 ml QIDR INH 07/31/16 12:00 08/30/16 11:59 08/15/16 07:54 3 ML Glucose (Glucose 40% Gel) 15-30 GRAMS 15 GRAMS... UD PRN PO 07/31/16 12:45 08/30/16 12:44 Glucose (Glucose Chew Tab) 4-8 Tablets 4 Tabl... UD PRN PO 07/31/16 12:45 08/30/16 12:44 Dextrose (Dextrose 50% 50ML Syringe) 25-50ML OF 50% DW IV FOR... UD PRN IV 07/31/16 12:45 08/30/16 12:44 07/31/16 19:32 25 ML Glucagon (Glucagon Inj) 1 mg UD PRN SQ 07/31/16 12:45 08/30/16 12:44 Vancomycin HCl (Consult) 1 ea UD PRN N/A 07/31/16 14:15 08/30/16 14:14 Sodium Chloride ([place] Nasal [place]) 1 sprays PRN PRN NA 08/05/16 16:15 09/04/16 16:14 08/05/16 16:40 1 SPRAYS Pantoprazole Sodium (Protonix Tab) 40 mg BID PO 08/06/16 21:00 09/05/16 20:59 08/15/16 08:05 40 MG Enteral Nutritional Formula (Boost Glucose Control) 1 can TIDM PO 08/06/16 16:45 09/05/16 16:44 08/15/16 07:58 1 CAN Guaifenesin (Mucinex Contr Rel Tab) 1,200 mg Q12 PO 08/07/16 21:00 09/06/16 20:59 08/15/16 08:00 1,200 MG Potassium Chloride (Klor-Con Tab) 40 meq BID PO 08/08/16 21:00 09/07/16 20:59 08/15/16 08:01 40 MEQ Metformin HCl (Glucophage Tab) 500 mg QDB PO 08/09/16 16:45 09/08/16 16:44 08/15/16 08:01 500 MG Insulin Aspart (novoLOG ASPART) SLIDING SCALE G... ACHS SC 08/09/16 06:30 09/08/16 06:29 08/13/16 08:38 4 UNITS Heparin Sodium (Porcine) (Heparin 10 Unit/ ml 5 ml Flush) 5 ml PRN PRN FLUSH 08/09/16 06:45 09/08/16 06:44 08/15/16 06:28 5 ML Heparin Sodium (Porcine) (Heparin Sq 5000 Unit/0.5ml) 5,000 unit Q8 SQ 08/09/16 14:00 09/08/16 13:59 08/15/16 06:37 5,000 UNIT Dornase [place] 2.5 ml 2.5 ml BIDR INH 08/13/16 20:00 09/12/16 19:59 08/15/16 07:54 2.5 ML Vancomycin HCl/ Sodium Chloride (Vancomycin Inj/ Nss 250ml) 275 ml @ 125 mls/hr Q24H IV 08/14/16 10:00 08/27/16 10:01 08/14/16 10:47 125 MLS/HR Heparin Sodium (Porcine) (Heparin 10 Unit/ ml 5 ml Flush) 5 ml PRN PRN FLUSH 08/13/16 21:45 09/12/16 21:44 08/14/16 13:32 5 ML Diltiazem HCl (Cardizem Cd Cap) 180 mg QAM PO 08/14/16 09:00 09/13/16 08:59 08/15/16 08:02 180 MG I & O: 24-Hour Column 08/15/16 08:00 Intake Total 420 ml Output Total 1125 ml Balance -705 ml Vital Signs: Date Time Temp Pulse Resp B/P Pulse Ox O2 Delivery O2 Flow Rate FiO2 08/15/16 08:00 37.0 98 18 106/71 93 Nasal Cannula 3.0 08/15/16 07:54 99 16 97 Nasal Cannula 2.0 08/15/16 00:00 Nasal Cannula 3.0 08/14/16 23:27 37.5 101 20 110/72 93 Nasal Cannula 2.0 08/14/16 19:31 89 16 93 Nasal Cannula 2.0 08/14/16 16:00 95 Nasal Cannula 2.0 08/14/16 15:10 37.2 95 20 115/69 95 Nasal Cannula 3.0 95 08/14/16 15:03 90 16 94 Nasal Cannula 3.0 08/14/16 09:47 92 Nasal Cannula 2.0 Laboratory Results: Last 24 Hours Test 08/14/16 11:26 08/14/16 15:14 08/14/16 16:17 08/14/16 20:14 Bedside Glucose 100 mg/dl 102 mg/dl 111 mg/dl Procalcitonin 0.41 ng/mL Test 08/15/16 06:00 08/15/16 07:44 White Blood Count 8.54 K/uL Red Blood Count 2.78 M/uL Hemoglobin 8.2 g/dL Hematocrit 25.3 % Mean Corpuscular Volume 91.0 fL Mean Corpuscular Hemoglobin 29.5 pg Mean Corpuscular Hemoglobin Concent 32.4 g/dl RDW Standard Deviation 57.2 fL RDW Coefficient of Variation 17.3 % Platelet Count 147 K/uL Mean Platelet Volume 10.2 fL Bedside Glucose 93 mg/dl
[2016-08-15] MEDS ORDERED: GLC500 PO (09:54)
[2016-08-15] MEDS ORDERED: VNCS125 IV (09:54)
[2016-08-15] MEDS ORDERED: GFNSR600 PO (09:54)
[2016-08-15] MEDS ORDERED: PLMIH INH (09:54)
[2016-08-15] MEDS ORDERED: CRDCD180 PO (09:55)
--- NOTE | 2016-08-15 10:00 | Discharge Instructions ---
Discharge Instructions Admission Admission Date: Jul 31, 2016 at 10:54 Admission Diagnosis: Copd Exacerbation, Sepsis, Hypotension. Care Plan - Goal(s): Decrease discomfort, Improve function Care Plan - Instructions: Activity Recommendations: no limitations Recommended Home Diet: Type 2 Diabetes AHA, Type 2 Diabetes Provider Instructions: Patient should have a vancomycin trough on 08.16.16 and then check every 3rd day Patient should make an appointment with gastroenterology in 4-6 weeks for a colonoscopy Patient scheduled an appointment to see Infectious Disease at [facility] in 2 weeks. Vancomycin should be continued until seen by infectious disease and further length of treatment will be decided at that time. VTE Core Measure Inpt VTE Proph given/why not?: Warfarin (Coumadin) Laboratory Results Test Results: Hemoglobin A1c Test 07/18/16 05:30 Range/Units Estimated Average Glucose 166 mg/dl Hemoglobin A1c 7.4 H 4.5-5.6 % Juan Gonzales Recommendations: Call your doctor if: * Temperature above 101 degrees * Pain not relieved by pain medicine ordered * There is increased drainage or redness from any incision * You have any unanswered questions or concerns. Your Doctors Instructions noted above were prepared by provider Alessandra Caicedo.
[2016-08-15] MEDS: VANCOMYCIN INJ 1,250 MG in SODIUM CHLORIDE 0.9% 250ML 250 ML IV SCH (11:03)
[2016-08-15 12:46] VITALS: BP 106/71; PULSE 98; TEMP 37; O2SAT 93
--- NOTE | 2016-08-15 14:28 | Discharge Summary ---
Discharge Summary Admission Date: Jul 31, 2016 at 10:54 Discharge Date: Aug 15, 2016 [facility] Principal Diagnosis: MRSA Bacteremia/Pneumonia Problems/Secondary Diagnoses: Influenzae Lower GI bleed Acute on Chronic Hypoxic Resp Failure Consultations: Critical Care Infectious Disease Cardiology Medication Reconciliation New Medications: Vancomycin HCl (Vancomycin HCl) 125 Mg/2.5 Ml Susp 1250 MG IV DAILY for 21 Days Diltiazem HCl (Diltiazem HCl ER) 180 Mg Capcr 180 MG PO QAM for 30 Days Dornase Kirby (Pulmozyme) 2.5 Ml Inha 2.5 ML INH BIDR for 30 Days, INHA Guaifenesin Ext Rel (Mucinex Ext Rel) 600 Mg Tabcr 1200 MG PO Q12 for 30 Days, #30 Metformin HCl (Metformin HCl) 500 Mg Tab 500 MG PO QDB for 30 Days, #30 TAB Continued Medications: Albuterol Sulfate (Proair Respiclick) 108 Mcg/Act Aer Unknown Dose UNKNOWN Arformoterol Tartrate (Brovana) 15 Mcg/2 Ml Neb 15 MCG INH BIDR, #60 DOSE Atorvastatin (Lipitor) 40 Mg Tab 40 MG PO DAILY, TAB Budesonide (Inhalation) (Pulmicort Respules 0.5MG/2ML) 0.5 Mg/2 Ml May 0.5 MG INH BIDR, #60 DOSE Ipratropium-Albuterol (Duoneb) 3 Ml Nebu 1 TREATMENT INH Q4H, INHA Lactobacillus Acidophilus (Floranex) 1 Tab Tab 4 TAB PO TIDM, #120 TAB Pantoprazole (Protonix) 40 Mg Tab 40 MG PO DAILY, #30 TAB [Enteral Nutrition Formula] () 1 CAN LIQD 0.5 CAN PO TIDM, #30 Discontinued Medications: Diltiazem Hcl (Diltiazem Hcl) 60 Mg Tab PO TID Lisinopril (Lisinopril) 10 Mg Tab PO DAILY Nystatin (Nystatin) 5 Ml Susp 4 ML PO QID, #1 BTL Trimethoprim/Sulfamethoxazole (Bactrim 400MG/80MG) 1 Ea Tab 1 TAB PO BID, #5 TAB Warfarin Sod (Coumadin) 2.5 Mg Tab 1 TAB PO DAILY for 30 Days, #30 TAB 3 Refills Discharge Exam Review of Systems: Constitutional: No chills Eyes: No worsening of vision ENT: No hearing loss Respiratory: No cough, No shortness of breath Cardiovascular: No chest pain Abdomen: No pain Genitourinary - Male: No hematuria, No urinary hesitancy Neurologic: No memory loss Psychiatric: No depression symptoms Endocrine: No fatigue Hematologic / Lymphatic: No abnormal bleeding/bruising Physical Exam: General Appearance: WD/WN, no apparent distress Eyes: normal inspection, sclerae normal ENT: normal ENT inspection Neck: supple Respiratory/Chest: chest non-tender, lungs clear Cardiovascular: regular rate, rhythm, no edema Abdomen / GI: normal bowel sounds, non tender, soft Extremities: normal inspection Neurologic/Psychiatric: pipe washer II-XII nml as tested, no motor/sensory deficits , alert, oriented x 3 Skin: normal color, warm/dry Hospital Course 65 yo male who has again presented as a direct admit from [facility]. He was most recently admitted to [facility] in the same fashion on 07/17- for a possible C. Diff colitis after COPD exacerbation there. Patient discharged from [facility] to assisted for rehabilitation. After 2 days at [facility] patient developed poor po intake and malaise. Transferred back to [facility] and found to have sepsis. Transferred to ICU, and required dopamine drip for hypotension. Developed Hypoxia requiring intermittent bipap. Transferred to medical floors in fair condition. MRSA/Bacteremia with ?Endocarditis and Sepsis - appreciated infectious disease input - patient on vancomycin - MIGUEL could not be done due to patients respiratory status - blood culture NGTD since 08.01 - will treat patient for 4-6 weeks per I/D/ evaluation for MIGUEL need will be re- evaluated as outpatient/patient will f/c with Infectious disease in 2 weeks B/L MRSA PNA - appreciate infectious disease input - cont vancomycin COPD - course lung sounds on exam - cont'd duonebs added dornase and pulmicort - placed on vibration vest prn Episode of LGIB - GI consulted on patient - plan for colonoscopy as outpatient when patients respiratory status stable - HGB stable Chronic Systolic CHF - euvolemic Influenzae - completed tamiflu course while inpatient afibb - cardiology consulted on patient - increased cardiazem CD to 180 mg - held anticoagulation due to LGIB PETRA -resolved - Avoid nephrotoxic drugs where possible. DVT prophylaxis - sub-q heparin. Disposition-discharged to [facility] with instructions to f/u with infectious disease in 2 weeks for determination of antibiotic duration/ vancomycin trough q 3 days Total Time Spent: Greater than 30 minutes This includes examination of the patient, discharge planning, medication reconciliation, and communication with other providers. Discharge Instructions Please refer to the electronic Patient Visit Report (Discharge Instructions) for additional information.
== END 2016-08-15 14:20 | DRG 871 ==
LOC: ENRESERVDT → ENRESERVTM → C.MSICU 10:05 → UNDOADMIN 10:05 → C.MSICU 10:54 → C.2T 08-03 18:16 → C.MED 08-08 16:17 → C.MS2W 08-08 22:05
PROVIDERS: ADMIT Internal Medicine; ATTEND Hospitalist
PROC: 02HV33Z Insertion of Infusion Device into Superior Vena Cava, Percutaneous Approach (ICD-10-PCS; principal; 2016-07-31)
PROC: 4A133R1 Monitoring of Arterial Saturation, Peripheral, Percutaneous Approach (ICD-10-PCS; 2016-07-31)
DX: A41.9 Sepsis, unspecified organism (principal); R65.21 Severe sepsis with septic shock; J96.21 Acute and chronic respiratory failure with hypoxia; J15.212 Pneumonia due to Methicillin resistant Staphylococcus aureus; N17.9 Acute kidney failure, unspecified; K55.9 Vascular disorder of intestine, unspecified; J44.1 Chronic obstructive pulmonary disease with (acute) exacerbation; K62.5 Hemorrhage of anus and rectum; I50.22 Chronic systolic (congestive) heart failure; I10 Essential (primary) hypertension; E78.5 Hyperlipidemia, unspecified; E11.9 Type 2 diabetes mellitus without complications; F32.9 Major depressive disorder, single episode, unspecified; I48.0 Paroxysmal atrial fibrillation; Z87.891 Personal history of nicotine dependence; I44.0 Atrioventricular block, first degree; D72.819 Decreased white blood cell count, unspecified; J11.1 Influenza due to unidentified influenza virus with other respiratory manifestations; D64.9 Anemia, unspecified; Z99.81 Dependence on supplemental oxygen; Z83.3 Family history of diabetes mellitus; Z79.899 Other long term (current) drug therapy; Z79.01 Long term (current) use of anticoagulants; Z79.52 Long term (current) use of systemic steroids; Z95.2 Presence of prosthetic heart valve; E87.6 Hypokalemia